=== PATIENT | female | born 1975 | race Caucasian/White ===

== ENCOUNTER 2020-02-01 18:25 | Emergency (ER) | payer OTHER, SELFPAY ==
[2020-02-01 18:51] VITALS: BP 141/92; PULSE 91; RESP 18; TEMP 37.3; O2SAT 98; BMI 41.4
[2020-02-01 19:11] LABS: Glucose Urine UA NEG (NEG); Leukocyte Esterase Urine NEG (NEG); Nitrite Urine NEG (NEG); Specific Gravity - Urine 1.015 (1.005-1.025); Urine Blood NEG (NEG); Urine Ketones NEG (NEG); Urine Protein NEG (NEG-TRACE)
[2020-02-01 19:12] LABS: Appearance Urine CLEAR; Color Urine YELLOW
[2020-02-01 20:17] VITALS: BP 143/95; PULSE 83; RESP 16; TEMP 37.1; O2SAT 97
--- NOTE | 2020-02-01 20:29 | CT_ITS ---
EXAMINATION: CT ABDOMEN AND PELVIS WITHOUT CONTRAST CLINICAL INFORMATION: 44-year-old female with left-sided flank pain. Rule out kidney stones. COMPARISON: CT abdomen pelvis 08/29/2019 TECHNIQUE: Multidetector volumetric imaging was performed from the superior aspect of the liver through the pubic symphysis. Sagittal and coronal reformatted images were obtained on the technologist's workstation. This CT examination was performed using dose optimization techniques as appropriate, variously including the following: *Automated exposure control *Adjustment of mA and/or kV according to patient size (this includes techniques or standardized protocols for targeted exams where dose is matched to indication/reason for exam; i.e. extremities or head) *Use of iterative reconstruction technique DLP: 1031 mGy-cm FINDINGS: Visualized lung bases are well aerated. The liver is normal in size but demonstrates diffusely decreased attenuation. The gallbladder is normal in appearance. The pancreas, spleen and adrenal glands are unremarkable. Symmetrically sized kidneys. No renal calculi or hydronephrosis of either kidney. Small cyst within the upper pole of the left kidney. Normal caliber loops of small and large bowel. Normal appendix. Similar tiny periumbilical fat-containing hernia. Nonaneurysmal abdominal aorta. No retroperitoneal lymphadenopathy. The bladder is decompressed and therefore not accurately evaluated. Unremarkable CT appearance of the uterus. 2 cm left adnexal cyst. No gross free pelvic fluid. No inguinal lymphadenopathy. Mild degenerative changes of the spine. CT/CT abdomen pelvis wo con IMPRESSION: -No renal calculi or hydronephrosis of either kidney. -Diffusely decreased liver attenuation suggesting hepatic steatosis. Correlation with liver enzymes recommended. -Small left adnexal cyst.
--- NOTE | 2020-02-01 20:35 | ED.FEMALEGU ---
HPI - Female Genitourinary General Chief complaint: Urogenital-Female Stated complaint: KIDNEY PAIN Time Seen by Provider: 02/01/20 20:23 History of Present Illness HPI Narrative: Patient complains of left flank pain similar to prior kidney stone and some burning with urination for the past 4 days, there is nausea but no vomiting, she is able to tolerate liquids and solids she has no diarrhea no fever no chills, no blood in the stool, no dizziness no weakness no cough Related Data Allergies Allergy/AdvReac Type Severity Reaction Status Date / Time diphenhydramine Allergy Unknown HIVES Verified 02/01/20 18:50 [From BENADRYL] meloxicam [MELOXICAM] Allergy Unknown RASH Verified 02/01/20 18:50 penicillin G Allergy Unknown Anaphylaxis Verified 02/01/20 18:50 Penicillins [PENICILLINS] Allergy Unknown ANAPHYLAXIS Verified 02/01/20 18:50 Sulfa (Sulfonamide Allergy Unknown HIVES Verified 02/01/20 18:50 Antibiotics) [SULFA (SULFONAMIDE ANTIBIOTICS)] sulfur Allergy Unknown Hives Verified 02/01/20 18:50 Benadryl Allergy Unknown Hives Uncoded 02/01/20 18:50 Review of Systems Review of Systems: Positive for left back and flank pain, as well as burning with urination There is no headache no fever no chills no weakness no anorexia no dizziness, no chest pain or shortness of breath no cough no sore throat no abdomen pain there is nausea but no vomiting or diarrhea, there is no skin rash there is no leg swelling there is no calf pain, there is no confusion or weakness [facility] LAT[facility] Past Medical History Attestation statement: The following information was validated with the patient. [facility], LAT[facility] Narrative: Medical history is positive for diabetes kidney stone back pain and hypertension No smoking or alcohol Medical History (Updated 02/01/20 @ 18:53 by Niya Jones) Diabetes Hiatal hernia Kidney stone Surgical History (Updated 02/01/20 @ 18:53 by Niya Jones) H/O Spinal surgery Social History Social History Smoking Status: Former smoker Substance Use Type: Marijuana Advance Directives: No Advance Directives Information Provided: Yes Physical Exam Vital Signs: Vital Signs: Last Vital Signs Temp 98.7 F 02/01/20 20:17 Pulse 83 02/01/20 20:17 Resp 16 11/17/20 20:17 BP 143/95 H 02/01/20 20:17 Pulse Ox 97 02/01/20 20:17 Body Mass Index 41.4 No acute distress, a and O x3, comfortable appearing The head is normocephalic atraumatic The pharynx is clear the mucous membranes are moist The chest is clear to auscultation bilaterally, no adventitious sounds no tenderness to the chest wall no respiratory distress The heart no murmur The abdomen is soft nontender no rebound no guarding The back exam there is left flank and left mid back tenderness as well as left CVA tenderness, there is no bony tenderness, pain is not reproduced with movement, skin is normal without rash, no redness or warmth Extremities is full range of motion x4 Neuro is no focal deficit, no motor sensory deficit Course Course Course Narrative: Patient with left flank pain and some burning on urination for 4 days was seen earlier today for this same complaint by her doctor who got an ultrasound which did not reveal any kidney stones or explanation for her pain, as well as urinalysis which was normal Plan is we will repeat the urinalysis she will go for a CT scan and will check labs as well as treat the nausea and the pain with Zofran and Toradol 21:00 the case is signed out to physician product safety technical assistant perez to follow labs, follow CT scan re-evaluated and dispo patient MDM - Female Genitourinary Lab Data Result diagrams: 02/01/20 20:46 02/01/20 20:46 Labs: Lab Results 02/01/20 02/01/20 02/01/20 Range/Units 19:03 20:46 20:46 WBC 14.6 H (4.8-10.8) X10*3/uL RBC 4.58 (4.20-5.50) X10*6/uL Hgb 13.8 (12.0-16.0) g/dl Hct 40.4 (37-47) % MCV 88.2 (80-98) fL MCH 30.1 (27.0-33.0) pg MCHC 34.2 (31.0-35.0) g/dl RDW 12.1 (11.0-16.0) % Plt Count 367 (160-400) X10*3/uL MPV 9.9 (9.4-12.3) fL Immature Gran % (Auto) 0.3 (0.0-0.4) % Neut % (Auto) 54.7 (45-73) % Lymph % (Auto) 34.3 (20-40) % [place] % (Auto) 4.9 (2-11) % Eos % (Auto) 5.4 H (0-4) % Baso % (Auto) 0.4 (0-2) % Lymph # (Auto) 5.0 H (1.2-4.9) X10*3/uL [place] # (Auto) 0.7 (0.1-1.2) X10*3/uL Eos # (Auto) 0.8 H (0.0-0.4) X10*3/uL Baso # (Auto) 0.1 (0.0-0.2) X10*3/uL Abs Immat Gran (auto) 0.05 H (0.00-0.03) X10*3/uL Absolute Neuts (auto) 8.0 (2.0-8.3) X10*3/uL Absolute Nucleated RBC 0.000 (0.0-0.012) X10*3/uL Nucleated RBC % (auto) 0.0 (0.0-0.2) /100WBC Smear Tech's Comments VERIFIED Sodium 140 (135-145) mmol/L Potassium 3.8 (3.3-5.1) mmol/l Chloride 103 (96-108) mmol/L Carbon Dioxide 27 (22-29) mmol/L Anion Gap 14 (12-20) BUN 12 (9-16) mg/dL Creatinine 0.94 (0.5-1.4) mg/dL Estim Creat Clear Calc 88.1 Estimated GFR > 60 Random Glucose 117 H (60-115) mg/dL Calcium 9.1 (8.4-10.2) mg/dL Total Bilirubin 0.6 (0.0-1.0) mg/dL Direct Bilirubin 0.2 (0.0-0.5) mg/dL AST 21 (5-31) U/L ALT 37 H (0-31) U/L Alkaline Phosphatase 84 (39-117) U/L Total Protein 6.9 (6.5-8.0) g/dL Albumin 4.1 (3.5-5.0) g/dL Lipase 23 (8-78) U/L Urine Color YELLOW Urine Appearance CLEAR Urine pH 6.0 (5.0-8.0) Ur Specific [place] 1.015 (1.005-1.025) Urine Protein NEG (NEG-TRACE) MG/DL Urine Glucose (UA) NEG (NEG) MG/DL Urine Ketones NEG (NEG) MG/DL Urine Blood NEG (NEG) Urine Nitrite NEG (NEG) Ur Leukocyte Esterase NEG (NEG)
[2020-02-01 20:52] LABS: Basophils Absolute Auto 0.1 X10*3/uL (0.0-0.2); Basophils Percent Auto 0.4 % (0-2); Eosinophils Absolute Auto 0.8 X10*3/uL (0.0-0.4); Eosinophils Percent Auto 5.4 % (0-4); Hematocrit 40.4 % (37-47); Hemoglobin 13.8 g/dl (12.0-16.0); Imm Gran Abs Auto 0.05 X10*3/uL (0.00-0.03); Imm Gran Pct Auto 0.3 % (0.0-0.4); Lymphocytes Percent Auto 34.3 % (20-40); MANUAL DIFF FLAG SCAN; Mean Corpuscular HGB Conc 34.2 g/dl (31.0-35.0); Mean Corpuscular Hemoglobin 30.1 pg (27.0-33.0); Mean Corpuscular Volume 88.2 fL (80-98); Mean Platelet Volume 9.9 fL (9.4-12.3); Monocytes Absolute Auto 0.7 X10*3/uL (0.1-1.2); Monocytes Percent Auto 4.9 % (2-11); Neutrophils Percent Auto 54.7 % (45-73); Platelet Count 367 X10*3/uL (160-400); Red Blood Count 4.58 X10*6/uL (4.20-5.50); Red Cell Distribution Width 12.1 % (11.0-16.0); SCAN SMEAR FLAG 1; White Blood Count 14.6 X10*3/uL (4.8-10.8)
[2020-02-01] MEDS: Ketorolac Tromethamine 30 MG/ML VIAL IVPUSH (20:58)
[2020-02-01 21:11] LABS: SLIDE REVIEW VERIFIED
[2020-02-01 21:16] LABS: Alanine Aminotransferase 37 U/L (0-31); Albumin Level 4.1 g/dL (3.5-5.0); Alkaline Phosphatase 84 U/L (39-117); Anion Gap 14 (12-20); Aspartate Amino Transferase 21 U/L (5-31); Bilirubin Direct 0.2 mg/dL (0.0-0.5); Bilirubin Total 0.6 mg/dL (0.0-1.0); Blood Urea Nitrogen 12 mg/dL (9-16); Calcium 9.1 mg/dL (8.4-10.2); Carbon Dioxide 27 mmol/L (22-29); Chloride 103 mmol/L (96-108); Creatinine Clr Calc Pharmacy 88.1; Estimated Glomerular Filt Rate > 60; Glucose Random 117 mg/dL (60-115); Lipase 23 U/L (8-78); Potassium 3.8 mmol/l (3.3-5.1); Sodium 140 mmol/L (135-145); Total Protein 6.9 g/dL (6.5-8.0)
[2020-02-01 21:22] LABS: Glucose Urine UA NEG (NEG); Leukocyte Esterase Urine NEG (NEG); Nitrite Urine NEG (NEG); Urine Blood NEG (NEG); Urine Ketones NEG (NEG); Urine Protein NEG (NEG-TRACE)
[2020-02-01 21:23] LABS: Appearance Urine CLEAR; Color Urine YELLOW
[2020-02-01 21:24] LABS: UPreg QC Valid YES; Urine Pregnancy NEGATIVE (NEGATIVE)
[2020-02-01] MEDS: Acetaminophen 325 MG TABLET 650 MG PO (22:54)
[2020-02-01] MEDS: Lidocaine 4 % Patch ADH..PATCH 1 PATCH TRANSDERMA (22:56)
--- NOTE | 2020-02-01 23:16 | PC.NURSE ---
PT REQUESTING MEDICATION FOR SLEEP AND NAKITA GUERRERO AWARE AND WILL NOT PRESCRIBE ANYTHING AT THIS TIME FOR SLEEP PT WILL NEED TO F/U WITH PCP FOR SLEEP MEDICATION.
== END 2020-02-01 23:16 | disposition home or self-care (01) ==
PROVIDERS: Physician Assistant Medical; Emergency Provider Emergency Medicine; PCP Family Medicine
DX: R10.9 Unspecified abdominal pain (principal); R30.0 Dysuria; F12.90 Cannabis use, unspecified, uncomplicated; Z87.891 Personal history of nicotine dependence
CPT/HCPCS: 36415; 74176; 80048; 80076; 81003; 81025; 83690; 85025; 96372; 96374; 99284; J1885

== ENCOUNTER 2020-02-03 15:32 | Outpatient (REF) | payer OTHER, SELFPAY ==
[2020-02-04 13:20] LABS: CT PCR NOT DETECTED (Not Detect.); NG PCR NOT DETECTED (Not Detect.)
[2020-02-09 15:57] LABS: HPV mRNA E6/E7 rflx Not Detected (Not Detected)
== END 2020-02-03 15:33 | disposition home or self-care (01) ==
LOC: HO.LAB 15:32
PROVIDERS: PCP Family Medicine; Referring Provider Family Medicine; Visit Provider Obstetrics & Gynecology
DX: N92.1 Excessive and frequent menstruation with irregular cycle (principal); L68.0 Hirsutism; Z12.31 Encounter for screening mammogram for malignant neoplasm of breast
CPT/HCPCS: 87491; 87591; 87624; 87625; 88142

== ENCOUNTER 2020-02-03 16:32 | Outpatient (REF) | payer OTHER, SELFPAY ==
[2020-02-03 17:28] LABS: Hemoglobin 13.8 g/dl (12.0-16.0); Mean Corpuscular HGB Conc 33.7 g/dl (31.0-35.0); Mean Corpuscular Volume 89.1 fL (80-98); Mean Platelet Volume 10.6 fL (9.4-12.3); Platelet Count 359 X10*3/uL (160-400); Red Cell Distribution Width 12.2 % (11.0-16.0); White Blood Count 13.5 X10*3/uL (4.8-10.8)
[2020-02-03 18:09] LABS: HCG Quantitative < 2 mIU/mL; Thyroid Stimulating Hormone 0.48 uIU/mL (0.32-4.0)
[2020-02-04 09:56] LABS: Follicle Stimulating Hormone 18.2 mIU/mL; Lutenizing Hormone 16.9 mIU/mL; Prolactin 6.4 ng/mL
[2020-02-05 03:47] LABS: DHEA Sulfate 130 mcg/dL (19-231)
[2020-02-07 21:23] LABS: Testosterone, Free 2.7 pg/mL (0.1-6.4); Testosterone, Total 24 ng/dL (2-45)
== END 2020-02-03 16:33 | disposition home or self-care (01) ==
LOC: HO.LAB 16:32
PROVIDERS: PCP Family Medicine; Visit Provider Obstetrics & Gynecology
DX: L68.0 Hirsutism (principal); N92.1 Excessive and frequent menstruation with irregular cycle
CPT/HCPCS: 36415; 82627; 83001; 83002; 83498; 84146; 84402; 84403; 84443; 84702; 85027

== ENCOUNTER 2020-02-22 15:30 | Outpatient (REF) | payer OTHER, SELFPAY ==
--- NOTE | 2020-02-22 15:34 | US_ITS ---
EXAMINATION: PELVIC ULTRASOUND CLINICAL INFORMATION: Hirsutism COMPARISON: None TECHNIQUE: Transabdominal and transvaginal pelvic ultrasound was performed. Transvaginal exam was performed for better visualization of the uterus and ovaries. FINDINGS: The uterus is anteverted and measures 9.6 x 3.1 x 5 cm in dimension. No focal uterine lesion is seen. Endometrial thickness is normal estimated at 0.4 cm. There are nabothian cysts in the cervix. The cervix is otherwise normal appearing. The ovaries are slightly small but otherwise normal. The right ovary measures 2.5 x 1.2 x 1.9 cm, volume 2.9 mL. The left ovary measures 2.7 x 1.7 x 1.5 cm, volume 3.5 mL. There is no fluid in the pelvis. US/US pelvic complete IMPRESSION: Unremarkable pelvic ultrasound. Ovaries are slightly small.
--- NOTE | 2020-02-22 15:34 | US_ITS ---
EXAMINATION: PELVIC ULTRASOUND CLINICAL INFORMATION: Hirsutism COMPARISON: None TECHNIQUE: Transabdominal and transvaginal pelvic ultrasound was performed. Transvaginal exam was performed for better visualization of the uterus and ovaries. FINDINGS: The uterus is anteverted and measures 9.6 x 3.1 x 5 cm in dimension. No focal uterine lesion is seen. Endometrial thickness is normal estimated at 0.4 cm. There are nabothian cysts in the cervix. The cervix is otherwise normal appearing. The ovaries are slightly small but otherwise normal. The right ovary measures 2.5 x 1.2 x 1.9 cm, volume 2.9 mL. The left ovary measures 2.7 x 1.7 x 1.5 cm, volume 3.5 mL. There is no fluid in the pelvis. US/US transvaginal IMPRESSION: Unremarkable pelvic ultrasound. Ovaries are slightly small.
== END 2020-02-22 15:31 | disposition home or self-care (01) ==
LOC: HO.US 15:30
PROVIDERS: Visit Provider Obstetrics & Gynecology
DX: L68.0 Hirsutism (principal); N92.1 Excessive and frequent menstruation with irregular cycle
CPT/HCPCS: 76830; 76856

== ENCOUNTER → 2020-02-28 15:08 | Outpatient (BNVA) | payer OTHER, SELFPAY | PROVIDERS: Visit Provider Obstetrics & Gynecology | DX: Z76.89 Persons encountering health services in other specified circumstances (principal) ==

== ENCOUNTER 2020-03-02 12:46 | Outpatient (REF) | payer OTHER, SELFPAY | END 2020-03-02 12:47 | disposition home or self-care (01) | LOC: HO.LAB 12:46 | PROVIDERS: Visit Provider Obstetrics & Gynecology | DX: N92.1 Excessive and frequent menstruation with irregular cycle (principal) | CPT/HCPCS: 58100; 88305 ==

== ENCOUNTER 2020-03-03 18:21 | Emergency (ER) | payer OTHER, SELFPAY ==
[2020-03-03 18:31] VITALS: BP 141/89; PULSE 79; RESP 16; TEMP 36.7; O2SAT 97; BMI 39.4
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
[2020-03-03] MEDS: Ibuprofen 800 MG TABLET PO (19:42)
[2020-03-03 19:49] LABS: Glucose, Whole Blood 115 mg/dL (60-115)
--- NOTE | 2020-03-03 19:51 | PC.NURSE ---
PT MEDICATED PER EMAR FOR PAIN AND NUMBNESS IN LEFT ARM . PT ALERT, AWAKE, RESPIRATIONS EASY, N/L. SKIN W/D. PT MOVED TO HALLWAY #22. PT WAS FEELING LIGHTHEADED AND IS REQUESTING BS. BS OBTAINED 116. PT EATING CRACKERS. AWAITING FURTHER ORDERS. WILL CONTINUE TO MONITOR PT.
== END 2020-03-03 20:37 | disposition home or self-care (01) ==
PROVIDERS: Emergency Provider Emergency Medicine
DX: S16.1XXA Strain of muscle, fascia and tendon at neck level, initial encounter (principal); S13.4XXA Sprain of ligaments of cervical spine, initial encounter; V43.52XA Car driver injured in collision with other type car in traffic accident, initial encounter; Y93.89 Activity, other specified; Y92.414 Local residential or business street as the place of occurrence of the external cause; Y99.9 Unspecified external cause status
CPT/HCPCS: 72040; 73030; 82947; 99283

== ENCOUNTER → 2020-03-20 14:43 | Outpatient (BNVA) | payer OTHER, SELFPAY | PROVIDERS: PCP Family Medicine; Visit Provider Obstetrics & Gynecology ==

== ENCOUNTER 2020-04-01 13:58 | Outpatient (REF) | payer OTHER, SELFPAY ==
--- NOTE | 2020-04-01 14:02 | MM_ITS ---
EXAMINATION: MM SCREENING DIGITAL BREAST TOMOSYNTHESIS, BILATERAL CLINICAL INFORMATION: Screening. Asymptomatic. No prior breast imaging. Age 44. Family history breast cancer cousin. The lifetime risk of breast cancer based on the Tyrer-Cuzick Model is 11%. COMPARISON: None (current study represents initial baseline exam). TECHNIQUE: Digital breast tomosynthesis is performed in both the craniocaudal and mediolateral oblique views along with computer-aided detection (CAD). Synthesized 2D images are generated from the tomosynthesis. Additional left CC and bilateral MLO views are provided. FINDINGS: There are scattered areas of fibroglandular density (ACR BI-RADS breast composition Category b). There are no significant masses, abnormal calcifications, or other abnormalities. The axilla and skin contours are unremarkable. MM/MM tomosynthesis screening BI IMPRESSION: No mammographic evidence of malignancy. ASSESSMENT: BI-RADS 1: Negative RECOMMENDATION: Routine annual mammography screening. This patient's information was entered into a reminder system with a target due date for their next mammogram.
== END 2020-04-01 13:59 | disposition home or self-care (01) ==
LOC: HO.MAMMO 13:58
PROVIDERS: Visit Provider Obstetrics & Gynecology
DX: Z12.31 Encounter for screening mammogram for malignant neoplasm of breast (principal)
CPT/HCPCS: 77063; 77067

== ENCOUNTER → 2020-06-26 12:48 | Outpatient (BNVA) | payer OTHER, SELFPAY | PROVIDERS: PCP Family Medicine; Visit Provider Obstetrics & Gynecology ==

== ENCOUNTER 2021-06-22 15:50 | Emergency (ER) | payer OTHER, SELFPAY ==
--- NOTE | ~2021-06-22 | CT_ITS ---
EXAMINATION: CT ABDOMEN AND PELVIS WITHOUT CONTRAST CLINICAL INFORMATION: Left-sided flank pain COMPARISON: CT abdomen pelvis 08/19/2019 TECHNIQUE: Multidetector volumetric imaging was performed from the superior aspect of the liver through the pubic symphysis. Sagittal and coronal reformatted images were obtained on the technologist's workstation. This CT examination was performed using dose optimization techniques as appropriate, variously including the following: *Automated exposure control *Adjustment of mA and/or kV according to patient size (this includes techniques or standardized protocols for targeted exams where dose is matched to indication/reason for exam; i.e. extremities or head) *Use of iterative reconstruction technique DLP: 874 mGy-cm FINDINGS: LUNG BASES: Unremarkable. ABDOMINAL AND PELVIC WALL: Small fat-containing periumbilical hernia. Similar appearance of periumbilical subcutaneous fat stranding and soft tissue unchanged from 2020. LIVER AND BILIARY TREE: Hypoattenuating hepatic parenchyma suggesting hepatic steatosis with focal fat along the gallbladder fossa. Liver is enlarged measuring 20.9 cm in span. GALLBLADDER: Unremarkable. PANCREAS: Unremarkable. SPLEEN: Unremarkable. ADRENAL GLANDS: Unremarkable. KIDNEYS AND URETERS: Bosniak 1 and Bosniak 2 left renal cysts, no imaging follow-up recommended. No hydronephrosis or nephrolithiasis. GASTROINTESTINAL TRACT: Large and small bowel are unremarkable. Normal appendix. VASCULAR: Unremarkable. LYMPH NODES/PERITONEUM: Prominent teagan hepatic nodes stable from 2019 which may be reactive in the setting of hepatic steatosis. FREE FLUID: None. BLADDER: Unremarkable. PELVIC VISCERA: Unremarkable. OSSEOUS STRUCTURES: Unremarkable. CT/CT abdomen pelvis wo con IMPRESSION: No hydronephrosis or nephrolithiasis. Hepatomegaly and hepatic steatosis. Prominent teagan hepatic nodes stable from 2020 which may be reactive in the setting of hepatic steatosis.
[2021-06-22 16:06] VITALS: BP 126/90; PULSE 85; RESP 19; TEMP 36.9; O2SAT 99; BMI 40.7
[2021-06-22 16:17] LABS: MANUAL DIFF FLAG NO
[2021-06-22 16:19] LABS: Basophils Absolute Auto 0.1 X10*3/uL (0.0-0.2); Basophils Percent Auto 0.6 % (0-2); Eosinophils Absolute Auto 0.5 X10*3/uL (0.0-0.4); Eosinophils Percent Auto 3.9 % (0-4); Hematocrit 41.2 % (37.0-47.0); Hemoglobin 13.9 g/dl (12.0-16.0); Imm Gran Abs Auto 0.04 X10*3/uL (0.00-0.03); Imm Gran Pct Auto 0.3 % (0.0-0.4); Lymphocytes Absolute Auto 3.9 X10*3/uL (1.2-4.9); Lymphocytes Percent Auto 33.8 % (20-40); Mean Corpuscular HGB Conc 33.7 g/dl (31.0-35.0); Mean Corpuscular Hemoglobin 29.8 pg (27.0-33.0); Mean Corpuscular Volume 88.2 fL (80.0-98.0); Mean Platelet Volume 10.3 fL (9.4-12.3); Monocytes Absolute Auto 0.6 X10*3/uL (0.1-1.2); Monocytes Percent Auto 4.9 % (2-11); Neutrophils Absolute Auto 6.6 x10*3/uL (2.0-8.3); Neutrophils Percent Auto 56.5 % (45-73); Platelet Count 315 X10*3/uL (160-400); Red Blood Count 4.67 X10*6/uL (4.20-5.50); Red Cell Distribution Width 12.8 % (11.0-16.0); White Blood Count 11.7 X10*3/uL (4.8-10.8)
[2021-06-22 16:34] LABS: Alanine Aminotransferase 39 U/L (0-31); Alkaline Phosphatase 85 U/L (39-117); Anion Gap 12 (12-20); Aspartate Amino Transferase 20 U/L (5-31); Bilirubin Direct 0.2 mg/dL (0.0-0.5); Bilirubin Total 0.5 mg/dL (0.0-1.0); Blood Urea Nitrogen 11 mg/dL (9-16); Calcium 9.2 mg/dL (8.4-10.2); Carbon Dioxide 29 mmol/L (22-29); Chloride 105 mmol/L (96-108); Creatinine Clr Calc Pharmacy 94.4; Estimated Glomerular Filt Rate > 60; Glucose Random 128 mg/dL (60-115); Lipase 42 U/L (8-78); Potassium 4.3 mmol/L (3.3-5.1); Sodium 142 mmol/L (135-145); Total Protein 6.8 g/dL (6.5-8.0)
[2021-06-22 21:07] VITALS: BP 132/95; PULSE 76; RESP 18; TEMP 36.9; O2SAT 95
--- NOTE | 2021-06-22 21:09 | ED.FEMALEGU ---
HPI - Female Genitourinary General Chief complaint: Urogenital-Female Stated complaint: left flank pain Time Seen by Provider: 06/22/21 21:02 Source: patient Mode of arrival: ambulatory Limitations: no limitations History of Present Illness HPI Narrative: This is a 45-year-old female past medical history of diabetes, kidney stones presenting to the emergency department complaints of left-sided flank pain and nausea x1 day. Patient tells me she was seen a by her doctor who told her she needed to come into the emergency department immediately to be evaluated as she had a positive urine culture at her doctor's office. Patient showed me her phone which shows results of a urine positive streptococcal urine infection. Patient denies urinary frequency, urgency, dysuria. Patient tells me she has a history of kidney stones and ?kidney infection?. She also reports fevers at home T-max 101.7 degrees F. she denies chest pain, shortness of breath, vomiting, abdominal pain, concerns for STD/STI MD elicited complaint: flank pain Pertinent past history: diabetes and other ( kidney infection ) Onset (ago): day(s) (1) Severity: severe Female Urogenital Radiation: L Flank Severity scale (1-10): >10 Quality of pain: sharp Consistency: constant Vaginal discharge: none Vaginal bleeding: none Urinary symptoms: Flank Pain Exacerbating factors: none Relieving factors: none Associated symptoms: denies other symptoms Treatment prior to arrival: none Sexual activity: No Patient : Yes Related Data Home Medications Medication Instructions Recorded Confirmed alcohol swabs pad TOPICAL BID 02/03/20 03/20/20 blood sugar diagnostic #10 ea 02/03/20 03/20/20 ciprofloxacin HCl 250 mg tablet 250 mg PO BID 02/03/20 03/20/20 escitalopram oxalate 10 mg tablet 10 mg PO DAILY 02/03/20 03/20/20 fluconazole 150 mg tablet 150 mg PO 02/03/20 03/20/20 glyburide 5 mg tablet 5 mg PO DAILY 02/03/20 03/20/20 ibuprofen 800 mg tablet 800 mg PO TID 02/03/20 03/20/20 insulin lispro 100 unit/mL unit SUBCUT 02/03/20 03/20/20 subcutaneous pen lancets 28 gauge #100 ea 02/03/20 03/20/20 lisinopril 5 mg tablet 5 mg PO DAILY 02/03/20 03/20/20 lorazepam 0.5 mg tablet 0.5 mg PO BEDTIME PRN 02/03/20 03/20/20 metformin 500 mg tablet,extended 1,000 mg PO BID 02/03/20 03/20/20 release 24 hr omeprazole 20 mg capsule,delayed 20 mg PO BID 02/03/20 03/20/20 release pen needle, diabetic 32 gauge x #50 ea 02/03/20 03/20/20 5/32 semaglutide mg SUBCUT 02/03/20 03/20/20 tamsulosin 0.4 mg capsule 0.4 mg PO DAILY 02/03/20 03/20/20 valacyclovir 1 gram tablet 1,000 mg PO TID 02/03/20 03/20/20 ketoconazole 2 % topical cream 1 appl TOPICAL DAILY 03/20/20 03/20/20 nystatin 100,000 unit/gram topical TOPICAL 03/20/20 03/20/20 powder Previous Rx's Medication Instructions Recorded cyclobenzaprine 10 mg tablet 10 mg PO TID PRN #14 tab 03/03/20 medroxyprogesterone 10 mg tablet 10 mg PO daily 10 Days #30 tab 03/20/20 (Provera) cyclobenzaprine 10 mg tablet 10 mg PO BEDTIME PRN #7 tab 06/23/21 lidocaine 5 % topical patch 1 patch TOPICAL DAILY PRN #15 ea 06/23/21 nitrofurantoin 100 mg PO BID 7 Days #14 cap 06/23/21 monohydrate/macrocrystals 100 mg capsule (Macrobid) Allergies Allergy/AdvReac Type Severity Reaction Status Date / Time diphenhydramine Allergy Unknown HIVES Verified 06/22/21 16:10 [From BENADRYL] meloxicam [MELOXICAM] Allergy Unknown RASH Verified 06/22/21 16:10 penicillin G Allergy Unknown Anaphylaxis Verified 06/22/21 16:10 Penicillins [PENICILLINS] Allergy Unknown ANAPHYLAXIS Verified 06/22/21 16:10 Sulfa (Sulfonamide Allergy Unknown HIVES Verified 06/22/21 16:10 Antibiotics) [SULFA (SULFONAMIDE ANTIBIOTICS)] sulfur Allergy Unknown Hives Verified 06/22/21 16:10 Benadryl Allergy Unknown Hives Uncoded 06/22/21 16:10 Review of Systems Review of Systems: Constitutional : No Weight loss, No Fever, No Chills, No Fatigue, No Malaise ENT/Mouth : No sore throat, No Rhinorrhea Eyes: No Eye Pain, No Swelling, No Redness Cardiovascular : No Chest Pain, No SOB, No Dyspnea on Exertion, No Orthopnea, No Edema, No Palpitations Respiratory : No Cough, No Sputum, No Wheezing Gastrointestinal : No Nausea, No Vomiting, No Diarrhea, No Constipation, No abdominal Pain, No Hematochezia, No Melena Genitourinary : No Dysuria, No Urinary Frequency, No Hematuria, Musculoskeletal : No joint pain, No Myalgias, No Joint Swelling, + flank pain Skin : No Skin Lesions, No rash Neuro : No Weakness, No Numbness, No Dizziness, No Headache Psych : No Anxiety/Panic, No Depression All other systems reviewed and are negative Yes all other systems are reviewed and are negative [facility] Past Medical History Attestation statement: The following information was validated with the patient. Source: old records reviewed and nursing notes reviewed Medical History Diabetes Hiatal hernia Kidney stone Surgical History H/O Spinal surgery Social History Social History Alcohol intake: never Substance Use Type: Marijuana Advance Directives: No Advance Directives Information Provided: No Patient : Yes Sexual orientation: Straight/Heterosexual Gender identity: Female Physical Exam Vital Signs: Vital Signs: Last Vital Signs Temp 97.8 F 06/23/21 01:59 Pulse 66 06/23/21 01:59 Resp 16 06/23/21 01:59 BP 148/87 H 06/23/21 01:59 Pulse Ox 95 06/23/21 01:59 BMI result Body Mass Index 40.7 Vital signs stable Appearance: Alert.? Oriented X3.? No acute distress.? Head: Normocephalic, atraumatic, no step-offs or deformities Eyes: Pupils equal, round and reactive to light.? ENT: Pharynx normal.? Neck: Normal inspection.? Neck supple.? CVS: Normal heart rate and rhythm.? Pulses normal.? Respiratory: No respiratory distress.? Breath sounds normal.? Abdomen: Soft and nontender.? Skin: Skin warm and dry.? Normal skin color.? Normal skin turgor.? Extremities: No lower extremity edema.? No calf ttp. 5/5 strength to bilateral upper and lower extremities Back: No midline tenderness, no C-spine tenderness, full range of motion, + CVA tenderness on the left Neuro: Oriented X 3.? No motor deficit.? No sensory deficit. CN 2-12 intact Course Reevaluation(s) Reevaluation #1: Patient noted to have a leukocytosis however this appears to be patient's baseline. No acute electrolyte abnormalities. Beta-hCG negative. Urine with no acute infection. COVID negative. CT of the abdomen and pelvis with no hydronephrosis or nephrolithiasis. Hepatosteatosis and hepatomegaly are noted. There are prominent teagan hepatic nodes stable from 2020. Patient reports that her left flank pain has improved after morphine. She still reports nausea. An additional dose of Zofran will be given. Patient will be discharged home with muscle relaxer, lidocaine patch and naproxen. Patient tells me that her urine culture at her doctor's office was positive and she would like treatment for UTI. I will prescribed to patient however she denied urinary symptoms to me. Time: 03:29 MDM - Female Genitourinary MDM Narrative Medical decision making narrative: 2[address] 45 yo female presents w/ concerns of UTI (told by her pcp) and severe left-sided flank pain and nausea. Physical examination significant for positive CVA tenderness on the left. History and physical concerning for pyelonephritis, UTI, nephro lithiasis Plan at this time lab tests, urine, CT of the abdomen pelvis without contrast to rule out kidney stones, pyelo. Medical Records Attestation: I reviewed the patient's medical records. Lab Data Attestation: I reviewed the patient's lab results. Result diagrams: 06/22/21 16:12 06/22/21 21:23 Labs: Lab Results 06/22/21 06/22/21 06/22/21 Range/Units 16:12 16:12 21:23 WBC 11.7 H (4.8-10.8) X10*3/uL RBC 4.67 (4.20-5.50) X10*6/uL Hgb 13.9 (12.0-16.0) g/dl Hct 41.2 (37.0-47.0) % MCV 88.2 (80.0-98.0) fL MCH 29.8 (27.0-33.0) pg MCHC 33.7 (31.0-35.0) g/dl RDW 12.8 (11.0-16.0) % Plt Count 315 (160-400) X10*3/uL MPV 10.3 (9.4-12.3) fL Immature Gran % (Auto) 0.3 (0.0-0.4) % Neut % (Auto) 56.5 (45-73) % Lymph % (Auto) 33.8 (20-40) % [place] % (Auto) 4.9 (2-11) % Eos % (Auto) 3.9 (0-4) % Baso % (Auto) 0.6 (0-2) % Lymph # (Auto) 3.9 (1.2-4.9) X10*3/uL [place] # (Auto) 0.6 (0.1-1.2) X10*3/uL Eos # (Auto) 0.5 H (0.0-0.4) X10*3/uL Baso # (Auto) 0.1 (0.0-0.2) X10*3/uL Abs Immat Gran (auto) 0.04 H (0.00-0.03) X10*3/uL Absolute Neuts (auto) 6.6 (2.0-8.3) x10*3/uL Absolute Nucleated RBC 0.000 (0.0-0.012) X10*3/uL Nucleated RBC % (auto) 0.0 (0.0-0.2) /100WBC Sodium 142 141 (135-145) mmol/L Potassium 4.3 4.3 (3.3-5.1) mmol/L Chloride 105 105 (96-108) mmol/L Carbon Dioxide 29 26 (22-29) mmol/L Anion Gap 12 14 (12-20) BUN 11 13 (9-16) mg/dL Creatinine 0.86 0.82 (0.5-1.4) mg/dL Estim Creat Clear Calc 94.4 98.9 Estimated GFR > 60 > 60 Random Glucose 128 H 101 (60-115) mg/dL Lactic Acid (0.5-2.0) mmol/L Calcium 9.2 9.4 (8.4-10.2) mg/dL Magnesium 2.0 (1.6-2.6) mg/dL Total Bilirubin 0.5 0.5 (0.0-1.0) mg/dL Direct Bilirubin 0.2 (0.0-0.5) mg/dL AST 20 25 (5-31) U/L ALT 39 H 39 H (0-31) U/L Alkaline Phosphatase 85 84 (39-117) U/L Total Protein 6.8 7.1 (6.5-8.0) g/dL Albumin 4.0 4.0 (3.5-5.0) g/dL Lipase 42 40 (8-78) U/L Beta HCG, Quant < 2 mIU/mL Urine Color Urine Appearance Urine pH (5.0-8.0) Ur Specific [place] (1.005-1.025) Urine Protein (NEG-TRACE) MG/DL Urine Glucose (UA) (NEG) MG/DL Urine Ketones (NEG) MG/DL Urine Blood (NEG) Urine Nitrite (NEG) Ur Leukocyte Esterase (NEG) COVID-19 (JONNATHAN) (Negative) COVID-19 Clin Com 06/22/21 06/22/21 06/22/21 Range/Units 21:23 21:24 23:11 WBC (4.8-10.8) X10*3/uL RBC (4.20-5.50) X10*6/uL Hgb (12.0-16.0) g/dl Hct (37.0-47.0) % MCV (80.0-98.0) fL MCH (27.0-33.0) pg MCHC (31.0-35.0) g/dl RDW (11.0-16.0) % Plt Count (160-400) X10*3/uL MPV (9.4-12.3) fL Immature Gran % (Auto) (0.0-0.4) % Neut % (Auto) (45-73) % Lymph % (Auto) (20-40) % [place] % (Auto) (2-11) % Eos % (Auto) (0-4) % Baso % (Auto) (0-2) % Lymph # (Auto) (1.2-4.9) X10*3/uL [place] # (Auto) (0.1-1.2) X10*3/uL Eos # (Auto) (0.0-0.4) X10*3/uL Baso # (Auto) (0.0-0.2) X10*3/uL Abs Immat Gran (auto) (0.00-0.03) X10*3/uL Absolute Neuts (auto) (2.0-8.3) x10*3/uL Absolute Nucleated RBC (0.0-0.012) X10*3/uL Nucleated RBC % (auto) (0.0-0.2) /100WBC Sodium (135-145) mmol/L Potassium (3.3-5.1) mmol/L Chloride (96-108) mmol/L Carbon Dioxide (22-29) mmol/L Anion Gap (12-20) BUN (9-16) mg/dL Creatinine (0.5-1.4) mg/dL Estim Creat Clear Calc Estimated GFR Random Glucose (60-115) mg/dL Lactic Acid 1.2 (0.5-2.0) mmol/L Calcium (8.4-10.2) mg/dL Magnesium (1.6-2.6) mg/dL Total Bilirubin (0.0-1.0) mg/dL Direct Bilirubin (0.0-0.5) mg/dL AST (5-31) U/L ALT (0-31) U/L Alkaline Phosphatase (39-117) U/L Total Protein (6.5-8.0) g/dL Albumin (3.5-5.0) g/dL Lipase (8-78) U/L Beta HCG, Quant mIU/mL Urine Color YELLOW Urine Appearance HAZY Urine pH 6.0 (5.0-8.0) Ur Specific [place] 1.025 (1.005-1.025) Urine Protein NEG (NEG-TRACE) MG/DL Urine Glucose (UA) NEG (NEG) MG/DL Urine Ketones NEG (NEG) MG/DL Urine Blood NEG (NEG) Urine Nitrite NEG (NEG) Ur Leukocyte Esterase NEG (NEG) COVID-19 (JONNATHAN) Negative (Negative) COVID-19 Clin Com See Note Critical Care Time Critical Care Time Critical Care Time: No Discharge Plan Discharge Clinical Impression: Flank pain, Nausea Patient Disposition: Home, Self-Care Instructions: Acute Nausea and Vomiting (ED), Flank Pain (ED) Additional Instructions: Take your medications as prescribed. If you were prescribed antibiotics today, it is important that you take your medication to their entirety, do not skip any doses, do not finish them early. Follow-up with your primary care provider this week. Return to the emergency department with new or worsening symptoms. Such as fevers, chills, chest pain, shortness of breath, nausea, vomiting, dizziness, headache, vision changes, lethargy, weakness, changes in urination or bowel habits In case of emergency call 911 You can alternate ibuprofen every 6 hours, Tylenol every 4 as needed for pain or discomfort. Cyclobenzaprine was sent to her pharmacy, this is a muscle relaxer. Please do not take this while driving or operating machinery. Prescriptions: New cyclobenzaprine 10 mg tablet 10 mg PO BEDTIME PRN (Reason: muscle spasm) Qty: 7 0RF lidocaine 5 % adhesive patch,medicated 1 patch topical DAILY PRN (Reason: pain) Qty: 15 0RF Rx Instructions: leave on most painful area for up to 12 hrs nitrofurantoin monohyd/m-cryst [Macrobid] 100 mg capsule 100 mg PO BID 7 Days Qty: 14 0RF Rx Instructions: must administer with a meal/food No Action cyclobenzaprine 10 mg tablet 10 mg PO TID PRN (Reason: muscle spasm) Qty: 14 0RF ciprofloxacin HCl 250 mg tablet 250 mg PO BID 0RF lisinopril 5 mg tablet 5 mg PO DAILY 0RF Ozempic 0.25 mg or 0.5 mg(2 mg/1.5 mL) pen injector subcut 0RF escitalopram oxalate 10 mg tablet 10 mg PO DAILY 0RF insulin lispro 100 unit/mL insulin pen subcut 0RF tamsulosin 0.4 mg capsule 0.4 mg PO DAILY 0RF ibuprofen 800 mg tablet 800 mg PO TID 0RF lorazepam 0.5 mg tablet 0.5 mg PO BEDTIME PRN (Reason: insomnia) 0RF valacyclovir 1 gram tablet 1,000 mg PO TID 0RF (DME) lancets 28 gauge misc See Rx Instructions gauge Not Applicable .MEDSUPPLY Qty: 100 0RF Rx Instructions: As directed (DME) FreeStyle Lite Strips Strip See Rx Instructions strip Not Applicable .MEDSUPPLY Qty: 10 0RF Rx Instructions: As directed (DME) pen needle, diabetic 32 gauge x 5/32 needle See Rx Instructions ea subcut .MEDSUPPLY Qty: 50 0RF Rx Instructions: As directed alcohol swabs Pads, Medicated topical BID 0RF metformin 500 mg tablet extended release 24 hr 1,000 mg PO BID 0RF fluconazole 150 mg tablet 150 mg PO 0RF glyburide 5 mg tablet 5 mg PO DAILY 0RF omeprazole 20 mg capsule,delayed release(DR/EC) 20 mg PO BID 0RF ketoconazole 2 % cream 1 appl topical DAILY 0RF nystatin 100,000 unit/gram powder topical 0RF medroxyprogesterone [Provera] 10 mg tablet 10 mg PO daily 10 Days Qty: 30 1RF Rx Instructions: Start on day 15 to day 24 of every cycle, day 1 being the 1st day of menses. Referrals: Physician,Unknown J [Primary Care Provider] - 2 days Stand Alone Forms: Work/School Release
[2021-06-22] MEDS: 0.9 % Sodium Chloride 1,000 ML 999 ML IV (21:31)
[2021-06-22 21:49] LABS: Lactic Acid 1.2 mmol/L (0.5-2.0)
[2021-06-22 21:52] LABS: COVID-19 Test Negative (Negative)
[2021-06-22 21:54] LABS: Alanine Aminotransferase 39 U/L (0-31); Alkaline Phosphatase 84 U/L (39-117); Anion Gap 14 (12-20); Aspartate Amino Transferase 25 U/L (5-31); Bilirubin Total 0.5 mg/dL (0.0-1.0); Blood Urea Nitrogen 13 mg/dL (9-16); Calcium 9.4 mg/dL (8.4-10.2); Carbon Dioxide 26 mmol/L (22-29); Chloride 105 mmol/L (96-108); Creatinine Clr Calc Pharmacy 98.9; Estimated Glomerular Filt Rate > 60; Glucose Random 101 mg/dL (60-115); Lipase 40 U/L (8-78); Potassium 4.3 mmol/L (3.3-5.1); Sodium 141 mmol/L (135-145); Total Protein 7.1 g/dL (6.5-8.0)
[2021-06-22] MEDS: Morphine Sulfate 4 MG/ML CARTRIDGE IVPUSH (21:56)
[2021-06-22 21:59] LABS: HCG Quantitative < 2 mIU/mL
[2021-06-22 23:19] LABS: Appearance Urine HAZY; Color Urine YELLOW; Glucose Urine UA NEG (NEG); Leukocyte Esterase Urine NEG (NEG); Nitrite Urine NEG (NEG); Specific Gravity - Urine 1.025 (1.005-1.025); Urine Blood NEG (NEG); Urine Ketones NEG (NEG); Urine Protein NEG (NEG-TRACE)
[2021-06-23] MEDS: Morphine Sulfate 4 MG/ML CARTRIDGE IVPUSH (00:03)
[2021-06-23] MEDS: 0.9 % Sodium Chloride 1,000 ML 999 ML IV (00:04)
[2021-06-23 00:15] VITALS: BP 113/78; PULSE 75; RESP 18; O2SAT 97
[2021-06-23 01:59] VITALS: BP 148/87; PULSE 66; RESP 16; TEMP 36.6; O2SAT 95
[2021-06-23] MEDS: ondansetron HCL 4 MG/2 ML VIAL IVPUSH (03:40)
== END 2021-06-23 03:58 | disposition home or self-care (01) ==
PROVIDERS: Physician Assistant; Emergency Provider Emergency Medicine
DX: R10.9 Unspecified abdominal pain (principal); R11.0 Nausea; Z79.899 Other long term (current) drug therapy; Z20.822 Contact with and (suspected) exposure to COVID-19
CPT/HCPCS: 36415; 74176; 80048; 80053; 80076; 81003; 83605; 83690; 83735; 84702; 85025; 87040; 87635; 96361; 96374; 96375; 96376; 99284; J2270; J2405

== ENCOUNTER 2021-07-19 14:05 | Outpatient (REF) | payer OTHER, SELFPAY ==
--- NOTE | ~2021-07-19 | MM_ITS ---
EXAMINATION: MM SCREENING DIGITAL BREAST TOMOSYNTHESIS, BILATERAL CLINICAL INFORMATION: Screening. Asymptomatic. The lifetime risk of breast cancer based on the Tyrer-Cuzick Model is 11.0%. COMPARISON: Mammography: April 01, 2020 TECHNIQUE: Digital breast tomosynthesis is performed in both the craniocaudal and mediolateral oblique views along with computer-aided detection (CAD). Synthesized 2D images are generated from the tomosynthesis. FINDINGS: The breasts are heterogeneously dense, which may obscure small masses (ACR BI-RADS breast composition Category c). There are no significant masses, abnormal calcifications, or other abnormalities. MM/MM tomosynthesis screening BI IMPRESSION: There are no significant changes from prior study. ASSESSMENT: BI-RADS 1: Negative RECOMMENDATION: Routine annual mammography screening. This patient's information was entered into a reminder system with a target due date for their next mammogram.
== END 2021-07-19 14:06 | disposition home or self-care (01) ==
LOC: HO.MAMMO 14:05
PROVIDERS: Visit Provider Physician Assistant
DX: Z12.31 Encounter for screening mammogram for malignant neoplasm of breast (principal)
CPT/HCPCS: 77063; 77067

== ENCOUNTER 2021-09-04 16:09 | Emergency (ER) | payer OTHER, SELFPAY ==
--- NOTE | ~2021-09-04 | CT_ITS ---
EXAMINATION: CT abdomen pelvis wo con CLINICAL INFORMATION: Reason for Exam flank pain/abdominal pain COMPARISON: Prior CT June 2021 TECHNIQUE: Multidetector volumetric imaging was performed from the superior aspect of the liver through the pubic symphysis . Study done without contrast. Sagittal and coronal reformatted images were obtained on the technologist's workstation. This CT examination was performed using dose optimization techniques as appropriate, variously including the following: *Automated exposure control *Adjustment of mA and/or kV according to patient size (this includes techniques or standardized protocols for targeted exams where dose is matched to indication/reason for exam; i.e. extremities or head) *Use of iterative reconstruction technique DLP: 973 mGy-cm FINDINGS: LOWER THORAX: Included lung bases are clear. HEPATOBILIARY: No focal hepatic lesions. No biliary ductal dilatation. GALLBLADDER: Gallbladder unremarkable. SPLEEN: Spleen is normal in size. PANCREAS: No focal mass or ductal dilatation. STOMACH AND GASTROINTESTINAL TRACT: Stomach is grossly unremarkable. There is no bowel distention or thickening. No CT evidence of appendicitis. ADRENALS: No adrenal nodules. KIDNEYS/URETERS: There is a complex cystic structure upper pole left kidney measures 2.2 x 2 cm containing fluid and hyperdense material could be calcification, this has not changed. No kidney stone or hydronephrosis. Perinephric fat are clear. URINARY BLADDER: Partially decompressed. PELVIC VISCERA: Unremarkable PERITONEUM: No free air or fluid. LYMPH NODES: No lymphadenopathy. VASCULAR:Abdominal aorta normal in size, no aneurysm found. BONES, ABDOMINAL WALL AND SOFT TISSUES: There is anterior abdominal wall periumbilical hernia measures 2.7 cm in diameter containing fat only. There is soft tissue/probably a scar at midline supraumbilical region. CT/CT abdomen pelvis wo con IMPRESSION: *There is 2.7 cm periumbilical hernia containing fat only *No CT evidence of appendicitis, no kidney stone or hydronephrosis. *Mildly complex cystic structure upper pole left kidney containing fluid and hyperdense portion could be calcifications 2.2 cm, unchanged from recent CT of June 2021. This was not visualized on prior ultrasound from 2019, May consider further characterization with follow-up renal ultrasound.
[2021-09-04 16:15] VITALS: BP 152/96; PULSE 92; RESP 20; TEMP 36.8; O2SAT 98; BMI 37.8
--- NOTE | 2021-09-04 17:19 | ED.FEMALEGU ---
HPI - Female Genitourinary General Chief complaint: Urogenital-Female <Caitlyn Marie NP - Last Filed: 09/04/21 18:37> Stated complaint: UTI <Caitlyn Marie NP - Last Filed: 09/04/21 18:37> Time Seen by Provider: 09/04/21 17:05 <Caitlyn Marie NP - Last Filed: 09/04/21 18:37> Source: patient <Caitlyn Marie NP - Last Filed: 09/04/21 18:37> Mode of arrival: ambulatory <Caitlyn Marie NP - Last Filed: 09/04/21 18:37> Limitations: no limitations <Caitlyn Marie NP - Last Filed: 09/04/21 18:37> History of Present Illness HPI Narrative: 45 yo female with a history of diabetes, hernia repair here with reports of lower pelvic pressure for the last 2 weeks. Patient tells me she was diagnosed with a UTI on August 22. She started cephalexin on August 27. She took it for 5 days then discontinued it due to side effects that she tells me are yeast infection, upset stomach. Patient reports continued or pelvic pressure with radiation into her bilateral flank and abdomen. She has had nausea and vomiting which is intermittent. Last evening she had a temperature of 100.5 degrees. No diarrhea or constipation. She has noticed that her previous umbilical hernia repair site seems to be bulging and wants this checked. She has not been sexually active for years is not concern for STD exposure. She has irregular menses <Caitlyn Marie NP - Last Filed: 09/04/21 18:37> Related Data Home medications: Home Medications Medication Instructions Recorded Confirmed alcohol swabs pad topical BID diabetes mellitus 02/03/20 03/20/20 blood sugar diagnostic #10 ea 02/03/20 03/20/20 ciprofloxacin HCl 250 mg tablet 250 mg PO BID 02/03/20 03/20/20 escitalopram oxalate 10 mg tablet 10 mg PO DAILY 02/03/20 03/20/20 fluconazole 150 mg tablet 150 mg PO 02/03/20 03/20/20 glyburide 5 mg tablet 5 mg PO DAILY 02/03/20 03/20/20 ibuprofen 800 mg tablet 800 mg PO TID 02/03/20 03/20/20 insulin lispro 100 unit/mL unit subcut 02/03/20 03/20/20 subcutaneous pen lancets 28 gauge #100 ea 02/03/20 03/20/20 lisinopril 5 mg tablet 5 mg PO DAILY 02/03/20 03/20/20 lorazepam 0.5 mg tablet 0.5 mg PO BEDTIME PRN insomnia 02/03/20 03/20/20 metformin 500 mg tablet,extended 1,000 mg PO BID 02/03/20 03/20/20 release 24 hr omeprazole 20 mg capsule,delayed 20 mg PO BID 02/03/20 03/20/20 release pen needle, diabetic 32 gauge x #50 ea 02/03/20 03/20/2032 semaglutide mg subcut 02/03/20 03/20/20 tamsulosin 0.4 mg capsule 0.4 mg PO DAILY 02/03/20 03/20/20 valacyclovir 1 gram tablet 1,000 mg PO TID 02/03/20 03/20/20 ketoconazole 2 % topical cream 1 appl topical DAILY 03/20/20 03/20/20 nystatin 100,000 unit/gram topical topical 03/20/20 03/20/20 powder Previous Rx's Medication Instructions Recorded cyclobenzaprine 10 mg tablet 10 mg PO TID PRN muscle spasm #14 03/03/20 tabs medroxyprogesterone 10 mg tablet 10 mg PO daily 10 days #30 tabs 03/20/20 (Provera) cyclobenzaprine 10 mg tablet 10 mg PO BEDTIME PRN muscle spasm 06/23/21 #7 tabs lidocaine 5 % topical patch 1 patch topical DAILY PRN pain #15 06/23/21 ea nitrofurantoin 100 mg PO BID 7 days #14 caps 06/23/21 monohydrate/macrocrystals 100 mg capsule (Macrobid) fluconazole 150 mg tablet 150 mg PO Q3D 2 doses #2 tabs 09/04/21 (Diflucan) <Caitlyn Marie NP - Last Filed: 09/04/21 18:37> Allergies/Adverse reactions: Allergies Allergy/AdvReac Type Severity Reaction Status Date / Time diphenhydramine Allergy Unknown HIVES Verified 06/22/21 16:10 [From BENADRYL] meloxicam [MELOXICAM] Allergy Unknown RASH Verified 06/22/21 16:10 penicillin G Allergy Unknown Anaphylaxis Verified 06/22/21 16:10 Penicillins [PENICILLINS] Allergy Unknown ANAPHYLAXIS Verified 06/22/21 16:10 Sulfa (Sulfonamide Allergy Unknown HIVES Verified 06/22/21 16:10 Antibiotics) [SULFA (SULFONAMIDE ANTIBIOTICS)] sulfur Allergy Unknown Hives Verified 06/22/21 16:10 Benadryl Allergy Unknown Hives Uncoded 06/22/21 16:10 <Caitlyn Marie NP - Last Filed: 09/04/21 18:37> Review of Systems Review of Systems: Yes all other systems are reviewed and are negative <Caitlyn Marie NP - Last Filed: 09/04/21 18:37> Constitutional: Constitutional: Reports no additional constitutional complaints, Denies body ache(s), Denies chills, Reports fever(s) (max temp 100.5), Denies headache(s) and Denies weakness <Caitlyn Marie NP - Last Filed: 09/04/21 18:37> Eyes: Eyes: Reports no additional eye complaints and Denies change in vision <Caitlyn Marie NP - Last Filed: 09/04/21 18:37> ENT: Reports system reviewed and no additional complaints, except as documented, Denies dizziness, Denies headache(s), Denies nasal congestion, Denies nasal discharge and Denies neck pain <Caitlyn Marie NP - Last Filed: 09/04/21 18:37> Cardiovascular: Cardiovascular: Reports no additional cardiovascular complaints, Denies chest pain, Denies leg edema and Denies dyspnea <Caitlyn Marie NP - Last Filed: 09/04/21 18:37> Respiratory: Respiratory: Reports no additional respiratory complaints, Denies cough and Denies dyspnea <Caitlyn Marie NP - Last Filed: 09/04/21 18:37> Gastrointestinal: Gastrointestinal: Reports no additional gastrointestinal complaints, Reports abdominal pain, Denies diarrhea, Reports nausea and Reports vomiting <Caitlyn Marie NP - Last Filed: 09/04/21 18:37> Genitourinary: Genitourinary: Reports no additional female genitourinary complaints and Denies urinary incontinence <Caitlyn Marie NP - Last Filed: 09/04/21 18:37> Musculoskeletal: Musculoskeletal: Reports no additional musculoskeletal complaints, Denies back pain, Denies arthralgias, Denies joint swelling, Denies neck pain, Denies numbness and Denies tingling <Caitlyn Marie NP - Last Filed: 09/04/21 18:37> Integumentary/Breasts: Skin/Breast: Reports system reviewed and no additional complaints, except as docu and Denies rash <Caitlyn Marie NP - Last Filed: 09/04/21 18:37> Neurologic: Reports system reviewed and no additional complaints, except as documented, Denies Abnormal speech present, Denies dizziness, Denies headache(s), Denies numbness, Denies tingling and Denies weakness <Caitlyn Marie NP - Last Filed: 09/04/21 18:37> PMFSH Past Medical History Attestation statement: The following information was validated with the patient. <Caitlyn Marie NP - Last Filed: 09/04/21 18:37> Source: old records reviewed and nursing notes reviewed <Caitlyn Marie NP - Last Filed: 09/04/21 18:37> Medical History: Medical History Diabetes Hiatal hernia Kidney stone <Caitlyn Marie NP - Last Filed: 09/04/21 18:37> Surgical History: Surgical History H/O Spinal surgery <Caitlyn Marie NP - Last Filed: 09/04/21 18:37> Social History Social History: Social History Alcohol intake: never Substance Use Type: Marijuana Advance Directives: No Advance Directives Information Provided: No Sexual orientation: Straight/Heterosexual Gender identity: Female <Caitlyn Marie NP - Last Filed: 09/04/21 18:37> Physical Exam Vital Signs: Vital Signs: Last Vital Signs Temp 98.3 F 09/04/21 16:15 Pulse 62 09/04/21 18:33 Resp 18 09/04/21 18:33 BP 116/79 09/04/21 18:33 Pulse Ox 99 09/04/21 18:33 O2 Del Method 09/04/21 18:33 BMI result Body Mass Index 37.8 <Caitlyn Marie NP - Last Filed: 09/04/21 18:37> Vital Signs: Last Vital Signs Temp 98.3 F 09/04/21 16:15 Pulse 62 09/04/21 18:33 Resp 18 09/04/21 18:33 BP 116/79 09/04/21 18:33 Pulse Ox 99 09/04/21 18:33 O2 Del Method 09/04/21 18:33 BMI result Body Mass Index 37.8 <NAKITA Barrera - Last Filed: 09/04/21 19:23> Const: General: cooperative, healthy appearing, comfortable and no acute distress <Caitlyn Marie NP - Last Filed: 09/04/21 18:37> Orientation/consciousness: patient oriented x3 <Caitlyn Marie NP - Last Filed: 09/04/21 18:37> Limitations: no limitations <Caitlyn Marie NP - Last Filed: 09/04/21 18:37> HEENT: Head: Yes normal to inspection <Caitlyn Marie NP - Last Filed: 09/04/21 18:37> Ears: hearing grossly normal bilaterally <Caitlyn Marie NP - Last Filed: 09/04/21 18:37> General nose exam: Normal external nose present <Caitlyn Marie NP - Last Filed: 09/04/21 18:37> Face and sinus: Yes normal facial exam <Caitlyn Marie NP - Last Filed: 09/04/21 18:37> Mouth: Normal oral and palatal mucosa present <Caitlyn Marie NP - Last Filed: 09/04/21 18:37> Throat: Yes posterior oropharynx normal <Caitlyn Marie NP - Last Filed: 09/04/21 18:37> Eyes: General: appearance normal, both eyes and all related structures <Caitlyn Marie PLEATING SUPERVISOR - Last Filed: 09/04/21 18:37> Pupils: Equal, round and reactive pupils present <Caitlyn Marie NP - Last Filed: 09/04/21 18:37> Neck: Neck: Yes normal visual inspection, Yes full ROM, Yes no lymphadenopathy and Yes no meningeal signs <Caitlyn Marie PLEATING SUPERVISOR - Last Filed: 09/04/21 18:37> Chest: Chest palpation & inspection: normal inspection of the chest <Caitlyn Marie PLEATING SUPERVISOR - Last Filed: 09/04/21 18:37> Resp: Effort & Inspection: normal respiratory effort <Caitlyn Marie NP - Last Filed: 09/04/21 18:37> Auscultation: clear to auscultation bilaterally <Caitlyn Marie PLEATING SUPERVISOR - Last Filed: 09/04/21 18:37> Cardio: Rate: regular rate <Caitlyn Marie PLEATING SUPERVISOR - Last Filed: 09/04/21 18:37> Rhythm: regular rhythm <Caitlyn Marie PLEATING SUPERVISOR - Last Filed: 09/04/21 18:37> Peripheral pulses: Peripheral pulses 2+ throughout <Caitlyn Marie PLEATING SUPERVISOR - Last Filed: 09/04/21 18:37> GI: Other: + umbilical hernia. No real tenderness <Caitlyn Marie PLEATING SUPERVISOR - Last Filed: 09/04/21 18:37> Inspection: Yes normal to inspection <Caitlyn Marie PLEATING SUPERVISOR - Last Filed: 09/04/21 18:37> Palpation (GI): Soft to palpation and Tenderness to palpation present (GI) suprapubicly <Caitlyn Marie PLEATING SUPERVISOR - Last Filed: 09/04/21 18:37> Auscultation: normal bowel sounds <Caitlyn Marie PLEATING SUPERVISOR - Last Filed: 09/04/21 18:37> : General: Yes CVA tenderness <Caitlyn Marie NP - Last Filed: 09/04/21 18:37> Back/Spine/Pelvis: Back: CVA tenderness <Caitlyn Marie NP - Last Filed: 09/04/21 18:37> Thoracic/Lumbar Spine: thoracic and lumbar spine normal to inspection <Caitlyn Marie NP - Last Filed: 09/04/21 18:37> Skin: General skin exam: no rashes or lesions noted <Caitlyn Marie PLEATING SUPERVISOR - Last Filed: 09/04/21 18:37> Neuro: General: patient oriented x3, no meningeal signs, no focal motor deficits and normal sensation to monofilament <Caitlyn Marie PLEATING SUPERVISOR - Last Filed: 09/04/21 18:37> Cranial nerves: Yes Equal, round and reactive pupils present <Caitlyn Marie NP - Last Filed: 09/04/21 18:37> Cognition (Neuro): normal cognition <Caitlyn Marie NP - Last Filed: 09/04/21 18:37> Speech: No Abnormal speech present <Caitlyn Marie NP - Last Filed: 09/04/21 18:37> Gait exam (Neuro): Normal gait present <Caitlyn Marie PLEATING SUPERVISOR - Last Filed: 09/04/21 18:37> Motor exam (neuro): 5/5 motor strength present throughout <Caitlyn Marie PLEATING SUPERVISOR - Last Filed: 09/04/21 18:37> Extrem: General: Yes normal to inspection, Yes no pedal edema and Yes no calf tenderness <Caitlyn Marie NP - Last Filed: 09/04/21 18:37> Course Reevaluation(s) Reevaluation #1: Sign out Mariza MACE pending CT results. <Caitlyn Marie PLEATING SUPERVISOR - Last Filed: 09/04/21 18:37> Time: 18:30 <Caitlyn Marie NP - Last Filed: 09/04/21 18:37> Reevaluation #2: CT abdomen pelvis wo con IMPRESSION: *There is 2.7 cm periumbilical hernia containing fat only ? *No CT evidence of appendicitis, no kidney stone or hydronephrosis. ? *Mildly complex cystic structure upper pole left kidney containing fluid and hyperdense portion could be calcifications 2.2 cm, unchanged from recent CT of June 2021. This was not visualized on prior ultrasound from 2019, May consider further characterization with follow-up renal ultrasound. >> results discussed with patient including worrisome signs and symptoms and strict return precautions and need close follow-up with PCP <NAKITA Barrera - Last Filed: 09/04/21 19:23> Time: 19: <NAKITA Barrera - Last Filed: 09/04/21 19:23> MDM - Female Genitourinary MDM Narrative Medical decision making narrative: 45-year-old female here with reports of suprapubic discomfort, flank pain, low-grade fevers, nausea and vomiting. Patient reports recent antibiotic and did not complete course of antibiotics secondary to having a yeast infection having an upset stomach from the medication. UA today shows no signs of infection. Will check labs, CT Patient is not concern for STD testing and does not want to be tested as she is not sexually active for more than 7 years -consider pyelo, renal colic, diverticulitis, UTI <Caitlyn Marie NP - Last Filed: 09/04/21 18:37> Medical Records Attestation: I reviewed the patient's medical records. <Caitlyn Marie NP - Last Filed: 09/04/21 18:37> Lab Data Attestation: I reviewed the patient's lab results. <Caitlyn Marie NP - Last Filed: 09/04/21 18:37> Result diagrams: : 09/04/21 17:41 09/04/21 17:41 <Caitlyn Marie NP - Last Filed: 09/04/21 18:37> Labs: Lab Results 09/04/21 09/04/21 09/04/21 Range/Units 17:15 17:15 17:41 WBC 12.6 H (4.8-10.8) X10*3/uL RBC 4.40 (4.20-5.50) X10*6/uL Hgb 13.0 (12.0-16.0) g/dl Hct 38.2 (37.0-47.0) % MCV 86.8 (80.0-98.0) fL MCH 29.5 (27.0-33.0) pg MCHC 34.0 (31.0-35.0) g/dl RDW 13.2 (11.0-16.0) % Plt Count 301 (160-400) X10*3/uL MPV 10.0 (9.4-12.3) fL Immature Gran % (Auto) 0.4 (0.0-0.4) % Neut % (Auto) 53.6 (45-73) % Lymph % (Auto) 34.7 (20-40) % [place] % (Auto) 6.4 (2-11) % Eos % (Auto) 4.3 H (0-4) % Baso % (Auto) 0.6 (0-2) % Lymph # (Auto) 4.4 (1.2-4.9) X10*3/uL [place] # (Auto) 0.8 (0.1-1.2) X10*3/uL Eos # (Auto) 0.5 H (0.0-0.4) X10*3/uL Baso # (Auto) 0.1 (0.0-0.2) X10*3/uL Abs Immat Gran (auto) 0.05 H (0.00-0.03) X10*3/uL Absolute Neuts (auto) 6.8 (2.0-8.3) x10*3/uL Absolute Nucleated RBC 0.000 (0.0-0.012) X10*3/uL Nucleated RBC % (auto) 0.0 (0.0-0.2) /100WBC Sodium (135-145) mmol/L Potassium (3.3-5.1) mmol/L Chloride (96-108) mmol/L Carbon Dioxide (22-29) mmol/L Anion Gap (12-20) BUN (9-16) mg/dL Creatinine (0.5-1.4) mg/dL Estim Creat Clear Calc Estimated GFR Random Glucose (60-115) mg/dL Calcium (8.4-10.2) mg/dL Total Bilirubin (0.0-1.0) mg/dL Direct Bilirubin (0.0-0.5) mg/dL AST (5-31) U/L ALT (0-31) U/L Alkaline Phosphatase (39-117) U/L Total Protein (6.5-8.0) g/dL Albumin (3.5-5.0) g/dL Lipase (8-78) U/L Urine Color YELLOW Urine Appearance CLEAR Urine pH 6.0 (5.0-8.0) Ur Specific [place] >= 1.030 H (1.005-1.025) Urine Protein NEG (NEG-TRACE) MG/DL Urine Glucose (UA) NEG (NEG) MG/DL Urine Ketones 5 (NEG) MG/DL Urine Blood NEG (NEG) Urine Nitrite NEG (NEG) Ur Leukocyte Esterase NEG (NEG) Urine Test NEGATIVE (NEGATIVE) 09/04/21 Range/Units 17:41 WBC (4.8-10.8) X10*3/uL RBC (4.20-5.50) X10*6/uL Hgb (12.0-16.0) g/dl Hct (37.0-47.0) % MCV (80.0-98.0) fL MCH (27.0-33.0) pg MCHC (31.0-35.0) g/dl RDW (11.0-16.0) % Plt Count (160-400) X10*3/uL MPV (9.4-12.3) fL Immature Gran % (Auto) (0.0-0.4) % Neut % (Auto) (45-73) % Lymph % (Auto) (20-40) % [place] % (Auto) (2-11) % Eos % (Auto) (0-4) % Baso % (Auto) (0-2) % Lymph # (Auto) (1.2-4.9) X10*3/uL [place] # (Auto) (0.1-1.2) X10*3/uL Eos # (Auto) (0.0-0.4) X10*3/uL Baso # (Auto) (0.0-0.2) X10*3/uL Abs Immat Gran (auto) (0.00-0.03) X10*3/uL Absolute Neuts (auto) (2.0-8.3) x10*3/uL Absolute Nucleated RBC (0.0-0.012) X10*3/uL Nucleated RBC % (auto) (0.0-0.2) /100WBC Sodium 140 (135-145) mmol/L Potassium 4.4 (3.3-5.1) mmol/L Chloride 106 (96-108) mmol/L Carbon Dioxide 27 (22-29) mmol/L Anion Gap 11 L (12-20) BUN 14 (9-16) mg/dL Creatinine 0.89 (0.5-1.4) mg/dL Estim Creat Clear Calc 90.6 Estimated GFR > 60 Random Glucose 117 H (60-115) mg/dL Calcium 8.8 D (8.4-10.2) mg/dL Total Bilirubin 0.4 (0.0-1.0) mg/dL Direct Bilirubin 0.2 (0.0-0.5) mg/dL AST 15 (5-31) U/L ALT 21 (0-31) U/L Alkaline Phosphatase 85 (39-117) U/L Total Protein 6.3 L (6.5-8.0) g/dL Albumin 3.7 (3.5-5.0) g/dL Lipase 24 (8-78) U/L Urine Color Urine Appearance Urine pH (5.0-8.0) Ur Specific [place] (1.005-1.025) Urine Protein (NEG-TRACE) MG/DL Urine Glucose (UA) (NEG) MG/DL Urine Ketones (NEG) MG/DL Urine Blood (NEG) Urine Nitrite (NEG) Ur Leukocyte Esterase (NEG) Urine Test (NEGATIVE) <Caitlyn Marie PLEATING SUPERVISOR - Last Filed: 09/04/21 18:37> Lab Results 09/04/21 09/04/21 09/04/21 Range/Units 17:15 17:15 17:41 WBC 12.6 H (4.8-10.8) X10*3/uL RBC 4.40 (4.20-5.50) X10*6/uL Hgb 13.0 (12.0-16.0) g/dl Hct 38.2 (37.0-47.0) % MCV 86.8 (80.0-98.0) fL MCH 29.5 (27.0-33.0) pg MCHC 34.0 (31.0-35.0) g/dl RDW 13.2 (11.0-16.0) % Plt Count 301 (160-400) X10*3/uL MPV 10.0 (9.4-12.3) fL Immature Gran % (Auto) 0.4 (0.0-0.4) % Neut % (Auto) 53.6 (45-73) % Lymph % (Auto) 34.7 (20-40) % [place] % (Auto) 6.4 (2-11) % Eos % (Auto) 4.3 H (0-4) % Baso % (Auto) 0.6 (0-2) % Lymph # (Auto) 4.4 (1.2-4.9) X10*3/uL [place] # (Auto) 0.8 (0.1-1.2) X10*3/uL Eos # (Auto) 0.5 H (0.0-0.4) X10*3/uL Baso # (Auto) 0.1 (0.0-0.2) X10*3/uL Abs Immat Gran (auto) 0.05 H (0.00-0.03) X10*3/uL Absolute Neuts (auto) 6.8 (2.0-8.3) x10*3/uL Absolute Nucleated RBC 0.000 (0.0-0.012) X10*3/uL Nucleated RBC % (auto) 0.0 (0.0-0.2) /100WBC Sodium (135-145) mmol/L Potassium (3.3-5.1) mmol/L Chloride (96-108) mmol/L Carbon Dioxide (22-29) mmol/L Anion Gap (12-20) BUN (9-16) mg/dL Creatinine (0.5-1.4) mg/dL Estim Creat Clear Calc Estimated GFR Random Glucose (60-115) mg/dL Calcium (8.4-10.2) mg/dL Total Bilirubin (0.0-1.0) mg/dL Direct Bilirubin (0.0-0.5) mg/dL AST (5-31) U/L ALT (0-31) U/L Alkaline Phosphatase (39-117) U/L Total Protein (6.5-8.0) g/dL Albumin (3.5-5.0) g/dL Lipase (8-78) U/L Urine Color YELLOW Urine Appearance CLEAR Urine pH 6.0 (5.0-8.0) Ur Specific [place] >= 1.030 H (1.005-1.025) Urine Protein NEG (NEG-TRACE) MG/DL Urine Glucose (UA) NEG (NEG) MG/DL Urine Ketones 5 (NEG) MG/DL Urine Blood NEG (NEG) Urine Nitrite NEG (NEG) Ur Leukocyte Esterase NEG (NEG) Urine Test NEGATIVE (NEGATIVE) 09/04/21 Range/Units 17:41 WBC (4.8-10.8) X10*3/uL RBC (4.20-5.50) X10*6/uL Hgb (12.0-16.0) g/dl Hct (37.0-47.0) % MCV (80.0-98.0) fL MCH (27.0-33.0) pg MCHC (31.0-35.0) g/dl RDW (11.0-16.0) % Plt Count (160-400) X10*3/uL MPV (9.4-12.3) fL Immature Gran % (Auto) (0.0-0.4) % Neut % (Auto) (45-73) % Lymph % (Auto) (20-40) % [place] % (Auto) (2-11) % Eos % (Auto) (0-4) % Baso % (Auto) (0-2) % Lymph # (Auto) (1.2-4.9) X10*3/uL [place] # (Auto) (0.1-1.2) X10*3/uL Eos # (Auto) (0.0-0.4) X10*3/uL Baso # (Auto) (0.0-0.2) X10*3/uL Abs Immat Gran (auto) (0.00-0.03) X10*3/uL Absolute Neuts (auto) (2.0-8.3) x10*3/uL Absolute Nucleated RBC (0.0-0.012) X10*3/uL Nucleated RBC % (auto) (0.0-0.2) /100WBC Sodium 140 (135-145) mmol/L Potassium 4.4 (3.3-5.1) mmol/L Chloride 106 (96-108) mmol/L Carbon Dioxide 27 (22-29) mmol/L Anion Gap 11 L (12-20) BUN 14 (9-16) mg/dL Creatinine 0.89 (0.5-1.4) mg/dL Estim Creat Clear Calc 90.6 Estimated GFR > 60 Random Glucose 117 H (60-115) mg/dL Calcium 8.8 D (8.4-10.2) mg/dL Total Bilirubin 0.4 (0.0-1.0) mg/dL Direct Bilirubin 0.2 (0.0-0.5) mg/dL AST 15 (5-31) U/L ALT 21 (0-31) U/L Alkaline Phosphatase 85 (39-117) U/L Total Protein 6.3 L (6.5-8.0) g/dL Albumin 3.7 (3.5-5.0) g/dL Lipase 24 (8-78) U/L Urine Color Urine Appearance Urine pH (5.0-8.0) Ur Specific [place] (1.005-1.025) Urine Protein (NEG-TRACE) MG/DL Urine Glucose (UA) (NEG) MG/DL Urine Ketones (NEG) MG/DL Urine Blood (NEG) Urine Nitrite (NEG) Ur Leukocyte Esterase (NEG) Urine Test (NEGATIVE) <NAKITA Barrera - Last Filed: 09/04/21 19:23> Discharge Plan Discharge Clinical Impression: Vaginitis <Caitlyn Marie NP - Last Filed: 09/04/21 18:37> Patient Disposition: Home, Self-Care <Caitlyn Marie NP - Last Filed: 09/04/21 18:37> Instructions: Yeast Infection (ED) <Caitlyn Marie NP - Last Filed: 09/04/21 18:37> Additional Instructions: Your CT scan shows a periumbilical hernia. No kidney stones. You also have a cystic structure on your left kidney, this should be re-evaluated outpatient with an ultrasound Your labs were reassuring. Your urine was negative take Diflucan as prescribed for vaginitis <Caitlyn Marie NP - Last Filed: 09/04/21 18:37> Prescriptions: New fluconazole [Diflucan] 150 mg tablet 150 mg PO Q3D Qty: 2 0RF Rx Instructions: may repeat second dose 72 hrs after first dose if symptoms persist No Action cyclobenzaprine 10 mg tablet 10 mg PO TID PRN (Reason: muscle spasm) Qty: 14 0RF cyclobenzaprine 10 mg tablet 10 mg PO BEDTIME PRN (Reason: muscle spasm) Qty: 7 0RF lidocaine 5 % adhesive patch,medicated 1 patch topical DAILY PRN (Reason: pain) Qty: 15 0RF Rx Instructions: leave on most painful area for up to 12 hrs nitrofurantoin monohyd/m-cryst [Macrobid] 100 mg capsule 100 mg PO BID 7 Days Qty: 14 0RF Rx Instructions: must administer with a meal/food ciprofloxacin HCl 250 mg tablet 250 mg PO BID lisinopril 5 mg tablet 5 mg PO DAILY Ozempic 0.25 mg or 0.5 mg(2 mg/1.5 mL) pen injector subcut escitalopram oxalate 10 mg tablet 10 mg PO DAILY insulin lispro 100 unit/mL insulin pen subcut tamsulosin 0.4 mg capsule 0.4 mg PO DAILY ibuprofen 800 mg tablet 800 mg PO TID lorazepam 0.5 mg tablet 0.5 mg PO BEDTIME PRN (Reason: insomnia) valacyclovir 1 gram tablet 1,000 mg PO TID (DME) lancets 28 gauge misc See Rx Instructions Not Applicable .MEDSUPPLY Qty: 100 Rx Instructions: As directed (DME) FreeStyle Lite Strips Strip See Rx Instructions Not Applicable .MEDSUPPLY Qty: 10 Rx Instructions: As directed (DME) pen needle, diabetic 32 gauge x 5/32 needle See Rx Instructions subcut .MEDSUPPLY Qty: 50 Rx Instructions: As directed alcohol swabs Pads, Medicated topical BID metformin 500 mg tablet extended release 24 hr 1,000 mg PO BID fluconazole 150 mg tablet 150 mg PO glyburide 5 mg tablet 5 mg PO DAILY omeprazole 20 mg capsule,delayed release(DR/EC) 20 mg PO BID ketoconazole 2 % cream 1 appl topical DAILY nystatin 100,000 unit/gram powder topical medroxyprogesterone [Provera] 10 mg tablet 10 mg PO daily 10 Days Qty: 30 1RF Rx Instructions: Start on day 15 to day 24 of every cycle, day 1 being the 1st day of menses. <Caitlyn Marie, PLEATING SUPERVISOR - Last Filed: 09/04/21 18:37> Referrals: Physician,Unknown J [Primary Care Provider] - 3 days <Caitlyn Marie PLEATING SUPERVISOR - Last Filed: 09/04/21 18:37>
[2021-09-04 17:23] LABS: Appearance Urine CLEAR; Color Urine YELLOW; Glucose Urine UA NEG (NEG); Leukocyte Esterase Urine NEG (NEG); Nitrite Urine NEG (NEG); Specific Gravity - Urine >= 1.030 (1.005-1.025); Urine Blood NEG (NEG); Urine Ketones 5 MG/DL (NEG); Urine Protein NEG (NEG-TRACE)
[2021-09-04 17:25] LABS: UPreg QC Valid YES; Urine Pregnancy NEGATIVE (NEGATIVE)
[2021-09-04 17:48] LABS: MANUAL DIFF FLAG NO
[2021-09-04 17:53] LABS: Basophils Absolute Auto 0.1 X10*3/uL (0.0-0.2); Basophils Percent Auto 0.6 % (0-2); Eosinophils Absolute Auto 0.5 X10*3/uL (0.0-0.4); Eosinophils Percent Auto 4.3 % (0-4); Hematocrit 38.2 % (37.0-47.0); Imm Gran Abs Auto 0.05 X10*3/uL (0.00-0.03); Imm Gran Pct Auto 0.4 % (0.0-0.4); Lymphocytes Absolute Auto 4.4 X10*3/uL (1.2-4.9); Lymphocytes Percent Auto 34.7 % (20-40); Mean Corpuscular Hemoglobin 29.5 pg (27.0-33.0); Mean Corpuscular Volume 86.8 fL (80.0-98.0); Monocytes Absolute Auto 0.8 X10*3/uL (0.1-1.2); Monocytes Percent Auto 6.4 % (2-11); Neutrophils Absolute Auto 6.8 x10*3/uL (2.0-8.3); Neutrophils Percent Auto 53.6 % (45-73); Platelet Count 301 X10*3/uL (160-400); Red Cell Distribution Width 13.2 % (11.0-16.0); White Blood Count 12.6 X10*3/uL (4.8-10.8)
[2021-09-04 18:10] LABS: Alanine Aminotransferase 21 U/L (0-31); Albumin Level 3.7 g/dL (3.5-5.0); Alkaline Phosphatase 85 U/L (39-117); Anion Gap 11 (12-20); Aspartate Amino Transferase 15 U/L (5-31); Bilirubin Direct 0.2 mg/dL (0.0-0.5); Bilirubin Total 0.4 mg/dL (0.0-1.0); Blood Urea Nitrogen 14 mg/dL (9-16); Calcium 8.8 mg/dL (8.4-10.2); Carbon Dioxide 27 mmol/L (22-29); Chloride 106 mmol/L (96-108); Creatinine Clr Calc Pharmacy 90.6; Estimated Glomerular Filt Rate > 60; Glucose Random 117 mg/dL (60-115); Lipase 24 U/L (8-78); Potassium 4.4 mmol/L (3.3-5.1); Sodium 140 mmol/L (135-145); Total Protein 6.3 g/dL (6.5-8.0)
[2021-09-04 18:33] VITALS: BP 116/79; PULSE 62; RESP 18; O2SAT 99
== END 2021-09-04 20:06 | disposition home or self-care (01) ==
PROVIDERS: Nurse Practitioner Family; Emergency Provider Student in an Organized Health Care Education/Training Program
DX: N39.0 Urinary tract infection, site not specified (principal); R10.2 Pelvic and perineal pain; Z79.899 Other long term (current) drug therapy
CPT/HCPCS: 36415; 74176; 80048; 80076; 81003; 81025; 83690; 85025; 99283; 99284

== ENCOUNTER 2021-10-25 07:38 | Emergency (ER) | payer OTHER, SELFPAY ==
--- NOTE | ~2021-10-25 | XR_ITS ---
EXAMINATION: XR HIP, RIGHT CLINICAL INFORMATION: Pain COMPARISON: None TECHNIQUE: Single view of the pelvis 2 views of the right hip FINDINGS: No acute visible fracture or dislocation. Mild enthesopathy along the right greater trochanter and bilateral iliac wings. Joint spaces and alignment are otherwise maintained. Pelvic phleboliths are noted. Soft tissues are unremarkable. XR/XR hip RT min 2V IMPRESSION: 1. No acute visible fracture or dislocation. 2. Mild enthesopathy along the right greater trochanter and bilateral iliac wings.
[2021-10-25 07:46] VITALS: BP 124/84; BP 125/82; PULSE 80; PULSE 84; RESP 18; TEMP 36.4; O2SAT 95; O2SAT 97; BMI 37.8
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
[2021-10-25] MEDS: Ibuprofen 800 MG TABLET PO (09:07)
[2021-10-25] MEDS: predniSONE 20 MG TABLET 60 MG PO (09:07)
[2021-10-25] MEDS: oxyCODONE HCl Immed Release 5 MG TABLET PO (10:04)
== END 2021-10-25 10:11 | disposition home or self-care (01) ==
PROVIDERS: Emergency Provider Emergency Medicine; PCP Physician Assistant
DX: S70.01XA Contusion of right hip, initial encounter (principal); W22.09XA Striking against other stationary object, initial encounter; Y93.89 Activity, other specified; Y92.89 Other specified places as the place of occurrence of the external cause; Y99.9 Unspecified external cause status
CPT/HCPCS: 73502; 99283

== ENCOUNTER 2022-03-27 10:28 | Outpatient (REF) | payer OTHER, SELFPAY ==
--- NOTE | ~2022-03-27 | US_ITS ---
EXAMINATION: US RETROPERITONEAL LIMITED (RENAL ONLY) CLINICAL INFORMATION: Renal cyst. COMPARISON: CT abdomen and pelvis 09/04/2021. Ultrasound renal 09/25/2018. TECHNIQUE: Real-time imaging of the kidneys. FINDINGS: RIGHT KIDNEY: 9.9 x 5.7 x 6.2 cm (SAG x AP x TRV). The kidney is normal in size, contour, and echogenicity. Renal cortical thickness is normal. No calculi or focal parenchymal lesions. No hydronephrosis. LEFT KIDNEY: 10.3 x 5.9 x 6.2 cm (SAG x AP x TRV). The kidney is normal in size, contour, and echogenicity. Renal cortical thickness is normal. No renal calculi or hydronephrosis. 2.3 cm left upper pole simple renal cyst. There is an additional small 8 mm left upper pole renal cyst as well. US/US renal BI IMPRESSION: Simple cysts in the upper pole of the left kidney.
== END 2022-03-27 10:29 | disposition home or self-care (01) ==
LOC: HO.HMGCX 10:28
PROVIDERS: PCP Physician Assistant
DX: N28.1 Cyst of kidney, acquired (principal)
CPT/HCPCS: 76775

== ENCOUNTER → 2022-04-09 10:25 | Outpatient (BNVA) | payer OTHER, SELFPAY | PROVIDERS: PCP Physician Assistant; Visit Provider Nurse Practitioner Family | DX: Z13.89 Encounter for screening for other disorder (principal) ==

== ENCOUNTER 2022-09-16 11:23 | Outpatient (REF) | payer OTHER, SELFPAY | END 2022-09-16 11:24 | disposition home or self-care (01) | LOC: HO.HMGCX 11:23 | PROVIDERS: PCP Physician Assistant; Visit Provider Nurse Practitioner Family | DX: N28.1 Cyst of kidney, acquired (principal) | CPT/HCPCS: 76775 ==

== ENCOUNTER 2023-05-19 17:13 | Emergency (ER) | payer MEDICAID, SELFPAY ==
--- NOTE | ~2023-05-19 | XR_ITS ---
EXAMINATION: XR CHEST CLINICAL INFORMATION: Chest pain COMPARISON: Chest radiograph from 11/04/2019 TECHNIQUE: 2 views of the chest were obtained. FINDINGS: Bilateral low lung volumes. Slight bibasilar atelectasis. No pneumothorax. Trachea is midline. Cardiac mediastinal silhouette is not enlarged. No large pleural effusion. Dextrocurvature of the thoracic spine. Suggestion of widening of the left acromioclavicular joint. Soft tissues are unremarkable. XR/XR chest 2V IMPRESSION: 1. Bilateral low lung volumes. 2. Slight bibasilar atelectasis. 3. Suggestion of widening of the left acromioclavicular joint.
--- NOTE | 2023-05-19 17:35 | ECG_ITS ---
Test Reason : CHEST PAIN Blood Pressure : / mmHG Vent. Rate : 081 BPM Atrial Rate : 081 BPM P-R Int : 164 ms QRS Dur : 082 ms QT Int : 392 ms P-R-T Axes : 036 021 036 degrees QTc Int : 455 ms Normal sinus rhythm Normal ECG When compared with ECG of 04-NOV-2019 19:26, No significant change was found Referred By: Shayna Cano Electronically Signed By:Catalino Radn
[2023-05-19 17:37] VITALS: BP 130/88; BP 140/90; PULSE 90; PULSE 96; RESP 18; O2SAT 96; O2SAT 98; BMI 38.3
--- NOTE | 2023-05-19 17:49 | ED.CHESTPAIN ---
HPI - Chest Pain General Chief Complaint: Chest Pain Stated Complaint: L sided chest pain Time Seen by Provider: 05/19/23 17:28 Source: patient Mode of arrival: EMS Limitations: no limitations History of Present Illness HPI narrative: Patient is a 47-year-old female who presents emergency department for evaluation of chest pain. She reports onset 3 days ago while at rest. Reports that it initially started in the left upper chest, has been constant over the past 3 days with varying intensity. Unable to identify exacerbating factors for the varying intensity. Since it has radiated at times to the left lateral neck, left arm and right upper chest. She has associated nausea and lightheadedness. Denies recent URI symptoms, cough, shortness of breath, vomiting, abdominal pain. 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 She reports a history of hypertension and diabetes. Of note she has not been on any medication management for her diabetes for the past 5 months stating that she has been unable to get Ozempic from the pharmacy and has been unable to get follow-up with her primary care doctor. Prior to taking the Ozempic she was on insulin including Lantus and Humalog. Related Data Home Medications Medication Instructions Recorded Confirmed alcohol swabs pad topical BID diabetes mellitus 02/03/20 03/20/20 blood sugar diagnostic #10 ea 02/03/20 03/20/20 escitalopram oxalate 10 mg tablet 10 mg PO DAILY 02/03/20 04/09/22 ibuprofen 800 mg tablet 800 mg PO TID 02/03/20 04/09/22 lancets 28 gauge #100 ea 02/03/20 04/09/22 lorazepam 0.5 mg tablet 0.5 mg PO BEDTIME PRN insomnia 02/03/20 04/09/22 omeprazole 20 mg capsule,delayed 20 mg PO BID 02/03/20 04/09/22 release pen needle, diabetic 32 gauge x #50 ea 02/03/20 03/20/20 semaglutide 0.25 mg or 0.5 mg (2 mg subcut 02/03/20 04/09/22 mg/1.5 mL) subcutaneous pen injector ketoconazole 2 % topical cream 1 appl topical DAILY 03/20/20 03/20/20 nystatin 100,000 unit/gram topical topical 03/20/20 04/09/22 powder lisinopril 5 mg tablet 10 mg PO DAILY 09/13/21 04/09/22 Previous Rx's Medication Instructions Recorded ibuprofen 400 mg tablet 400 mg PO Q6H PRN pain 7 days #28 10/25/21 tabs Allergies Allergy/AdvReac Type Severity Reaction Status Date / Time diphenhydramine Allergy Unknown HIVES Verified 04/09/22 19:25 [From BENADRYL] meloxicam [MELOXICAM] Allergy Unknown RASH Verified 04/09/22 19:25 penicillin G Allergy Unknown Anaphylaxis Verified 04/09/22 19:25 Penicillins [PENICILLINS] Allergy Unknown ANAPHYLAXIS Verified 04/09/22 19:25 Sulfa (Sulfonamide Allergy Unknown HIVES Verified 04/09/22 19:25 Antibiotics) [SULFA (SULFONAMIDE ANTIBIOTICS)] sulfur Allergy Unknown Hives Verified 04/09/22 19:25 Benadryl Allergy Unknown Hives Uncoded 04/09/22 19:25 Review of Systems Review of Systems: Yes all other systems are reviewed and are negative [facility] Past Medical History Attestation statement: The following information was validated with the patient. Source: old records reviewed Medical History Renal cyst Diabetes Hiatal hernia Kidney stone Surgical History H/O Spinal surgery Social History Social History Alcohol intake: former Smoked in Last 30 Days: No Use of substances other than those prescribed or required for medical reasons: Yes Substance Use Type: Marijuana Advance Directives: No Advance Directives Information Provided: No Sexual orientation: Straight/Heterosexual Gender identity: Female Physical Exam Vital Signs: Vital Signs: Last Vital Signs Pulse 74 05/19/23 20:01 Resp 16 05/19/23 20:01 BP 132/70 05/19/23 20:01 Pulse Ox 98 05/19/23 20:01 O2 Del Method Room Air 05/19/23 20:01 BMI result Body Mass Index 38.3 Appearance: Alert.?Oriented to person, place and time. No acute distress.?Normal affect. Eyes: Pupils equal, round and reactive to light.? ENT: Pharynx normal.?? Neck: Normal inspection.? Neck supple.?? CVS: Heart sounds normal. Normal heart rate and rhythm.? Pulses normal.?? Respiratory: No respiratory distress.? Lung sounds clear to auscultation bilaterally?? Abdomen: Soft and non-tender. Normoactive bowel sounds. No pulsatile mass.?? Skin: Skin warm and dry.? Normal skin color.? Normal skin turgor.?? Extremities: No lower extremity edema.? No calf ttp? Neuro: Moves all extremities spontaneously. Sensation intact bilaterally. CN II-XII intact. No focal neuro deficits. Ambulates with normal steady gait. Course Reevaluation(s) Reevaluation #1: CBC reveals mild leukocytosis of 12 without left shift. Hyperglycemic at 02:57 without evidence of DKA. No electrolyte derangement. No HUDSON. High sensitive troponin below detectable limits, EKG is without acute ischemic abnormalities, given duration of symptoms I have a lower suspicion for ACS at this time. Viral panel negative. CXR without evidence of pleural effusion, pneumonia. After receiving nitro pain was completely unchanged. At this time feel that she is stable for discharge and outpatient follow-up with her primary care provider. Time: 19:45 Medications Administered Discontinued Medications Generic Name Dose Route Start Last Admin Trade Name Freq PRN Reason Stop Dose Admin Aspirin 324 mg 05/19/23 17:54 05/19/23 18:05 Aspirin 81 Mg Tab.Chew PO 05/19/23 17:55 324 mg ONCE ONE Administration Nitroglycerin 0.5 inch 05/19/23 17:54 05/19/23 18:06 Nitroglycerin 2 % Oint 1 Gm Packet TRANSDERMA 05/19/23 17:55 0.5 inch ONCE ONE Administration Medical Decision Making Medical Decision Making [facility] Narrative: Patient is a 47-year-old female with past medical history of nephrolithiasis, renal cyst, hypertension, type 2 diabetes, hirsutism who presents emergency department for evaluation of chest pain as per HPI. At the time my examination she appears overall well, nontoxic, afebrile. Will obtain CBC to evaluate for leukocytosis/ anemia, CMP and lipase to evaluate for abnormal electrolytes /abnormal renal function/ abnormal hepatic/biliary function, EKG and troponin to evaluate for ischemia/ACS. Chest x-ray to evaluate for consolidation/ infiltrate/ mass/ pulmonary congestion and Urinalysis. Wells negative, unlikely PE Differential Diagnosis Differential Diagnoses: The differential diagnosis associated with the presentation includes (Anemia, HUDSON, hyperglycemia, DKA, ACS, viral syndrome, pulmonary congestion.) Admission/Observation Consideration of admission/observation: Escalation of care including admission/observation considered (See narrative above and course narrative for further detail) Lab Data MDM Lab Attestation statement: I reviewed the patient's lab results. (See course narrative for further detail) 05/19/23 18:02 05/19/23 18:02 Labs: Lab Results 05/19/23 05/19/23 05/19/23 Range/Units 18:02 18:03 18:05 WBC 12.0 H (4.8-10.8) X10*3/uL RBC 4.57 (4.20-5.50) X10*6/uL Hgb 14.0 (12.0-16.0) g/dl Hct 39.1 (37.0-47.0) % MCV 85.6 (80.0-98.0) fL MCH 30.6 (27.0-33.0) pg MCHC 35.8 H (31.0-35.0) g/dl RDW 11.9 (11.0-16.0) % Plt Count 313 (160-400) X10*3/uL MPV 10.1 (9.4-12.3) fL Immature Gran % (Auto) 0.3 (0.0-0.4) % Neut % (Auto) 58.4 (45-73) % Lymph % (Auto) 33.0 (20-40) % [place] % (Auto) 5.0 (2-11) % Eos % (Auto) 2.7 (0-4) % Baso % (Auto) 0.6 (0-2) % Lymph # (Auto) 4.0 (1.2-4.9) X10*3/uL [place] # (Auto) 0.6 (0.1-1.2) X10*3/uL Eos # (Auto) 0.3 (0.0-0.4) X10*3/uL Baso # (Auto) 0.1 (0.0-0.2) X10*3/uL Abs Immat Gran (auto) 0.03 (0.00-0.03) X10*3/uL Absolute Neuts (auto) 7.0 (2.0-8.3) x10*3/uL Absolute Nucleated RBC 0.000 (0.0-0.012) X10*3/uL Nucleated RBC % (auto) 0.0 (0.0-0.2) /100WBC PT 11.8 (11.1-13.3) SEC INR 1.0 (0.9-1.1) VBG pH 7.39 (7.32-7.43) VBG pCO2 55 mmHg VBG pO2 32 mmHg VBG HCO3 34 H (22-26) mmol/L VBG O2 Saturation 49.0 % VBG Base Excess 7.6 mmol/L Sodium 140 (135-145) mmol/L Potassium 3.8 (3.3-5.1) mmol/L Chloride 102 (96-108) mmol/L Carbon Dioxide 31 H (22-29) mmol/L Anion Gap 11 L (12-20) BUN 14 (9-16) mg/dL Creatinine 1.12 (0.5-1.4) mg/dL Estim Creat Clear Calc 78.8 Estimated GFR 52 Random Glucose 257 H (60-115) mg/dL Calcium 9.2 (8.4-10.2) mg/dL Total Bilirubin 0.4 (0.0-1.0) mg/dL AST 21 (5-31) U/L ALT 37 H (0-31) U/L Alkaline Phosphatase 130 H (39-117) U/L Troponin I High Sens < 2.7 (<3.5-17.0) ng/L Total Protein 6.9 (6.5-8.0) g/dL Albumin 3.8 (3.5-5.0) g/dL Lipase 38 (8-78) U/L Beta-Hydroxybutyrate 0.09 (0.02-0.27) mmol/L Influenza Type A (PCR) NEGATIVE (Negative) Influenza Type B (PCR) NEGATIVE (Negative) RSV RNA Qual (PCR) NEGATIVE (Negative) SARS-CoV-2 RNA (RT-PCR) NEGATIVE (Negative) Independent Interpretation I performed an independent interpretation of an: EKG and Plain X-Ray (No pneumonia or pleural effusion) Interpretation: Rate: 81 Rhythm:? Normal sinus rhythm [place]:? Normal Normal P waves.? Normal BENI.?? Normal QRS complex.?? ST T wave :??No ST elevation, no ST depression, no T-wave inversion qTC:455 prior studies:? October 2019 - no acute changes The study has been interpreted contemporaneously by me. Radiology Impression Discussion of test interpretation with radiology: I have reviewed the radiologist's reading. Radiologist Impression: XR/XR chest 2V IMPRESSION: 1. Bilateral low lung volumes. 2. Slight bibasilar atelectasis. 3. Suggestion of widening of the left acromioclavicular joint. Independent Historian Clinical information obtained from an independent historian. History obtained from or confirmed by: EMS External Record Review External record reviewed: Outpatient record Critical Care Time Critical Care Time Critical Care Time: Yes Total Critical Care Time: 45 Attestation: I personally attest to this critical care time spent taking care of the patient exclusive of all other billable procedures was approximately 45 minutes including initial evaluation of patient, ordering tests, x-ray interpretation, EKG interpretation, medical consultation, documentation, re-evaluation. Discharge Plan Discharge Clinical Impression: Chest pain Patient Disposition: Home, Self-Care Instructions: Chest Pain (ED) Additional Instructions: You can take ibuprofen 200 mg, 3 tablets (600mg) every 6-8 hours as needed for pain, in addition to Tylenol 500 mg, 2 tablets (1,000mg) every 4-6 hours as needed for pain, but not to exceed 3 doses daily (3,000mg).? As discussed, follow-up closely with your primary care provider within the next 3 days. Return back to emergency department with any new or worsening symptoms or concerns. Prescriptions: No Action ibuprofen 400 mg tablet 400 mg PO Q6H PRN (Reason: pain) 7 Days Qty: 28 0RF Ozempic 0.25 mg or 0.5 mg(2 mg/1.5 mL) pen injector subcut escitalopram oxalate 10 mg tablet 10 mg PO DAILY ibuprofen 800 mg tablet 800 mg PO TID lorazepam 0.5 mg tablet 0.5 mg PO BEDTIME PRN (Reason: insomnia) (DME) lancets 28 gauge misc See Rx Instructions Not Applicable .MEDSUPPLY Qty: 100 Rx Instructions: As directed (DME) Nicole Lite Strips Strip See Rx Instructions Not Applicable .MEDSUPPLY Qty: 10 Rx Instructions: As directed (DME) pen needle, diabetic 32 gauge x 5/32 needle See Rx Instructions subcut .MEDSUPPLY Qty: 50 Rx Instructions: As directed alcohol swabs Pads, Medicated topical BID omeprazole 20 mg capsule,delayed release(DR/EC) 20 mg PO BID lisinopril 5 mg tablet 10 mg PO DAILY ketoconazole 2 % cream 1 appl topical DAILY nystatin 100,000 unit/gram powder topical Referrals: Physician,Unknown J [Primary Care Provider] - Interventions: ED Discharge Assessment Last Done: 05/19/23 20:02 Discharge Date/Time: 05/19/23 20:08
[2023-05-19] MEDS: Aspirin 81 MG TAB.CHEW 324 MG PO (18:05)
[2023-05-19] MEDS: Nitroglycerin 2 % Oint 1 GM Packet 0.5 INCH TRANSDERMA (18:06)
[2023-05-19 18:09] LABS: MANUAL DIFF FLAG NO
[2023-05-19 18:12] LABS: Basophils Absolute Auto 0.1 X10*3/uL (0.0-0.2); Basophils Percent Auto 0.6 % (0-2); Eosinophils Absolute Auto 0.3 X10*3/uL (0.0-0.4); Eosinophils Percent Auto 2.7 % (0-4); Hematocrit 39.1 % (37.0-47.0); Imm Gran Abs Auto 0.03 X10*3/uL (0.00-0.03); Imm Gran Pct Auto 0.3 % (0.0-0.4); Mean Corpuscular HGB Conc 35.8 g/dl (31.0-35.0); Mean Corpuscular Hemoglobin 30.6 pg (27.0-33.0); Mean Corpuscular Volume 85.6 fL (80.0-98.0); Mean Platelet Volume 10.1 fL (9.4-12.3); Monocytes Absolute Auto 0.6 X10*3/uL (0.1-1.2); Neutrophils Percent Auto 58.4 % (45-73); Platelet Count 313 X10*3/uL (160-400); Red Blood Count 4.57 X10*6/uL (4.20-5.50); Red Cell Distribution Width 11.9 % (11.0-16.0)
[2023-05-19 18:21] LABS: Prothrombin Time 11.8 SEC (11.1-13.3)
[2023-05-19 18:23] LABS: VBG Base Excess 7.6 mmol/L; VBG HCO3 34 mmol/L (22-26); VBG pCO2 55 mmHg; VBG pH 7.39 (7.32-7.43); VBG pO2 32 mmHg
[2023-05-19 18:23] LABS: Venous Blood Gas Refer to POC result
[2023-05-19 18:24] LABS: Beta-Hydroxybutyrate 0.09 mmol/L (0.02-0.27)
[2023-05-19 18:26] LABS: Alanine Aminotransferase 37 U/L (0-31); Albumin Level 3.8 g/dL (3.5-5.0); Alkaline Phosphatase 130 U/L (39-117); Anion Gap 11 (12-20); Aspartate Amino Transferase 21 U/L (5-31); Bilirubin Total 0.4 mg/dL (0.0-1.0); Blood Urea Nitrogen 14 mg/dL (9-16); Calcium 9.2 mg/dL (8.4-10.2); Carbon Dioxide 31 mmol/L (22-29); Chloride 102 mmol/L (96-108); Creatinine Clr Calc Pharmacy 78.8; Estimated Glomerular Filt Rate 52; Glucose Random 257 mg/dL (60-115); Lipase 38 U/L (8-78); Potassium 3.8 mmol/L (3.3-5.1); Sodium 140 mmol/L (135-145); Total Protein 6.9 g/dL (6.5-8.0)
[2023-05-19 18:33] LABS: Troponin-I High Sensitivity < 2.7 ng/L (<3.5-17.0)
[2023-05-19 18:51] LABS: Influenza A PCR NEGATIVE (Negative); Influenza B PCR NEGATIVE (Negative); Resp Syncy Virus RNA Qual PCR NEGATIVE (Negative); SARS COV2 PCR INHOUSE NEGATIVE (Negative)
[2023-05-19 19:09] VITALS: PULSE 69; RESP 18; O2SAT 96
[2023-05-19 20:01] VITALS: BP 132/70; PULSE 74; RESP 16; O2SAT 98
== END 2023-05-19 20:08 | disposition home or self-care (01) ==
PROVIDERS: Nurse Practitioner Family; Emergency Provider Emergency Medicine
DX: R07.9 Chest pain, unspecified (principal); E11.9 Type 2 diabetes mellitus without complications; I10 Essential (primary) hypertension; Z11.52 Encounter for screening for COVID-19; Z20.828 Contact with and (suspected) exposure to other viral communicable diseases
CPT/HCPCS: 0241U; 36415; 71046; 80053; 82010; 82803; 83690; 84484; 85025; 85610; 93005; 99283; 99285

== ENCOUNTER → 2023-05-19 17:35 | Outpatient (BNV) | payer MEDICAID, SELFPAY | PROVIDERS: Emergency Provider Emergency Medicine; Visit Provider Internal Medicine Cardiovascular Disease | DX: R07.9 Chest pain, unspecified (principal) | CPT/HCPCS: 93010 ==

== ENCOUNTER 2023-06-16 23:38 | Emergency (ER) | payer MEDICAID, SELFPAY ==
[2023-06-17 00:35] VITALS: BP 130/87; PULSE 85; RESP 20; TEMP 36.8; O2SAT 96; BMI 37.8
[2023-06-17 00:46] LABS: Glucose, Whole Blood 464 mg/dL (60-115)
[2023-06-17 00:54] LABS: Basophils Absolute Auto 0.1 X10*3/uL (0.0-0.2); Basophils Percent Auto 0.6 % (0-2); Eosinophils Absolute Auto 0.3 X10*3/uL (0.0-0.4); Eosinophils Percent Auto 2.5 % (0-4); Hemoglobin 13.9 g/dl (12.0-16.0); Imm Gran Abs Auto 0.05 X10*3/uL (0.00-0.03); Imm Gran Pct Auto 0.4 % (0.0-0.4); Lymphocytes Absolute Auto 4.7 X10*3/uL (1.2-4.9); Lymphocytes Percent Auto 37.8 % (20-40); MANUAL DIFF FLAG NO; Mean Corpuscular HGB Conc 36.6 g/dl (31.0-35.0); Mean Corpuscular Hemoglobin 30.5 pg (27.0-33.0); Mean Corpuscular Volume 83.5 fL (80.0-98.0); Mean Platelet Volume 10.5 fL (9.4-12.3); Monocytes Absolute Auto 0.7 X10*3/uL (0.1-1.2); Monocytes Percent Auto 5.3 % (2-11); Neutrophils Absolute Auto 6.7 x10*3/uL (2.0-8.3); Neutrophils Percent Auto 53.4 % (45-73); Platelet Count 312 X10*3/uL (160-400); Red Blood Count 4.55 X10*6/uL (4.20-5.50); Red Cell Distribution Width 11.8 % (11.0-16.0); White Blood Count 12.5 X10*3/uL (4.8-10.8)
[2023-06-17 01:21] LABS: Alanine Aminotransferase 47 U/L (0-31); Albumin Level 3.9 g/dL (3.5-5.0); Alkaline Phosphatase 165 U/L (39-117); Anion Gap 14 (12-20); Aspartate Amino Transferase 28 U/L (5-31); Bilirubin Total 0.4 mg/dL (0.0-1.0); Blood Urea Nitrogen 13 mg/dL (9-16); Calcium 9.3 mg/dL (8.4-10.2); Carbon Dioxide 23 mmol/L (22-29); Chloride 101 mmol/L (96-108); Creatinine Clr Calc Pharmacy 68.7; Estimated Glomerular Filt Rate 50; Glucose Random 451 mg/dL (60-115); HCG Quantitative < 2 mIU/mL; Potassium 4.4 mmol/L (3.3-5.1); Sodium 134 mmol/L (135-145); Total Protein 7.1 g/dL (6.5-8.0)
[2023-06-17 02:04] VITALS: BP 113/63; PULSE 64; RESP 20; TEMP 36.3; O2SAT 95
[2023-06-17 02:06] LABS: Appearance Urine Clear; Color Urine Yellow; Glucose Urine UA >=1000 mg/dL (Negative); Leukocyte Esterase Urine Negative (Negative); Nitrite Urine Negative (Negative); PH 5.5 (5.0-9.0); Specific Gravity - Urine >= 1.030 (1.005-1.025); UMIC TRIGGER UACC YES; Urine Blood Negative (Negative); Urine Ketones Trace mg/dL (Negative); Urine Protein Negative (Neg-Trace)
[2023-06-17 02:15] LABS: Bacteria Urine None Seen (None Seen); Hyaline Casts Urine 0-2 /LPF (0-2); RBC Urine 0-2 /HPF (0-2); Squamous Epithelial Cell Urine 0-2 /HPF (0-2); WBC Urine 0-5 /HPF (0-5)
[2023-06-17 02:25] LABS: Glucose, Whole Blood 424 mg/dL (60-115)
--- NOTE | 2023-06-17 03:13 | PC.NURSE ---
POC [id number], notified Dr. Parsons. 20 G IV line placed into R AC.
--- NOTE | 2023-06-17 03:32 | ED.GENADULT ---
HPI - General Adult General Chief complaint: General Medical Stated complaint: Diabetic, high blood sugar, weakness Time Seen by Provider: 06/17/23 03:23 Source: patient Mode of arrival: ambulatory Limitations: no limitations History of Present Illness HPI narrative: Patient comes to the emergency room complaining of dry mouth, weakness, blood glucose of 549 at home. Patient states that late last year towards December, patient was doing very well taking Ozempic. Patient states that her hemoglobin was 6.4. Since her last dose of Ozempic, patient states that she has been trying to call her PCPs office, but for some reason her Ozempic has not been refilled. Patient states that she does not have any other medication for diabetes. Since then, her blood glucose has gradually been increasing. Related Data Home Medications Medication Instructions Recorded Confirmed alcohol swabs pad topical BID diabetes mellitus 02/03/20 03/20/20 blood sugar diagnostic #10 ea 02/03/20 03/20/20 escitalopram oxalate 10 mg tablet 10 mg PO DAILY 02/03/20 04/09/22 ibuprofen 800 mg tablet 800 mg PO TID 02/03/20 04/09/22 lancets 28 gauge #100 ea 02/03/20 04/09/22 lorazepam 0.5 mg tablet 0.5 mg PO BEDTIME PRN insomnia 02/03/20 04/09/22 omeprazole 20 mg capsule,delayed 20 mg PO BID 02/03/20 04/09/22 release pen needle, diabetic 32 gauge x #50 ea 02/03/20 03/20/20 semaglutide 0.25 mg or 0.5 mg (2 mg subcut 02/03/20 04/09/22 mg/1.5 mL) subcutaneous pen injector ketoconazole 2 % topical cream 1 appl topical DAILY 03/20/20 03/20/20 nystatin 100,000 unit/gram topical topical 03/20/20 04/09/22 powder lisinopril 5 mg tablet 10 mg PO DAILY 09/13/21 04/09/22 Previous Rx's Medication Instructions Recorded ibuprofen 400 mg tablet 400 mg PO Q6H PRN pain 7 days #28 10/25/21 tabs semaglutide 0.25 mg or 0.5 mg (2 0.25 mg (0.368 mL) subcut QWEEK #3 06/17/23 mg/3 mL) subcutaneous pen injector mL (Ozempic) Allergies Allergy/AdvReac Type Severity Reaction Status Date / Time diphenhydramine Allergy Unknown HIVES Verified 06/17/23 00:33 [From BENADRYL] meloxicam [MELOXICAM] Allergy Unknown RASH Verified 06/17/23 00:33 penicillin G Allergy Unknown Anaphylaxis Verified 06/17/23 00:33 Penicillins [PENICILLINS] Allergy Unknown ANAPHYLAXIS Verified 06/17/23 00:33 Sulfa (Sulfonamide Allergy Unknown HIVES Verified 06/17/23 00:33 Antibiotics) [SULFA (SULFONAMIDE ANTIBIOTICS)] sulfur Allergy Unknown Hives Verified 06/17/23 00:33 Benadryl Allergy Unknown Hives Uncoded 04/09/22 19:25 Review of Systems Review of Systems: Constitutional : No Weight loss, No Fever, No Chills, No Night Sweats, No Fatigue, No Malaise ENT/Mouth : No Hearing loss, No Ear Pain, No Nasal Congestion, No Sinus Pain, No Hoarseness, No sore throat, No Rhinorrhea, No Swallowing Difficulty Eyes: No Eye Pain, No Swelling, No Redness, No Foreign Body, No Discharge, No Vision Changes Cardiovascular : No Chest Pain, No SOB, No Dyspnea on Exertion, No Orthopnea, No Edema, No Palpitations Respiratory : No Cough, No Sputum, No Wheezing, No Smoke Exposure, No Dyspnea Gastrointestinal : No Nausea, No Vomiting, No Diarrhea, No Constipation, No abdominal Pain, No Hematochezia, No Melena Genitourinary : no irregular bleeding, No Dysuria, No Urinary Frequency, No Hematuria, No Urinary Incontinence, No Urgency, No Flank Pain, No Urinary Flow Changes, No Hesitancy Musculoskeletal : No joint pain, No Myalgias, No Joint Swelling Skin : No Skin Lesions, No rash Neuro : No Weakness, No Numbness, No Paresthesias, No Loss of Consciousness, No Dizziness, No Headache Psych : No Anxiety/Panic, No Depression, No SI/HI/AH/VH, No Social Issues, Heme/Lymph: No Bruising, No Bleeding,No Lymphadenopathy Endocrine : complaining of polyuria polydipsia, blood glucose of 500+ at [facility] Past Medical History Medical History Renal cyst Diabetes Hiatal hernia Kidney stone Surgical History H/O Spinal surgery Social History Social History Alcohol intake: former Substance Use Type: Marijuana Advance Directives: No Advance Directives Information Provided: Yes Patient : No Sexual orientation: Straight/Heterosexual Gender identity: Female Physical Exam ED Vital Signs: Vital Signs - 24 hr 06/17/23 00:35 06/17/23 02:04 Temperature 98.2 F 97.3 F Pulse Rate 85 64 Respiratory Rate 20 20 Blood Pressure 130/87 113/63 Pulse Oximetry 96 95 Oxygen Delivery Method Room Air Room Air BMI result Body Mass Index 37.8 Const Other: Appearance: Alert. Oriented X3. No acute distress. Eyes: Pupils equal, round and reactive to light. ENT: Pharynx normal. Neck: Normal inspection. Neck supple. No lymph nodes noted. No crepitus CVS: Normal heart rate and rhythm. Pulses normal. Normal S1 and S2 Respiratory: No respiratory distress. Breath sounds normal. No Wheezing. No rales Abdomen: Soft and nontender. No rigidity. No distention. Skin: Skin warm and dry. Normal skin color. Normal skin turgor. Extremities: No lower extremity edema. No Lacerations. No Rash Neuro: Oriented X 3. No motor deficit. No sensory deficit. Moving all extremities. No slurred speech. CN 2 through 12 grossly intact Psych: calm, cooperative, normal affect Medications Administered Generic Name Dose Route Start Last Admin Trade Name Freq PRN Reason Stop Dose Admin Sodium Chloride 2,000 mls @ 999 mls/hr 06/17/23 03:30 06/17/23 03:52 Ns IVCONT 06/17/23 05:30 999 mls/hr .Q2H1M ONE Administration Discontinued Medications Generic Name Dose Route Start Last Admin Trade Name Freq PRN Reason Stop Dose Admin Insulin Human Regular 10 unit 06/17/23 03:30 06/17/23 03:52 Insulin Regular, Human 100 Unit/Ml 3 Ml Vial IVPUSH 06/17/23 03:31 10 unit ONCE ONE Administration Medical Decision Making Medical Decision Making MDM Narrative: -my interpretation of labs: White blood cell count 12.4, likely reactive leukocytosis. Chemistry shows a glucose of 451. Anion gap is closed, LFTs slightly bumped chronically, hCG negative, urinalysis negative for UTI. -patient receiving IV fluids and insulin 10 units IV. -I reviewed patient's past medical records, patient did have a prescription previously for Ozempic. Patient states that her glucose was very well controlled with Ozempic. -patient's glucose improved to 138 Differential Diagnosis Differential Diagnoses: The differential diagnosis associated with the presentation includes (Medication noncompliance, type 2 diabetes, DKA) Admission/Observation Consideration of admission/observation: Escalation of care including admission/observation considered (Given patient's labs, admission considered) Lab Data MDM Lab Attestation statement: I reviewed the patient's lab results. 06/17/23 00:49 06/17/23 00:49 Labs: Lab Results 06/17/23 06/17/23 06/17/23 Range/Units 00:43 00:49 01:58 WBC 12.5 H (4.8-10.8) X10*3/uL RBC 4.55 (4.20-5.50) X10*6/uL Hgb 13.9 (12.0-16.0) g/dl Hct 38.0 (37.0-47.0) % MCV 83.5 (80.0-98.0) fL MCH 30.5 (27.0-33.0) pg MCHC 36.6 H (31.0-35.0) g/dl RDW 11.8 (11.0-16.0) % Plt Count 312 (160-400) X10*3/uL MPV 10.5 (9.4-12.3) fL Immature Gran % (Auto) 0.4 (0.0-0.4) % Neut % (Auto) 53.4 (45-73) % Lymph % (Auto) 37.8 (20-40) % [place] % (Auto) 5.3 (2-11) % Eos % (Auto) 2.5 (0-4) % Baso % (Auto) 0.6 (0-2) % Lymph # (Auto) 4.7 (1.2-4.9) X10*3/uL [place] # (Auto) 0.7 (0.1-1.2) X10*3/uL Eos # (Auto) 0.3 (0.0-0.4) X10*3/uL Baso # (Auto) 0.1 (0.0-0.2) X10*3/uL Abs Immat Gran (auto) 0.05 H (0.00-0.03) X10*3/uL Absolute Neuts (auto) 6.7 (2.0-8.3) x10*3/uL Absolute Nucleated RBC 0.000 (0.0-0.012) X10*3/uL Nucleated RBC % (auto) 0.0 (0.0-0.2) /100WBC Sodium 134 L (135-145) mmol/L Potassium 4.4 (3.3-5.1) mmol/L Chloride 101 (96-108) mmol/L Carbon Dioxide 23 (22-29) mmol/L Anion Gap 14 (12-20) BUN 13 (9-16) mg/dL Creatinine 1.15 (0.5-1.4) mg/dL Estim Creat Clear Calc 68.7 Estimated GFR 50 POC Glucose 464 H* (60-115) mg/dL Random Glucose 451 H* (60-115) mg/dL Calcium 9.3 (8.4-10.2) mg/dL Total Bilirubin 0.4 (0.0-1.0) mg/dL AST 28 (5-31) U/L ALT 47 H (0-31) U/L Alkaline Phosphatase 165 H (39-117) U/L Total Protein 7.1 (6.5-8.0) g/dL Albumin 3.9 (3.5-5.0) g/dL Beta HCG, Quant < 2 mIU/mL Urine Color Yellow Urine Appearance Clear Urine pH 5.5 (5.0-9.0) Ur Specific [place] >= 1.030 H (1.005-1.025) Urine Protein Negative (Neg-Trace) mg/dL Urine Glucose (UA) >=1000 H (Negative) mg/dL Urine Ketones Trace (Negative) mg/dL Urine Blood Negative (Negative) Urine Nitrite Negative (Negative) Ur Leukocyte Esterase Negative (Negative) Urine RBC 0-2 (0-2) /HPF Urine WBC 0-5 (0-5) /HPF Ur Squamous Epith Cells 0-2 (0-2) /HPF Urine Bacteria None Seen (None Seen) Hyaline Casts 0-2 (0-2) /LPF 04/02/24 04/02/24 Range/Units 02:22 04:44 WBC (4.8-10.8) X10*3/uL RBC (4.20-5.50) X10*6/uL Hgb (12.0-16.0) g/dl Hct (37.0-47.0) % MCV (80.0-98.0) fL MCH (27.0-33.0) pg MCHC (31.0-35.0) g/dl RDW (11.0-16.0) % Plt Count (160-400) X10*3/uL MPV (9.4-12.3) fL Immature Gran % (Auto) (0.0-0.4) % Neut % (Auto) (45-73) % Lymph % (Auto) (20-40) % [place] % (Auto) (2-11) % Eos % (Auto) (0-4) % Baso % (Auto) (0-2) % Lymph # (Auto) (1.2-4.9) X10*3/uL [place] # (Auto) (0.1-1.2) X10*3/uL Eos # (Auto) (0.0-0.4) X10*3/uL Baso # (Auto) (0.0-0.2) X10*3/uL Abs Immat Gran (auto) (0.00-0.03) X10*3/uL Absolute Neuts (auto) (2.0-8.3) x10*3/uL Absolute Nucleated RBC (0.0-0.012) X10*3/uL Nucleated RBC % (auto) (0.0-0.2) /100WBC Sodium (135-145) mmol/L Potassium (3.3-5.1) mmol/L Chloride (96-108) mmol/L Carbon Dioxide (22-29) mmol/L Anion Gap (12-20) BUN (9-16) mg/dL Creatinine (0.5-1.4) mg/dL Estim Creat Clear Calc Estimated GFR POC Glucose 424 H* 138 H (60-115) mg/dL Random Glucose (60-115) mg/dL Calcium (8.4-10.2) mg/dL Total Bilirubin (0.0-1.0) mg/dL AST (5-31) U/L ALT (0-31) U/L Alkaline Phosphatase (39-117) U/L Total Protein (6.5-8.0) g/dL Albumin (3.5-5.0) g/dL Beta HCG, Quant mIU/mL Urine Color Urine Appearance Urine pH (5.0-9.0) Ur Specific [place] (1.005-1.025) Urine Protein (Neg-Trace) mg/dL Urine Glucose (UA) (Negative) mg/dL Urine Ketones (Negative) mg/dL Urine Blood (Negative) Urine Nitrite (Negative) Ur Leukocyte Esterase (Negative) Urine RBC (0-2) /HPF Urine WBC (0-5) /HPF Ur Squamous Epith Cells (0-2) /HPF Urine Bacteria (None Seen) Hyaline Casts (0-2) /LPF Prescription Management I considered prescription management with: Other (Lantus and Humalog. However, seems that patient was doing well on Ozempic) Chronic Conditions Patient?s care impacted by: Diabetes Critical Care Time Critical Care Time Critical Care Time: Yes Total Critical Care Time: 60 Attestation: I have personally provided critical care time. Time includes review of lab data, radiology results, discussion with consultants, and monitoring for potential decompensation. Intervention performed as documented. Discharge Plan Discharge Clinical Impression: Uncontrolled diabetes mellitus with hyperglycemia Patient Disposition: Home, Self-Care Instructions: Diabetic Hyperglycemia (ED) Additional Instructions: Please follow-up with your primary care physician tomorrow. If you have any worsening or new symptoms, please return to the emergency room or call 911 Prescriptions: New Ozempic 0.25 mg or 0.5 mg (2 mg/3 mL) pen injector 0.25 mg subcut QWEEK Qty: 3 0RF Rx Instructions: for 4 weeks No Action ibuprofen 400 mg tablet 400 mg PO Q6H PRN (Reason: pain) 7 Days Qty: 28 0RF Ozempic 0.25 mg or 0.5 mg(2 mg/1.5 mL) pen injector subcut escitalopram oxalate 10 mg tablet 10 mg PO DAILY ibuprofen 800 mg tablet 800 mg PO TID lorazepam 0.5 mg tablet 0.5 mg PO BEDTIME PRN (Reason: insomnia) (DME) lancets 28 gauge misc See Rx Instructions Not Applicable .MEDSUPPLY Qty: 100 Rx Instructions: As directed (DME) FreeStyle Lite Strips Strip See Rx Instructions Not Applicable .MEDSUPPLY Qty: 10 Rx Instructions: As directed (DME) pen needle, diabetic 32 gauge x 5/32 needle See Rx Instructions subcut .MEDSUPPLY Qty: 50 Rx Instructions: As directed alcohol swabs Pads, Medicated topical BID omeprazole 20 mg capsule,delayed release(DR/EC) 20 mg PO BID lisinopril 5 mg tablet 10 mg PO DAILY ketoconazole 2 % cream 1 appl topical DAILY nystatin 100,000 unit/gram powder topical
[2023-06-17] MEDS: Insulin Regular, Human 100 UNIT/ML 3 ML VIAL 10 UNIT IVPUSH (03:52)
[2023-06-17] MEDS: 0.9 % Sodium Chloride 2,000 ML 999 ML IVCONT (03:52)
[2023-06-17 04:48] LABS: Glucose, Whole Blood 138 mg/dL (60-115)
[2023-06-17 05:26] VITALS: BP 113/65; PULSE 76; RESP 16; TEMP 36.2; O2SAT 97
[2023-06-17 05:58] VITALS: BP 139/86; PULSE 88; RESP 16; TEMP 36.7; O2SAT 99
== END 2023-06-17 06:00 | disposition home or self-care (01) ==
PROVIDERS: Emergency Provider Emergency Medicine
DX: E11.65 Type 2 diabetes mellitus with hyperglycemia (principal); Z79.85 Long-term (current) use of injectable non-insulin antidiabetic drugs; Z88.0 Allergy status to penicillin; Z88.2 Allergy status to sulfonamides; Z88.8 Allergy status to other drugs, medicaments and biological substances
CPT/HCPCS: 36415; 80053; 81001; 82947; 84702; 85025; 96361; 96374; 99284; 99285

== ENCOUNTER 2024-03-05 13:19 | Outpatient (REF) | payer MEDICAID, SELFPAY ==
--- OUTSIDE RECORDS SUMMARY | 2024-03-05 13:22 | XMS_ITS | Data Portability ---
Author Organization [facility]e [id number] Address [address] [place] [address] Assessment No assessment recorded. Plan of Treatment Reminders Order Date Submit Date Provider Last Modified By Organization Details Last Modified Time Details Appointments None record ed. Lab None record ed. Referral None record ed. Procedures None record ed. Surgeries None record ed. Imaging XR, foot, 3 or more view 023 09/14/19 23 [facility], [address] [place] [address], [place], [address], 3 19:56:56 Medication Orders None record ed. Patient TargetsNo targets recorded. Patient Instructions Encounter Date Encounter Id Patient Instructions Last Modified By Organization Details Last Modified Time 09/13/2022 [id number] Based on your presentation and exam, you are diagnosed with an foot sprain/contusion The x-ray did not show any acute fracture but we will send it to the radiologist to review. If they see something that I didn't identify, you will be contacted by our office. My suggestions for this condition include: 1. Ice 2. Elevate 3. Rest 4. Make sure you stretch your ankle/foot regularly for the next 1-2 weeks 5. Take Ibuprofen or Tylenol if you do not have any allergies to these medications. If you take a blood thinner you should not take NSAIDS like Ibuprofen. 6. After 3 days of icing - I would switch to heat - this will help reabsorb any bruising or swelling. If you are still having pain after 7-10 days, I would suggest that you follow up with our office again or schedule and appointment with an orthopedist. I would be seen more urgently if you develop any of the following symptoms. 1. Numbness 2. Cold Extremities 3. Worsening Pain 4. Skin Redness 5. Calf Swelling Thank you for using [facility], please contact our office if you have any questions or concerns. [email or web address] Not available 09/13/2022 18:18:38 Reason for Referral None Reported. Results Created Date Observation Date Name Description Value Unit Range Abnormal Flag Note LastModifiedBy Organization Detail LastModifiedTime 09/14/19 23 09/13/2022 XR, foot, 3 or more view No observ ation record ed. [email or web address] [facility] [address] [place], [address], 09/13/2022 20:03:32 Result Notes None recorded. Problems Name Problem SNOMED Code Status Onset Date Resolution Date Notes Provider Name and Address Organization Details Recorded Time Diabetes mellitus 49505800 Active 2022 THEODORE barrios, [place] - [facility] 3 17:09:32 Hypertensive disorder 09380855 Active 2022 THEODORE ADAMS null, PA - [facility] 3 17:09:41 Restless legs 72555858 Active 2022 THEODORE ADAMS null, PA - [facility] 3 17:09:48 Problem Notes None recorded. Procedures Surgical History Date Name Laterality Status Provider Name and Address Organization Details Recorded Time procedure on back completed THEODORE ADAMS PA - [facility] 09/13/2022 17:10:31 procedure on shoulder completed THEODORE ADAMS PA - [facility] 09/13/2022 17:10:37 hernia repair completed THEODORE ADAMS PA - [facility] 09/13/2022 17:10:42 Imaging Results Imaging Date Name Status LastModified by Organiz ation Details LastModified Time 09/13/2022 XR, foot, 3 or more view completed [email or web address] [facility] [address] [place], [address], 09/13/2022 20:03:32 Procedure Notes None recorded. Medical Equipment None Reported. Allergies Allergen ID Allergen Name Allergen Category Reaction Reaction Severity Criticality Documentation Date Start Date Code Code System Note Provider Name and Address Organization Details Recorded Time 653795 Medicinal product containin g penicilli n and acting as antibacte rial agent (product) medicatio n Not available Not available Not available 09/13/2022 65497 05 SNOMED THEODORE ADAMS sophie, PA - [facility] 3 17:08:04 390471 Substance with sulfonami de structure and antibacte rial mechanism of action (substanc e) medicatio n Not available Not available Not available 09/13/2022 10004 8003 SNOMED THEODORE GRANTULISES null, PA - [facility] 3 17:08:09 411186 meloxicam medicatio n Not available Not available Not available 09/13/2022 20138 RxNorm THEODORE GRANTULISES null, PA - [facility] 3 17:08:14 775222 Benadryl medicatio n Not available Not available Not available 09/13/2022 38283 7 RxNorm THEODORE GRANTULISES barrios, PA - [facility] 3 17:08:18 Medications Name Sig Start Date Stop Date Status Note LastModified by Organization Details LastModified Time gabapentin 600 mg tablet TAKE 2 TABLETS (1,200 MG TOTAL) BY MOUTH NIGHTLY AT BEDTIME. active Not Available Not Available No t Available doxycycline hyclate 100 mg capsule TAKE 1 CAPSULE TWICE A DAY BY ORAL ROUTE AFTER MEALS FOR 7 DAYS. 09/13 completed Not Available Not Available Not Available fluconazole 150 mg tablet TAKE 1 TABLET BY MOUTH TODAY THEN 1 TABLET A WEEK LATER 09/13 completed Not Available Not Available Not Available prednisone 20 mg tablet TAKE 2 TABLETS BY MOUTH DAILY FOR 5 DAYS 09/13 completed Not Available Not Available Not Available omeprazole 40 mg capsule,del ayed release TAKE 1 CAPSULE BY MOUTH EVERY DAY active Not Available Not Available No t Available lorazepam 0.5 mg tablet TAKE 1 TABLET BY MOUTH EACH NIGHT NEEDED FOR SLEEP active Not Available Not Available No t Available amitriptyli ne 10 mg tablet TAKE 1 TABLET BY MOUTH EVERYDAY AT BEDTIME active Not Available Not Available No t Available cephalexin 500 mg capsule TAKE 1 CAPSULE BY MOUTH THREE TIMES A DAY FOR 7 DAYS 09/13 completed Not Available Not Available Not Available ibuprofen 400 mg tablet TAKE 1 TABLET BY MOUTH EVERY 6 HOURS NEEDED FOR PAIN FOR 7 DAYS 09/13 completed Not Available Not Available Not Available lisinopril 5 mg tablet TAKE 1 TABLET BY MOUTH EVERY DAY active Not Available Not Available No t Available fluticasone propionate 50 mcg/actuati on nasal spray,suspe nsion SPRAY 1 SPRAY BY INTRANASA L ROUTE EVERY DAY FOR 30 DAYS 09/13 completed Not Available Not Available Not Available oxycodone 5 mg tablet TAKE 1-2 TABLETS (5-10 MG TOTAL) BY MOUTH EVERY 6 (SIX) HOURS NEEDED. PARTIAL FILL OK 09/13 completed Not Available Not Available Not Available escitalopra m 20 mg tablet TAKE 1 TABLET BY MOUTH EVERY DAY active Not Available Not Available No t Available Vitamin D3 25 mcg (1,000 unit) tablet TAKE 1 TABLET BY MOUTH EVERY DAY 09/13 completed Not Available Not Available Not Available Flovent HFA 110 mcg/actuati on aerosol inhaler INHALE 1 PUFF TWICE A DAY FOR 14 DAYS 09/13 completed Not Available Not Available Not Available Ozempic 0.25 mg or 0.5 mg (2 mg/1.5 mL) subcutaneou s pen injector INJECT 0.5 MG SUBCUTANE OUSLY ONCE A WEEK 90 DAYS active Not Available Not Available No t Available Paxlovid 300 mg (150 mg x 2)-100 mg tablets in a dose pack TAKE 3 TABLETS BY MOUTH TWICE A DAY FOR 5 DAYS 09/13 completed Not Available Not Available Not Available Vitals Date Recorded Body height Body mass index (BMI) Body weight Oxygen saturation Oxygen saturation in Arterial blood by Pulse oximetry Heart rate Respiratory rate Body temperature Systolic blood pressure Diastolic blood pressure Provider Name and Address Organization Details Last Updated DateTime 3 162.56 cm 35.2 kg/m2 49453.4 4 g 97 % 97 % 89 /min 18 /min 98.5 [degF] 111 mm[Hg] 73 mm[Hg] THEODORE Olivera [facility] 17:13:14 Social History Question Answer Notes LastModified by Organizat ion Details LastModified Time Tobacco Smoking Status Never Smoker NAKITA [facility] 09/13/2022 17:10:13 What Is Your Level Of Alcohol Consumption? None Information not available 09/13/2022 Which Illicit Or Recreational Drugs Have You Used? Marijuana Information not available 09/13/2022 Have You Had Direct Contact, Or Contact During Intimacy, With Monkeypox Rash, Scabs, Or Body Fluids From A Person With Monkeypox? No Information not available 09/13/2022 Do You Use Any Illicit Or Recreational Drugs? Yes Information not available 09/13/2022 Have You Recently Traveled Abroad? No Information not available 09/13/2022 Do You Or Have You Ever Used Any Other Forms Of Tobacco Or Nicotine? No Information not available 09/13/2022 Sex: Unknown Functional Status None recorded. Mental Status None recorded. Family History Relationship Description Onset Age of this Age Resolved Age Notes LastModified by Organization Details LastModified Time Father No current problems or disability Not available 08/17 17:09:55 Mother No current problems or disability Not available 08/17 17:09:55 Medical History No medical history recorded. Gynecological History Statement/Question Response Is there any chance of ? No Obstetrics History GPAL:G 0 P 0 0 0 0 Immunizations Vaccine Type Date Status Note Provider Nam e and Address Organization Details Recorded Time COVID-19, mRNA, LNP-S, PF, 100 mcg/0.5mL dose or 50 mcg/0.25mL dose 2 completed THEODORE barrios PA - [facility] 09/13/2022 17:07:55 COVID-19, mRNA, LNP-S, PF, 100 mcg/0.5mL dose or 50 mcg/0.25mL dose 1 completed THEODORE barrios PA - [facility] 09/13/2022 17:07:55 COVID-19, mRNA, LNP-S, PF, 100 mcg/0.5mL dose or 50 mcg/0.25mL dose 1 completed THEODORE barrios PA - [facility] 09/13/2022 17:07:55 pneumococcal polysaccharide PPV23 0 completed THEODORE ADAMS null, PA - [facility] 09/13/2022 17:07:55 influenza, unspecified formulation 2 completed THEODORE ADAMS null, PA - [facility] 09/13/2022 17:07:56 Tdap 0 completed THEODORE ADAMS null, PA - [facility] 09/13/2022 17:07:56 Influenza, split virus, trivalent, preservative 2 completed THEODORE ADAMS null, PA - [facility] 09/13/2022 17:07:56 Influenza, split virus, trivalent, preservative 1 completed THEODORE ADAMS null, PA - [facility] 09/13/2022 17:07:56 Influenza, split virus, trivalent, preservative 4 completed THEODORE ADAMS null, PA - [facility] 09/13/2022 17:07:56 Influenza, split virus, trivalent, preservative 0 completed THEODORE ADAMS null, PA - [facility] 09/13/2022 17:07:56 Novel [id number], nasal 9 completed THEODORE ADAMS null, PA - [facility] 09/13/2022 17:07:56 Td (adult), 2 Lf tetanus toxoid, preservative free, adsorbed 8 completed THEODORE ADAMS null, PA - [facility] 09/13/2022 17:07:56 influenza, seasonal, intradermal, preservative free 3 completed THEODORE ADAMS null, PA - [facility] 09/13/2022 17:07:56 Influenza, split virus, quadrivalent, PF 6 completed THEODORE ADAMS null, PA - [facility] 09/13/2022 17:07:56 Influenza, split virus, quadrivalent, PF 0 completed THEODORE ADAMS null, PA - [facility] 09/13/2022 17:07:56 Influenza, split virus, quadrivalent, PF 9 completed THEODORE barrios PA - [facility] 09/13/2022 17:07:56 Influenza, split virus, quadrivalent, PF 1 completed THEODORE barrios PA - [facility] 09/13/2022 17:07:56 Past Encounters Encounter ID Performer Location Encounter Start Date Encounter Closed Date Diagnosis/Indication Diagnosis SNOMED-CT Code Diagnosis ICD10 Code [id number] [address] [place] [address] 06/27/2016 16:33:56 06/27/2016 17:15:58 [id number] [place] [address] 09/26/2020 09:31:57 09/26/2020 10:18:46 [id number] [address] [place] [address] 03/22/2016 17:46:10 03/22/2016 19:34:01 [id number] [address] [place] [address] 12/24/2016 19:17:38 12/24/2016 19:57:58 [id number] [address] [place] [address] 09/22/2019 13:12:33 09/22/2019 14:50:48 [id number] [address] [place] [address] 04/29/2018 19:54:02 04/29/2018 20:23:00 [id number] [address] [place] [address] 10/22/2017 11:33:16 10/22/2017 12:50:10 [id number] [address] [place] [address] 02/21/2018 19:29:21 02/21/2018 19:57:06 [id number] [address] [place] [address] 05/14/2019 12:41:28 05/14/2019 13:23:22 [id number] [address] [place] [address] 05/01/2018 17:34:59 05/01/2018 18:25:40 [id number] [address] [facility] [place] [address] 08/23/2019 18:57:13 08/23/2019 19:29:12 [id number] [address] [place] [address] 12/24/2016 19:25:41 12/24/2016 19:33:55 [id number] [address] [facility] [place] [address] 12/26/2018 18:21:22 12/26/2018 18:45:03 [id number] [address] [facility] [place] [address] 10/07/2016 18:38:59 10/07/2016 19:09:45 [id number] [address] [facility] [place] [address] 11/03/2016 18:56:31 11/03/2016 19:45:28 [id number] [address] [place] [address] [place] [address] 07/08/2020 15:57:16 07/08/2020 16:55:25 [id number] NAKITA MARQUEZ [address] [facility] [place] [address] 09/13/2022 14:11:56 09/13/2022 18:20:38 Pain in right foot 7443961262 05170 M79.671 Contusion of right foot 7341891468 5122964 S90.31XA Health Concerns Section Related Observation LastModified by Organization Detai ls LastModified Time None Recorded Concern Status LastModified by Organization Details LastModified Time None Recorded Advance Directives Directive None Recorded Payers Encounter Date Sequence Insurance Name Policy Number Policy Topete Covered Member ID Topete Member ID Guarantor Name 08/23/2019 1 [facility] [id number] 1 Kelly White [id number] Kelly White 09/22/2019 1 [facility] [id number] Kelly White [id number] Kelly White 07/08/2020 1 [facility] [id number] Kelly White [id number] Kelly White 09/26/2020 1 [facility] [id number] Kelly White [id number] Kelly White 09/13/2022 1 [facility] [id number] Kelly White [id number] Kelly Cindy Notes Date Note Type Note Provider Name and Address Organization Details Recorded Time 3 text/html Foot/Ankle UCReported bypatient.source of patient informationInformation obtained from patient; Patient arrived at Urgent Care ambulatory Location:right Probleminjury Severity:moderate Duration:1 weeks Context:Dropped a cement block on the foot. Pain over the metatarsals and toes - 2nd toe to 5th. Associated Symptoms:no weakness; no swelling; no redness; no warmth; no ecchymosis;numbness;tinglin g; Chronic diabetic neuropathy. Always has those symptoms. Aggravating factors:walking Alleviating factors:elevation Previous InjuryPrior injury to right ankleNotes:History of ankle fracture. NAKITA MARQUEZ [address] [place], [address], [place] - [facility] 09/13/2022 18:20:09 OBGyn Episode No OBEpisode recorded.
== END 2024-03-05 13:20 | disposition home or self-care (01) ==
LOC: HO.MAMMO 13:19
PROVIDERS: PCP Family Medicine; Visit Provider Physician Assistant
DX: Z12.31 Encounter for screening mammogram for malignant neoplasm of breast (principal)
CPT/HCPCS: 77063; 77067

== ENCOUNTER → 2024-03-05 14:00 | Outpatient (BNV) | payer MEDICAID, SELFPAY | PROVIDERS: PCP Family Medicine; Visit Provider Internal Medicine | DX: Z12.31 Encounter for screening mammogram for malignant neoplasm of breast (principal) | CPT/HCPCS: 77063; 77067 ==

== ENCOUNTER 2024-12-31 18:16 | Emergency (ER) | payer MEDICAID, SELFPAY ==
--- NOTE | ~2024-12-31 | CT_ITS ---
CLINICAL HISTORY: TRAUMA CT cervical spine without contrast Comparison: None provided Findings: Vertebral alignment is within normal limits. No significant degenerative change. No acute fractures or dislocations. No acute findings on limited view of the intracranial contents. Soft tissues of the neck are normal. Lung apices are clear. IMPRESSION: No acute findings. This document has been electronically signed by: Pk Willson MD on 12/31/2024 21:47:20
--- NOTE | ~2024-12-31 | CT_ITS ---
CLINICAL HISTORY: TRAUMA CT head without contrast Comparison: None provided Findings: No intra-axial mass, midline shift, hydrocephalus, or acute hemorrhage. No significant atrophy-like change or white matter disease. There is no sinus or mastoid fluid. The orbits are within normal limits. There is no acute fracture. IMPRESSION: 1. No acute intracranial findings. This document has been electronically signed by: Pk Willson MD on 12/31/2024 21:44:57
--- OUTSIDE RECORDS SUMMARY | 2024-12-31 11:30 | XMS_ITS | Encounter Summary ---
Author Organization [facility] Address [address] [place] [address] [place] [address] Phone Care Team Providers Care Computer Video Game Designer Name Role Phone Lola Bermudez Primary Care Provider [phone] Nicole Ortiz RN Unavailable Gabo Bermudez MD Unavailable [phone] Reason for Referral * Consultation (Routine) - New Request Specialty Diagnoses / Procedures Referred By Екатерина knapp Referred To Contact Neurology Diagnoses Other fatigue Long COVID Memory changes Molly Sofia FNP [facility], [address] [place] [address] Phone: tel: fax: [email or web address] Referral ID Status Reason Start Date Expiration Date V isits Requested Visits Authorized [id number] New Request 12/31/2024 12/31/2025 1 1 Reason for Visit * Reason Comments Follow-up Long COVID Encounter Details Date Type Department Care Team (Late Contact Info) Description 12/31/2024 11:30 AM EDT Office Visit [facility] Infectious Diseases [address] [place] [address] Molly Sofia FNP 15 [facility], [address] [place] [phone] Other fatigue (Primary Dx); Long COVID; Memory changes; Anxiety and depression Social History Tobacco Use Types Packs/Day Years Used Date Smoking Tobacco: Former Cigarettes - 2020 Smokeless Tobacco: Never Comments:2-3 cigs a day at t hat time Alcohol Use Standard Drinks/Week Comments Never 0 (1 standard drink = 0.6 oz pur e alcohol) Education Answer Date Recorded Are you interested in more education? Not on kim e 07/12/2022 Are you concerned about learning? Not on file 07/12/2022 No 07/12/2022 No 07/12/2022 Digital Access Answer Date Recorded No 08/10/2022 No 08/10/2022 Reliable internet access at home? Not on file 08/10/2022 Device with a working camera? Not on file Intimate Partner Violence Answer Date R ecorded Are you denied basic needs s uch as food, clothing, or medical care? No 07/14/2024 In the past 12 months have y ou been in a relationship with a person who hurts, threatens, or tries to control you? No 07/14/2024 Are you denied basic needs s uch as food, clothing, or medical care? No 07/14/2024 In the past 12 months have y ou been in a relationship with a person who hurts, threatens, or tries to control you? No 07/14/2024 Comments No Sex and Gender Information Value Date Recorded Sex Assigned at Female 05/18/2019 3:24 PM EST Legal Sex Female 9:29 PM EDT Gender Identity Female 05/18/2019 3:24 PM EST Sexual Orientation Straight 05/18/2019 3: 24 PM EST Occupation Industry Job Start Date Job End Date disability Not on file Not on file Not on file documented as of this encounter Last Filed Vital Signs Vital Sign Reading Time Taken Comments Blood Pressure 100/60 12/31/2024 11:21 AM EDT Pulse 68 12/31/2024 11:21 AM EDT Temperature 36.4 C (97.6 F) 12/31/2024 11:21 AM EDT Respiratory Rate - - Oxygen Saturation - - Inhaled Oxygen Concentration - - Weight 64.7 kg (142 lb 9.6 oz) 12/31/2024 11:21 AM EDT Height - - Body Mass Index 26.08 11/22/2024 1:00 PM EDT documented in this encounter Progress Notes * Molly Sofia, MACK - 12/31/2024 11:30 AM EDT History of Present Illness: Kelly White is a 49 y.o. year-old presenting for follow-up of long COVID. To briefly recap, I met Kelly about 2 years ago for evaluation of long COVID symptoms. At that time, pt reported troublesome fatigue and brain fog. 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 Our September 2022 appointment, pt was still having brain fog along with headache. She had a MARIPOSA-7 score of 17, PHQ-9 score of 16, and MoCA of 16. Discussed her fatigue was likely multifactorial and encouraged her to continue work with pulmonology for sleep apnea(as she's unable to tolerate CPAP). She was referred to neurology. We discussed that long COVID does not have a known pathophysiology or known treatments. At our most recent appointment (03/19/2024), pt continued with fatigue and difficulty in word finding. We discussed that her fatigue was likely mul tifactorial. Pt has lost over 100lbs following her sleeve gastrectomy with Dr. Zuleta. She reports her sleep quality has improved greatly! Unfortunately, her brain fog persists. She feels like she cannot remember anything. She sites an example of promising to help neighbors walk their dogs, but forgetting about it. She forgets to pick her son up from school. She did neuropsychiatric testing that was relatively unremarkable when she first went out on disability. She reports this testing did not show any potential etiology for her forgetfulness and brain fog. She is receiving disability through [employer] [facility] [employer] [facility] [employer] [facility] [employer]. Having a really hard time financially. 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 Has case management through [facility]. She really isn't sure what their role is. She continues to have awful fatigue. She continue to only be able to clean a small portion of her house with a 2-3 day crash thereafter. She is able to run some errands including grocery shopping. Her mood is alright. She is in therapy. She has not tried low dose naltrexone. She has been trying to limit the number of medications she is taking following her sleeve gastrectomy. Review of Systems: Review of Systems - General ROS: more cold than usual due to recent weight loss Respiratory ROS: no cough or shortness of breath Cardiovascular ROS: no chest pain or palpitations Musculoskeletal ROS: rib pain from recent fall Neurologic ROS: frequent falls and memory trouble Medications: Current Outpatient Medications Ordered in [facility] Medication Sig COLLAGEN MISC by Miscellaneous route. Patches escitalopram oxalate (LEXAPRO) 20 MG tablet Take 20 mg by mouth daily. lidocaine (LIDODERM) 5 % Place 1 patch onto the skin daily. Remove & Discard patch within 12 hours or as directed by pxwaicyjkxyt-qrk-xzgq-FA-vit K 45 mg iron- 800 mcg-120 mcg Cap Take by mouth. PATCHES omeprazole (PRILOSEC) 40 MG capsule Take 1 capsule by mouth every morning. simethicone (MYLICON) 80 mg chewable tablet Take 1 tablet (80 mg total) by mouth every 6 (six) hours as needed (gas). traZODone (DESYREL) 100 MG tablet Take 100 mg by mouth nightly at bedtime as needed for sleep. Physical Examination: General: tearful, non-toxic, pleasant Labs: Lab Results Component Value Date WBC 15.32 (H) 07/15/2024 RBC 4.66 07/15/2024 HGB 14.1 07/15/2024 HCT 39.9 07/15/2024 PLT 301 07/15/2024 MCV 85.6 07/15/2024 MCH 30.3 07/15/2024 MCHC 35.3 07/15/2024 RDW 12.2 07/15/2024 MVP 10.3 07/15/2024 NRBCA 0.00 07/15/2024 Lab Results Component Value Date NA 137 07/15/2024 K 3.9 07/15/2024 CL 101 07/15/2024 CO2 24 07/15/2024 BUN 15 07/15/2024 CRE 0.60 07/15/2024 GLU 137 (H) 07/15/2024 ALB 4.1 07/12/2024 TP 7.6 11/27/2023 CA 9.6 07/15/2024 ALKP 103 11/27/2023 TBILI 0.6 11/27/2023 SGOT 27 11/27/2023 SGPT 32 11/27/2023 GLOB 3.3 11/27/2023 GFR 110 07/15/2024 ANION 16 07/15/2024 TSH Date Value Ref Range Status 11/27/2023 0.39 0.27 - 4.20 uIU/mL Final PROBLEM LIST Patient Active Problem List Diagnosis Other fatigue Recurrent fever Frequent headaches Cough Hot flashes Long COVID Cervical polyp Class 2 severe obesity due to excess calories with serious comorbidity and body mass index (BMI) of35.0 to 35.9 in adult Preoperative examination Recurrent umbilical hernia Primary hypertension Type 2 diabetes mellitus without complication, without long-term current use of insulin Obstructive sleep apnea syndrome Memory changes Anxiety and depression Trigger finger, left middle finger Class 1 obesity due to excess calories without serious comorbidity with body mass index (BMI) of 30.0 to 30.9 in adult S/P laparoscopic sleeve gastrectomy Overweight with body mass index (BMI) of 26 to 26.9 in adult Intestinal malabsorption following gastrectomy ASSESSMENT: Problem List Items Addressed This Visit Other fatigue Relevant Orders Ambulatory referral to [facility] - Employed Practices Long COVID Current Assessment & Plan Pt continues with fatigue and awful brain fog following a COVID19 infection in May 2020. She is on disability from her job and having a lot of financial stressors. I have recommended neuropsychiatric testing. I have also referred Kelly to [facility] Neurology as our Neurology Department here at [facility] does not treat memory concerns related to long COVID. Continue therapy. Continue being as active as she is able to tolerate. Follow-up with case management regarding any financial subsidies she may qualify for. We will have a follow-up in March as pt will likely need to have some paperwork filled out at that time. Relevant Orders Ambulatory referral to [facility] - Employed Practices Memory changes Relevant Orders Ambulatory referral to [facility] - Employed Practices Anxiety and depression I personally spent 40 minutes today preparing for the patient, caring for the patient obuh-wg-paya,caring for the patient after the visit, and documenting in the record. I have maintained a long-term, longitudinal relationship with this patient, overseeing care of chronic conditions, including long COVID. This care relationship has significantly influenced my decision making and treatment plans during today's encounter. documented in this encounter Miscellaneous Notes * Assessment & Plan Note - Molly Sofia FNP - 12/31/2024 1:28 PM EDT Associated Problem(s): Long COVID Pt continues with fatigue and awful brain fog following a COVID19 infection in May 2020. She is on disability from her job and having a lot of financial stressors. I have recommended neuropsychiatric testing. I have also referred Kelly to [facility] Neurology as our Neurology Department here at [facility] does not treat memory concerns related to long COVID. Continue therapy. Continue being as active as she is able to tolerate. Follow-up with case management regarding any financial subsidies she may qualify for. We will have a follow-up in March as pt will likely need to have some paperwork filled out at that time. documented in this encounter Plan of Treatment Upcoming Encounters Date Type Department Care Team (Late st Contact Info) Description 01/24/2025 1:00 PM EST Office Visit [facility] General Surgical Care [address] [place] [address] Isabell Valenzuela MD [address] [place] [address] 02/22/2025 1:00 PM EST Nutrition [facility] [address] [place] [address] Roxana Grey LDN [address] T[address]ar[address] [place] [address] 04/05/2025 11:30 AM EST Office Visit [facility] Infectious Diseases [address] [place] [address] Molly Sofia FNP [address] [address] [email or web address] Scheduled Referrals Name Type Priority Associated Diagnoses Order Schedule Ambulatory referral to [facility] - Employed Practices Outpatient Referral Routine Other fatigue Long COVID Memory changes Ordered: 12/31/2024 documented as of this encounter Visit Diagnoses Diagnosis Other fatigue- Primary Long COVID Memory changes Anxiety and depression documented in this encounter Additional Health Concerns Assessment Noted Time PHQ-9 Depression Total Score: 18 025 11:59 AM EST PHQ-2 Depression Total Score: 03/19/19 25 11:59 AM EST documented as of this encounter Care Teams Computer Video Game Designer Relationship Specialty Start Date End Date Lola Bermudez PA [address] [place] [address] PCP - General Physician Health Advisor 04/22/24 Nicole Ortiz RN [address] [place] [address] [email or web address] PHCM Maintenance Mechanic [employer] 04/22/24 Gabo Bermudez MD [address] [place] [address] [email or web address] Insurance Assigned Provider Family Medicine 08/16/24 documented as of this encounter Additional Source Comments The information contained in this document represents components of the legal health record. It is not the complete legal health record.[facility]
[2024-12-31 18:21] VITALS: BP 108/55; PULSE 64; RESP 18; TEMP 36.7; O2SAT 97; BMI 26.4
--- OUTSIDE RECORDS SUMMARY | 2024-12-31 19:02 | XMS_ITS | Encounter Summary ---
Author Organization [facility] Address [address] [place] [address] Phone Care Team Providers Care Home Care Aide Name Role Phone Lola Bermudez Primary Care Provider [phone] Gabo Bermudez MD Primary Care Provider [phone] Lola Bermudez Primary Care Provider [phone] Nicole Ortiz RN Unavailable Marta Wang Unavailable [email or web address] Gabo Bermudez MD Unavailable [phone] Reason for Referral * MRI/CAT Scan - Closed Specialty Diagnoses / Procedures Referred By Екатерина knapp Referred To Contact Radiology Diagnoses Abnormal LFTs PINEDA (nonalcoholic steatohepatitis) Procedures MRI Abdomen Kendy Esquivel PA [address] [place] [address] Phone: tel: fax: Referral ID Status Reason Start Date Expiration Date Visits Re quested Visits Authorized [id number] Closed 07/14/2023 07/13/2024 1 1 Encounter Details Date Type Department Care Team (Latest Contact Info) Description 07/14/2023 Transcribe Orders Virtual Department [address] [place] [address] Kendy Esquivel PA [address] [place] [address] Abnormal LFTs (Primary Dx); PINEDA (nonalcoholic steatohepatitis) Social History Tobacco Use Types Packs/Day Years Used Date Smoking Tobacco: Former Cigarettes 2020 Smokeless Tobacco: Never Comments:2-3 cigs a [...] with a working camera? Not on file Comments No Sex and Gender Information Value Date Recorded Sex Assigned at Female 05/18/2019 3:24 PM EST Legal Sex Female 9:29 PM EDT Gender Identity Female 05/18/2019 3:24 PM EST Sexual Orientation Straight 05/18/2019 3: 24 PM EST documented as of this encounter Plan of Treatment Upcoming Encounters Date Type Department Care Team (Late st Contact Info) Description 01/24/2025 1:00 PM EST Office Visit [facility] General Surgical Care [address] [place] [address] Isabell Valenzuela MD [address] [address] 02/22/2025 1:00 PM EST Nutrition [facility] General Surgical Care [address] [place] [address] Roxana Grey LDN [address] Lopez [address] [place] [address] 04/05/2025 11:30 AM EST Office Visit [facility] Infectious Diseases [address] [place] [address] Molly Sofia FNP [address] [place], [place] [address] [address] documented as of this encounter Results * MRI ABDOMEN (LIVER) WITH AND WITHOUT CONTRAST (08/08/2023 1:33 PM EDT) Anatomical Region Laterality Modality Abdomen Magnetic Resonan ce 08/08/2023 6:15 PM EDT Impressions 08/11/2023 5:10 AM EDT Marked hepatic steatosis. No bile duct dilation. Narrative 08/11/2023 5:10 AM EDT MRI ABDOMEN (LIVER) WITH AND WITHOUT CONTRAST Referring clinician's provided indication for this examination in Epic: Outside Radiology Order; abnormal lft's TECHNIQUE: Multiplanar MR imaging of the abdomen was performed using T1, T2, fat saturated, and diffusion weighted techniques. Dynamic multiphase imaging was also performed after administration of an intravenous gadolinium contrast agent. COMPARISON: CT ABDOMEN/PELVIS WITH CONTRAST FINDINGS: Lower Chest: Within normal limits. Liver: Marked heterogeneous steatosis. No suspicious focal lesion. Biliary: No duct dilation or filling defect. Noninflamed gallbladder. Spleen: No splenomegaly or suspicious focal lesion. Pancreas: No solid mass or main duct dilation. Adrenal Glands: No nodule. Kidneys/Ureters: No solid renal mass or hydronephrosis. Simple appearing bilateral renal cysts. Hemorrhagic/proteinaceous exophytic left upper pole renal cyst. Peritoneum/Retroperitoneum: No abdominal free fluid or mass. Lymph Nodes: Similar prominent nonspecific periportal and portacaval lymph nodes dating back to 2021 CT, likely reactive. Vessels: No abdominal aortic aneurysm. Bones/Soft Tissues: No suspicious osseous lesion. Degenerative changes. Changes of prior ventral hernia repair. Procedure Note Daniel Astudillo MD - 08/11/2023 MRI ABDOMEN (LIVER) WITH AND WITHOUT CONTRAST Referring clinician's provided indication for this examination in Epic:Outside Radiology Order; abnormal lft's TECHNIQUE: Multiplanar MR imaging of the abdomen was performed using T1,T2, fat saturated, and diffusion weighted techniques. Dynamic multiphaseimaging was also performed after administration of an intravenousgadolinium contrast agent. COMPARISON: CT ABDOMEN/PELVIS WITH CONTRAST FINDINGS: Lower Chest: Within normal limits. Liver: Marked heterogeneous steatosis. No suspicious focal lesion. Biliary: No duct dilation or filling defect. Noninflamed gallbladder. Spleen: No splenomegaly or suspicious focal lesion. Pancreas: No solid mass or main duct dilation. Adrenal Glands: No nodule. Kidneys/Ureters: No solid renal mass or hydronephrosis. Simple appearingbilateral renal cysts. Hemorrhagic/proteinaceous exophytic left upper polerenal cyst. Peritoneum/Retroperitoneum: No abdominal free fluid or mass. Lymph Nodes: Similar prominent nonspecific periportal and portacaval lymphnodes dating back to 2021 CT, likely reactive. Vessels: No abdominal aortic aneurysm. Bones/Soft Tissues: No suspicious osseous lesion. Degenerative changes.Changes of prior ventral hernia repair. IMPRESSION: Marked hepatic steatosis. No bile duct dilation. Kendy MACE IMG MR ABDOMEN Final Resul t documented in this encounter Visit Diagnoses Diagnosis Abnormal LFTs- Primary PINEDA (nonalcoholic steatohepatitis) Other chronic nonalcoholic liver disease Abnormal LFTs PINEDA (nonalcoholic steatohepatitis) Other chronic nonalcoholic liver disease documented in this encounter Additional Health Concerns Assessment Noted Time PHQ-9 Depression Total Score: 16 023 2:37 PM EDT PHQ-2 Depression Total Score: 2 09/19/19 23 2:37 PM EDT documented as of this encounter Care Teams Home Care Aide Relationship Specialty Start Date End Date Lola Bermudez PA [address] [place] [phone] PCP - General 03/20/17 07/23/23 Gabo Bermudez MD [address] [place] [address] PCP - General Family Medicine 07/24/23 04/21/24 Lola Bermudez PA [address] [place] [phone] PCP - General Physician Mixing House Operator 04/22/24 Nicole Ortiz RN [address] [place] [phone] [email or web address] PHCM Pouch Making Machine Operator 04/22/24 Marta Wang [address] [place] [phone] [email or web address] PHC Community Traffic Worker 05/07/24 05/07/24 Gabo Bermudez MD [address] [place] [address] [email or web address] Insurance Assigned Provider Family Medicine 08/16/24 documented as of this encounter Additional Source Comments The information contained in this document represents components of the legal health record. It is not the complete legal health record.[facility]
--- OUTSIDE RECORDS SUMMARY | 2024-12-31 19:02 | XMS_ITS | Encounter Summary ---
Author Organization [facility] Address [address] [place] [address] Phone Care Team Providers Care No Experience Name Role Phone Gabo Bermudez MD Primary Care Provider [phone] Lola Bermudez Primary Care Provider [phone] Nicole Ortiz RN Unavailable Marta Wang Unavailable [email or web address] Gabo Bermudez MD Unavailable [phone] Encounter Details Date Type Department Care Team (Late st Contact Info) Description 04/08/2024 Procedure Pass [address] [place] [address] Social History Tobacco Use Types Packs/Day Years [...] as food, clothing, or medical care? No 12/18/2023 In the past 12 months have y ou been in a relationship with a person who hurts, threatens, or tries to control you? No 12/18/2023 Are you denied basic needs s uch as food, clothing, or medical care? No 12/18/2023 In the past 12 months have y ou been in a relationship with a person who hurts, threatens, or tries to control you? No 12/18/2023 Comments No Sex and Gender Information Value Date Recorded Sex Assigned at Female 05/18/2019 3:24 PM EST Legal Sex Female 9:29 PM EDT Gender Identity Female 05/18/2019 3:24 PM EST Sexual Orientation Straight 05/18/2019 3: 24 PM EST Occupation Industry Job Start Date Job End Date disability Not on file Not on file Not on file documented as of this encounter Plan of Treatment Upcoming Encounters Date Type Department Care Team (Late st Contact Info) Description 01/24/2025 1:00 PM EST Office Visit [facility] General Surgical Care [address] [place] [address] Isabell Valenzuela MD [address] [address] 02/22/2025 1:00 PM EST Nutrition [facility] General Surgical Care [address] [place] [address] Roxana Grey LDN [address] Lopez [address] [place] [address] 04/05/2025 11:30 AM EST Office Visit [facility] Infectious Diseases [address] [place] [address] Molly Sofia FNP [address] [address] documented as of this encounter Visit Diagnoses Not on filedocumented in this encounter Additional Health Concerns Assessment Noted Time PHQ-9 Depression Total Score: 18 025 11:59 AM EST PHQ-2 Depression Total Score: 6 03/19/19 25 11:59 AM EST documented as of this encounter Care Teams No Experience Relationship Specialty Start Date End Date Gabo Bermudez MD [address] [place] [address] PCP - General Family Medicine 07/24/23 04/21/24 Lola Bermudez PA [address] [place] [phone] PCP - General Physician Dehydrogenation Converter Helper 04/22/24 Nicole Ortiz RN [address] [place] [address] PHCM Sliver Lap Tender 04/22/24 Marta Wang [address] [place] [phone] [email or web address] Community Mental Health Coordinator 05/07/24 05/07/24 Gabo Bermudez MD [address] [place] [phone] Insurance Assigned Provider Family Medicine 08/16/24 documented as of this encounter Additional Source Comments The information contained in this document represents components of the legal health record. It is not the complete legal health record.[facility]
--- OUTSIDE RECORDS SUMMARY | 2024-12-31 19:02 | XMS_ITS | Encounter Summary ---
Author Organization [facility] Address [address] [place] [address] Phone Care Team Providers Care Release Engineer Name Role Phone Lola Bermudez Primary Care Provider [phone] Gabo Bermudez MD Primary Care Provider [phone] Lola Bermudez Primary Care Provider [phone] Nicole Ortiz RN Unavailable Marta Wang Unavailable [email or web address] Gabo Bermudez MD Unavailable [phone] Encounter Details Date Type Department Care Team (Late st Contact Info) Description 08/27/2021 Procedure Pass [facility], Ct Scan - [address] [address] Social History Tobacco Use Types Packs/Day Years Used Date Smoking Tobacco: Former Smokeless Tobacco: Never Alcohol Use Standard Drinks/Week Comments Not Currently 0 (1 standard drink = 0.6 oz pur e alcohol) Comments Unknown Sex and Gender Information Value Date Recorded Sex Assigned at Female 05/18/2019 3:24 PM EST Legal Sex Female 9:29 PM EDT Gender Identity Female 05/18/2019 3:24 PM EST Sexual Orientation Straight 05/18/2019 3: 24 PM EST documented as of this encounter Functional Status * Calculated C-SSRS Risk Score (Lifetime/Recent) Answer Date of Assessment Author No Risk Indicated 08/27/2021 12:10 PM EDT Twin [place], VARUN * [place] Suicide Severity Rating Scale (Screener/Recent Self-Report) Question Answer Date of Assessment Author 1. Wish to be (Past 1 Month) No 08/27/2021 12:10 PM EDT Laly Monge RN 2. Non-Specific Active Suicidal Thoughts (Past 1 Month) No 08/27/2021 12:10 PM EDT Laly Monge RN 6. Suicidal Behavior (Lifetime) No 08/27/2021 12:10 PM EDT Laly Monge RN documented as of this encounter Plan of Treatment Upcoming Encounters Date Type Department Care Team (Late st Contact Info) Description 01/24/2025 1:00 PM EST Office Visit [facility] General Surgical Care [address] [place] [address] Isabell Valenzuela MD [address] [place] [phone] 02/22/2025 1:00 PM EST Nutrition [facility] General Surgical Care [address] [place] [address] [facility]N [facility] [address] [address] 04/05/2025 11:30 AM EST Office Visit [facility] Infectious Diseases [address] [place] [address] Molly Sofia FNP [address] [address] documented as of this encounter Visit Diagnoses Not on filedocumented in this encounter Care Teams Release Engineer Relationship Specialty Start Date End Date Lola Bermudez PA [address] [place] [phone] PCP - General 03/20/17 07/23/23 Gabo Bermudez MD [address] [place] [address] PCP - General Family Medicine 07/24/23 04/21/24 Lola Bermudez PA [address] [place] [phone] PCP - General Physician Lining Feller Blindstitch 04/22/24 Nicole Ortiz RN [address] [place] [address] PHCM Ointment Mill Tender 04/22/24 Marta Wang [address] [place] [phone] [email or web address] PHCM Community Kitchen Porter 05/07/24 05/07/24 Gabo Bermudez MD [address] [place] [address] Insurance Assigned Provider Family Medicine 08/16/24 documented as of this encounter Additional Source Comments The information contained in this document represents components of the legal health record. It is not the complete legal health record.[facility]
--- OUTSIDE RECORDS SUMMARY | 2024-12-31 19:02 | XMS_ITS | Encounter Summary ---
Author Organization [facility] Address [address] [place] [address] Phone Care Team Providers Care Cashier Courtesy Booth Name Role Phone Lola Bermudez Primary Care Provider [phone] Gabo Bermudez MD Primary Care Provider [phone] Lola Bermudez Primary Care Provider [phone] Nicole Ortiz RN Unavailable Marta Wang Unavailable [email or web address] Gabo Bermudez MD Unavailable [phone] Reason for Referral * Molecular Pathology - Closed Specialty Diagnoses / Procedures Referred By Екатерина knapp Referred To Contact Diagnoses Need for hepatitis C screening test Dysphagia, pharyngoesophageal phase Abnormal LFTs Nonalcoholic steatohepatitis Procedures Hemochromatosis Gene Analysis Kendy Esquivel PA [address] [place] [address] Phone: tel: fax: Referral ID Status Reason Start Date Expiration Date Visits Re quested Visits Authorized [id number] Closed 07/11/2023 07/10/2024 1 1 Encounter Details Date Type Department Care Team (Latest Contact Info) Description 07/11/2023 Transcribe Orders [facility] [address] [address] Kendy Esquivel PA [address] [place] [address] Need for hepatitis C screening test (Primary Dx); Dysphagia, pharyngoesophageal phase; Abnormal LFTs; Nonalcoholic steatohepatitis Social History Tobacco Use Types Packs/Day Years Used Date Smoking Tobacco: Former Cigarettes 2 - 2020 Smokeless Tobacco: Never Comments:2-3 cigs [...] Description 01/24/2025 1:00 PM EST Office Visit [facility] General Surgical Care [address] [place] [address] Isabell Valenzuela MD 15 [facility], 2nd [place] [address] 02/22/2025 1:00 PM EST Nutrition [facility] General Surgical Care [address] [place] [address] Roxana Grey LDN [address] Lopez [address] [place] [address] 04/05/2025 11:30 AM EST Office Visit [facility] Infectious Diseases [address] [place] [address] Kimberlyn Molly Mandujano, GARAGE HELPER 15 [facility], 2nd [place] [address] [email or web address] documented as of this encounter Results * PT-INR (07/11/2023 12:06 PM EDT) Pathologist [facility] PT 11.7 10.2 - 12.9 sec [facility] INR 1.0 0.9 - 1.1 [facility] Comment:Therapeutic range fo r oral Vitamin K antagonists: 2.0-3.5 Blood 07/11/2023 12:0 6 PM EDT 07/11/2023 12:15 PM EDT Kendy MACE LAB BLOOD ORDERABLES Final Result Performing Organization Address [facility]/ZIP Co de Phone Number [address] [address] * Ferritin (07/11/2023 12:06 PM EDT) [facility] FERRITIN 102 13 - 150 ug/L [facility] Blood 07/11/2023 12:0 6 PM EDT 07/11/2023 12:15 PM EDT Kendy MACE LAB BLOOD ORDERABLES Final Result Performing Organization Address City/[facility]/ZIP Co de Phone Number [address] [address] * Hemochromatosis Gene Analysis (07/11/2023 12:06 PM EDT) [facility] HFE Gene analysis SEE NOTE 05:10 PM [facility] DPT OF LAB MED AND PAT+ Comment: (NOTE) Test Result Flag Unit RefValue Hereditary Hemochromatosis HFE Test Result Summary COMPLEX (SEE RESULT AND INTERPRETATION) Result SEE NOTE C282Y: Not detected. H63D: One copy of the H63D variant was identified. Interpretation SEE NOTE This individual is heterozygous for H63D. This result is consistent with at minimum a carrier status for hereditary hemochromatosis (HH). The presence of a single H63D variant is unlikely to be of clinical significance in the absence of other disease-causing variants (1, 2). This assay does not rule out the presence of other disease-causing variants in the HFE gene or in other genes associated with hemochromatosis. Penetrance of the genotype may be affected by ethnic background and coexisting comorbid and environmental factors. These results should be interpreted in the context of clinical findings, family history, and other laboratory testing (e.g. serum transferrin-iron saturation and serum ferritin). Genetic testing and other laboratory testing of an affected family member can determine if this result is of predictive value for this individual. A genetic consultation may be of benefit. REFERENCES: 1. Loretta PA, Hank LW, Gerald DJ, Diego Resendiz D, Shyla E, Kristina BaezaK: A population-based study of the biochemical and clinical expression of the H63D hemochromatosis mutation. Gastroenterology. 2002 May;122(3):646-51. (PMID: 46077182) 2. Jeffery KV, Jered KE, Binta J, Lilian V: ACG Clinical Guideline: Hereditary Hemochromatosis. Am J Gastroenterol. 2019 Oct;114(8):5067-6922. (PMID: 10773863) ADDITIONAL INFORMATION An online research opportunity called [employer] ([employer]), a project of [employer], is available for the recipient of this genetic test. This patient registry collects de-identified genetic and health information to advance the knowledge of genetic variants. [facility] is a collaborator of [employer]. This may not be applicable for all tests. Test results should be interpreted in the context of clinical findings, family history, and other laboratory data. Misinterpretation of results may occur if the information provided is inaccurate or incomplete. Rare polymorphisms exist that could lead to false-negative or false-positive results. If results obtained do not match the clinical findings, additional testing should be considered. Bone Marrow transplants from allogenic donors will interfere with testing. Call [facility] for instructions for testing patients who have received a bone marrow transplant. One or more in silico tools were used to assist in the interpretation of these results. These tools are updated regularly and predictions for a given variant may change. Additionally, the predictability of these tools for the determination of pathogenicity is currently unvalidated. This test was developed and its performance characteristics determined by [facility] in a manner consistent with CLIA requirements. This test has not been cleared or approved by the U.S. Food and Drug Administration. Specimen WB Whole Blood Method SEE NOTE Droplet Digital Polymerase Chain Reaction (ddPCR) was used to test for the following three variants in the HFE gene; C282Y, H63D, and S65C. Because of the minimal effect on iron metabolism associated with the S65C variant, it is only reported when it is found with the C282Y variant (i.e. if the patient has the C282Y/S65C genotype). Released By Vicente Raymond M.D. Blood 07/11/2023 12:0 6 PM EDT 07/11/2023 12:52 PM EDT us Kendy MACE LAB BLOOD ORDERABLES Final Result [facility] DPT OF LAB MED AND PAT+ [address] [place] [address] * Hepatitis C antibody, qualitative (07/11/2023 12:06 PM EDT) HCV NON-REACTIV E NON-REACTI VE [facility] Blood 07/11/2023 12:0 6 PM EDT 07/11/2023 12:15 PM EDT Kendy MACE LAB BLOOD ORDERABLES Final Result [address] [address] * Hepatitis B surface antibody (07/11/2023 12:06 PM EDT) HBV SURFACE ANTIBODY Negative [facility] Comment: Unvaccinated: Negative Vaccinated: Positive Blood 07/11/2023 12:0 6 PM EDT 07/11/2023 12:15 PM EDT Kendy MACE LAB BLOOD ORDERABLES Final Result [address] [address] * Hepatitis B surface antigen (07/11/2023 12:06 PM EDT) HBV SURFACE ANTIGEN NON-REACTI VE NON-REACTI VE [facility] Blood 07/11/2023 12:0 6 PM EDT 07/11/2023 12:15 PM EDT Kendy MACE LAB BLOOD ORDERABLES Final Result Performing Organization Address City/[facility]/ZIP Co de Phone Number [address] [address] * Hepatitis B core antibody, IgM (07/11/2023 12:06 PM EDT) HEP B CORE IGM AB Negative Negative [facility] Comment:IgM anti-HBc not det ected. Does not exclude the possibility of exposure to or infection with HBV. Blood 07/11/2023 12:0 6 PM EDT 07/11/2023 12:52 PM EDT Kendy MACE LAB BLOOD ORDERABLES Final Result [address] [address] * Liver fibrosis test (07/11/2023 12:06 PM EDT) Fibrosis score 0.14 [facility] Interpretation (Fibrosis) SEE NOTE [facility]/ [facility] Comment: (NOTE) no fibrosis Fibro Test Score (f) Metavir Score f>=0 and f<=0.21 : F0 (no fibrosis) f>0.21 and f<=0.27 : F0-F1 (no fibrosis) f>0.27 and f<=0.31 : F1 (minimal fibrosis) f>0.31 and f<=0.48 : F1-F2 (minimal fibrosis) f>0.48 and f<=0.58 : F2 (moderate fibrosis) f>0.58 and f<=0.72 : F3 (advanced fibrosis) f>0.72 and f<=0.74 : F3-F4 (advanced fibrosis) f>0.74 and f<=1.00 : F4 (severe fibrosis) HCV Fibrosis Grade F0 Q [facility] NECROINFLAMM SCORE 0.11 Q [facility] NECROINFLAMM GRADE A0 Q [facility] NECROINFLAMM INTERP SEE NOTE [facility]/ [facility] Comment: (NOTE) no activity ActiTest Score (a) Metavir Score a>=0 and a<=0.17 : A0 (no activity) a>0.17 and a<=0.29 : A0-A1 (no activity) a>0.29 and a<=0.36 : A1 (minimal activity) a>0.36 and a<=0.52 : A1-A2 (minimal activity) a>0.52 and a<=0.60 : A2 (significant activity) a>0.60 and a<=0.62 : A2-A3 (significant activity) a>0.62 and a<=1.00 : A3 (severe activity) A2 Macroglobulin 135 106 - 279 mg/dL [facility]/ [facility] Haptoglobin 191 43 - 212 mg/dL [facility]/ [facility] Apolipoprotein A1 126 101 - 198 mg/dL [facility]/ [facility] TOTAL BILIRUBIN 0.9 0.2 - 1.2 mg/dL [facility]/ [facility] GGT 33 3 - 55 U/L [facility]/ [facility] ALT 29 6 - 29 U/L [facility]/ [facility] Specimen/Product ID [id number] [facility]/ [facility] Comments (Chemistry) SEE NOTE [facility]/ [facility] Comment: (NOTE) The reliability of results is dependent on compliance with the preanalytical and analytical conditions recommended by [employer]. The tests have to be deferred for: acute hemolysis, acute hepatitis, acute inflammation, extra hepatic cholestasis. The advice of a specialist should be sought for interpretation in chronic hemolysis and Gilbert's syndrome. The test interpretation is not validated in liver transplant patients. Isolated extreme values of one of the components should lead to caution in interpreting the results. In case of discordance between a biopsy result and a test, it is recommended to seek the advice of a specialist. The causes of these discordances could be due to a flaw of the test or to a flaw in the biopsy: i.e. a liver biopsy has a 33% variability rate for one fibrosis stage. FibroTest is interpretable for chronic hepatitis B and C, alcoholic and non alcoholic steatosis. ActiTest is interpretable for chronic hepatitis B and C. The performance characteristics have been determined by [facility]. It has not been cleared or approved by the U.S. Food and Drug Administration. Performance characteristics refer to the analytical performance of the test. [employer], [employer], the associated logo, [employer] and all associated [employer] corea are the registered trademarks of [employer]. All third green party corea - (R) and (TM) - are the property of their respective owners. (C) [id number] [employer]. All rights reserved. Blood 07/11/2023 12:0 6 PM EDT 07/11/2023 12:54 PM EDT us Kendy MACE LAB BLOOD ORDERABLES Final Result [facility] [address] [place] [address], [place] [phone] * (ABNORMAL) Comprehensive metabolic panel (07/11/2023 12:06 PM EDT) SODIUM 139 133 - 146 mmol/L [facility] POTASSIUM 3.9 3.3 - 5.1 mmol/L [facility] CHLORIDE 103 96 - 108 mmol/L [facility] CO2 23 21 - 35 mmol/L [facility] BUN 14 6 - 19 mg/dL [facility] CREATININE 0.70 0.5 - 1.5 mg/dL [facility] GLUCOSE 114(H) 70 - 99 mg/dL [facility] ALBUMIN 4.2 3.9 - 4.8 g/dL [facility] TOTAL PROTEIN 7.1 6.5 - 8.0 g/dL [facility] CALCIUM 9.7 8.4 - 10.3 mg/dL [facility] ALKALINE PHOSPHATASE 121(H) 39 - 117 U/L [facility] TOTAL BILIRUBIN 0.7 0.0 - 1.2 mg/dL [facility] AST 38(H) 0 - 37 U/L [facility] ALT 35 0 - 40 U/L [facility] GLOBULIN 2.9 1 - 4.8 g/dL [facility] EGFR 107 >59 mL/min/1.7 3m2 [facility] Comment:Estimated glomerular filtration rate calculated using the CKD-EPI refit equation. ANION GAP 17 10 - 20 mmol/L [facility] Blood 07/11/2023 12:0 6 PM EDT 07/11/2023 12:15 PM EDT us Kendy MACE LAB BLOOD ORDERABLES Final Result [facility] [address] [place], [place] [id number] * CBC (07/11/2023 12:06 PM EDT) WBC 9.82 4.00 - 11.00 K/uL [facility] RBC 4.55 3.72 - 5.30 M/uL [facility] HGB 13.6 10.6 - 15.5 g/dL [facility] HCT 40.7 32.0 - 45.0 % [facility] PLT 328 140 - 430 K/uL [facility] MCV 89.5 78.0 - 97.0 fL [facility] MCH 29.9 25.0 - 33.0 pg [facility] MCHC 33.4 32.0 - 36.0 g/dL [facility] RDW 12.6 11.0 - 16.0 % [facility] MPV 10.9 8.4 - 12.8 fl [facility] Blood 07/11/2023 12:0 6 PM EDT 07/11/2023 12:15 PM EDT us Kendy MACE LAB BLOOD ORDERABLES Final Result [address] [address] * Smooth Muscle Antibody (07/11/2023 12:06 PM EDT) SMOOTH MUSCLE AB NEGATIVE AT 1:20 [facility] Comment: Performing Physician, Sylvester Guevara M.D., [id number] Normal: Negative at 1:20 Blood 07/11/2023 12:0 6 PM EDT 07/11/2023 12:52 PM EDT us Kendy MACE LAB BLOOD ORDERABLES Final Result [address] [address] * Antinuclear antibody (MILAGROS) (07/11/2023 12:06 PM EDT) MILAGROS SCREEN ON HEP 2 Negative Negative [facility] Blood 07/11/2023 12:0 6 PM EDT 07/11/2023 12:15 PM EDT us Kendy MACE LAB BLOOD ORDERABLES Final Result [address] [address] * Anti-Mitochondrial Antibody (AMA) (07/11/2023 12:06 PM EDT) MITOCHONDRIAL AB NEGATIVE AT 1:20 [facility] Comment: Performing Physician, Sylvester Guevara M.D., [id number] Normal: Negative at 1:20 Blood 07/11/2023 12:0 6 PM EDT 07/11/2023 12:52 PM EDT Kendy MACE LAB BLOOD ORDERABLES Final Result Performing Organization Address City/[facility]/ZIP Co de Phone Number [facility] [address] [place] [address] * Nzzqw-1-nnopzvunxei phenotyping (07/11/2023 12:06 PM EDT) ALPHA 1 ANTITRYPSIN 146 100 - 190 mg/dL [facility] Comment: (NOTE) ADDITIONAL INFORMATION Method: Nephelometry A1A PHENOTYPE MODERATELY SUSCEPTIBLE bands [facility] Comment: (NOTE) Heterozygous for M and S isoforms. This phenotype is usually associated with normal cuyal-4-kcwfaienfym concentrations. ADDITIONAL INFORMATION Method: Isoelectric Focusing, This assay identifies the phenotype of the circulating dtned-4-zodzhsyxxnk (A1A) protein. If the patient is on replacement therapy or has been recently transfused, the phenotype will detect patient and replacement or transfused plasma A1A protein. This test also cannot detect a null allele which could be responsible for an A1A deficiency. Blood 07/11/2023 12:0 6 PM EDT 07/11/2023 12:52 PM EDT us Kendy MACE LAB BLOOD ORDERABLES Final Result [facility] [address] [place] [address] documented in this encounter Visit Diagnoses Diagnosis Need for hepatitis C screening test- Primary Special screening examination for other specified viral diseases Dysphagia, pharyngoesophageal phase Abnormal LFTs Nonalcoholic steatohepatitis Other chronic nonalcoholic liver disease documented in this encounter Additional Health Concerns Assessment Noted Time PHQ-9 Depression Total Score: 16 023 2:37 PM EDT PHQ-2 Depression Total Score: 2 09/19/19 23 2:37 PM EDT documented as of this encounter Care Teams Cashier Courtesy Booth Relationship Specialty Start Date End Date Lola Bermudez PA [address] [place] [phone] PCP - General 03/20/17 07/23/23 Gabo Bermudez MD [address] [place] [address] PCP - General Family Medicine 07/24/23 04/21/24 Lola Bermudez PA [address] [place] [phone] PCP - General Physician Turnaround Engineer 04/22/24 Nicole Ortiz, RN [address] [place] [phone] PHCM Moss Bleacher 04/22/24 Marta Wang [address] [place] [phone] [email or web address] PHCM Community Track Fitter 05/07/24 05/07/24 Gabo Bermudez MD [address] [place] [phone] Insurance Assigned Provider Family Medicine 08/16/24 documented as of this encounter Additional Source Comments The information contained in this document represents components of the legal health record. It is not the complete legal health record.[facility]
--- OUTSIDE RECORDS SUMMARY | 2024-12-31 19:02 | XMS_ITS | Encounter Summary ---
Author Organization [facility] Address [address] [place] [address] Phone Care Team Providers Care Managing Consultant Name Role Phone Lola Bermudez Primary Care Provider [phone] Gabo Bermudez MD Primary Care Provider [phone] Lola Bermudez Primary Care Provider [phone] Nicole Ortiz RN Unavailable Marta Wang Unavailable [email or web address] Gabo Bermudez MD Unavailable [phone] Encounter Details Date Type Department Care Team (Late st Contact Info) Description 10/25/2021 Procedure Pass [facility], Ct Scan - [address] [address] Social History Tobacco Use Types Packs/Day Years [...] Date of Assessment Author No Risk Indicated 10/25/2021 4:42 PM EDT Misael, S uzanne, RN * [place] Suicide Severity Rating Scale (Screener/Recent Self-Report) Question Answer Date of Assessment Author 1. Wish to be (Past 1 Month) No 022 4:42 PM EDT Maryann Douglas RN 2. Non-Specific Active Suici miracle Thoughts (Past 1 Month) No 10/25/2021 4:42 PM EDT Maryann Douglas RN 6. Suicidal Behavior (Lifetime) No 4:42 PM EDT Maryann Douglas RN documented as of this encounter Plan of Treatment Upcoming Encounters Date Type Department Care Team (Late st Contact Info) Description 01/24/2025 1:00 PM EST Office Visit [facility] General Surgical Care [address] [place] [address] Isabell Valenzuela MD [address] [address] 02/22/2025 1:00 PM EST Nutrition [facility] General Surgical Care [address] [place] [address] Roxana [facility] LDN [facility] [address] [address] 04/05/2025 11:30 AM EST Office Visit [facility] Infectious Diseases [address] [place] [address] Molly Sofia FNP [address] [address] documented as of this encounter Visit Diagnoses Not on filedocumented in this encounter Care Teams Managing Consultant Relationship Specialty Start Date End Date Lola Bermudez PA [address] [place] [address] PCP - General 03/20/17 07/23/23 Gabo Bermudez MD [address] [place] [phone] [email or web address] PCP - General Family Medicine 07/24/23 04/21/24 Lola Bermudez PA [address] [place] [phone] PCP - General Physician Big Data Developer 04/22/24 Nicole Ortiz, VARUN [address] [place] [phone] PHCM Welder Fitter Gas 04/22/24 Marta Wang [address] [place] [phone] [email or web address] PHCM Community Bank Guard 05/07/24 05/07/24 Gabo Bermudez MD [address] [place] [address] [email or web address] Insurance Assigned Provider Family Medicine 08/16/24 documented as of this encounter Additional Source Comments The information contained in this document represents components of the legal health record. It is not the complete legal health record.[facility]
--- OUTSIDE RECORDS SUMMARY | 2024-12-31 19:02 | XMS_ITS | Clinical Summary ---
Author Organization [facility] Address [address] [place] [address] Care Team Providers Care Recruitment Coordinator Name Role Phone Lola Bermudez Primary Care Provider Allergies Active Allergy Reactions Criticality Noted Date Comments Diphenhydramine 06/12/2021 Meloxicam 06/12/2021 Penicillins Anaphylaxis High 06/12/2021 Sulfa Antibiotics 06/12/2021 Medications Medication Sig Dispensed Refills Start Date End Date Status escitalopram (LEXAPRO) tablet 10 mg Take 10 mg by mouth. 0 Active lisinopril (PRINIVIL,ZESTRIL) tablet 10 mg Take 10 mg by mouth. 0 Active omeprazole (PriLOSEC OTC) 20 MG tablet Take 20 mg by mouth. 0 Active Social History Tobacco Use Types Packs/Day Years Used Date Smoking Tobacco: Smoker, Current Status Unknown Smokeless Tobacco: Former Alcohol Use Standard Drinks/Week Comments Never 0 (1 standard drink = 0.6 oz pur e alcohol) Sex and Gender Information Value Date Recorded Sex Assigned at Female 06/12/2021 2:00 AM EDT Gender Identity Female 06/12/2021 2:00 AM EDT Sexual Orientation Not on file Job Start Date Occupation Industry Not on file Not on file Not on file Last Filed Vital Signs Vital Sign Reading Time Taken Comments Blood Pressure 158/110 06/12/2021 2:05 AM EDT Pulse 82 06/12/2021 2:05 AM EDT Temperature 36.1 C (97 F) 06/12/2021 2:05 AM EDT Respiratory Rate 18 06/12/2021 2:05 AM EDT Oxygen Saturation 96% 06/12/2021 2:05 AM EDT Inhaled Oxygen Concentration - - Weight 104.3 kg (230 lb) 06/12/2021 2:05 AM EDT Height 162.6 cm (5' 4 ) 06/12/2021 2:05 AM EDT Body Mass Index 39.48 06/12/2021 2:05 AM EDT Plan of Treatment Health Maintenance Due Date Last Done Comments Hepatitis B Vaccines (1 of 3 - 3-dose series) 1974 Hepatitis C Screening 1974 COVID-19 Vaccine (#1) 04/12/1975 Pneumococcal Vaccine (1 of 2 - PCV) 1980 Depression Screening 1986 Preventative Health Evaluation 1992 DTap / Tdap / Td (1 - Tdap) 1993 Cervical Cancer Screening (P ap Smear) 10/11/1995 Colon Cancer Screening (Colonoscopy) 10/11/2019 Breast Cancer Screening (Mammogram) 2024 Shingrix-Zoster Vaccine (1 of 2) 2024 Influenza Vaccine (#1) 2024 RSV Ped < 20 months Aged Out No longe r eligible based on patient's age to complete this topic Care Teams Recruitment Coordinator Relationship Specialty Start Date End Date Lola Bermudez PA [address] [place] [address] PCP - General Medical Services 06/12/21
--- OUTSIDE RECORDS SUMMARY | 2024-12-31 19:04 | XMS_ITS | Encounter Summary ---
Author Organization [facility] Address [address] [place] [address] Phone Care Team Providers Care Avionics Engineer Name Role Phone Lola Bermudez Primary Care Provider [phone] Gabo Bermudez MD Primary Care Provider [phone] Lola Bermudez Primary Care Provider [phone] Nicole Ortiz RN Unavailable Marta Wang Unavailable [email or web address] Gabo Bermudez MD Unavailable [phone] Encounter Details Date Type Department Care Team (Late st Contact Info) Description 07/14/2023 Procedure Pass [facility], [address] [address] Social History Tobacco Use Types Packs/Day Years [...] Description 01/24/2025 1:00 PM EST Office Visit [facility] General Surgical Care [address] [place] [address] Isabell Valenzuela MD [address] [address] 02/22/2025 1:00 PM EST Nutrition [facility] General Surgical Care [address] [place] [address] Roxana Grey LDN [address] [place] [address] 04/05/2025 11:30 AM EST Office Visit [facility] Infectious Diseases [address] [place] [address] Molly Sofia FNP [address] [address] documented as of this encounter Visit Diagnoses Not on filedocumented in this encounter Additional Health Concerns Assessment Noted Time PHQ-9 Depression Total Score: 16 023 2:37 PM EDT PHQ-2 Depression Total Score: 2 09/19/19 23 2:37 PM EDT documented as of this encounter Care Teams Avionics Engineer Relationship Specialty Start Date End Date Lola Bermudez PA [address] [place] [address] PCP - General 03/20/17 07/23/23 Gabo Bermudez MD [address] [place] [address] [email or web address] PCP - General Family Medicine 07/24/23 04/21/24 Lola Bermudez PA [address] [place] [phone] PCP - General Physician Software Tools Engineer 04/22/24 Nicole Ortiz, VARUN [address] [place] [address] PHCM Poultry Processing Supervisor 04/22/24 Marta Wang [address] [place] [phone] [email or web address] PHCM Community Medical Information Specialist 05/07/24 05/07/24 Gabo Bermudez MD [address] [place] [address] [email or web address] Insurance Assigned Provider Family Medicine 08/16/24 documented as of this encounter Additional Source Comments The information contained in this document represents components of the legal health record. It is not the complete legal health record.[facility]
--- OUTSIDE RECORDS SUMMARY | 2024-12-31 19:04 | XMS_ITS | Encounter Summary ---
Author Organization [facility] Address [address] [place] [address] Phone Care Team Providers Care Echocardiographer Name Role Phone Lola Bermudez Primary Care Provider [phone] Gabo Bermudez MD Primary Care Provider [phone] Lola Bermudez Primary Care Provider [phone] Nicole Ortiz RN Unavailable Marta Wang Unavailable [email or web address] Gabo Bermudez MD Unavailable [phone] Reason for Referral * MRI/CAT Scan - Closed Specialty Diagnoses / Procedures Referred By Екатерина knapp Referred To Contact Radiology Diagnoses Nonintractable headache, unspecified chronicity pattern, unspecified headache type Paresthesia of arm Memory loss Procedures MRI Brain CHG MRI BRAIN COMBO Gomez Brooks MD Phone: tel: fax: [email or web address] Referral ID Status Reason Start Date Expiration Date Visits Re quested Visits Authorized [id number] Closed 04/18/2021 10/15/2021 1 1 Encounter Details Date Type Department Care Team (Latest Contact Info) Description 04/19/2021 Transcribe Orders [address] [address] Gomez Brooks MD [address] [place] [address], [address] [place] [address] [email or web address] Nonintractable headache, unspecified chronicity pattern, unspecified headache type (Primary Dx); Paresthesia of arm; Memory loss Social History Tobacco Use Types Packs/Day Years [...] Description 01/24/2025 1:00 PM EST Office Visit [facility] General Surgical Care [address] [place] [address] Isabell Valenzuela MD [address] [address] 02/22/2025 1:00 PM EST Nutrition [facility] General Surgical Care [address] [place] [address] Roxana Grey LDN [address] [place] [address] 04/05/2025 11:30 AM EST Office Visit [facility] Infectious Diseases [address] [place] [address] Molly Sofia FNP [address] [address] documented as of this encounter Results * MRI BRAIN WITH AND WITHOUT CONTRAST (05/01/2021 4:20 PM EST) Anatomical Region Laterality Modality Head Magnetic Resonan ce 05/01/2021 4:39 PM EST Impressions 05/01/2021 4:52 PM EST No acute infarct, mass lesion, hemorrhage or abnormal enhancement. Narrative 05/01/2021 4:52 PM EST MRI BRAIN WITH AND WITHOUT CONTRAST TECHNIQUE: Multi-sequence, multi-planar MRI of the brain was performed before and after intravenous contrast. COMPARISON: Head CT on March 21, 2020 FINDINGS: Motion degrades many sequences. Brain Parenchyma: No evidence of acute infarct, mass lesion, or hemorrhage. Ventricular System and Extra-Axial Spaces: There is no evidence of midline shift or hydrocephalus. Extracranial Structures: Arterial flow voids in the skull base are present. Mucus retention cysts in bilateral maxillary sinuses. Procedure Note Keith Roberto MD - 05/01/2021 MRI BRAIN WITH AND WITHOUT CONTRAST TECHNIQUE: Multi-sequence, multi-planar MRI of the brain was performed before andafter intravenous contrast. COMPARISON: Head CT on March 21, 2020 FINDINGS: Motion degrades many sequences. Brain Parenchyma: No evidence of acute infarct, mass lesion, orhemorrhage. Ventricular System and Extra-Axial Spaces: There is no evidence of midlineshift or hydrocephalus. Extracranial Structures: Arterial flow voids in the skull base arepresent. Mucus retention cysts in bilateral maxillary sinuses. IMPRESSION: No acute infarct, mass lesion, hemorrhage or abnormal enhancement. Gomez Brooks MD IMG MR HEAD/NECK Final Resul t documented in this encounter Visit Diagnoses Diagnosis Nonintractable headache, unspecified chronicity pattern, unspecified headache type- Primary Paresthesia of arm Memory loss Nonintractable headache, unspecified chronicity pattern, unspecified headache type Paresthesia of arm Memory loss documented in this encounter Care Teams Echocardiographer Relationship Specialty Start Date End Date Lola Bermudez PA [address] [place] [phone] PCP - General 03/20/17 07/23/23 Gabo Bermudez MD [address] [place] [address] [email or web address] PCP - General Family Medicine 07/24/23 04/21/24 Lola Bermudez PA [address] [place] [phone] PCP - General Physician Saw Operator 04/22/24 Nicole Ortiz RN [address] [place] [address] PHCM Agriculture Laborer 04/22/24 Marta Wang [address] [place] [address] [email or web address] PHCM Community Pool Hall Inspector 05/07/24 05/07/24 Gabo Bermudez MD [address] [place] [address] [email or web address] Insurance Assigned Provider Family Medicine 08/16/24 documented as of this encounter Additional Source Comments The information contained in this document represents components of the legal health record. It is not the complete legal health record.[facility]
--- OUTSIDE RECORDS SUMMARY | 2024-12-31 19:04 | XMS_ITS | Encounter Summary ---
Author Organization [facility] Address [address] [place] [address] Phone Care Team Providers Care Developmental Therapist Name Role Phone Lola Bermudez Primary Care Provider [phone] Gabo Bermudez MD Primary Care Provider [phone] Lola Bermudez Primary Care Provider [phone] Nicole Ortiz RN Unavailable Marta Wang Unavailable [email or web address] Gabo Bermudez MD Unavailable [phone] Encounter Details Date Type Department Care Team (Late st Contact Info) Description 05/15/2021 Procedure Pass [facility], [address] [address] Social History Tobacco Use Types Packs/Day Years [...] Description 01/24/2025 1:00 PM EST Office Visit [facility] General Surgical Care [address] [place] [address] Isabell Valenzuela MD 15 [facility], [address] [place] [address] 02/22/2025 1:00 PM EST Nutrition [facility] General Surgical Care [address] [place] [address] Roxana Grey LDN [address] [place] [address] 04/05/2025 11:30 AM EST Office Visit [facility] Infectious Diseases [address] [place] [address] Molly Sofia FNP 15 [facility], [address] [place] [address] [email or web address] documented as of this encounter Visit Diagnoses Not on filedocumented in this encounter Care Teams Developmental Therapist Relationship Specialty Start Date End Date Lola Bermudez PA [address] [place] [address] PCP - General 03/20/17 07/23/23 Gabo Bermudez MD [address] [place] [address] [email or web address] PCP - General Family Medicine 07/24/23 04/21/24 Lola Bermudez PA [address] [place] [address] PCP - General Physician Machine Pecan Picker 04/22/24 Nicole Ortiz RN [address] [place] [address] PHCM Document Preparer Microfilming 04/22/24 Marta Wang [address] [place] [address] [email or web address] PHCM Community Bladder Blower 05/07/24 05/07/24 Gabo Bermudez MD [address] [place] [address] [email or web address] Insurance Assigned Provider Family Medicine 08/16/24 documented as of this encounter Additional Source Comments The information contained in this document represents components of the legal health record. It is not the complete legal health record.[facility]
--- OUTSIDE RECORDS SUMMARY | 2024-12-31 19:04 | XMS_ITS | Data Portability ---
Author Organization NAKITA [facility]ara [facility] [address] Address [address] [place] [address] Assessment No assessment recorded. Plan of Treatment Reminders Order Date Submit Date Provider Last Modified By Organization Details Last Modified Time Details Appointments None record ed. Lab None record ed. Referral None record ed. Procedures None record ed. Surgeries None record ed. Imaging XR, foot, 3 or more view 023 09/14/19 23 [facility], [address] [place], [address], 3 19:56:56 Medication Orders None record ed. Patient TargetsNo targets recorded. Patient Instructions Encounter Date Encounter Id Patient Instructions Last Modified By Organization Details Last Modified Time 09/13/2022 [id number] Based on your presentation and exam, you [...] if you have any questions or concerns. [email or web address] Not available 09/13/2022 18:18:38 Reason for Referral None Reported. Results Created Date Observation Date Name Description Value Unit Range Abnormal Flag Note LastModifiedBy Organization Detail LastModifiedTime 09/14/19 23 09/13/2022 XR, foot, 3 or more view No observ ation record ed. [email or web address] [address] [place], [address], 09/13/2022 20:03:32 Result Notes None recorded. Problems Name Problem SNOMED Code Status Onset Date Resolution Date Notes Provider Name and Address Organization Details Recorded Time Diabetes mellitus 23277448 Active 2022 THEODORE barrios, PA - [facility] 3 17:09:32 Hypertensive disorder 21172460 Active 2022 THEODORE barrios, PA - [facility] 3 17:09:41 Restless legs syndrome 24506155 Active 2022 THEODORE [place] null, PA - [...] - [facility] 09/13/2022 17:10:42 Imaging Results None recorded. Procedure Notes None recorded. Medical Equipment None Reported. Allergies Allergen ID Allergen Name Allergen Category Reaction Reaction Severity Criticality Documentation Date Start Date Code Code System Note Provider Name and Address Organization Details Recorded Time 096940 Product containin g penicilli n (product) medicatio n Not available Not available Not available 09/13/2022 36317 8001 SNOMED THEODORE barrios, PA - [facility] 3 17:08:04 218892 Substance with sulfonami de structure and antibacte rial mechanism of action (substanc e) medicatio n Not available Not available Not available 09/13/2022 90414 8003 SNOMED THEODORE BRYAN barrios, PA - [facility] 3 17:08:09 763066 meloxicam medicatio n Not available Not available Not available 09/13/2022 81611 RxNorm THEODORE BRYAN barrios, PA - [facility] 3 17:08:14 573875 Benadryl medicatio n Not available Not available Not available 09/13/2022 24632 7 RxNorm THEODORE BRYAN barrios, PA - [facility] 3 17:08:18 [...] Heart rate Respiratory rate Body temperature Systolic And Diastolic Provider Name and Address Organization Details Last Updated DateTime 3 162.56 cm 35.2 kg/m2 78888.4 4 g 97 % 97 % 89 /min 18 /min 98.5 [degF] 111/73 mm[Hg] THEODORE MACE [facility] 3 17:13:14 Social History Question Answer Notes LastModified by Organizat ion Details LastModified Time Tobacco Smoking Status Never Smoker THEODORE barrios PA - [facility] 09/13/2022 17:10:13 Which Illicit Or Recreational Drugs Have You Used? Marijuana Information not available 09/13/2022 Have You Had Direct Contact, Or Contact During Intimacy, With Monkeypox Rash, Scabs, Or Body Fluids From A Person With Monkeypox? No Information not available 09/13/2022 Have You Recently Traveled Abroad? No Information not available 09/13/2022 Sex: Unknown Functional Status Question Answer Note LastModified by Organizat ion Details LastModified Time Do you use any illicit or recreational drugs? Yes Information not available 09/13/2022 Do you or have you ever used any other forms of tobacco or nicotine? No Information not available 09/13/2022 What is your level of alcohol consumption? None Information not available 09/13/2022 Mental Status None recorded. Family History Relationship [...] or 50 mcg/0.25mL dose 2 completed THEODORE barrios, PA - [facility] 09/13/2022 17:07:55 COVID-19, mRNA, LNP-S, PF, 100 mcg/0.5mL dose or 50 mcg/0.25mL dose 1 completed THEODORE [place]AMS null, PA - [facility] 09/13/2022 17:07:55 COVID-19, mRNA, LNP-S, PF, 100 mcg/0.5mL dose or 50 mcg/0.25mL dose 1 completed THEODORE ADAMS null, PA - [facility] 09/13/2022 17:07:55 pneumococcal polysaccharide PPV23 0 completed THEODORE barrios, PA - [facility] 09/13/2022 17:07:55 influenza, unspecified formulation 2 completed THEODORE barrios, PA - [facility] 09/13/2022 17:07:56 Tdap 0 completed THEODORE SIMONND null, PA - [facility] 09/13/2022 17:07:56 Influenza, split virus, trivalent, preservative 2 completed THEODORE GRANTHIND null, PA - [facility] 09/13/2022 17:07:56 Influenza, split virus, trivalent, preservative 1 completed THEODORE SIMONND null, PA - [facility] 09/13/2022 17:07:56 Influenza, split virus, trivalent, preservative 4 completed THEODORE GOODHIND null, PA - [facility] 09/13/2022 17:07:56 Influenza, split virus, trivalent, preservative 0 completed THEODORE SIMONND null, PA - [facility] 09/13/2022 17:07:56 Novel Zrcutjexj-Q2N5-40, nasal 9 completed THEODORE GRANTHIND null, PA - [facility] 09/13/2022 17:07:56 Td (adult), 2 Lf tetanus toxoid, preservative free, adsorbed 8 completed THEODORE GRANTHIND null, PA - [facility] 09/13/2022 17:07:56 influenza, seasonal, intradermal, preservative free 3 completed THEODORE GRANTHIND null, PA - [facility] 09/13/2022 17:07:56 Influenza, split virus, quadrivalent, PF 6 completed THEODORE GRANTHIND null, PA - [facility] 09/13/2022 17:07:56 Influenza, split virus, quadrivalent, PF 0 completed THEODORE GRANTHIND null, PA - [facility] 09/13/2022 17:07:56 Influenza, split virus, quadrivalent, PF 9 completed THEODORE GRANTHIND null, PA - [facility] 09/13/2022 17:07:56 Influenza, split virus, quadrivalent, PF 1 completed THEODORE SIMONND null, PA - [facility] 09/13/2022 17:07:56 Past Encounters Encounter ID Performer Location Encounter Start Date Encounter Closed Date Diagnosis/Indication Diagnosis SNOMED-CT Code Diagnosis ICD10 Code Diagnosis IMO Codes Diagnosis Note [id number] [address] [place] [address] 06/27/2016 16:33:56 06/27/2016 17:15:58 [id number] [address] [place] [address] 09/26/2020 09:31:57 09/26/2020 10:18:46 [id number] [address] [place] [address] 03/22/2016 17:46:10 03/22/2016 19:34:01 [id number] [address] [place] [address] 12/24/2016 19:17:38 12/24/2016 19:57:58 [id number] [address] [place] [address] 09/22/2019 13:12:33 09/22/2019 14:50:48 [id number] [address] [place] [address] 04/29/2018 19:54:02 04/29/2018 20:23:00 [id number] [address] [place] [address] 10/22/2017 11:33:16 10/22/2017 12:50:10 [id number] [address] [place] [address] 02/21/2018 19:29:21 02/21/2018 19:57:06 [id number] [address] [place] [address] 05/14/2019 12:41:28 05/14/2019 13:23:22 [id number] [address] [place] [address] 05/01/2018 17:34:59 05/01/2018 18:25:40 [id number] [address] [place] [address] 08/23/2019 18:57:13 08/23/2019 19:29:12 [id number] [address] [place] [address] 12/24/2016 19:25:41 12/24/2016 19:33:55 [id number] [address] [place] [address] 12/26/2018 18:21:22 12/26/2018 18:45:03 [id number] [address] [place] [address] 10/07/2016 18:38:59 10/07/2016 19:09:45 [id number] [address] [place] [address] 11/03/2016 18:56:31 11/03/2016 19:45:28 [id number] [address] [place] [address] 07/08/2020 15:57:16 07/08/2020 16:55:25 [id number] NAKITA MARQUEZ [address] [place] [address] 09/13/2022 14:11:56 09/13/2022 18:20:38 Pain in right foot [id number] 26103 M79.671 X-ray appears clear no evidence of fracture. + anterior and posterior heel spur. X-ray did not show any signs of fracture- I will send it to the radiologis t for confirmati on. If they see something that I missed I will call you with those results. I would plan visit with your director epidemiology Contusion of right foot [id number] S90.31XA Health Concerns Section Related Observation LastModified by Organization Detai ls LastModified Time None Recorded Concern Status LastModified by Organization Details LastModified Time None Recorded Advance Directives Directive None Recorded Payers Insurance Date Sequence Insurance Name Policy Number Policy Topete Covered Member ID Topete Member ID Guarantor Name 09/13/[address] [place] [address] [id number] Kelly White [id number] Kelly White Notes Date Note Type Note Provider Name and Address Organization Details Recorded Time 09/14/19 23 text/htm l Foot/Ankle UCReported by PatientHPIFor associated symptoms, patient reportsnumbnessandtinglingbut reportsno weakness,no swelling,no redness,no warmth, andno ecchymosis(chronic diabetic neuropathy. always has those symptoms.). For previous injury, patient reportsprior injury to right ankle. For source of patient information, patient reportsinformation obtained from patientandpatient arrived at urgent care ambulatory. For location, patient reportsright. For problem, patient reportsinjury. For severity, patient reportsmoderate. For duration, patient reports1 weeks. For aggravating factors, patient reportswalking. For alleviating factors, patient reportselevation. For context, (dropped a cement block on the foot. pain over the metatarsals and toes - 2nd toe to 5th.).History of ankle fracture. NAKITA MARQUEZ [address] [place], [address], [place] - [facility] 09/13/2022 18:20:09 OBGyn Episode No OBEpisode recorded.
--- OUTSIDE RECORDS SUMMARY | 2024-12-31 19:04 | XMS_ITS | Encounter Summary ---
Author Organization [facility] Address [address] [place] [address] Phone Care Team Providers Care Residential Electrician Name Role Phone Lola Bermudez Primary Care Provider [phone] Gabo Bermudez MD Primary Care Provider [phone] Lola Bermudez Primary Care Provider [phone] Nicole Ortiz RN Unavailable Marta Wang Unavailable [email or web address] Gabo Bermudez MD Unavailable [phone] Encounter Details Date Type Department Care Team (Late st Contact Info) Description 04/19/2021 Procedure Pass [address] [place] [address] Social History Tobacco Use Types Packs/Day Years [...] 01/24/2025 1:00 PM EST Office Visit [facility] General Surgical Care [address] [place] [address] Isabell Valenzuela MD 15 [facility], [address] [place] [address] 02/22/2025 1:00 PM EST Nutrition [facility] General Surgical Care [address] [place] [address] Roxana Grey LDN [address] [place] [address] 04/05/2025 11:30 AM EST Office Visit [facility] Infectious Diseases [address] [place] [address] Molly Sofia FNP 15 [facility], [address] [place] [address] [email or web address] documented as of this encounter Visit Diagnoses Not on filedocumented in this encounter Care Teams Residential Electrician Relationship Specialty Start Date End Date Lola Bermudez PA [address] [place] [address] PCP - General 03/20/17 07/23/23 Gabo Bermudez MD [address] [place] [address] [email or web address] PCP - General Family Medicine 07/24/23 04/21/24 Lola Bermudez PA [address] [place] [address] PCP - General Physician Mononitrotoluene Operator 04/22/24 Nicole Ortiz RN [address] [place] [address] PHCM Roller Coaster Designer 04/22/24 Marta Wang [address] [place] [address] [email or web address] PHCM Community Service Desk Agent 05/07/24 05/07/24 Gabo Bermudez MD [address] [place] [address] [email or web address] Insurance Assigned Provider Family Medicine 08/16/24 documented as of this encounter Additional Source Comments The information contained in this document represents components of the legal health record. It is not the complete legal health record.[facility]
--- OUTSIDE RECORDS SUMMARY | 2024-12-31 19:04 | XMS_ITS | Encounter Summary ---
Author Organization [facility] Address [address] [place] [address] Phone Care Team Providers Care Natural Resource Manager Name Role Phone Gabo Bermudez MD Primary Care Provider [phone] Lola Bermudez Primary Care Provider [phone] Nicole Ortiz RN Unavailable Marta Wang Unavailable [email or web address] Gabo Bermudez MD Unavailable [phone] Encounter Details Date Type Department Care Team (Latest Contact Info) Description 09/09/2023 Transcribe Orders Virtual Department [address] [place] [address] Kendy Esquivel PA [address] [place], [place] [id number] Dysphagia, unspecified type (Primary Dx); Bloating Social History Tobacco Use Types Packs/Day Years [...] Description 01/24/2025 1:00 PM EST Office Visit [facility] General Surgical Care [address] [place] [address] Isabell Valenzuela MD [address] [address] 02/22/2025 1:00 PM EST Nutrition [facility] General Surgical Care [address] [place] [address] Roxana Grey LDN [address] [place] [address] 04/05/2025 11:30 AM EST Office Visit [facility] Infectious Diseases [address] [place] [address] Molly Sofia FNP [address] [address] documented as of this encounter Results * FL (Speech) Video Swallow Study (10/30/2023 11:07 AM EDT) Anatomical Region Laterality Modality Radio Fluoroscop y 10/30/2023 11:5 5 AM EDT Impressions 10/30/2023 12:54 PM EDT No ti aspiration was observed during this examination. Mild to moderate esophageal dysmotility. Please refer to the clinical notes by the Speech Pathologist for detailed description of the Modified Swallow findings. FLUOROSCOPY TIME: 1 minute 53 seconds NUMBER OF IMAGES: [id number] ATTESTATION: Jun Rachel as teaching physician, have reviewed the images for this case and if necessary edited the report originally created by Stuart Lemons. Narrative 10/30/2023 12:54 PM EDT FL MODIFIED BARIUM SWALLOW HISTORY:Dysphagia. COMPARISON:CT abdomen 08/27/2021. OPERATORS: Stuart Lemons SUPERVISING PHYSICIAN: Jun Andre TECHNIQUE: Fluoroscopic assistance was provided for the speech pathologist during video swallow. The patient was observed in the lateral projection while being fed various consistencies of barium (thin liquids, applesauce, pudding and cracker). FINDINGS: The oral and pharyngeal stages of swallowing will be reported separately by the Department of Speech and Language Pathology. No ti aspiration or laryngeal penetration demonstrated during this examination. All trialed barium consistencies passed through the pharynx without difficulty. No significant pharyngeal residue. Limited assessment revealed mild to moderate distal esophageal dysmotility evidenced by reversed peristalsis. Procedure Note Jun Andre MD - 10/30/2023 FL MODIFIED BARIUM SWALLOW HISTORY:Dysphagia. COMPARISON:CT abdomen 08/27/2021. OPERATORS: Stuart Lemons SUPERVISING PHYSICIAN: Jun Andre TECHNIQUE: Fluoroscopic assistance was provided for the speech pathologist duringvideo swallow. The patient was observed in the lateral projection whilebeing fed various consistencies of barium (thin liquids, applesauce,pudding and cracker). FINDINGS: The oral and pharyngeal stages of swallowing will be reported separatelyby the Department of Speech and Language Pathology. No ti aspiration or laryngeal penetration demonstrated during thisexamination. All trialed barium consistencies passed through the pharynxwithout difficulty. No significant pharyngeal residue. Limited assessmentrevealed mild to moderate distal esophageal dysmotility evidenced byreversed peristalsis. IMPRESSION: No ti aspiration was observed during this examination. Mild to moderate esophageal dysmotility. Please refer to the clinical notes by the Speech Pathologist for detaileddescription of the Modified Swallow findings. FLUOROSCOPY TIME: 1 minute 53 seconds NUMBER OF IMAGES: [phone] ATTESTATION: Jun Rachel as teaching physician, have reviewed theimages for this case and if necessary edited the report originally createdby Stuart Lemons. us Kendy MACE IMG FL EXAMS Final Resul t documented in this encounter Visit Diagnoses Diagnosis Dysphagia, unspecified type- Primary Bloating Flatulence, eructation, and gas pain Dysphagia, unspecified type- Primary Bloating Flatulence, eructation, and gas pain documented in this encounter Additional Health Concerns Assessment Noted Time PHQ-9 Depression Total Score: 16 023 2:37 PM EDT PHQ-2 Depression Total Score: 2 09/19/19 23 2:37 PM EDT documented as of this encounter Care Teams Natural Resource Manager Relationship Specialty Start Date End Date Gabo Bermudez MD [address] [place] [address] PCP - General Family Medicine 07/24/23 04/21/24 Lola Bermudez PA [address] [place] [phone] PCP - General Physician Pre Sales Technical Engineer 04/22/24 Nicole Ortiz, VARUN [address] [place] [address] PHCM Scheduling Assistant 04/22/24 Marta Wang [address] [place] [address] [email or web address] PHC Community Employment Program Representative 05/07/24 05/07/24 Gabo Bermudez MD [address] [place] [address] Insurance Assigned Provider Family Medicine 08/16/24 documented as of this encounter Additional Source Comments The information contained in this document represents components of the legal health record. It is not the complete legal health record.[facility]
--- OUTSIDE RECORDS SUMMARY | 2024-12-31 19:04 | XMS_ITS | Clinical Summary ---
Author Organization [facility] Address [address] [place] [address] Care Team Providers Care Promotions Coordinator Name Role Phone Unavailable Primary Care Provider Unavailabl e Medical History Medical History Date Comments Hypertension DX:Hypertension Diabetes mellitus (CMS/HCC V24, CMS/HCC V28) DX:Diabetes mellitus (HCC) Migraines DX:Migraines Social History Tobacco Use Types Packs/Day Years Used Date Smoking Tobacco: Smoker, Current Status Unknown Smokeless Tobacco: Former Alcohol Use Standard Drinks/Week Comments Never 0 (1 standard drink = 0.6 oz pur e alcohol) Comments Unknown Sex and Gender Information Value Date Recorded Sex Assigned at Not on file Legal Sex Female 9:57 AM EST Gender Identity Not on file Sexual Orientation Not on file Obstetrics History Plan of Treatment Health Maintenance Due Date Last Done Comments Breast Cancer Screening 1974 DTaP,Tdap,and Td Vaccines (1 - Tdap) 1993 Hepatitis B Vaccines (1 of 3 - 19+ 3-dose series) 1993 Cervical Cancer Screening: P ap Smear 10/11/1995 Depression Screening 03/17/2024 Pneumococcal Vaccine: 50+ Ye ars (1 of 1 - PCV) 2024 Zoster Vaccines (1 of 2) 2024 COVID-19 Vaccine (1 - 2023-2 5 season) 2024 Influenza Vaccine (#1) 2024 RSV Immunization Adult Patie nts (1 - 1-dose 75+ series) 2049 HIB Vaccines Aged Out No longer eligi ble based on patient's age to complete this topic HPV Vaccines Aged Out No longer eligi ble based on patient's age to complete this topic Hepatitis A Vaccines Aged Out No long er eligible based on patient's age to complete this topic IPV Vaccines Aged Out No longer eligi ble based on patient's age to complete this topic MMR Vaccines Aged Out No longer eligi ble based on patient's age to complete this topic Meningococcal ACWY Vaccine Aged Out N o longer eligible based on patient's age to complete this topic Meningococcal B Vaccine Aged Out No l onger eligible based on patient's age to complete this topic RSV Immunization Patients Un jumana 20 months Aged Out No longer eligible b ased on patient's age to complete this topic Varicella Vaccines Aged Out No longer eligible based on patient's age to complete this topic
--- OUTSIDE RECORDS SUMMARY | 2024-12-31 19:04 | XMS_ITS | Encounter Summary ---
Author Organization [facility] Address [address] [place] [phone] Phone Care Team Providers Care Acds Block 1 Operator Name Role Phone Lola Bermudez Primary Care Provider [phone] Gabo Bermudez MD Primary Care Provider Lola Bermudez Primary Care Provider [phone]- [phone] Nicole Ortiz RN Unavailable Marta Wang Unavailable [email or web address] Gabo Bermudez MD Unavailable [phone] Reason for Referral * MRI/CAT Scan - Closed Specialty Diagnoses / Procedures Referred By Екатерина knapp Referred To Contact Radiology Diagnoses Numbness Multiple sclerosis Procedures MRI Thoracic Spine CHG MRI, DORSAL SPINE COMBO Gomez Brooks MD Phone: tel: fax: [email or web address] Referral ID Status Reason Start Date Expiration Date Visits Re quested Visits Authorized [id number] Closed 05/14/2021 11/10/2021 1 1 Encounter Details Date Type Department Care Team (Latest Contact Info) Description 05/15/2021 Transcribe Orders [facility] Department [address] [place] [id number] Gomez Brooks MD [address] [place] [address], [address] [place] [address] [email or web address] Numbness (Primary Dx); Multiple sclerosis Social History Tobacco Use Types Packs/Day Years [...] Description 01/24/2025 1:00 PM EST Office Visit [facility] [address] [place] [address] Isabell Valenzuela MD [address] [address] 02/22/2025 1:00 PM EST Nutrition [facility] [address] [place] [address] Roxana Grey LDN [address] [place] [address] 04/05/2025 11:30 AM EST Office Visit [facility] Infectious Diseases [address] [place] [address] Molly Sofia FNP [address] [id number] documented as of this encounter Results * MRI THORACIC SPINE (BONE) WITH AND WITHOUT CONTRAST (05/29/2021 2:53 PM EDT) Anatomical Region Laterality Modality T-spine Magnetic Resonan ce 05/29/2021 4:24 PM EDT Impressions 05/29/2021 4:31 PM EDT No abnormal spinal cord signal or enhancement. Narrative 05/29/2021 4:31 PM EDT MRI THORACIC SPINE (BONE) WITH AND WITHOUT CONTRAST TECHNIQUE: Multi-sequence, multi-planar MRI of the thoracic spine was performed with and without intravenous contrast. COMPARISON: None FINDINGS: THORACIC SPINE: Alignment and Vertebrae: Normal alignment. No compression fracture. Marrow: Small fat-containing lesion within T4 vertebral body likely represents a benign lipoma. Discs and Endplates: Normal intervertebral disc heights and signal. Spinal Cord: No spinal cord compression or signal abnormality. Contrast: No abnormal enhancement. Soft Tissue: Normal. No prevertebral edema. Other Findings: No neuroforaminal or spinal canal stenosis. Procedure Note Keith Roberto MD - 05/29/2021 MRI THORACIC SPINE (BONE) WITH AND WITHOUT CONTRAST TECHNIQUE: Multi-sequence, multi-planar MRI of the thoracic spine was performed withand without intravenous contrast. COMPARISON: None FINDINGS: THORACIC SPINE: Alignment and Vertebrae: Normal alignment. No compression fracture. Marrow: Small fat-containing lesion within T4 vertebral body likelyrepresents a benign lipoma. Discs and Endplates: Normal intervertebral disc heights and signal. Spinal Cord: No spinal cord compression or signal abnormality. Contrast: No abnormal enhancement. Soft Tissue: Normal. No prevertebral edema. Other Findings: No neuroforaminal or spinal canal stenosis. IMPRESSION: No abnormal spinal cord signal or enhancement. Gomez Brooks MD IMG MR XSPECIALTY Final Resu lt documented in this encounter Visit Diagnoses Diagnosis Numbness- Primary Disturbance of skin sensation Multiple sclerosis Numbness Disturbance of skin sensation Multiple sclerosis documented in this encounter Care Teams Acds Block 1 Operator Relationship Specialty Start Date End Date Lola Bermudez PA [address] [place] [phone] PCP - General 03/20/17 07/23/23 Gabo Bermudez MD [address] [place] [phone] PCP - General Family Medicine 07/24/23 04/21/24 Lola Bermudez PA [address] [place] [phone] PCP - General Physician Clinical Informatics Spec 04/22/24 Nicole Ortiz RN [address] [place] [phone] PHCM Constitutional Law Professor 04/22/24 Marta Wang [address] [place] [phone] [email or web address] PHCM Community [employer] Farmworker 05/07/24 05/07/24 Gabo Bermudez MD [address] [place] [phone] [email or web address] Insurance Assigned Provider Family Medicine 08/16/24 documented as of this encounter Additional Source Comments The information contained in this document represents components of the legal health record. It is not the complete legal health record.[facility]
--- OUTSIDE RECORDS SUMMARY | 2024-12-31 19:05 | XMS_ITS | Clinical Summary ---
Author Organization [facility] Address [address] [place] [id number] Phone Care Team Providers Care Post Acute Care Nurse Name Role Phone Marco Antonio Bermudez Primary Care Provider [phone] Nicole Ortiz RN Unavailable Gabo Bermudez MD Unavailable [phone] Allergies Active Allergy Reactions Criticality Noted Date Comments Adhesive Rash Low 12/11/2021 Diphenhydramine Hcl Unknown Low 01/27/2019 Latex Rash with Blisters High 06/02/2024 Meloxicam Rash with Blisters High 01/27/2019 Penicillins Anaphylaxis High 01/27/2019 Sulfa (Sulfonamide Antibiotics) Hives Medium 01/15 Sulfamethoxazole-Trimethoprim Unknown Low 2015 Medications escitalopram oxalate (LEXAPRO) 20 MG tablet Take 20 mg by mouth daily. Active omeprazole (PRILOSEC) 40 MG capsule Take 1 capsule by mouth every morning. 5 Active simethicone (MYLICON) 80 mg chewable tablet Take 1 tablet (80 mg total) by mouth every 6 (six) hours as needed (gas). 20 tablet 1 5 Active multivitamin-m gu-ipqv-OX-vit K 45 mg iron- 800 mcg-120 mcg Cap Take by mouth. PATCHES Active COLLAGEN MISC by Miscellaneous route. Patches Active lidocaine (LIDODERM) 5 %Indications:A chilles tendinitis of right lower extremity Place 1 patch onto the skin daily. Remove & Discard patch within 12 hours or as directed by MD Clemens patch 5 Active traZODone (DESYREL) 100 MG tablet Take 100 mg by mouth nightly at bedtime as needed for sleep. Active Active Problems Patient Care Coordination No te Formatting of this note migh t be different from the original. 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, hypertension, asthma, anxiety, sleep apnea, severe obesity, no income, limited resources Living Situation: lives in owned home with and teenaged son who has Autism Functional Status (ADL's/iADLs): independent with bathing and dressing; requires assistance if getting up from floor (service dogs are trained to help her with this); needs assistance with iADLs due to extreme fatigue quickly from long-COVID; also needs frequent reminders for all health/medical tasks and treatment plans, as pt has working memory and recall issues from TBI and long-COVID Family/Social Supports: is main support, helps with iADLs and frequent reminders; mother is supportive with reminders, and son is able to help around the house somewhat if instructed Goals of Care (HCP/[place]): pt has HCP but cannot find at home; she plans to find it or complete a new one, but says her Sherif is her proxy Community Supports (e.g. VNA, DME Vendors, Elder Services): pt has a CPAP machine but has not used in a while due to discomfort, cannot remember who services the machine; pt plans to start BH therapy in the near future with [facility]. Transportation: pt drives self Medication Management System/Specialized Pharmacy Needs: keeps meds in bottles, needs reminder for weekly ozempic; needs written instructions for any changes in medication regimen or pt states she will forget by the time she gets home from the provider. Financial Concerns: currently no employment income; receives SSI for son, receives [employer] as emergency assistance while pt waits for disability decision; receives SNAP Other Supports and Care Needs: pt has significant challenges with memory, needs reminders, written instructions/notes from providers and medical team Problem Noted Date Diagnosed Date Overweight with body mass in dex (BMI) of 26 to 26.9 in adult 11/22/2024 Assessment & Plan (11/22/2024 2:10 PM EDT): This is a 49-year-old woman who underwent a laparoscopic sleeve gastrectomy and intraoperative endoscopy June 2024. She is doing extremely well with weight loss. She should increase her water intake to at least 64 ounces of water on a daily basis. She will continue current medications as reviewed. She should add back formalized exercise now that she has healed from her fracture of her foot. She will follow- up with the dietitian as already scheduled for December and follow-up with me again in 2 months timeframe. I have ordered her blood work to be done in December. She is not stable is considered overweight. Intestinal malabsorption following gastrectomy 0 11/22/2024 S/P laparoscopic sleeve gastrectomy 07/14/2024 Class 1 obesity due to exces s calories without serious comorbidity with body mass index (BMI) of 30.0 to 30.9 in adult 06/15/2024 Assessment & Plan (09/21/2024 2:19 PM EDT): This is a 48-year-old woman who underwent a laparoscopic sleeve gastrectomy July 14, 2024. The patient reports feeling very well. She has some aversion to the protein shakes and was looking for other options for getting her protein in. I have recommended using Tanzanian yogurt or the Tanzanian yogurt smoothies or the cottage cheese and protein bars. Patient will continue current exercise plan. She will increase her water intake to at least 64 ounces of water on daily basis. She will continue current medications as reviewed. She will follow-up with the dietitian as already scheduled for October 18 and follow-up with me again in 8 weeks timeframe. She is not stable and is considered obese. Assessment & Plan (06/15/2024 9:44 AM EDT): This is a 48-year-old woman who is interested in a laparoscopic sleeve gastrectomy for weight loss. The patient has lost all the weight she needs to lose in the medical component of program. She has completed 5 out of 5 nutrition classes has completed follow-up with the dietitian, she has completed 2 out of 2 behavioral health assessments and has been cleared and all required testing has been done. The patient is exercising is following eating plan and is drinking enough water. She will continue current plan. We will submit her information to an insurance company for approval for laparoscopic sleeve gastrectomy with possible hiatal hernia repair and intraoperative endoscopy. Once we have approval from the insurance company will set the patient up with a preoperative class and then set schedule a surgical date for the above-noted procedure. She will continue current medications as reviewed. She is not stable and is considered obese. Trigger finger, left middle finger 06/09/2024 Memory changes 03/19/2024 Assessment & Plan (03/19/2024 3:56 PM EST): Discussed that MoCA is normal, but not a particularly useful tool in measuring cognitive changes in those under the age of 65. Pt does appear to have difficulty with word finding and concentration during our visit. She may benefit from neuropsychiatric testing. Anxiety and depression 03/19/2024 Assessment & Plan (03/19/2024 3:57 PM EST): MARIPOSA-7 and PHQ-9 both show suboptimally treated depression and anxiety, which can worsen her fatigue symptoms. Discussed that she may want to consider a different antidepressant or adding another medication to her current Lexapro, but that I defer this decision to her and her psychiatric medication prescriber. Discussed that cognitive behavioral therapy has been helpful in treating anxiety, depression, and long COVID and encouraged her to consider this. Class 2 severe obesity due t o excess calories with serious comorbidity and body mass index (BMI) of 35.0 to 35.9 in adult 11/11/2023 Assessment & Plan (04/06/2024 11:57 AM EST): This is a 48-year-old woman who is interested in a laparoscopic sleeve gastrectomy for weight loss. The patient is a little frustrated as she reports she cannot get the last 8 pounds off. She has a long COVID and has very difficult time exercising as she reports it causes significant fatigue and pain for 3 days after exercising. She is following the eating plan and water intake. I have asked her to try to add some strength training. I also have asked her to do 2 protein shakes a day for 2 of the meals and 2 meals of vegetables and protein and that should help to get the rest of the weight off. I will follow-up with her again in 4 weeks timeframe. She is not stable and is considered obese. She has completed 5 out of 5 nutrition classes, 2 out of 2 behavioral health assessments and all required testing. Assessment & Plan (03/02/2024 1:41 PM EST): This is a 48-year-old woman who is interested in a laparoscopic sleeve gastrectomy for weight loss. She has completed 0 out of 5 nutrition classes, 2 out of 2 behavioral health assessments, and all required testing. She now has 8 pounds to lose before being a surgical weight loss candidate. She we will continue current eating plan. She should add a serving of vegetables on the meals where she feels that she is very hungry. She will continue current eating plan. She will continue current water intake and all medications as reviewed. She will follow-up with me again in about 4 weeks timeframe and hopefully she will have completed all of her weight loss we will be able to be submitted to the insurance company for approval for weight loss surgery. She is not stable and is considered obese. Assessment & Plan (01/20/2024 1:35 PM EST): This is a 48-year-old woman who is interested in laparoscopic sleeve gastrectomy for weight loss. The patient has lost 8.2 pounds and now has 13.8 pounds to lose before being a surgical weight loss candidate. She is following the eating plan and is drinking plenty of water. I have asked her to add strength training 30 minutes 3 times a week to increase the intensity of her exercise. She has completed 0 out of 5 nutrition classes, 2 out of 2 behavioral health assessments and has been cleared and all required testing. The patient will follow-up with the dietitian as already scheduled for February 04 and follow-up with me again in 6 weeks timeframe. She is not stable and is considered obese. She will continue current medications as reviewed. Assessment & Plan (11/11/2023 12:05 PM EDT): This is a 48YO patient who is interested in weight loss surgery, specifically the laparoscopic sleeve gastrectomy for weight loss. We have discussed gastric bypass and sleeve gastrectomy surgery in detail including risks, benefits, and alternatives. We have also discussed requirements preop and post op. They understands that they are required to lose about 10 percent of their current weight which is 22 lbs. The goal weight at the time of submission to the insurance company will be 193.8 pounds. In an effort to help the patient to lose weight I have prescribed an eating plan which will consist of a protein shake or a protein bar or Tanzanian yogurt or cottage cheese to be consumed at 9 AM and 3 PM daily. The patient will consume 4 ounces of protein with 6 ounces of vegetable or small salad with a noncreamy salad dressing of not more than 2 tablespoons at 12 PM and 6 PM daily. At the 6 PM meal the patient may have 1/2 cup of carbohydrate. We have ordered required labs and testing. The patient will attend 5 nutrition classes, 2 appointments, and dietitian consultation. The patient will need to obtain a medical clearance letter from the primary care doctor prior to submission to the insurance company. The patient will see the dietitian in 2 and 4 weeks and I will follow up with them again in 6 weeks to ensure compliance with the meal plan. The patient will continue current medications as reviewed. They are not stable and are considered obese. I spent 62 minutes with this patient which also included documentation. Preoperative examination 11/11/2023 Recurrent umbilical hernia 11/11/2023 Primary hypertension 11/11/2023 Type 2 diabetes mellitus wit hout complication, without long-term current use of insulin 11/11/2023 Obstructive sleep apnea syndrome 11/11/2023 Cervical polyp 11/08/2022 Assessment & Plan (11/08/2022 2:28 PM EDT): Cervical polyp removed without issue Follow up based on pathology Hot flashes 01/01/2022 Assessment & Plan (01/01/2022 12:19 PM EDT): No fever of unknown origin per pt's fever diary although data is limited. Encouraged her to keep diary for a few weeks following her next surgery and follow-up with recurrent fevers. Likely hot flashes related to menopause/perimenopause based on age. Long COVID 01/01/2022 Assessment & Plan (12/31/2024 1:28 PM EDT): Pt continues with fatigue and awful brain fog following a COVID19 infection in May 2020. She is on disability from her job and having a lot of financial stressors. I have recommended neuropsychiatric testing. I have also referred Narendra to [facility] Neurology as our Neurology Department here at [facility] does not treat memory concerns related to long COVID. Continue therapy. Continue being as active as she is able to tolerate. Follow-up with case management regarding any financial subsidies she may qualify for. We will have a follow-up in March as pt will likely need to have some paperwork filled out at that time. Assessment & Plan (03/19/2024 3:58 PM EST): The history, physical, and duration of symptoms are consistent with long COVID. Discussed there are a few trials showing some improvement in fatigue symptoms with low-dose naltrexone, but that the data is not particularly robust. Pt is reluctant to start another medication due to restless leg syndrome. Discussed that long COVID is an evolving disease process and that we don't understand the underlying pathophysiology completely as of yet. This means that we are treating lasting symptoms and conditions which may be exacerbated by long-COVID. As more information becomes available, we will contact patients to return to ID clinic. Current recommendation is to follow-up with ID annually; sooner as needed. Assessment & Plan (09/18/2022 4:12 PM EDT): Discussed that long COVID is an evolving disease process and that we don't understand the underlying pathophysiology completely as of yet. This means that we are treating lasting symptoms and conditions which may be exacerbated by long-COVID. Reviewed that subsequent COVID infections may worsen long COVID symptoms. Encouraged pt to remain COVID cautious. As more information becomes available, we will contact patients to return to ID clinic. Current recommendation is to follow-up with ID as needed. Assessment & Plan (01/01/2022 12:22 PM EDT): Reviewed that long COVID is multifactorial. May consider enrolling in study through [facility] or [facility]. Encouraged pt to focus on optimizing sleep. Has largely been unable to tolerate CPAP mask. May consider jaw thrust device. Encouraged to discuss adding a low dose of amitriptyline for sleep with PCP. Pt states she is in the process of applying for disability and will likely be sending paperwork for this. Other fatigue 12/11/2021 Assessment & Plan (03/19/2024 3:58 PM EST): Fatigue likely remains multifactorial (untreated sleep apnea, long COVID, under treated anxiety/depression, etc). Congratulated on weight loss through bariatric program. Hopefully sleep apnea will improve with weight loss as she's unable to tolerate CPAP. Reviewed importance of planning, prioritizing, and pacing. Assessment & Plan (09/18/2022 4:11 PM EDT): Fatigue likely remains multifactorial. Encouraged to continue working with sport psychologist regarding her sleep apnea. Assessment & Plan (12/11/2021 5:10 PM EDT): Fatigue multifactorial. Very likely that long-COVID is playing role in symptoms and sleep apnea and TBI may be exacerbating this. Discussed known sleep apnea. Pt may benefit from trying different configuration for mask. She is already doing a wonderful job with her sleep hygiene and regular exercise. Reports diphenhydramine is stimulating. May benefit from low dose amitriptyline at bedtime, but will defer to PCP as to whether this is appropriate for pt. No orthostatic hypotension or tachycardia. But does endorse dizziness with slight increase in heart rate upon standing. Encouraged compression stockings and plenty of fluids. Recurrent fever 12/11/2021 Assessment & Plan (12/11/2021 5:11 PM EDT): Encouraged to keep daily fever diary and follow-up in 3-4 weeks with me. Frequent headaches 12/11/2021 Assessment & Plan (12/11/2021 5:11 PM EDT): Migraine hodan ivan. Cough 12/11/2021 Assessment & Plan (09/18/2022 4:10 PM EDT): Pt with continued cough. Encouraged to discuss lisinopril with PCP as this may be contributing factor. PFTs ordered. Referred to pulmonology as well. Assessment & Plan (12/11/2021 5:11 PM EDT): This may be due to long COVID. Could also be due to lisinopril. PCP may want to consider switching medication Resolved Problems Problem Noted Date Diagnosed Date Resolved Date Encounter for preoperative s creening laboratory testing for COVID-19 virus Encounters Date Type Department Care Team Description 12/31/2024 12:10 PM EDT Hospital Encounter [facility] [address] [place] [address] Isabell Valenzuela MD 12/31/2024 11:30 AM EDT Office Visit [facility] Infectious Diseases [address] [place] [address] Molly Sofia FNP Other fatigue (Primary Dx); Long COVID; Memory changes; Anxiety and depression 12/21/2024 11:00 AM EDT Nutrition [facility] General Surgical Care [address] [place] [address] Roxana Grey LDN Bariatric surgery status (Primary Dx); Overweight (BMI 25.0-29.9) 12/17/2024 Patient Outreach [facility] Primary Care [address] [place] [id number] [facility] Plan [facility] Care Update[facility] 12/13/2024 [facility] RISK SCORES SYSTEM GENERATED External System Generated Encounter [address] [place] [address] Unknown, Unknown, 12/13/2024 Enrollment [facility] [address] [place] [phone] 11/22/2024 1:30 PM EDT Office Visit [facility] Surgical Care [address] [place] [address] Isabell Valenzuela MD Overweight with body mass index (BMI) of 26 to 26.9 in adult (Primary Dx); Bariatric surgery status; S/P laparoscopic sleeve gastrectomy; Intestinal malabsorption following gastrectomy 11/17/2024 Patient Outreach [facility] [address] [place] [address] Nicole Ortiz, RN iCMP Care Plan Update ([facility] Plan of Care Update) 11/10/2024 Ancillary Orders [facility]Outside Imaging [address] [place] [address] Unknown, Unknown, 11/04/2024 Telephone [facility] Infectious Disease Virtual Department [address] [place] [phone] Molly Sofia FNP Brain Fog 11/03/2024 3:15 PM EDT Office Visit [facility] at [address] [phone] Cole Weldon PA-C Achilles tendinitis of right lower extremity (Primary Dx) 11/03/2024 - 11/03/2024 11:59 PM EDT Hospital Encounter [facility]Outside Imaging [address] [place] [address] Unknown, Unknown, Discharge Disposition: Home or Self Care 10/20/2024 Patient Outreach [facility] [address] [place] [phone] Nicole Ortiz RN iCMP Care Plan Update ([facility] Plan of Care Update) 10/18/2024 5:00 PM EDT Nutrition [facility] General Surgical Care [address] [place] [phone] Roxana Grey LDN Bariatric surgery status (Primary Dx); Overweight (BMI 25.0-29.9) 10/18/2024 4:00 PM EDT Nutrition [facility] [address] [place] [phone] Roxana Grey LDN Bariatric surgery status (Primary Dx); Overweight (BMI 25.0-29.9) 10/05/2024 Telephone [facility] Orthopedics & Sports Medicine [address] [place] [phone] Bee Gardner, VARUN PT referral from Last 3 Months Immunizations Immunization Administration Dates Next Due COVID-19 (Pre-01/06) Moderna Vaccine, mRNA, PF 07/07/2020,07/06/2020 [id number] 02/06/2009 INFLUENZA, SPLIT VIRUS, TRIV ALENT W/ PRESERVATIVE IM 12/16/2013,12/11/2011,12/14/2010,12/27 Influenza Quadrivalent Prese rvative Free IM 02/01/2021,01/13/2020,01/27/2019,01/08 Influenza trivalent preserva tive free intradermal 01/12/2013 Influenza, Unspecified Formulation 12/15/2021 Pneumococcal polysaccharide PPSV23 03/22/2019 Td (adult),2 Lf Tetanus Toxo id, PF, Adsorbed 08/21/2017 Tdap 12/27/2009 Family History Medical History Relation Comments Cirrhosis Father Heart attack Father Hypertension Father Hypertension Mother Relation Status Comments Brother Alive Father Mother Alive Social History Tobacco Use Types Packs/Day Years Used Date Smoking Tobacco: Former Cigarettes 2 - 2020 Smokeless Tobacco: Never Tobacco Cessation:Counseling Given: Not Answered Comments:2-3 cigs a day at that time Alcohol Use Standard Drinks/Week Comments Never [...] F) 12/31/2024 11:21 AM EDT Respiratory Rate 17 07/15/2024 7:11 AM EDT Oxygen Saturation 99% 11/22/2024 1:00 PM EDT Inhaled Oxygen Concentration 47.4% 01/11/2022 1 1:31 AM EDT Weight 64.7 kg (142 lb 9.6 oz) 12/31/2024 11:21 AM EDT Height 157.5 cm (5' 2.01 ) 11/22/2024 1:00 PM ED T Body Mass Index 26.08 11/22/2024 1:00 PM EDT Plan of Treatment Upcoming Encounters Date Type Department Care Team (Late st Contact Info) Description 01/24/2025 1:00 PM EST Office Visit [facility] General Surgical Care [address] [place] [address] Isabell Valenzuela MD [address] [address] 02/22/2025 1:00 PM EST Nutrition [facility] General Surgical Care [address] [place] [address] Roxana Grey LDN [address] [place] [phone] 04/05/2025 11:30 AM EST Office Visit [facility] Infectious Diseases [address] [place] [address] Molly Sofia FNP [address] [address] Health Maintenance Due Date Last Done Comments SMOKING Hx and SMOKELESS TOBACCO SCREENING 10/11/1987 COLOGUARD 10/11/2019 FIT TEST 10/11/2019 FOBT 10/11/2019 SIGMOIDOSCOPY 10/11/2019 VIRTUAL COLONOSCOPY 10/11/2019 PNEUMOCOCCAL VACCINES (50+ years) (2 of 2 - PCV) 03/22/2020 03/22/2019 REPEAT PHQ 04/19/2024 03/19/2024, 03/19/2024 URINE MICROALBUMIN/CREATININE RATIO 06/17/2024 06/18/2023 HEMOGLOBIN A1C 09/01/2024 03/03/2024, 11/15, 11/27/2023, Additional history exists ZOSTER VACCINES (1 of 2) 2024 INFLUENZA VACCINE (#1) 2024 , 02/01/2021, 01/13/2020, Additional history exists COVID-19 VACCINE ( season) 2024 03/25/2021, 08/04/2020, 07/07/2020, Additional history exists LIPID PANEL 03/03/2025 03/03/2024, 02/14, 11/27/2023, Additional history exists DEPRESSION SCREENING 03/19/2025 03/19/2024, 03/19/19 25 DIABETIC EYE EXAM 03/25/2025 03/25/2024 BLOOD PRESSURE 05/22/2025 12/31/2024 PAP SMEAR 10/31/2025 10/31/2022 MAMMOGRAM 03/05/2026 03/05/2024, 03/05/2024 COLONOSCOPY 02/01/2032 01/31/2022 COLORECTAL CANCER SCREENING 02/01/2032 Adult Td,Tdap Booster 08/29/2034 08/29/2024 , 08/21/2017, 12/27/2009 RSV VACCINE (1 - 1-dose 75+ series) 2049 HEPATITIS C SCREENING Completed 06/09/2024 , 07/11/2023, 07/11/2023 HIV ONE-TIME SCREENING (18-65 YEARS) Completed 06/09/2024 HEPATITIS A VACCINES Aged Out No long er eligible based on patient's age to complete this topic HIB VACCINES Aged Out No longer eligi ble based on patient's age to complete this topic MENINGOCOCCAL VACCINES (ACWY) Aged Out No longer eligible based on patient's age to complete this topic MENINGOCOCCAL VACCINES (B) Aged Out N o longer eligible based on patient's age to complete this topic Medical Devices Not on file Procedures Procedure Name Priority Date/Time Associated Diagnosis Comments CBC Routine 12/31/2024 12:49 PM EDT Intestinal malabsorption following gastrectomy PARATHYROID HORMONE (PTH) Routine 12/31/2024 12:49 PM EDT Intestinal malabsorption following gastrectomy XR LOWER EXTREMITY OUTSIDE (NO INTERPRETATION) Routine 11/03/2024 12:00 AM EDT HEPATITIS C VIRAL LOAD (PCR) STAT 06/09/2024 12:45 PM EDT HEMOGLOBIN A1C Routine 11/27/2023 10:32 AM EDT Class 2 severe obesity due to excess calories with serious comorbidity and body mass index (BMI) of 38.0 to 38.9 in adult LIPID PANEL Routine 11/27/2023 10:32 AM EDT Class 2 severe obesity due to excess calories with serious comorbidity and body mass index (BMI) of 38.0 to 38.9 in adult PAP TEST Routine 10/31/2022 12:00 AM EDT ENDOSCOPY, COLON 01/31/2022 11:1 8 AM EST from Last 3 Months or Most Recently Relevant to Health Maintenance Results * (ABNORMAL) CBC (12/31/2024 12:49 PM EDT) WBC 7.95 4.00 - 11.00 K/uL [facility] RBC 4.25 4.00 - 5.20 M/uL [facility] HGB 13.2 12.0 - 16.0 g/dL [facility] HCT 38.5 36.0 - 46.0 % [facility] PLT 241 150 - 450 K/uL [facility] MCV 90.6 80.0 - 100.0 fL [facility] MCH 31.1(H) 27.0 - 31.0 pg [facility] MCHC 34.3 32.0 - 36.0 g/dL [facility] RDW 12.1 11.5 - 14.5 % [facility] MPV 11.3 8.4 - 12.0 fL [facility] NRBC 0.00 0.00 /100 WBCs [facility] ABSOLUTE NRBC 0.00 0.00 K/uL [facility] Blood 12/31/2024 12:4 9 PM EDT 12/31/2024 6:35 PM EDT us Isabell Valenzuela MD LAB BLOOD ORDERABLES Final Result Performing Organization Address City/[facility]/ZIP Co de Phone Number [address] [address] * Parathyroid hormone (PTH) (12/31/2024 12:49 PM EDT) PARATHYROID HORMONE 31 15 - 65 pg/mL [facility] Blood 12/31/2024 12:4 9 PM EDT 12/31/2024 6:55 PM EDT us Isabell Valenzuela MD LAB BLOOD ORDERABLES Final Result Performing Organization Address City/[facility]/ZIP Co de Phone Number [address] [address] * XR Lower Extremity Outside (No Interpretation) (11/03/2024 12:00 AM EDT) Narrative SYSTEMGENERATED, DOCUMENTATION - 11/10/2024 8:32 AM EDT This study is for PACS storage only and not for interpretation. us Unknown Unknown MD [facility] OUTSIDE IMAGING W/OUT INT ERPRETATION Final Result * Hepatitis C viral load (PCR) (06/09/2024 12:45 PM EDT) HCV RNA DETECT/QNT Undetected Undetected IU/mL [facility] Comment: (NOTE) Result in log IU/mL is Undetected. ADDITIONAL INFORMATION The quantification range of this assay is 15 to 100,000,000 IU/mL (1.18 log to 8.00 log IU/mL). Testing was performed using the pia HCV test ([employer] Blood (Blood) 06/09/2024 12: 45 PM EDT 06/09/2024 12:47 PM EDT us Sherly Salmeron MD NON CULTURE MICROBIOLOGY Monica l Result Performing Organization Address City/[facility]/ZIP Co de Phone Number [facility] [place] [address] * (ABNORMAL) Hemoglobin A1c (11/27/2023 10:32 AM EDT) Pathologist [facility] HEMOGLOBIN A1C 6.0(H) 4.3 - 5.8 % [facility] Blood 11/27/2023 10:3 2 AM EDT 11/27/2023 10:47 AM EDT us Isabell Valenzuela MD LAB BLOOD ORDERABLES Final Result Performing Organization Address [facility]/ZIP Co de Phone Number [address] [address] * (ABNORMAL) Lipid panel (11/27/2023 10:32 AM EDT) Pathologist [facility] HDL 36 mg/dL [facility] Comment: Interpretation <40 mg/dL: Low HDL cholesterol (major risk factor for CHD) Greater than or equal to 60 mg/dL: High HDL cholesterol ( negative risk factor for CHD) HDL - cholesterol is affected by a number of factors, e.g. smoking, excerise, hormones, sex and age. CHOLESTEROL 176 0 - 240 mg/dL [facility] TRIGLYCERIDES 77 30 - 160 mg/dL [facility] LDL 125 50 - 129 mg/dL [facility] Comment: LDL levels in terms of risk for coronary heart disease: <100 mg/dL: Optimal 100-129 mg/dL: Near or above optimal 130-159 mg/dL: Borderline high 160-189 mg/dL: High >190 mg/dL: Very High CARDIAC RISK RATIO 4.9(H) 3.3 - 4.4 C [facility] Blood 11/27/2023 10:3 2 AM EDT 11/27/2023 10:47 AM EDT us Isabell Valenzuela MD LAB BLOOD ORDERABLES Final Result [address] [address] * Pap Test (10/31/2022 12:00 AM EDT) 10/31/2022 11/01/2022 8:4 8 AM EDT Narrative SEE NARRATIVE - 11/07/2022 9:13 AM EDT [address] [address] Last Sorter: Rosaura Sarkar MD ERP ENGINEER Cytology Report FINAL DIAGNOSIS A. PAP SMEAR (SUREPATH) CE: SPECIMEN ADEQUACY: Satisfactory for evaluation; transformation zone present. INTERPRETATION: NEGATIVE FOR INTRAEPITHELIAL LESION OR MALIGNANCY. Electronically Signed Out By: MD Nyasia Drumomnd CT(ASCP) CELENA George(ASCP) By his/her signature above, the pathologist listed as making the Final Diagnosis certifies that he/she has personally reviewed this case and confirmed or corrected the diagnosis. The Pap test is a screening test primarily for squamous cancers and precursors and has associated false-negative and false-positive results. New technologies such as liquid-based preparations may decrease but will not eliminate all false-negative results. Regular sampling and follow-up of unexplained clinical signs and symptoms are recommended to minimize false negative results. PROCEDURES/ADDENDA HPV Testing (Requested) Ordered Date: 11/01/2022 A. PAP SMEAR (SUREPATH) CE: Human Papilloma Virus Test NEGATIVE for high-risk Human Papilloma Virus types 16, 18, 45 and the Other high risk probe set (Includes 31, 33, 35, 39, 51, 52, 56, 58, 59, 66, 68) Note: Testing performed by [facility] HR-HPV analysis. Clinical correlation is advised. This HPV test was performed at [facility], [address] [place] [address]. This test has been FDA approved for [employer] cervical cytology specimens. The accuracy and precision of this test for all other specimen sources has been verified in the Cytopathology Laboratory of the [facility] and has not been cleared or approved by the U.S. Food and Drug Administration. Clinical correlation is advised. CLINICAL HISTORY Date of Last Menstrual Period: 07-15-2021 Menstrual History: Post Menopausal Bleeding, PM Other Clinical Conditions: Screening Pap SPECIMEN SOURCE A: PAP SMEAR (SUREPATH) CE Patient Name: DELL NARENDRA : 1975 (Age: 47) Sex: F Institution: [facility] Location: [facility] Date of Collection: 10/31/2022 Date of Reported: 11/07/2022 09:13 Results to: Dominga Sosa MD us Dominga Sosa MD CYTOLOGY ORDERABLES Final Res ult SEE NARRATIVE * ENDOSCOPY, COLON (01/31/2022 11:18 AM EST) Narrative Transcriptions Kj Courtney MD - 01/31/2022 11:18 AM EST Patient Name: Narendra White Attending MD:: KJ COURTNEY MD Procedure Date: 01/31/2022 11:18AM Date of : 1975 Age: 46 Admit Type: Outpatient Gender: Female Room: [place] [address] Referring MD: MARCO ANTONIO BERMUDEZ MD Exam Type: Colonoscopy Indications: Screening for colorectal malignant neoplasm, Thisis the patient's first colonoscopy Medications: Propofol per Anesthesia Procedure: Informed consent was obtained from the patientafter discussion of the indications, limitations, alternatives, benefits, and risks of the procedure. Risks specifically discussed include but are not limited to medication reactions, missed lesions, bleeding, perforation, or the need for emergent surgery. Throughout the procedure, the patient's blood pressure, pulse, end-tidal CO2, and oxygensaturations were monitored continuously. The Olympus adult variable colonoscope [id number] #6 was introduced through the anus and advanced to the cecum, identified by the ileocecal valve. The colonoscopy was somewhat difficult due to the patient's agitation. Successful completion of the procedure was aided by applying abdominal pressure. The patient tolerated the procedure fairly well. Complications: No immediate complications. Estimated blood loss:None. Findings: The perianal and digital rectal examinations were normal. Pertinent negatives include no palpablerectal lesions. Retroflexion in the right colon was performed. Non-bleeding internal hemorrhoids were found during retroflexion. The hemorrhoids were small. The exam was otherwise without abnormality ondirect and retroflexion views. Impression: - Non-bleeding internal hemorrhoids. - No specimens collected. Recommendation: - Repeat colonoscopy in 10 years for screening purposes. KJ COURTNEY MD 01/31/2022 11:48:10 AM This report has been signed electronically. Number of Addenda: 0 Note Initiated On: 01/31/2022 11:18 AM Procedure Code(s): --- Professional --- 70796, Colonoscopy, flexible; diagnostic, including collection of specimen(s) by brushing or washing, when performed (separateprocedure) --- Technical --- 64684, Colonoscopy, flexible; diagnostic, including collection of specimen(s) by brushing or washing, when performed (separateprocedure) Diagnosis Code(s): --- Professional --- Z12.11, Encounter for screening for malignantneoplasm of colon --- Technical --- Z12.11, Encounter for screening for malignantneoplasm of colon CPT copyright 2020 [employer]. All rights reserved. The codes documented in this report are preliminary and upon newspaper peddler reviewmay be revised to meet current compliance requirements. 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 Healthcare 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 07/14/2024 Sherif Gordon * Full Code (Latest Code Status on File) Date Activated Date Inactivated Comments 07/14/2024 8:04 PM Question Answer Comments Code Status Confirmed With: Patient * Full Code Date Activated Date Inactivated Comments 07/14/2024 11:10 AM 07/14/2024 8:04 PM Question Answer Comments Code Status Confirmed With: Patient Healthcare Agents on File Name Relationship Healthcare Agent Relationshi p Communication Sherif White Spouse .Primary Health Care Agent (Proxy form on file) Stella Gordon Alternate Health care Agent (Proxy form on file) Care Teams Post Acute Care Nurse Relationship Specialty Start Date End Date Marco Antonio Bermudez PA [address] [place] [phone] PCP - General Physician Floor Coverer Apprentice 2/6/25 Nicole Ortiz RN [address] [place] [address] [email or web address] PHC Content Development Manager 04/22/24 Gabo Bermudez MD [address] [place] [address] [email or web address] Insurance Assigned Provider Family Medicine 08/16/24 Additional Source Comments The information contained in this document represents components of the legal health record. It is not the complete legal health record.[facility]
--- OUTSIDE RECORDS SUMMARY | 2024-12-31 19:05 | XMS_ITS | Encounter Summary ---
Author Organization [facility] Address [address] [place] [address] Phone Care Team Providers Care Fish Net Stringer Name Role Phone Lola Bermudez Primary Care Provider [phone] Gabo Bermudez MD Primary Care Provider [phone] oLla Bermudez Primary Care Provider [phone] Nicole Ortiz RN Unavailable Marta Wang Unavailable sandra Gabo Bermudez MD Unavailable [phone] Encounter Details Date Type Department Care Team (Late st Contact Info) Description 12/28/2021 Prep for Surgery [facility] Orthopedics & Sports Medicine [address] [place] [address] [phone] Sherly Salmeron MD [address] [place] [address] [facility] [place] [address] [email or web address] Social History Tobacco Use Types Packs/Day Years Used Date Smoking Tobacco: Former Cigarettes Smokeless Tobacco: Never Comments:2-3 cigs a day at t hat time Alcohol Use Standard Drinks/Week Comments Never 0 (1 standard drink = 0.6 oz pur e alcohol) Comments No Sex and Gender Information Value [...] Description 01/24/2025 1:00 PM EST Office Visit [facility] General Surgical Care [address] [place] [address] Isabell Valenzuela MD [address] [address] 02/22/2025 1:00 PM EST Nutrition [facility] General Surgical Care [address] [place] [address] Roxana Grey LDN [address] [place] [address] 04/05/2025 11:30 AM EST Office Visit [facility] Infectious Diseases [address] [place] [address] Molly Sofia FNP [address] [address] documented as of this encounter Visit Diagnoses Not on filedocumented in this encounter Additional Health Concerns Assessment Noted Time PHQ-9 Depression Total Score: 17 022 11:17 AM EDT PHQ-2 Depression Total Score: 3 12/12/19 22 11:17 AM EDT documented as of this encounter Care Teams Fish Net Stringer Relationship Specialty Start Date End Date Lola Bermudez PA [address] [place] [address] PCP - General 03/20/17 07/23/23 Gabo Bermudez MD [address] [place] [address] PCP - General Family Medicine 07/24/23 04/21/24 Lola Bermudez PA [address] [place] [phone] PCP - General Physician Director Informatics 04/22/24 Nicole Ortiz RN [address] [place] [address] PHCM Screw Supervisor 04/22/24 Marta Wang [address] [place] [address] [email or web address] PHCM Community Senior Tax Accountant 05/07/24 05/07/24 Gabo Bermudez MD [address] [place] [phone] Insurance Assigned Provider Family Medicine 08/16/24 documented as of this encounter Additional Source Comments The information contained in this document represents components of the legal health record. It is not the complete legal health record.[facility]
--- OUTSIDE RECORDS SUMMARY | 2024-12-31 19:05 | XMS_ITS | Encounter Summary ---
Author Organization [facility] Address [address] [place] [address] Phone Care Team Providers Care Payroll Administrator Name Role Phone Lola Bermudez Primary Care Provider [phone] Gabo Bermudez MD Primary Care Provider [phone] Lola Bermudez Primary Care Provider [phone] Nicole Ortiz RN Unavailable Marta Wang Unavailable [email or web address] Gabo Bermudez MD Unavailable [phone] Reason for Referral * MRI/CAT Scan - Closed Specialty Diagnoses / Procedures Referred By Екатерина knapp Referred To Contact Radiology Diagnoses Neck pain Lhermitte-Conrado Disease Arm numbness Procedures MRI Cervical Spine CHG MRI, CERV SPINE COMBO Gomez Brooks MD Phone: tel: fax: [email or web address] Referral ID Status Reason Start Date Expiration Date Visits Re quested Visits Authorized [id number] Closed 04/04/2021 10/01/2021 1 1 Encounter Details Date Type Department Care Team (Latest Contact Info) Description 04/04/2021 Transcribe Orders [address] [address] Gomez Brooks MD [address] [place] [address], [address] [place] [address] [email or web address] Neck pain (Primary Dx); Lhermitte-Conrado Disease; Arm numbness Social History Tobacco Use Types Packs/Day Years [...] Description 01/24/2025 1:00 PM EST Office Visit [facility] General Surgical Care [address] [place] [address] Isabell Valenzuela MD [address] [address] 02/22/2025 1:00 PM EST Nutrition [facility] General Surgical Care [address] [place] [address] Roxana Grey LDN [address] [place] [address] 04/05/2025 11:30 AM EST Office Visit [facility] Infectious Diseases [address] [place] [address] Molly Sofia FNP [address] [address] [email or web address] documented as of this encounter Results * MRI CERVICAL SPINE (BONE) WITHOUT CONTRAST (04/15/2021 12:46 PM EST) Anatomical Region Laterality Modality C-spine Magnetic Resonan ce 04/15/2021 2:50 PM EST Impressions 04/15/2021 3:00 PM EST Unremarkable examination. No canal or foraminal stenosis. Narrative 04/15/2021 3:00 PM EST MRI CERVICAL SPINE (BONE) WITHOUT CONTRAST TECHNIQUE: Multi-sequence, multi-planar MRI of the cervical spine was performed without intravenous contrast. COMPARISON: None FINDINGS: CERVICAL SPINE: Alignment and Vertebrae: Normal alignment. No compression fracture. Marrow: No bone marrow replacing lesion. Discs and Endplates: Normal intervertebral disc heights and signal. Spinal Cord: No spinal cord compression or signal abnormality. Soft Tissue: Normal. No prevertebral edema. Findings by level: C2-C3: No spinal or foraminal stenosis. C3-C4: No spinal or foraminal stenosis. C4-C5: No spinal or foraminal stenosis. C5-C6: No spinal or foraminal stenosis. C6-C7: No spinal or foraminal stenosis. C7-T1: No spinal or foraminal stenosis. Procedure Note Keith Roberto MD - 04/15/2021 MRI CERVICAL SPINE (BONE) WITHOUT CONTRAST TECHNIQUE: Multi-sequence, multi-planar MRI of the cervical spine was performedwithout intravenous contrast. COMPARISON: None FINDINGS: CERVICAL SPINE: Alignment and Vertebrae: Normal alignment. No compression fracture. Marrow: No bone marrow replacing lesion. Discs and Endplates: Normal intervertebral disc heights and signal. Spinal Cord: No spinal cord compression or signal abnormality. Soft Tissue: Normal. No prevertebral edema. Findings by level: C2-C3: No spinal or foraminal stenosis. C3-C4: No spinal or foraminal stenosis. C4-C5: No spinal or foraminal stenosis. C5-C6: No spinal or foraminal stenosis. C6-C7: No spinal or foraminal stenosis. C7-T1: No spinal or foraminal stenosis. IMPRESSION: Unremarkable examination. No canal or foraminal stenosis. 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 Arm numbness Disturbance of skin sensation documented in this encounter Care Teams Payroll Administrator Relationship Specialty Start Date End Date Lola Bermudez PA [address] [place] [address] PCP - General 03/20/17 07/23/23 Gabo Bermudez MD [address] [place] [address] PCP - General Family Medicine 07/24/23 04/21/24 Lola Bermudez PA [address] [place] [address] PCP - General Physician Textile Engineer 04/22/24 Nicole Ortiz RN [address] [place] [address] PHCM Work Environment Safety Inspector 04/22/24 Marta Wang [address] [place] [phone] [email or web address] PHCM Community Wood Car Builder 05/07/24 05/07/24 Gabo Bermudez MD [address] [place] [address] Insurance Assigned Provider Family Medicine 08/16/24 documented as of this encounter Additional Source Comments The information contained in this document represents components of the legal health record. It is not the complete legal health record.[facility]
--- OUTSIDE RECORDS SUMMARY | 2024-12-31 19:05 | XMS_ITS ---
Author Organization [facility] Address [address] [place] [address] Phone Care Team Providers Care Manager Union Name Role Phone Lola Bermudez Primary Care Provider [phone] Nicole Ortiz RN Unavailable Gabo Bermudez MD Unavailable [phone] Population Health Care Management (PHCM) Status:Enrolled (Active) Start date:04/22/2024 Enrollment date:04/22/2024 Current support & services provided:[employer] Related social drivers of health:Housing Stability, Child or Family Care, Education, Food, Unemployment, Paying for Meds, Paying Utility Bills, Transportation, Digital Access, SNAP/WIC Case Team Name Relationship Phone Email Nicole Ortiz RN Registered Nurse(Responsible Staff) [phone] Candace Nava PHCM Binding Nicker [email or web address] Continued Care and Services Coordination
--- OUTSIDE RECORDS SUMMARY | 2024-12-31 19:05 | XMS_ITS | Encounter Summary ---
Author Organization [facility] Address [address] [place] [address] Phone Care Team Providers Care Spanish Tutor Name Role Phone Lola Bermudez Primary Care Provider [phone] Nicole Oritz RN Unavailable Gabo Bermudez MD Unavailable [phone] Encounter Details Date Type Department Care Team (Late st Contact Info) Description 07/14/2024 Procedure Pass OR Admitting Dept - Virtual Department [address] [place] [address] Social History Tobacco Use Types Packs/Day Years [...] on file documented as of this encounter Functional Status * Calculated C-SSRS Risk Score (Lifetime/Recent) Answer Date of Assessment Author No Risk Indicated 07/14/2024 8:00 PM EDT Nakia Huang RN * [place] Suicide Severity Rating Scale (Screener/Recent Self-Report) Question Answer Date of Assessment Author 1. Wish to be (Past 1 Month) No 025 8:00 PM EDT Nakia Huang RN 2. Non-Specific Active Suici miracle Thoughts (Past 1 Month) No 07/14/2024 8:00 PM EDT Nakia Huang RN 6. Suicidal Behavior (Lifetime) No 5 8:00 PM EDT Nakia Huang, RN documented as of this encounter Plan of Treatment Upcoming Encounters Date Type Department Care Team (Late st Contact Info) Description 01/24/2025 1:00 PM EST Office Visit [facility] General Surgical Care [address] [place] [address] [place] [address] Isabell Valenzuela MD 15 [facility], 2nd [place] [address] [email or web address] 02/22/2025 1:00 PM EST Nutrition [facility] General Surgical Care [address] [place] [address] Roxana Grey LDN [address] [place] [address] 04/05/2025 11:30 AM EST Office Visit [facility] Infectious Diseases [address] [place] [address] Molly Sofia, MACK 15 [facility], 2nd [place] [address] documented as of this encounter Visit Diagnoses Not on filedocumented in this encounter Additional Health Concerns Assessment Noted Time PHQ-9 Depression Total Score: 18 025 11:59 AM EST PHQ-2 Depression Total Score: 03/19/19 25 11:59 AM EST documented as of this encounter Care Teams Spanish Tutor Relationship Specialty Start Date End Date Lola Bermudez PA [address] [place] [phone] PCP - General Physician Elementary Education Teacher 04/22/24 Nicole Ortiz, VARUN [address] [place] [phone] PHCM Case Management Rn 04/22/24 Gabo Bermudez MD [address] [place] [address] Insurance Assigned Provider Family Medicine 08/16/24 documented as of this encounter Additional Source Comments The information contained in this document represents components of the legal health record. It is not the complete legal health record.[facility]
--- OUTSIDE RECORDS SUMMARY | 2024-12-31 19:05 | XMS_ITS | Encounter Summary ---
Author Organization Formerly [facility] Address [address] [place] [address] Phone Care Team Providers Care Audio Video Repairer Name Role Phone Lola Bermudez Unavailable [phone] Dominga Sosa MD Unavailable Destiney Slater MD Unavailable [phone] Jules Farr MD Unavailable [phone] Claude Roberson CNP Unavailable [phone] Alex Harris MD Unavailable [phone] Lola Bermudez Primary Care Provider Gabo Bermudez MD Primary Care Provider [phone] Lola Bermudez Primary Care Provider [phone] Nicole Ortiz RN Unavailable Marta Wang Unavailable sandra Gabo Bermudez MD Unavailable [phone] Reason for Referral * MRI/CAT Scan - Closed Specialty Diagnoses / Procedures Referred By Екатерина knapp Referred To Contact Radiology Diagnoses Concussion without loss of consciousness, initial encounter Procedures CT Head Ranjana Kenney MD Phone: tel: fax: mailto: Referral ID Status Reason Start Date Expiration Date Visits Re quested Visits Authorized [id number] Closed 03/14/2020 09/10/2020 1 1 Encounter Details Date Type Department Care Team (Late st Contact Info) Description 03/14/2020 Transcribe Orders Virtual Department [address] [place] [address] Ranjana Kenney MD [address] [place] [address] [email or web address] Concussion without loss of consciousness, initial encounter (Primary Dx) Social History Tobacco Use Types Packs/Day Years [...] Encounters Date Type Department Care Team (Late Contact Info) Description 01/24/2025 1:00 PM EST Office Visit [facility] General Surgical Care [address] [place] [address] Isabell Valenzuela MD [address] [address] 02/22/2025 1:00 PM EST Nutrition [facility] General Surgical Care [address] [place] [address] Roxana Grey LDN [address] [place] [address] 04/05/2025 11:30 AM EST Office Visit [facility] Infectious Diseases [address] [place] [address] Molly Sofia FNP [address] [place], [place] [address], [place] [address] [email or web address] documented as of this encounter Results * CT HEAD WITHOUT CONTRAST (03/21/2020 9:18 AM EST) Anatomical Region Laterality Modality Head Computed Tomogra phy 03/21/2020 9:29 AM EST Impressions 03/21/2020 9:32 AM EST Essentially stable appearance of the brain. No intra-cranial hemorrhage, mass, or infarction is seen. No fracture seen. Narrative 03/21/2020 9:32 AM EST HISTORY: Concussion. Closed head injury COMPARISON: January 14, 2014 TECHNIQUE: Unenhanced imaging obtained from skull base to vertex. Sagittal and coronal reformats generated. Manual dose reduction technique tailored for patient and site of imaging. FINDINGS: Mild asymmetry in the lateral ventricles is unchanged. No ozquv-oyval-xcnqp blood or fluid collection, mass, or mass effect is identified. Minor asymmetry and right- sided sulcation noted, present previously. No progressive volume loss overall. No yyran-ivhbm-fuzpt blood or fluid collection, mass, or mass effect is identified. No orbital lesion is seen. Pituitary is not enlarged. Cerebellar tonsils are slightly low-lying but not frankly ectopic, unchanged. Some calcification along the superior convexity on each side of the superior sagittal sinus is unchanged. 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 No fluid visualized in the visualized paranasal sinuses. Mastoids and middle ear spaces clear. No calvarial fracturing or bony destructive lesion. Procedure Note Joon Pak MD - 03/21/2020 HISTORY: Concussion. Closed head injury COMPARISON: January 14, 2014 TECHNIQUE: Unenhanced imaging obtained from skull base to vertex.Sagittal and coronal reformats generated. Manual dose reduction techniquetailored for patient and site of imaging. FINDINGS: Mild asymmetry in the lateral ventricles is unchanged. Afcfbio-wztzt-fyomn blood or fluid collection, mass, or mass effect isidentified. Minor asymmetry and right- sided sulcation noted, presentpreviously. No progressive volume loss overall. No aeprv-gxjgp-mxshd bloodor fluid collection, mass, or mass effect is identified. No orbital lesionis seen. Pituitary is not enlarged. Cerebellar tonsils are slightlylow-lying but not frankly ectopic, unchanged. Some calcification along thesuperior convexity on each side of the superior sagittal sinus isunchanged. Chronic polypoid lesion in the right maxillary sinus againnoted. No fluid visualized in the visualized paranasal sinuses. Mastoidsand middle ear spaces clear. No calvarial fracturing or bony destructivelesion. IMPRESSION: Essentially stable appearance of the brain. No intra-cranial hemorrhage,mass, or infarction is seen. No fracture seen. Ranjana Kenney MD IMG CT HEAD/NECK Final Res ult documented in this encounter Visit Diagnoses Diagnosis Concussion without loss of consciousness, initial encounter- Primary Concussion without loss of consciousness, initial encounter documented in this encounter Care Teams Audio Video Repairer Relationship Specialty Start Date End Date Lola Bermudez PA [address] [place] [address] PCP - General 03/20/17 07/23/23 Gabo Bermudez MD 70 [place] [address] [email or web address] PCP - General Family Medicine 07/24/23 04/21/24 Lola Bermudez PA [address] [place] [address] PCP - General Physician Machine Former 04/22/24 Lola Bermudez PA [address] [place] [address] Historical LMR Provider 12/31/16 2 Dominga Sosa MD [address] [place] [address], [address] [address] Historical LMR Provider 12/31/16 03/24/21 Destiney Slater MD [address] [place] [address] Historical LMR Provider 12/31/16 Jules Farr MD [address] [place] [address] Historical LMR Provider 12/31/16 03/24/21 Claude Roberson CNP [address] [place] [address] Historical LMR Provider 12/31/16 03/24/21 Alex Harris MD [address] [place] [address] Historical LMR Provider 12/31/16 2 Nicole Ortiz RN [address] [place] [address] PHCM Tap Dancer 04/22/24 Marta Wang [address] [place] [address] [email or web address] PHCM Community Greeting Card Writer 05/07/24 05/07/24 Gabo Bermudez MD [address] [place] [address] Insurance Assigned Provider Family Medicine 08/16/24 documented as of this encounter Additional Source Comments The information contained in this document represents components of the legal health record. It is not the complete legal health record.[facility]
--- OUTSIDE RECORDS SUMMARY | 2024-12-31 19:05 | XMS_ITS | Encounter Summary ---
Author Organization [facility] Address [address] [place] [address] Phone Care Team Providers Care Salvage Supervisor Name Role Phone Lola Bermudez Primary Care Provider [phone] Gabo Bermudez MD Primary Care Provider [phone] Lola Bermudez Primary Care Provider [phone] Nicole Ortiz RN Unavailable Marta Wang Unavailable [email or web address] Gabo Bermudez MD Unavailable [phone] Encounter Details Date Type Department Care Team (Late st Contact Info) Description 01/11/2022 Procedure Pass OR Admitting Dept - [facility] Department [address] [place] [address] Social History Tobacco Use Types Packs/Day Years [...] Description 01/24/2025 1:00 PM EST Office Visit [facility] General Surgical Care [address] [place] [address] Isabell Valenzuela MD 15 [facility], [address] [place] [address] 02/22/2025 1:00 PM EST Nutrition [facility] General Surgical Care [address] [place] [address] Roxana Grey LDN [address] [place] [address] 04/05/2025 11:30 AM EST Office Visit [facility] Infectious Diseases [address] [place] [address] Molly Sofia FNP 15 [facility], [address] [place] [address] documented as of this encounter Visit Diagnoses Not on filedocumented in this encounter Additional Health Concerns Assessment Noted Time PHQ-9 Depression Total Score: 17 022 11:17 AM EDT PHQ-2 Depression Total Score: 3 12/12/19 22 11:17 AM EDT documented as of this encounter Care Teams Salvage Supervisor Relationship Specialty Start Date End Date Lola Bermudez PA [address] [place] [address] PCP - General 03/20/17 07/23/23 Gabo Bermudez MD 70 [place] [address] PCP - General Family Medicine 07/24/23 04/21/24 Lola Bermudez PA [address] [place] [address] PCP - General Physician Concrete Puddler 04/22/24 Nicole Ortiz, RN [address] [place] [address] [email or web address] PHCM Ems Educator 04/22/24 Marta Wang [address] [place] [address] [email or web address] PHCM Community Trouble Dispatcher 05/07/24 05/07/24 Gabo Bermudez MD [address] [place] [address] [email or web address] Insurance Assigned Provider Family Medicine 08/16/24 documented as of this encounter Additional Source Comments The information contained in this document represents components of the legal health record. It is not the complete legal health record.[facility]
--- OUTSIDE RECORDS SUMMARY | 2024-12-31 19:05 | XMS_ITS | Encounter Summary ---
Author Organization [facility] Address [address] [place] [address] Phone Care Team Providers Care Senior Systems Programmer Name Role Phone Lola Bermudez Primary Care Provider [phone] Nicole Ortiz RN Unavailable Gabo Bermudez MD Unavailable [phone] Encounter Details Date Type Department Care Team (Late st Contact Info) Description 06/09/2024 Procedure Pass OR Admitting Dept - Virtual Department [address] [place] [address] Social History Tobacco Use Types Packs/Day Years [...] Date of Assessment Author No Risk Indicated 06/09/2024 10:00 AM EDT Leann Tavares nd, RN * [place] Suicide Severity Rating Scale (Screener/Recent Self-Report) Question Answer Date of Assessment Author 2. Non-Specific Active Suicidal Thoughts (Past 1 Month) No 06/09/2024 10:00 AM EDT Joseph Doan RN documented as of this encounter Plan of Treatment Upcoming Encounters Date Type Department Care Team (Late st Contact Info) Description 01/24/2025 1:00 PM EST Office Visit [facility] General Surgical Care [address] [place] [address] Isabell Valenzuela MD [address] [address] 02/22/2025 1:00 PM EST Nutrition [facility] General Surgical Care [address] [place] [address] Roxana Grey LDN [address] Lopez [address] [place] [address] 04/05/2025 11:30 AM EST Office Visit [facility] Infectious Diseases [address] [place] [address] Molly Sofia FNP [address] [place], [place] [address] [place] [address] documented as of this encounter Visit Diagnoses Not on filedocumented in this encounter Additional Health Concerns Assessment Noted Time PHQ-9 Depression Total Score: 18 025 11:59 AM EST PHQ-2 Depression Total Score: 03/19/19 25 11:59 AM EST documented as of this encounter Care Teams Senior Systems Programmer Relationship Specialty Start Date End Date Lola Bermudez PA [address] [place] [address] PCP - General Physician Trimmer Machine Operator 04/22/24 Nicole Ortiz RN [address] [place] [address] PHCM Salesperson Parts 04/22/24 Gabo Bermudez MD 70 [place] [address] Insurance Assigned Provider Family Medicine 08/16/24 documented as of this encounter Additional Source Comments The information contained in this document represents components of the legal health record. It is not the complete legal health record.[facility]
--- OUTSIDE RECORDS SUMMARY | 2024-12-31 19:05 | XMS_ITS | Encounter Summary ---
Author Organization [facility] Address [address] [place] [address] Phone Care Team Providers Care Manufacturing Technician Name Role Phone Lola Bermudez Primary Care Provider [phone] Gabo Bermudez MD Primary Care Provider [phone] Lola Bermudez Primary Care Provider [phone] Nicole Ortiz RN Unavailable Marta Wang Unavailable [email or web address] Gabo Bermudez MD Unavailable [phone] Encounter Details Date Type Department Care Team (Late st Contact Info) Description 04/04/2021 Procedure Pass [facility], [address] [address] Social History Tobacco Use Types Packs/Day Years [...] Description 01/24/2025 1:00 PM EST Office Visit [facility] General Surgical Care 15 [place] [address] Isabell Valenzuela MD 15 [facility], [address] [place] [address] 02/22/2025 1:00 PM EST Nutrition [facility] General Surgical Care [address] [place] [address] Roxana Grey LDN [address] [place] [address] 04/05/2025 11:30 AM EST Office Visit [facility] Infectious Diseases [address] [place] [address] Molly Sofia FNP 15 [facility], [address] [place] [address] [email or web address] documented as of this encounter Visit Diagnoses Not on filedocumented in this encounter Care Teams Manufacturing Technician Relationship Specialty Start Date End Date Lola Bermudez PA 70 [place] [address] PCP - General 03/20/17 07/23/23 Gabo Bermudez MD 70 [place] [address] [email or web address] PCP - General Family Medicine 07/24/23 04/21/24 Lola Bermudez PA [address] [place] [address] PCP - General Physician Setup Technician 04/22/24 Nicole Ortiz RN 10 [place] [address] PHCM Assembler Knife 04/22/24 Marta Wang [address] [place] [address] [email or web address] PHCM Community Sandwich Machine Operator 05/07/24 05/07/24 Gabo Bermudez MD 70 [place] [address] [email or web address] Insurance Assigned Provider Family Medicine 08/16/24 documented as of this encounter Additional Source Comments The information contained in this document represents components of the legal health record. It is not the complete legal health record.[facility]
--- OUTSIDE RECORDS SUMMARY | 2024-12-31 19:05 | XMS_ITS | Encounter Summary ---
Author Organization [facility] Address [address] [place] [address] Phone Care Team Providers Care Hospitality Job Titles Name Role Phone Lola Bermudez Unavailable [phone] Dominga Sosa MD Unavailable Destiney Slater MD Unavailable [phone] Jules Farr MD Unavailable [phone] Claude Roberson CNP Unavailable [phone] Alex Harris MD Unavailable [phone] Lola Bermudez Primary Care Provider Gabo Bermudez MD Primary Care Provider [phone] Lola Bermudez Primary Care Provider + [phone] Nicole Ortiz RN Unavailable Marta Wang Unavailable sandra Gabo Bermudez MD Unavailable [phone] Reason for Referral * Consultation (Elective) - Closed Specialty Diagnoses / Procedures Referred By Екатерина knapp Referred To Contact Diagnoses Sleep apnea, unspecified type Lola Bermudez PA Phone: tel: fax: [address] [address] Phone: tel: Referral ID Status Reason Start Date Expiration Date Visits Re quested Visits Authorized [id number] Closed 01/19/2021 01/19/2022 1 1 Encounter Details Date Type Department Care Team (Latest Contact Info) Description 01/19/2021 Transcribe Orders [facility] 22 [facility] 3rd Floor, [address] [place] [address] Boyd Lacey MD [address] [facility], [address] [place] [address] [email or web address] Sleep apnea, unspecified type (Primary Dx) Social History Tobacco Use Types [...] Description 01/24/2025 1:00 PM EST Office Visit [facility] General Surgical Care [address] [place] [address] Isabell Valenzuela MD [address] [facility], 2nd [place] [address] 02/22/2025 1:00 PM EST Nutrition [facility] General Surgical Care [address] [place] [address] Roxana Grey LDN [address] [place] [address] 04/05/2025 11:30 AM EST Office Visit [facility] Infectious Diseases [address] [place] [address] Daniel Molly Quinteroley, MACK [address] [facility], [address] [place] [address] [email or web address] Scheduled Referrals Name Type Priority Associated Diagnoses Orde r Schedule Ambulatory referral to [facility] Sleep Medicine Outpatient Referral Routine Sleep apnea, unspecified type Ordered: 01/19/2021 documented as of this encounter Visit Diagnoses Diagnosis Sleep apnea, unspecified type- Primary documented in this encounter Care Teams Hospitality Job Titles Relationship Specialty Start Date End Date Lola Bermudez PA [address] [place] [address] PCP - General 03/20/17 07/23/23 Gabo Bermudez MD 70 [place] [address] [email or web address] PCP - General Family Medicine 07/24/23 04/21/24 Lola Bermudez PA 70 [place] [address] PCP - General Physician Kiln Firer 04/22/24 Lola Bermudez PA [address] [place] [address] Historical LMR Provider 12/31/16 2 Dominga Sosa MD [address] [facility], [address] [place] [address] [email or web address] Historical LMR Provider 12/31/16 03/24/21 Destiney Slater MD [address] [facility], [address] [place] [address] Historical LMR Provider 12/31/16 Jules Farr MD [address] [facility], [address] [place] [address] Historical LMR Provider 12/31/16 03/24/21 Claude Roberson CNP [address] [facility], 2nd [place] [address] Historical LMR Provider 12/31/16 03/24/21 Alex Harris MD [address] [place] [address] Historical LMR Provider 12/31/16 2 Nicole Ortiz, VARUN [address] [place] [address] PHCM Crane Service Technician 04/22/24 Marta Wang [address] [place] [address] [email or web address] PHCM Community Electrician Sound 05/07/24 05/07/24 Gabo Bermudez MD [address] [place] [address] Insurance Assigned Provider Family Medicine 08/16/24 documented as of this encounter Additional Source Comments The information contained in this document represents components of the legal health record. It is not the complete legal health record.[facility]
--- OUTSIDE RECORDS SUMMARY | 2024-12-31 19:05 | XMS_ITS | Encounter Summary ---
Author Organization [facility] Address [address] [place] [address] Phone Care Team Providers Care Postie Name Role Phone Lola Bermudez Primary Care Provider [phone] Gabo Bermudez MD Primary Care Provider [phone] Lola Bermudez Primary Care Provider [phone] Nicole Ortiz RN Unavailable Marta Wang Unavailable [email or web address] Gabo Bermudez MD Unavailable [phone] Encounter Details Date Type Department Care Team (Late st Contact Info) Description 01/31/2022 Procedure Pass [facility] Admitting Dept Virtual Department [address] [place] [address] Social History Tobacco Use Types Packs/Day Years [...] Description 01/24/2025 1:00 PM EST Office Visit [facility] General Surgical Care [address] [place] [address] Isabell Valenzuela MD [address] [address] 02/22/2025 1:00 PM EST Nutrition [facility] General Surgical Care [address] [place] [address] Roxana Grey LDN [address] [place] [address] 04/05/2025 11:30 AM EST Office Visit [facility] Infectious Diseases [address] [place] [address] Molly Sofia FNP [address] [address] documented as of this encounter Visit Diagnoses Not on filedocumented in this encounter Additional Health Concerns Assessment Noted Time PHQ-9 Depression Total Score: 17 022 11:17 AM EDT PHQ-2 Depression Total Score: 3 12/12/19 22 11:17 AM EDT documented as of this encounter Care Teams Postie Relationship Specialty Start Date End Date Lola Bermudez PA [address] [place] [address] PCP - General 03/20/17 07/23/23 Gabo Bermudez MD 70 [place] [address] PCP - General Family Medicine 07/24/23 04/21/24 Lola Bermudez PA [address] [place] [address] PCP - General Physician Manager Clinical Applications 04/22/24 Nicole Ortiz, RN 10 [place] [address] PHCM Signal And Communications Maintainer 04/22/24 Marta Wang 10 [place] [address] [email or web address] PHCM Community Chute Tender 05/07/24 05/07/24 Gabo Bermudez MD [address] [place] [address] [email or web address] Insurance Assigned Provider Family Medicine 08/16/24 documented as of this encounter Additional Source Comments The information contained in this document represents components of the legal health record. It is not the complete legal health record.[facility]
--- OUTSIDE RECORDS SUMMARY | 2024-12-31 19:05 | XMS_ITS | Encounter Summary ---
Author Organization [facility] Address [address] [place] [address] Phone Care Team Providers Care Grid Inspector Name Role Phone Lola Bermudez Primary Care Provider [phone] Gabo Bermudez MD Primary Care Provider [phone] Lola Bermudez Primary Care Provider [phone] Nicole Ortiz RN Unavailable Marta Wang Unavailable [email or web address] Gabo Bermudez MD Unavailable [phone] Reason for Referral * Consultation (Elective) - Closed Specialty Diagnoses / Procedures Referred By Екатерина knapp Referred To Contact Diagnoses Malaise and fatigue Lola Bermudez PA [address] [place] [address] Phone: tel: fax: [facility] [address] [place] [address] Phone: tel: Referral ID Status Reason Start Date Expiration Date Visits Re quested Visits Authorized [id number] Closed 07/05/2022 07/06/2023 1 1 Encounter Details Date Type Department Care Team (Latest Contact Info) Description 07/05/2022 Transcribe Orders [facility] [address] [place] [address] 3rd Floor, [address] [place] [address] Lola Bermudez PA [address] [place] [address] Malaise and fatigue (Primary Dx) Social History Tobacco Use Types [...] Description 01/24/2025 1:00 PM EST Office Visit [facility] General Surgical Care [address] [place] [address] Isabell Valenzuela MD [address] [address] 02/22/2025 1:00 PM EST Nutrition [facility] General Surgical Care [address] [place] [address] Roxana Grey LDN [address] Lopez [address] [place] [address] 04/05/2025 11:30 AM EST Office Visit [facility] Infectious Diseases [address] [place] [address] Molly Sofia FNP [address] [address] Scheduled Referrals Name Type Priority Associated Diagnoses Order Schedule Ambulatory referral to [facility] Sleep Medicine Outpatient Referral Routine Malaise and fatigue Ordered: 07/05/2022 documented as of this encounter Visit Diagnoses Diagnosis Malaise and fatigue- Primary documented in this encounter Additional Health Concerns Assessment Noted Time PHQ-9 Depression Total Score: 17 022 11:17 AM EDT PHQ-2 Depression Total Score: 3 12/12/19 22 11:17 AM EDT documented as of this encounter Care Teams Grid Inspector Relationship Specialty Start Date End Date Lola Bermudez PA [address] [place] [address] PCP - General 03/20/17 07/23/23 Gabo Bermudez MD [address] [place] [address] PCP - General Family Medicine 07/24/23 04/21/24 Lola Bermudez PA [address] [place] [address] PCP - General Physician Human Resources Analyst 04/22/24 Nicole Ortiz, VARUN [address] [place] [address] PHCM Risk Control Product Liability Director 04/22/24 Marta Wang [address] [place] [address] [email or web address] PHCM Community Deployment Manager 05/07/24 05/07/24 Gabo Bermudez MD [address] [place] [phone] Insurance Assigned Provider Family Medicine 08/16/24 documented as of this encounter Additional Source Comments The information contained in this document represents components of the legal health record. It is not the complete legal health record.[facility]
--- OUTSIDE RECORDS SUMMARY | 2024-12-31 19:05 | XMS_ITS ---
Author Name [facility] Organization Unknown History of Medication Use Medication Directions Dispensed Refills Start Date End Date Stat us omeprazole 11/01/2024 active trazodone HCl 10/12/2024 active escitalopram oxalate 06/17/2024 active Allergies Allergen Reaction Severity Comment Documented Date Source Statu s BENADRYL UNKNOWN REACTION () [facility] IBUPROFEN UNKNOWN REACTION () [facility] PENICILLINS UNKNOWN REACTION () [facility] Encounters Encounter Type Encounter Reason Primary Diagnosis Location Date Ambulatory TBE Laceration witho ut foreign body of other part of head, initial encounter [facility]) 12/23/2024 Care Team Organization Name Specialty Phone Email Start Date End Da te [facility] 12/29/2024 [facility] 12/23/2024
--- OUTSIDE RECORDS SUMMARY | 2024-12-31 19:05 | XMS_ITS | Encounter Summary ---
Author Organization [facility] Address [address] [place] [address] Phone Care Team Providers Care Director Emergency Department Name Role Phone Lola Bermudez Unavailable Dominga Sosa MD Unavailable [phone] Destiney Slater MD Unavailable [phone] Jules Farr MD Unavailable Claude Roberson CNP Unavailable [phone] Alex Harris MD Unavailable [phone] Lola Bermudez Primary Care Provider Gabo Bermudez MD Primary Care Provider [phone] Lola Bermudez Primary Care Provider Nicole Ortiz RN Unavailable Marta Wang Unavailable sandra Gabo Bermudez MD Unavailable [phone] Encounter Details Date Type Department Care Team (Late st Contact Info) Description 03/14/2020 Procedure Pass [facility], Ct Scan - [address] [phone] Social History Tobacco Use Types Packs/Day Years [...] Description 01/24/2025 1:00 PM EST Office Visit [facility] General Surgical Care [address] [place] [address] Isabell Valenzuela MD [address] [address] 02/22/2025 1:00 PM EST Nutrition [facility] General Surgical Care [address] [place] [address] Roxana Grey LDN [address] Lopez [address] [place] [address] 04/05/2025 11:30 AM EST Office Visit [facility] Infectious Diseases [address] [place] [address] Molly Sofia FNP [address] [address] documented as of this encounter Visit Diagnoses Not on filedocumented in this encounter Care Teams Director Emergency Department Relationship Specialty Start Date End Date Lola Bermudez PA [address] [place] [address] PCP - General 03/20/17 07/23/23 Gabo Bermudez MD [address] [place] [address] PCP - General Family Medicine 07/24/23 04/21/24 Lola Bermudez PA [address] [place] [address] PCP - General Physician Pearl Digger 04/22/24 Lola Bermudez PA [address] [place] [address] Historical LMR Provider 12/31/16 2 Dominga Sosa MD [address] [place] [email or web address] Historical LMR Provider 12/31/16 03/24/21 Destiney Slater MD [address] [place] [address] Historical LMR Provider 12/31/16 Jules Farr MD [address] [place] [address] Historical LMR Provider 12/31/16 03/24/21 Claude Roberson CNP [address] [place] [address] Historical LMR Provider 12/31/16 03/24/21 Alex Harris MD [address] [place] [address] Historical LMR Provider 12/31/16 2 Nicole Ortiz RN [address] [place] [email or web address] PHCM Medication Aide 04/22/24 Marta Wang [address] [place] [address] [email or web address] PHCM Community Occupational Health Nurse Supervisor 05/07/24 05/07/24 Gabo Bermudez MD [address] [place] [address] [email or web address] Insurance Assigned Provider Family Medicine 08/16/24 documented as of this encounter Additional Source Comments The information contained in this document represents components of the legal health record. It is not the complete legal health record.[facility]
--- OUTSIDE RECORDS SUMMARY | 2024-12-31 19:05 | XMS_ITS | Encounter Summary ---
Author Organization [facility] Address [address] [place] [address] Phone Care Team Providers Care Voice Data Communications Engineer Name Role Phone Lola Bermudez Primary Care Provider [phone] Gabo Bermudez MD Primary Care Provider [phone] Lola Bermudez Primary Care Provider [phone] Nicole Ortiz RN Unavailable Marta Wang Unavailable [email or web address] Gabo Bermudez MD Unavailable [phone] Encounter Details Date Type Department Care Team (Late st Contact Info) Description 12/28/2021 Procedure Pass [place] Admitting Dept - [facility] Department [address] [place] [address] Social History Tobacco Use Types Packs/Day Years [...] 01/24/2025 1:00 PM EST Office Visit [facility] General Surgical Care [address] [place] [address] Isabell Valenzuela MD 15 [facility], [address] [place] [address] 02/22/2025 1:00 PM EST Nutrition [facility] General Surgical Care [address] [place] [address] Roxana Grey LDN [address] [place] [address] 04/05/2025 11:30 AM EST Office Visit [facility] Infectious Diseases [address] [place] [address] Molly Sofia FNP 15 [facility], [address] [place] [address] documented as of this encounter Visit Diagnoses Not on filedocumented in this encounter Additional Health Concerns Assessment Noted Time PHQ-9 Depression Total Score: 17 022 11:17 AM EDT PHQ-2 Depression Total Score: 3 12/12/19 22 11:17 AM EDT documented as of this encounter Care Teams Voice Data Communications Engineer Relationship Specialty Start Date End Date Lola Bermudez PA [address] [place] [address] PCP - General 03/20/17 07/23/23 Gabo Bermudez MD [address] [place] [address] PCP - General Family Medicine 07/24/23 04/21/24 Lola Bermudez PA [address] [place] [address] PCP - General Physician Assembly Line Supervisor 04/22/24 Nicole Ortiz, RN [address] [place] [address] [email or web address] PHCM Optical Fabricator 04/22/24 Marta Wang [address] [place] [address] [email or web address] PHCM Community Hay Rake Operator 05/07/24 05/07/24 Gabo Bermudez MD [address] [place] [address] [email or web address] Insurance Assigned Provider Family Medicine 08/16/24 documented as of this encounter Additional Source Comments The information contained in this document represents components of the legal health record. It is not the complete legal health record.[facility]
--- NOTE | 2024-12-31 19:59 | ED.FALL ---
HPI - Fall General Chief Complaint: Fall Stated Complaint: Fall - head strike Time Seen by Provider: 12/31/24 19:49 Mode of arrival: ambulatory Limitations: no limitations History of Present Illness HPI Narrative: THIS IS A 49 YEARS OLD FEMALE PATIENT PRESENTED TO THE EMERGENCY DEPARTMENT COMPLAINING OF HEADACHE AND DIZZINESS SHE STATES THAT SHE FELL ABOUT A WEEK AGO IN [place], AND SINCE THEN SHE HAS BEEN HAVING DIZZINESS THE HEADACHE. PATIENT HAS A HISTORY OF TBI IN 2020, SHE HAS A HISTORY OF GASTRECTOMY. MD complaint: fall Onset (ago): week(s) (1) Fall from: standing Fall witnessed: no Place fall occurred: other (STREET) Loss of consciousness: none Prolonged down time: no Symptoms prior to fall: none Context: tripped/slipped Location of injury: head Related Data Home Medications ?Medication ?Instructions ?Recorded ?Confirmed alcohol swabs pad topical BID diabetes mellitus 02/03/20 03/20/20 blood sugar diagnostic #10 ea 02/03/20 03/20/20 escitalopram oxalate 10 mg tablet 10 mg PO DAILY 02/03/20 04/09/22 ibuprofen 800 mg tablet 800 mg PO TID 02/03/20 04/09/22 lancets 28 gauge #100 ea 02/03/20 04/09/22 lorazepam 0.5 mg tablet 0.5 mg PO BEDTIME PRN insomnia 02/03/20 04/09/22 omeprazole 20 mg capsule,delayed 20 mg PO BID 02/03/20 04/09/22 release pen needle, diabetic 32 gauge x #50 ea 02/03/20 03/20/20 semaglutide 0.25 mg or 0.5 mg (2 mg subcut 02/03/20 04/09/22 mg/1.5 mL) subcutaneous pen injector ketoconazole 2 % topical cream 1 appl topical DAILY 03/20/20 03/20/20 nystatin 100,000 unit/gram topical topical 03/20/20 04/09/22 powder lisinopril 5 mg tablet 10 mg PO DAILY 09/13/21 04/09/22 Previous Rx's ?Medication ?Instructions ?Recorded ibuprofen 400 mg tablet 400 mg PO Q6H PRN pain 7 days #28 10/25/21 tabs semaglutide 0.25 mg or 0.5 mg (2 0.25 mg (0.368 mL) subcut QWEEK #3 06/17/23 mg/3 mL) subcutaneous pen injector mL (Ozempic) nsvsglqulx-zshinilvrvdtp-zcdfddqz 1 cap PO Q8H PRN anxiety #4 caps 12/31/24 50 mg-300 mg-40 mg capsule (Fioricet) Allergies Allergy/AdvReac Type Severity Reaction Status Date / Time diphenhydramine (From Allergy Unknown HIVES Verified 12/31/24 18:24 BENADRYL) meloxicam (MELOXICAM) Allergy Unknown RASH Verified 12/31/24 18:24 penicillin G Allergy Unknown Anaphylaxis Verified 12/31/24 18:24 Penicillins (PENICILLINS) Allergy Unknown ANAPHYLAXIS Verified 12/31/24 18:24 Sulfa (Sulfonamide Allergy Unknown HIVES Verified 12/31/24 18:24 Antibiotics) (SULFA (SULFONAMIDE ANTIBIOTICS)) sulfur Allergy Unknown Hives Verified 12/31/24 18:24 Benadryl Allergy Unknown Hives Uncoded 04/09/22 19:25 Review of Systems Review of Systems: Yes all other systems are reviewed and are negative ENT: Reports system reviewed and no additional complaints, except as documented Cardiovascular: Cardiovascular: Reports no additional cardiovascular complaints [facility] Past Medical History Attestation statement: The following information was validated with the patient. [facility] Narrative: PATIENT HAS A HISTORY OF TBI 04/2020, HISTORY OF GASTRECTOMY HISTORY OF DIABETES WITH DIABETIC NEUROPATHY Source: unable to obtain Medical History Renal cyst Diabetes Hiatal hernia Kidney stone Surgical History H/O Spinal surgery Social History Social History Alcohol intake: former Substance Use Type: Marijuana Sexual orientation: Straight/Heterosexual Gender identity: Female Physical Exam Vital Signs: Vital Signs: Last Vital Signs Temp 98.0 F 12/31/24 22:16 Pulse 44 L 12/31/24 22:16 Resp 16 12/31/24 22:16 BP 102/64 12/31/24 22:16 Pulse Ox 99 12/31/24 22:16 O2 Del Method Room Air 12/31/24 22:16 BMI result Body Mass Index 26.4 NO ACUTE DISTRESS Const: General: cooperative Nutritional Appearance: well nourished Orientation/consciousness: oriented to person and patient oriented x3 Limitations: no limitations HEENT: Head: Yes normal to inspection General nose exam: Normal external nose present Face and sinus: Yes normal facial exam Mouth: Normal oral and palatal mucosa present Neck: Neck: Yes normal visual inspection Chest: Chest palpation & inspection: normal inspection of the chest Resp: Effort & Inspection: normal respiratory effort Auscultation: clear to auscultation bilaterally Cardio: Jugular venous distension: no JVD Rate: regular rate Rhythm: regular rhythm GI: Inspection: Yes normal to inspection Palpation (GI): Soft to palpation Auscultation: normal bowel sounds Skin: General skin exam: no rashes or lesions noted and elasticity normal Rashes: no rashes Neuro: General: oriented to person and patient oriented x3 Cranial nerves: Yes CN's II-XII intact bilaterally Course Reevaluation(s) Reevaluation #1: Imaging negative anticipate discharge Medical Decision Making Medical Decision Making MDM Narrative: PATIENT IS HERE WITH A HEAD INJURY, WE WILL OBTAIN IMAGING Differential Diagnosis Differential Diagnoses: The differential diagnosis associated with the presentation includes Subdural hematoma/epidural hematoma/cervical spine fracture Admission/Observation Consideration of admission/observation: Escalation of care including admission/observation considered Independent Interpretation I performed an independent interpretation of an: CT Scan Radiology Impression Discussion of test interpretation with radiology: I have reviewed the radiologist's reading. Radiologist Impression: C cc: Giovani Amaro MD; Gabo Bermudez MD~ Report Number: [id number]: Total DLP = 0.00 mGy-cm Reason for Exam: TRAUMA CLINICAL HISTORY: TRAUMA CT head without contrast Comparison: None provided Findings: No intra-axial mass, midline shift, hydrocephalus, or acute hemorrhage. No significant atrophy-like change or white matter disease. There is no sinus or mastoid fluid. The orbits are within normal limits. There is no acute fracture. IMPRESSION: 1. No acute intracranial findings. This document has been electronically signed by: Pk Willson MD on 12/31/2024 21:44:57 Dictated By: Pk Willson MD Signed By: <Electronically signed by Pk Willson MD in OV> 12/31/24 [id number] Discharge Plan Discharge Clinical Impression: Head injury Patient Disposition: Home, Self-Care Instructions: Head Injury (DC) Prescriptions: New mmhlkbhjpt-bxhdkalteavlu-lkxa [Fioricet] 50-300-40 mg capsule 1 cap PO Q8H PRN (Reason: anxiety) Qty: 4 0RF No Action ibuprofen 400 mg tablet 400 mg PO Q6H PRN (Reason: pain) 7 Days Qty: 28 0RF Ozempic 0.25 mg or 0.5 mg (2 mg/3 mL) pen injector 0.25 mg subcut QWEEK Qty: 3 0RF Rx Instructions: for 4 weeks Ozempic 0.25 mg or 0.5 mg(2 mg/1.5 mL) pen injector subcut escitalopram oxalate 10 mg tablet 10 mg PO DAILY ibuprofen 800 mg tablet 800 mg PO TID lorazepam 0.5 mg tablet 0.5 mg PO BEDTIME PRN (Reason: insomnia) (DME) lancets 28 gauge misc See Rx Instructions Not Applicable .MEDSUPPLY Qty: 100 Rx Instructions: As directed (DME) FreeStyle Lite Strips Strip See Rx Instructions Not Applicable .MEDSUPPLY Qty: 10 Rx Instructions: As directed (DME) pen needle, diabetic 32 gauge x 5/32 needle See Rx Instructions subcut .MEDSUPPLY Qty: 50 Rx Instructions: As directed alcohol swabs Pads, Medicated topical BID omeprazole 20 mg capsule,delayed release(DR/EC) 20 mg PO BID lisinopril 5 mg tablet 10 mg PO DAILY ketoconazole 2 % cream 1 appl topical DAILY nystatin 100,000 unit/gram powder topical Referrals: Gabo Bermudez MD [Primary Care Provider, Family Practice] Interventions: ED Discharge Assessment Last Done: 12/31/24 22:16 Discharge Date/Time: 12/31/24 22:17 Print Language: Kazakh
[2024-12-31 21:28] VITALS: BP 102/64; PULSE 44; RESP 16; TEMP 36.7; O2SAT 99
[2024-12-31 22:16] VITALS: BP 102/64; PULSE 44; RESP 16; TEMP 36.7; O2SAT 99
== END 2024-12-31 22:17 | disposition home or self-care (01) ==
PROVIDERS: Emergency Provider Emergency Medicine; PCP Family Medicine
DX: R51.9 Headache, unspecified (principal); M54.2 Cervicalgia; Z79.899 Other long term (current) drug therapy
CPT/HCPCS: 70450; 72125; 99284

== ENCOUNTER → 2024-12-31 19:57 | Outpatient (BNV) | payer MEDICAID, SELFPAY | PROVIDERS: Emergency Provider Emergency Medicine; PCP Family Medicine; Visit Provider Radiology Diagnostic Radiology | DX: S19.9XXA Unspecified injury of neck, initial encounter (principal); S09.90XA Unspecified injury of head, initial encounter | CPT/HCPCS: 70450; 72125 ==

== ENCOUNTER 2025-03-07 13:26 | Outpatient (REF) | payer MEDICAID, SELFPAY ==
--- NOTE | ~2025-03-07 | MM_ITS ---
EXAMINATION: MM SCREENING DIGITAL BREAST TOMOSYNTHESIS, BILATERAL CLINICAL INFORMATION: Screening. Asymptomatic. COMPARISON: Mammography: Comparison is made with available priors TECHNIQUE: Digital breast mammography with tomosynthesis is performed in both the craniocaudal and mediolateral oblique views along with computer-aided detection (CAD). FINDINGS: The breasts are heterogeneously dense, which may obscure small masses. There are no significant masses, abnormal calcifications, or other abnormalities. MM/MM tomosynthesis screening BI IMPRESSION: No mammographic evidence of malignancy. ASSESSMENT: BI-RADS Category 1: Negative RECOMMENDATION: Routine annual mammography screening. 1 year F/U This examination should not preclude the clinical evaluation of a suspicious palpable abnormality. This patient's information was entered into a reminder system with a target due date for their next mammogram. Electronically signed by: Oneyda Conner DO 03/09/2025 04:50 PM [facility]
--- OUTSIDE RECORDS SUMMARY | 2025-03-07 16:51 | XMS_ITS | Encounter Summary ---
Author Organization [facility] Address [address] [place] [address] Phone Care Team Providers Care Store Stock Associate Name Role Phone Lola Bermudez Primary Care Provider [phone] Gabo Bermudez MD Primary Care Provider [phone] Lola Bermudez Primary Care Provider Nicole Ortiz RN Unavailable Marta Wang Unavailable sandra Gabo Bermudez MD Unavailable Austyn Ngo Unavailable [phone] Kar Reeder Unavailable Encounter Details Date Type Department Care Team (Late st Contact Info) Description 07/14/2023 Procedure Pass [facility] [address] [place] [address] Social History Tobacco Use Types Packs/Day Years [...] Care Team (Late st Contact Info) Description 03/16/2025 10:15 AM EST Office Visit [facility] [address] [place] [address] Jun Stinson, CONRAD [address] [place] [phone] Minerva Cade, PT 8 [place] [address] 03/21/2025 1:00 PM EST Office Visit [facility] General Surgery Clinic 15 [place] [address] Isabell Valenzuela MD 15 [facility], 2nd [place] [address] 03/23/2025 12:45 PM EST Office Visit [facility] [address] [place] [address] Jun Stinson, CONRAD [address] [place] [phone] Minerva Cade, PT [address] [place] [address] 03/28/2025 12:45 PM EST Office Visit [facility] [address] [place] [address] Jun Stinson, PYTHON DJANGO DEVELOPER [address] [place] [phone] Minerva Cade, PT [address] [place] [address] 04/01/2025 12:45 PM EST Office Visit [facility] [address] [place] [address] Jun Stinson, PYTHON DJANGO DEVELOPER [address] [place] [phone] Minerva Cade, PT [address] [place] [address] 04/04/2025 12:45 PM EST Office Visit [facility] [address] [place] [address] Jun Stinson, PYTHON DJANGO DEVELOPER [address] [place] [phone] Minerva Cade, PT 8 [place] [address] 04/05/2025 11:30 AM EST Office Visit [facility] Infectious Diseases Clinic [address] [place] [address] Molly Sofia, ACTUARY CLERK 15 [facility], 2nd [place] [address] 04/08/2025 12:45 PM EST Office Visit [facility] [address] [place] [address] Jun Stinson, PYTHON DJANGO DEVELOPER [address] [place] [phone] Minerva Cade, PT [address] [place] [address] 04/11/2025 12:45 PM EST Office Visit [facility] 8 [place] [address] Jun Stinson, CONRAD [address] [place] [address] Minerva Cade, PT 8 [place] [address] 04/15/2025 12:45 PM EST Office Visit [facility] [address] [address] Jun Stinson, CONRAD [address] [place] [address] Minerva Cade, PT [address] [place] [address] 08/17/2025 10:00 AM EDT Office Visit [facility] 55 [facility], 8th Floor, [address] [place] [address] Molly Sofia FNP 15 [facility], 2nd [place] [address] documented as of this encounter Visit Diagnoses Not on filedocumented in this encounter Additional Health Concerns Assessment Noted Time PHQ-9 Depression Total Score: 16 023 2:37 PM EDT PHQ-2 Depression Total Score: 2 09/19/19 23 2:37 PM EDT documented as of this encounter Care Teams Store Stock Associate Relationship Specialty Start Date End Date Lola Bermudez PA [address] [place] [phone] PCP - General 03/20/17 07/23/23 Gabo Bermudez MD [address] [place] [address] PCP - General Family Medicine 07/24/23 04/21/24 Lola Bermudez PA [address] [place] [phone] PCP - General Physician Esthetician/Spa Coordinator 04/22/24 Nicole Ortiz RN [address] [place] [address] PHCM Search Marketing Coordinator 04/22/24 Marta Wang [address] [place] [phone] [email or web address] PHC Community Geological Technician 05/07/24 05/07/24 Gabo Bermudez MD [address] [place] [address] Insurance Assigned Provider 01/29/25 Austyn Ngo LICSW [address] [place] [phone] PHCM Business Applications Developer 01/18/25 Kar Reeder [address] [place] [address] Business Applications Developer 01/19/25 01/19/25 documented as of this encounter Additional Source Comments The information contained in this document represents components of the legal health record. It is not the complete legal health record.[facility]
--- OUTSIDE RECORDS SUMMARY | 2025-03-07 16:51 | XMS_ITS | Encounter Summary ---
Author Organization [facility] Address [address] [place] [address] Phone Care Team Providers Care Systems Software Manager Name Role Phone Lola Bermudez Primary Care Provider [phone] Gabo Bermudez MD Primary Care Provider [phone] Lola Bermudez Primary Care Provider Nicole Ortiz RN Unavailable Marta Wang Unavailable sandra Gabo Bermudez MD Unavailable Austyn Ngo Unavailable [phone] Kar Reeder Unavailable Encounter Details Date Type Department Care Team (Late st Contact Info) Description 05/15/2021 Procedure Pass [facility], [address] [address] Social History Tobacco Use Types Packs/Day Years [...] 03/16/2025 10:15 AM EST Office Visit [facility] [address] [place] [address] Jun Stinson, WIRE STRIPPING MACHINE OPERATOR [address] [place] [address] Minerva Cade, PT 8 [place] [address] 03/21/2025 1:00 PM EST Office Visit [facility] [address] [place] [address] Isabell Valenzuela MD 15 [facility], 2nd [place] [address] 03/23/2025 12:45 PM EST Office Visit [facility] [address] [place] [address] Jun Stinson, WIRE STRIPPING MACHINE OPERATOR [address] [place] [address] Minerva Cade, PT 8 [place] [address] 03/28/2025 12:45 PM EST Office Visit [facility] [address] [place] [address] Jun Stinson, CONRAD [address] [place] [address] Minerva Cade, PT 8 [place] [address] 04/01/2025 12:45 PM EST Office Visit [facility] [address] [place] [address] Jun Stinson, WIRE STRIPPING MACHINE OPERATOR [address] [place] [phone] Minerva Cade, PT 8 [place] [address] 04/04/2025 12:45 PM EST Office Visit [facility] [address] [place] [address] Jun Stinson, WIRE STRIPPING MACHINE OPERATOR [address] [place] [address] Minerva Cade, PT 8 [place] [address] 04/05/2025 11:30 AM EST Office Visit [facility] Diseases [facility] 22 [place] [address] Molly Sofia, SUGAR CANE PLANTING EQUIPMENT OPERATOR 15 [facility], 2nd [place] [address] 04/08/2025 12:45 PM EST Office Visit [facility] [address] [place] [address] Jun Stinson, CONRAD [address] [place] [address] Minerva Cade, PT 8 [place] [address] 04/11/2025 12:45 PM EST Office Visit [facility] [address] [place] [address] Jun Stinson, WIRE STRIPPING MACHINE OPERATOR [address] [place] [address] Minerva Cade, PT 8 [place] [address] 04/15/2025 12:45 PM EST Office [facility] 8 [place] [address] Jun Stinson, WIRE STRIPPING MACHINE OPERATOR [address] [place] [address] Minerva Cade, PT 8 [place] [address] 08/17/2025 10:00 AM EDT Office Visit [facility] [address] [place] [address], 8th Floor, [address] [place] [address] Molly Sofia, MACK 15 [facility], 2nd [place] [address] documented as of this encounter Visit Diagnoses Not on filedocumented in this encounter Care Teams Systems Software Manager Relationship Specialty Start Date End Date Lola Bermudez PA 70 [place] [phone] PCP - General 03/20/17 07/23/23 Gabo Bermudez MD 70 [place] [address] PCP - General Family Medicine 07/24/23 04/21/24 Lola Bermudez PA [address] [place] [address] PCP - General Physician Seafood Packer 04/22/24 Nicole Ortiz, VARUN [address] [place] [address] PHCM Nut Cracker 04/22/24 Marta Wang [address] [place] [address] [email or web address] PHC Community Umbrella Frame Maker 05/07/24 05/07/24 Gabo Bermudez MD [address] [place] [address] Insurance Assigned Provider 01/29/25 Austyn Ngo LICSW [address] [place] [address] PHC Crusher Operator 01/18/25 Kar Reeder [address] [place] [address] Crusher Operator 01/19/25 01/19/25 documented as of this encounter Additional Source Comments The information contained in this document represents components of the legal health record. It is not the complete legal health record.[facility]
--- OUTSIDE RECORDS SUMMARY | 2025-03-07 16:51 | XMS_ITS | Encounter Summary ---
Author Organization [facility] Address [address] [place] [address] Phone Care Team Providers Care Physical Therapy Attendant Name Role Phone Lola Bermudez Primary Care Provider [phone] Gabo Bermudez MD Primary Care Provider Lola Bermudez Primary Care Provider Nicole Ortiz RN Unavailable Marta Wang Unavailable sandra Gabo Bermudez MD Unavailable Austyn Ngo Unavailable [phone] Kar Reeder Unavailable Encounter Details Date Type Department Care Team (Late st Contact Info) Description 10/25/2021 Procedure Pass [facility], Ct Scan - [address] [address] Social History Tobacco Use Types Packs/Day Years [...] Description 03/16/2025 10:15 AM EST Office Visit [facility] [address] [place] [address] Jun Stinson, DATA LEAD [address] [place] [address] Minerva Cade, PT 8 [place] [address] 03/21/2025 1:00 PM EST Office Visit [facility] 15 [place] [address] Isabell Valenzuela MD 15 [facility], 2nd [place] [address] 03/23/2025 12:45 PM EST Office Visit [facility] [address] [place] [address] Jun Stinson, DATA LEAD [address] [place] [phone] Minerva Cade, PT 8 [place] [address] 03/28/2025 12:45 PM EST Office Visit [facility] [address] [place] [address] Jun Stinson, CONRAD [address] [place] [phone] Minerva Cade, PT 8 [place] [address] 04/01/2025 12:45 PM EST Office Visit [facility] [address] [place] [address] Jun Stinson, DATA LEAD [address] [place] [address] Minerva Cade, PT 8 [place] [address] 04/04/2025 12:45 PM EST Office Visit [facility] [address] [place] [address] Jun Stinson, DATA LEAD [address] [place] [address] Minerva Cade, PT 8 [place] [address] 04/05/2025 11:30 AM EST Office Visit [facility] [address] [place] [address] Molly Sofia, BANDAGE MAKER 15 [facility], 2nd [place] [address] 04/08/2025 12:45 PM EST Office Visit [facility] [address] [place] [address] Jun Stinson, DATA LEAD [address] [place] [phone] Minerva Cade, PT 8 [place] [address] 04/11/2025 12:45 PM EST Office Visit [facility] [address] [place] [address] Jun Stinson, CONRAD [address] [place] [address] Minerva Cade, PT 8 [place] [address] 04/15/2025 12:45 PM EST Office [facility] 8 [place] [address] Jun Stinson, DATA LEAD [address] [place] [address] Minerva Cade, PT 8 [place] [address] 08/17/2025 10:00 AM EDT Office Visit [facility] [address] [place] [address], 8th Floor, [address] [place] [address] Molly Sofia, MACK 15 [facility], 2nd [place] [address] documented as of this encounter Visit Diagnoses Not on filedocumented in this encounter Care Teams Physical Therapy Attendant Relationship Specialty Start Date End Date Lola Bermudez PA 70 [place] [address] PCP - General 03/20/17 07/23/23 Gabo Bermudez MD 70 [place] [address] PCP - General Family Medicine 07/24/23 04/21/24 Lola Bermudez PA [address] [place] [address] PCP - General Physician Hunting And Fishing Guide 04/22/24 Nicole Ortiz, VARUN [address] [place] [address] PHCM Sensory Scientist 04/22/24 Marta Wang [address] [place] [address] [email or web address] PHC Community Welfare Investigator 05/07/24 05/07/24 Gabo Bermudez MD [address] [place] [address] Insurance Assigned Provider 01/29/25 Austyn Ngo LICSW [address] [place] [address] PHC Agricultural Appraiser 01/18/25 Kar Reeder [address] [place] [address] Agricultural Appraiser 01/19/25 01/19/25 documented as of this encounter Additional Source Comments The information contained in this document represents components of the legal health record. It is not the complete legal health record.[facility]
--- OUTSIDE RECORDS SUMMARY | 2025-03-07 16:51 | XMS_ITS | Clinical Summary ---
Author Organization [facility] Prior to 08/14/[address] [place] [address] Care Team Providers Care Technical Architect Name Role Phone Lola Bermudez Primary Care Provider [phone] Allergies Active Allergy Reactions Criticality Noted Date [...] age to complete this topic Care Teams Technical Architect Relationship Specialty Start Date End Date Lola Bermudez PA [address] [place] [address] PCP - General Medical Services 06/12/21
--- OUTSIDE RECORDS SUMMARY | 2025-03-07 16:51 | XMS_ITS | Encounter Summary ---
Author Organization [facility] Address [address] [place] [address] Phone Care Team Providers Care Oral Surgeon Name Role Phone Gabo Bermudez MD Primary Care Provider [phone] Lola Bermudez Primary Care Provider [phone] Nicole Ortiz RN Unavailable Marta Wang Unavailable sandra Gabo Bermudez MD Unavailable Austyn Ngo Unavailable [phone] Kar Reeder Unavailable Encounter Details Date Type Department Care Team (Late st Contact Info) Description 04/08/2024 Procedure Pass [address] [place] [address] Social History Tobacco Use Types Packs/Day Years [...] Description 03/16/2025 10:15 AM EST Office [facility] [address] [place] [address] Jun Stinson, PHOTO OPTICS TECHNICIAN [address] [place] [address] Minerva Cade, PT 8 [place] [address] 03/21/2025 1:00 PM EST Office Visit [facility] Surgery [facility] [address] [place] [address] Isabell Valenzuela MD 15 [facility], 2nd [place] [address] 03/23/2025 12:45 PM EST Office Visit [facility] [address] [place] [address] Jun Stinson, PHOTO OPTICS TECHNICIAN [address] [place] [address] Minerva Cade, PT 8 [place] [address] 03/28/2025 12:45 PM EST Office Visit [facility] [address] [place] [address] Jun Stinson, PHOTO OPTICS TECHNICIAN [address] [place] [phone] Minerva Cade, PT 8 [place] [address] 04/01/2025 12:45 PM EST Office Visit [facility] [address] [place] [address] Jun Stinson, PHOTO OPTICS TECHNICIAN [address] [place] [address] Minerva Cade, PT 8 [place] [address] 04/04/2025 12:45 PM EST Office Visit [facility] [address] [place] [address] Jun Stinson, PHOTO OPTICS TECHNICIAN [address] [place] [address] Minerva Cade, PT 8 [place] [address] 04/05/2025 11:30 AM EST Office Visit [facility] Diseases Clinic [address] [place] [address] Molly Sofia FNP 15 [facility], [address] [place] [address] 04/08/2025 12:45 PM EST Office Visit [facility] 8 [place] [address] Jun Stinson, CONRAD [address] [place] [address] Minerva Cade, PT 8 [place] [address] 04/11/2025 12:45 PM EST Office Visit [facility] [address] [place] [address] Jun Stinson, CONRAD [address] [place] [address] Minerva Cade, PT 8 [place] [address] 04/15/2025 12:45 PM EST Office Visit [facility] 8 [place] [address] Jun Stinson, CONRAD [address] [place] [address] Minerva Cade, PT 8 [place] [address] 08/17/2025 10:00 AM EDT Office Visit [facility] [address] [place] [address], 8th Floor, [address] [place] [address] Molly Sofia FNP 15 [facility], [address] [place] [address] documented as of this encounter Visit Diagnoses Not on filedocumented in this encounter Additional Health Concerns Assessment Noted Time PHQ-9 Depression Total Score: 18 025 11:59 AM EST PHQ-2 Depression Total Score: 6 03/19/19 25 11:59 AM EST documented as of this encounter Care Teams Oral Surgeon Relationship Specialty Start Date End Date Gabo Bermudez MD [address] [place] [address] PCP - General Family Medicine 07/24/23 04/21/24 Lola Bermudez PA [address] [place] [address] PCP - General Physician Archivist Political History 04/22/24 Nicole Ortiz, VARUN [address] [place] [address] PHCM Postdoctoral Scientist 04/22/24 Marta Wang [address] [place] [address] [email or web address] PHC Community Superintendent Mechanical 05/07/24 05/07/24 Gabo Bermudez MD [address] [place] [address] Insurance Assigned Provider 01/29/25 Austyn Ngo LICSW [address] [place] [address] PHCM Air Chipper 01/18/25 Kar Reeder [address] [place] [address] Air Chipper 01/19/25 01/19/25 documented as of this encounter Additional Source Comments The information contained in this document represents components of the legal health record. It is not the complete legal health record.[facility]
--- OUTSIDE RECORDS SUMMARY | 2025-03-07 16:51 | XMS_ITS | Encounter Summary ---
Author Organization [facility] Address [address] [place] [address] Phone Care Team Providers Care General Manager [employer] Name Role Phone Lola Bermudez Primary Care Provider [phone] Gabo Bermudez MD Primary Care Provider [phone] Lola Bermudez Primary Care Provider Nicole Ortiz RN Unavailable Marta Wang Unavailable snadra Gabo Bermudez MD Unavailable [phone] Austyn Ngo Unavailable [phone] Kar Reeder Unavailable Encounter Details Date Type Department Care Team (Late st Contact Info) Description 04/19/2021 Procedure Pass [address] [place] [address] Social History Tobacco Use Types Packs/Day Years [...] 03/16/2025 10:15 AM EST Office Visit [facility] [address] [place] [address] Jun Stinson, DESIGN CHIEF [address] [place] [address] Minerva Cade, PT 8 [place] [address] 03/21/2025 1:00 PM EST Office Visit [facility] General Surgery [facility] [address] [place] [address] Isabell Valenzuela MD 15 [facility], 2nd [place] [address] 03/23/2025 12:45 PM EST Office Visit [facility] [address] [place] [address] Jun Stinson, DESIGN CHIEF [address] [place] [address] Minerva Cade, PT 8 [place] [address] 03/28/2025 12:45 PM EST Office Visit [facility] [address] [place] [address] Jun Stinson, CONRAD [address] [place] [address] Minerva Cade, PT 8 [place] [address] 04/01/2025 12:45 PM EST Office Visit [facility] [address] [place] [address] Jun Stinson, DESIGN CHIEF [address] [place] [address] Minerva Cade, PT 8 [place] [address] 04/04/2025 12:45 PM EST Office Visit [facility] [address] [place] [address] Jun Stinson, DESIGN CHIEF [address] [place] [address] Minerva Cade, PT 8 [place] [address] 04/05/2025 11:30 AM EST Office Visit [facility] Infectious Diseases Clinic 22 [place] [address] Molly Sofia, MEDICAL CLERICAL ASSISTANT 15 [facility], 2nd [place] [address] 04/08/2025 12:45 PM EST Office Visit [facility] [address] [place] [address] Jun Stinson, DESIGN CHIEF [address] [place] [address] Minerva Cade, PT 8 [place] [address] 04/11/2025 12:45 PM EST Office Visit [facility] [address] [place] [address] Jun Stinson, DESIGN CHIEF [address] [place] [address] Minerva Cade, PT 8 [place] [address] 04/15/2025 12:45 PM EST Office [facility] 8 [place] [address] Jun Stinson, DESIGN CHIEF [address] [place] [address] Minerva Cade, PT 8 [place] [address] 08/17/2025 10:00 AM EDT Office Visit [facility] [address] [place] [address], 8th Floor, [address] [place] [address] Molly Sofia, MACK 15 [facility], 2nd [place] [address] documented as of this encounter Visit Diagnoses Not on filedocumented in this encounter Care Teams General Manager [employer] Data Cloud Relationship Specialty Start Date End Date Lola Bermudez PA 70 [place] [address] PCP - General 03/20/17 07/23/23 Gabo Bermudez MD 70 [place] [address] PCP - General Family Medicine 07/24/23 04/21/24 Lola Bermudez PA [address] [place] [address] PCP - General Physician Small Kick Press Operator 04/22/24 Nicole Ortiz, VARUN [address] [place] [address] PHCM Biochemistry Professor 04/22/24 Marta Wang [address] [place] [address] [email or web address] PHC Community Tower Air Traffic Control Specialist 05/07/24 05/07/24 Gabo Bermudez MD [address] [place] [address] Insurance Assigned Provider 01/29/25 Austyn Ngo LICSW [address] [place] [address] PHC Petroleum Engineer 01/18/25 Kar Reeder [address] [place] [address] Petroleum Engineer 01/19/25 01/19/25 documented as of this encounter Additional Source Comments The information contained in this document represents components of the legal health record. It is not the complete legal health record.[facility]
--- OUTSIDE RECORDS SUMMARY | 2025-03-07 16:51 | XMS_ITS | Encounter Summary ---
Author Organization [facility] Address [address] [place] [address] Phone Care Team Providers Care Load Test Mechanic Name Role Phone Lola Bermudez Primary Care Provider [phone] Gabo Bermudez MD Primary Care Provider Lola Bermudez Primary Care Provider Nicole Ortiz RN Unavailable Marta Wang Unavailable [email or web address] Gabo Bermudez MD Unavailable Austyn Ngo Unavailable [phone] Kar Reeder Unavailable Reason for Referral * MRI/CAT Scan - Closed Specialty Diagnoses / Procedures Referred By Екатерина knapp Referred To Contact Radiology Diagnoses Abnormal LFTs PINEDA (nonalcoholic steatohepatitis) Procedures MRI Abdomen Kendy Esquivel PA [address] [place] [address] Phone: tel: fax: Referral ID Status Reason Start Date Expiration Date Visits Re quested Visits Authorized [id number] Closed 07/14/2023 07/13/2024 1 1 Encounter Details Date Type Department Care Team (Latest Contact Info) Description 07/14/2023 Transcribe Orders Virtual Department [address] [place] [address] Kendy Esquivel PA [address] [place] [address] Abnormal LFTs (Primary Dx); PINEDA (nonalcoholic steatohepatitis) [...] Visit [facility] [address] [place] [address] Jun Stinson, COLORING MACHINE OPERATOR [address] [place] [address] Minerva Cade, PT 8 [place] [address] 03/21/2025 1:00 PM EST Office Visit [facility] Surgery [facility] [address] [place] [address] Isabell Valenzuela MD 15 [facility], 2nd [place] [address] 03/23/2025 12:45 PM EST Office Visit [facility] Therapy Clinic [address] [place] [address] Jun Stinson, COLORING MACHINE OPERATOR [address] [place] [address] Minerva Cade, PT 8 [place] [address] 03/28/2025 12:45 PM EST Office Visit [facility] [address] [place] [address] Jun Stinson, COLORING MACHINE OPERATOR [address] [place] [address] Minerva Cdae, PT 8 [place] [address] 04/01/2025 12:45 PM EST Office Visit [facility] Physical Therapy [address] [address] Jun Stnison, COLORING MACHINE OPERATOR [address] [place] [address] Minerva Cade, PT 8 [place] [address] 04/04/2025 12:45 PM EST Office Visit [facility] [address] [place] [address] Jun Stinson, COLORING MACHINE OPERATOR [address] [place] [phone] Minerva Cade, PT 8 [place] [address] 04/05/2025 11:30 AM EST Office Visit [facility] Diseases [facility] [address] [place] [address] Patricia Sofiah Nazia, TELECOMMUNICATOR SUPERVISOR 15 [facility], 2nd [place] [address] 04/08/2025 12:45 PM EST Office Visit [facility] [address] [place] [address] Jun Stinson, COLORING MACHINE OPERATOR [address] [place] [phone] Minerva Cade, PT 8 [place] [address] 04/11/2025 12:45 PM EST Office Visit [facility] [address] [place] [address] Jun Stinson, COLORING MACHINE OPERATOR [address] [place] [phone] Minerva Cade, PT 8 [place] [address] 04/15/2025 12:45 PM EST Office Visit [facility] [address] [place] [address] Jun Stinson, COLORING MACHINE OPERATOR [address] [place] [phone] Minerva Cade, PT 8 [place] [address] 08/17/2025 10:00 AM EDT Office Visit [facility] 55 [facility], 8th Floor, [address] [place] [address] Molly Sofia FNP 15 [facility], 2nd [place] [address] documented as of this encounter Results * [...] clinician's provided indication for this examination in [facility]:Outside Radiology Order; abnormal lft's TECHNIQUE: Multiplanar MR [...] Marked hepatic steatosis. No bile duct dilation. us Kendy MACE IMG MR ABDOMEN Final Resul t documented in this encounter Visit Diagnoses Diagnosis Abnormal LFTs- Primary PINEDA (nonalcoholic steatohepatitis) Other chronic nonalcoholic liver disease Abnormal LFTs PIENDA (nonalcoholic steatohepatitis) Other chronic nonalcoholic liver disease documented in this encounter Additional Health Concerns Assessment Noted Time PHQ-9 Depression Total Score: 16 023 2:37 PM EDT PHQ-2 Depression Total Score: 2 09/19/19 23 2:37 PM EDT documented as of this encounter Care Teams Load Test Mechanic Relationship Specialty Start Date End Date Lola Bermudez PA [address] [place] [phone] PCP - General 03/20/17 07/23/23 Gabo Bermudez MD [address] [place] [address] PCP - General Family Medicine 07/24/23 04/21/24 Lola Bermudez PA 70 [place] [address] PCP - General Physician Psychologist Engineering 04/22/24 Nicole Ortiz, VARUN [address] [place] [address] PHCM Peoplesoft Consultant 04/22/24 Marta Wang [address] [place] [address] [email or web address] PHC Community Costume Mistress 05/07/24 05/07/24 Gabo Bermudez MD [address] [place] [address] Insurance Assigned Provider 01/29/25 Austyn Ngo LICSW [address] [place] [address] PHCM Metrologist 01/18/25 Kar Reeder [address] [place] [address] Metrologist 01/19/25 01/19/25 documented as of this encounter Additional Source Comments The information contained in this document represents components of the legal health record. It is not the complete legal health record.[facility]
--- OUTSIDE RECORDS SUMMARY | 2025-03-07 16:51 | XMS_ITS | Encounter Summary ---
Author Organization [facility] Address [address] [place] [address] Phone Care Team Providers Care General Maintenance Helper Name Role Phone Lola Bermudez Primary Care Provider [phone]- [phone] Gabo Bermudez MD Primary Care Provider [phone] Lola Bermudez Primary Care Provider + [phone] Nicole Ortiz RN Unavailable Marta Wang Unavailable [email or web address] Gabo Bermudez MD Unavailable [phone] Austyn Ngo Unavailable [phone] Kar Reeder Unavailable Reason for Referral * MRI/CAT Scan - Closed Specialty Diagnoses / Procedures Referred By Екатреина knapp Referred To Contact Radiology Diagnoses Nonintractable headache, unspecified chronicity pattern, unspecified headache type Paresthesia of arm Memory loss Procedures MRI Brain CHG MRI BRAIN COMBO Gomez Brooks MD Phone: tel: fax: [email or web address] Referral ID Status Reason Start Date Expiration Date Visits Re quested Visits Authorized [id number] Closed 04/18/2021 10/15/2021 1 1 Encounter Details Date Type Department Care Team (Latest Contact Info) Description 04/19/2021 Transcribe Orders Virtual Department [address] [place] [address] Gomez Brooks MD [address] [facility], [address] [place] [address] [email or web address] Nonintractable headache, unspecified chronicity pattern, [...] Visit [facility] [address] [place] [address] Jun Stinson, FIELD SUPERINTENDENT [address] [place] [address] Minerva Cade, PT [address] [place] [address] 03/21/2025 1:00 PM EST Office Visit [facility] General Surgery Clinic [address] [place] [address] Isabell Valenzuela MD [address] [facility], 2nd [place] [address] 03/23/2025 12:45 PM EST Office Visit [facility] [address] [place] [address] Jun Stinson, FIELD SUPERINTENDENT [address] [place] [address] Minerva Cade, PT [address] [place] [address] 03/28/2025 12:45 PM EST Office Visit [facility] [address] [place] [address] Jun Stinson, FIELD SUPERINTENDENT [address] [place] [phone] Minerva Cade, PT 8 [place] [address] 04/01/2025 12:45 PM EST Office Visit [facility] [address] [place] [address] Jun Stinson, FIELD SUPERINTENDENT [address] [place] [phone] Minerva Cade, PT 8 [place] [address] 04/04/2025 12:45 PM EST Office Visit [facility] [address] [place] [address] Jun Stinson, FIELD SUPERINTENDENT [address] [place] [address] Minerva Cade, PT 8 [place] [address] 04/05/2025 11:30 AM EST Office Visit [facility] Infectious Diseases Clinic [address] [place] [address] Molly Sofia FNP [address] [facility], [address] [place] [address] 04/08/2025 12:45 PM EST Office Visit [facility] [address] [place] [address] Jun Stinson, CONRAD [address] [place] [address] Minerva Cade, PT [address] [place] [address] 04/11/2025 12:45 PM EST Office Visit [facility] [address] [place] [address] Jun Stinson, CONRAD [address] [place] [address] Minerva Cade, PT [address] [place] [address] 04/15/2025 12:45 PM EST Office Visit [facility] [address] [place] [address] Jun Stinson, CONRAD [address] [place] [address] Minerva Cade, PT 8 [place] [address] 08/17/2025 10:00 AM EDT Office Visit [facility] [address] [facility], 8th Floor, [address] [place] [address] Molly Sofia FNP [address] [facility], [address] [place] [phone] [email or web address] documented as of this encounter Results * [...] loss documented in this encounter Care Teams General Maintenance Helper Relationship Specialty Start Date End Date Lola Bermudez PA [address] [place] [address] PCP - General 03/20/17 07/23/23 Gabo Bermudez MD [address] [place] [address] PCP - General Family Medicine 07/24/23 04/21/24 Lola Bermudez PA [address] [place] [address] PCP - General Physician Human Resources Team Member 04/22/24 Nicole Ortiz RN [address] [place] [phone] PHCM Lather Apprentice 04/22/24 Marta Wang [address] [place] [phone] [email or web address] PHC Community Procurement Accountant 05/07/24 05/07/24 Gabo Bermudez MD [address] [place] [address] Insurance Assigned Provider 01/29/25 Austyn Ngo LICSW [address] [place] [phone] PHCM Origination Specialist 01/18/25 Kar Reeder [address] [place] [phone] Origination Specialist 01/19/25 01/19/25 documented as of this encounter Additional Source Comments The information contained in this document represents components of the legal health record. It is not the complete legal health record.[facility]
--- OUTSIDE RECORDS SUMMARY | 2025-03-07 16:51 | XMS_ITS | Encounter Summary ---
Author Organization [facility] Address [address] [place] [address] Phone Care Team Providers Care Stem Cleaning Machine Feeder Name Role Phone Lola Bermudez Primary Care Provider [phone] Gabo Bermudez MD Primary Care Provider Lola Bermudez Primary Care Provider Nicole Ortiz RN Unavailable Marta Wang Unavailable sandra Gabo Bermudez MD Unavailable Austyn Ngo Unavailable [phone] Kar Reeder Unavailable Encounter Details Date Type Department Care Team (Late st Contact Info) Description 08/27/2021 Procedure Pass [facility], Ct Scan - [address] [address] Social History Tobacco Use Types Packs/Day Years [...] Description 03/16/2025 10:15 AM EST Office Visit [facility] [address] [place] [address] Jun Stinson, PLANT GENERAL MANAGER [address] [place] [address] Minerva Cade, PT 8 [place] [address] 03/21/2025 1:00 PM EST Office Visit [facility] General Surgery Clinic 15 [place] [address] Isabell Valenzuela MD [address] [facility], 2nd [place] [address] 03/23/2025 12:45 PM EST Office Visit [facility] [address] [place] [address] Jun Stinson, PLANT GENERAL MANAGER [address] [place] [phone] Minerva Cade, PT 8 [place] [address] 03/28/2025 12:45 PM EST Office Visit [facility] [address] [place] [address] Jun Stinson, CONRAD [address] [place] [phone] Minerva Cade, PT 8 [place] [address] 04/01/2025 12:45 PM EST Office Visit [facility] [address] [place] [address] Jun Stinson, PLANT GENERAL MANAGER [address] [place] [phone] Minerva Cade, PT 8 [place] [address] 04/04/2025 12:45 PM EST Office Visit [facility] [address] [place] [address] Jun Stinson, PLANT GENERAL MANAGER [address] [place] [phone] Minerva Cade, PT 8 [place] [address] 04/05/2025 11:30 AM EST Office Visit [facility] Infectious Diseases Clinic [address] [place] [address] Molly Sofia, CONVICT GUARD [address] [facility], 2nd [place] [address] 04/08/2025 12:45 PM EST Office Visit [facility] [address] [place] [address] Jun Stinson, PLANT GENERAL MANAGER [address] [place] [phone] Minerva Cade, PT 8 [place] [address] 04/11/2025 12:45 PM EST Office Visit [facility] [address] [place] [address] Jun Stinson, CONRAD [address] [place] [address] Minerva Cade, PT [address] [place] [address] 04/15/2025 12:45 PM EST Office Visit [facility] 8 [place] [address] Jun Stinson, PLANT GENERAL MANAGER [address] [place] [address] Minerva Cade, PT 8 [place] [address] 08/17/2025 10:00 AM EDT Office Visit [facility] [address] [place] [address], 8th Floor, [address] [place] [address] Molly Sofia, MACK [address] [facility], 2nd [place] [address] documented as of this encounter Visit Diagnoses Not on filedocumented in this encounter Care Teams Stem Cleaning Machine Feeder Relationship Specialty Start Date End Date Lola Bermudez PA [address] [place] [address] PCP - General 03/20/17 07/23/23 Gabo Bermudez MD [address] [place] [address] PCP - General Family Medicine 07/24/23 04/21/24 Lola Bermudez PA [address] [place] [address] PCP - General Physician Cloth Printing Inspector 04/22/24 Nicole Ortiz, VARUN [address] [place] [address] PHCM Sr. Director 04/22/24 Marta Wang [address] [place] [address] [email or web address] PHC Community Polymer Tester 05/07/24 05/07/24 Gabo Bermudez MD [address] [place] [address] Insurance Assigned Provider 01/29/25 Austyn Ngo LICSW [address] [place] [id number] PHC Mechanical Shop Laborer 01/18/25 Kar Reeder [address] [place] [id number] Mechanical Shop Laborer 01/19/25 01/19/25 documented as of this encounter Additional Source Comments The information contained in this document represents components of the legal health record. It is not the complete legal health record.[facility]
--- OUTSIDE RECORDS SUMMARY | 2025-03-07 16:51 | XMS_ITS | Encounter Summary ---
Author Organization [facility] Address [address] [place] [address] Phone Care Team Providers Care Tree Cutter Name Role Phone Lola Bermudez Primary Care Provider [phone] Gabo Bermudez MD Primary Care Provider Lola Bermudez Primary Care Provider Nicole Ortiz RN Unavailable Marta Wang Unavailable [email or web address] Gabo Bermudez MD Unavailable Austyn Ngo Unavailable [phone] Kra Reeder Unavailable Reason for Referral * Molecular Pathology - Closed Specialty Diagnoses / Procedures Referred By Екатерина t Referred To Contact Diagnoses Need for hepatitis C screening test Dysphagia, pharyngoesophageal phase Abnormal LFTs Nonalcoholic steatohepatitis Procedures Hemochromatosis Gene Analysis Kendy Esquivel PA 10 [place] [address] Phone: tel: fax: Referral ID Status Reason Start Date Expiration Date Visits Re quested Visits Authorized [id number] Closed 07/11/2023 07/10/2024 1 1 Encounter Details Date Type Department Care Team (Latest Contact Info) Description 07/11/2023 Transcribe Orders [facility] [place] 10 [facility] 2nd [place] [address] Kendy Esquivel PA 10 [place] [address] Need for hepatitis C screening test (Primary [...] Description 03/16/2025 10:15 AM EST Office Visit [facility] 8 [place] [address] Jun Stinson, PATIENT NAVIGATOR [address] [place] [phone] Minerva Cade, PT 8 [place] [address] 03/21/2025 1:00 PM EST Office Visit [facility] 15 [place] [address] Isabell Valenzuela MD 15 [facility], 2nd [place] [address] 03/23/2025 12:45 PM EST Office Visit [facility] [address] [place] [address] Jun Stinson, PATIENT NAVIGATOR [address] [place] [address] Minerva Cade, PT 8 [place] [address] 03/28/2025 12:45 PM EST Office Visit [facility] 8 [place] [address] Jun Stinson, PATIENT NAVIGATOR [address] [place] [address] Minerva Cade, PT 8 [place] [address] 04/01/2025 12:45 PM EST Office Visit [facility] [address] [place] [address] Jun Stinson, CONRAD [address] [place] [address] Minerva Cade, PT 8 [place] [address] 04/04/2025 12:45 PM EST Office Visit [facility] [address] [place] [address] Jun Stinson, CONRAD [address] [place] [address] Minerva Cade, PT 8 [place] [address] 04/05/2025 11:30 AM EST Office Visit [facility] Infectious Diseases Clinic 22 [place] [address] Molly Sofia, CHIEF RESOURCE OFFICER 15 [facility], 2nd [place] [address] 04/08/2025 12:45 PM EST Office Visit [facility] 8 [place] [address] Jun Stinson, PATIENT NAVIGATOR [address] [place] [phone] Minerva Cade, PT 8 [place] [address] 04/11/2025 12:45 PM EST Office Visit [facility] 8 [place] [address] Jun Stinson, PATIENT NAVIGATOR [address] [place] [phone] Minerva Cade, PT 8 [place] [address] 04/15/2025 12:45 PM EST Office Visit [facility] [address] [place] [address] Jun Stinson, PATIENT NAVIGATOR [address] [place] [address] Minerva Cade, PT 8 [place] [address] 08/17/2025 10:00 AM EDT Office Visit [facility] 55 [facility], 8th Floor, [address] [place] [address] Molly Sofia, CHIEF RESOURCE OFFICER 15 [facility], 2nd [place] [address] documented as of this encounter Results * PT-INR (07/11/2023 12:06 PM EDT) Pathologist [facility] PT 11.7 10.2 - 12.9 sec [facility] INR 1.0 0.9 - 1.1 [facility] Comment:Therapeutic range fo r oral Vitamin K antagonists: 2.0-3.5 Blood 07/11/2023 12:0 6 PM EDT 07/11/2023 12:15 PM EDT us Kendy MACE LAB BLOOD BKR ORDERABLES Fi nal Result [address] [address] * Ferritin (07/11/2023 12:06 PM EDT) Pathologist [facility] FERRITIN 102 13 - 150 ug/L [facility] Blood 07/11/2023 12:0 6 PM EDT 07/11/2023 12:15 PM EDT Kendy MACE LAB BLOOD BKR ORDERABLES Fi nal Result Performing Organization Address City/[facility]/ZIP Co de Phone Number [address] [address] * Hemochromatosis Gene Analysis (07/11/2023 12:06 PM EDT) [facility] HFE Gene analysis SEE NOTE 05:10 PM [facility] DPT OF LAB MED AND PAT+ [...] may be of benefit. REFERENCES: 1. Loretta MACE, Hank LW, Gerald DJ, Diego Resendiz D, Shyla E, Kristina BaezaK: A population-based study of the biochemical and clinical expression of the H63D hemochromatosis mutation. Gastroenterology. 2002 May;122(3):646-51. (PMID: 05979078) 2. Jeffery KV, Jered KE, Binta J, Lilian V: ACG Clinical Guideline: Hereditary Hemochromatosis. Am J Gastroenterol. 2019 Oct;114(8):8613-7231. (PMID: [id number]) ADDITIONAL INFORMATION An online research opportunity called [employer] ([employer]), a project of [employer], is available for the recipient of this genetic test. This patient registry collects de-identified genetic and health information to advance the knowledge of genetic variants. [facility] is a collaborator of [employer]. This may not be applicable for all [...] allogenic donors will interfere with testing. Call [facility] for instructions for testing patients who [...] developed and its performance characteristics determined by [facility] in a manner consistent with CLIA requirements. [...] PM EDT us Kendy MACE LAB BLOOD BKR ORDERABLES Fi nal Result [facility] DPT OF LAB MED AND PAT+ [address] [place] [address] * Hepatitis C antibody, qualitative (07/11/2023 12:06 PM EDT) HCV NON-REACTIV E NON-REACTI VE [facility] Blood 07/11/2023 12:0 6 PM EDT 07/11/2023 12:15 PM EDT us Kendy MACE LAB BLOOD BKR ORDERABLES Fi nal Result Performing Organization Address [facility]/ZIP Co de Phone Number [address] [address] * Hepatitis B surface antibody (07/11/2023 12:06 PM EDT) HBV SURFACE ANTIBODY Negative [facility] Comment: Unvaccinated: Negative Vaccinated: Positive Blood 07/11/2023 12:0 6 PM EDT 07/11/2023 12:15 PM EDT Kendy MACE LAB BLOOD BKR ORDERABLES Fi nal Result Performing Organization Address [facility] Co de Phone Number [address] [address] * Hepatitis B surface antigen (07/11/2023 12:06 PM EDT) HBV SURFACE ANTIGEN NON-REACTI VE NON-REACTI VE [facility] Blood 07/11/2023 12:0 6 PM EDT 07/11/2023 12:15 PM EDT Kendy MACE LAB BLOOD BKR ORDERABLES Fi nal Result Performing Organization Address [facility] Co de Phone Number [address] [address] * Hepatitis B core antibody, IgM (07/11/2023 12:06 PM EDT) HEP B CORE IGM AB Negative Negative [facility] Comment:IgM anti-HBc not det ected. Does not exclude the possibility of exposure to or infection with HBV. Blood 07/11/2023 12:0 6 PM EDT 07/11/2023 12:52 PM EDT us Kendy MACE LAB BLOOD BKR ORDERABLES Fi nal Result [facility] [address] [facility] [address] [place] [address] * Liver fibrosis test (07/11/2023 12:06 PM EDT) Fibrosis score 0.14 [facility] Interpretation (Fibrosis) SEE NOTE [facility] Comment: (NOTE) no fibrosis Fibro [...] HCV Fibrosis Grade F0 Q [facility] NECROINFLAMM SCORE 0.11 Q [facility] NECROINFLAMM GRADE A0 Q [facility] NECROINFLAMM INTERP SEE NOTE [facility] Comment: (NOTE) no activity ActiTest [...] A2 Macroglobulin 135 106 - 279 mg/dL [facility] Haptoglobin 191 43 - 212 mg/dL [facility] Apolipoprotein A1 126 101 - 198 mg/dL [facility] TOTAL BILIRUBIN 0.9 0.2 - 1.2 mg/dL [facility] GGT 33 3 - 55 U/L [facility] ALT 29 6 - 29 U/L [facility] Specimen/Product ID [id number] [facility] Comments (Chemistry) SEE NOTE [facility] Comment: (NOTE) The reliability of results is dependent on compliance with the preanalytical and analytical conditions recommended by [employer]. The tests have to be deferred for: [...] The performance characteristics have been determined by [facility]. It has not been cleared or approved by the U.S. Food and Drug Administration. Performance characteristics refer to the analytical performance of the test. [employer], the associated logo, [employer] and all associated [employer] corea are the registered trademarks of [employer]. All third democrat corea - (R) and (TM) - are the property of their respective owners. (C) [id number] [employer] Incorporated. All rights reserved. Blood 07/11/2023 12:0 6 PM EDT 07/11/2023 12:54 PM EDT us Kendy MACE LAB BLOOD BKR ORDERABLES Fi nal Result [facility] [facility] [address] [place] [address], [facility] [phone] * (ABNORMAL) Comprehensive metabolic panel (07/11/2023 12:06 PM EDT) Pathologist [facility] SODIUM 139 133 - 146 mmol/L [facility] POTASSIUM 3.9 3.3 - 5.1 mmol/L [facility] CHLORIDE 103 96 - 108 mmol/L [facility] CO2 23 21 - 35 mmol/L [facility] BUN 14 6 - 19 mg/dL [facility] CREATININE 0.70 0.5 - 1.5 mg/dL [facility] GLUCOSE 114(H) 70 - 99 mg/dL [facility] ALBUMIN 4.2 3.9 - 4.8 g/dL [facility] TOTAL PROTEIN 7.1 6.5 - 8.0 g/dL [facility] CALCIUM 9.7 8.4 - 10.3 mg/dL [facility] ALKALINE PHOSPHATASE 121(H) 39 - 117 U/L [facility] TOTAL BILIRUBIN 0.7 0.0 - 1.2 mg/dL [facility] AST 38(H) 0 - 37 U/L [facility] ALT 35 0 - 40 U/L [facility] GLOBULIN 2.9 1 - 4.8 g/dL [facility] EGFR 107 >59 mL/min/1.7 3m2 [facility] Comment:Estimated glomerular filtration rate calculated using the CKD-EPI refit equation. ANION GAP 17 10 - 20 mmol/L [facility] Blood 07/11/2023 12:0 6 PM EDT 07/11/2023 12:15 PM EDT us Kendy MACE LAB BLOOD BKR ORDERABLES Fi nal Result [facility] [address] [place] [address] * CBC (07/11/2023 12:06 PM EDT) WBC 9.82 4.00 - 11.00 K/uL [facility] RBC 4.55 3.72 - 5.30 M/uL [facility] HGB 13.6 10.6 - 15.5 g/dL [facility] HCT 40.7 32.0 - 45.0 % [facility] PLT 328 140 - 430 K/uL [facility] MCV 89.5 78.0 - 97.0 fL [facility] MCH 29.9 25.0 - 33.0 pg [facility] MCHC 33.4 32.0 - 36.0 g/dL [facility] RDW 12.6 11.0 - 16.0 % [facility] MPV 10.9 8.4 - 12.8 fl [facility] Blood 07/11/2023 12:0 6 PM EDT 07/11/2023 12:15 PM EDT Kendy MACE LAB BLOOD BKR ORDERABLES Fi nal Result Performing Organization Address [facility] Co de Phone Number [facility] [address] [place] [address] * Smooth Muscle Antibody (07/11/2023 12:06 PM EDT) SMOOTH MUSCLE AB NEGATIVE AT 1:20 [facility] Comment: Performing Physician, Sylvester Guevara M.D., [id number] Normal: Negative at 1:20 Blood 07/11/2023 12:0 6 PM EDT 07/11/2023 12:52 PM EDT Kendy MACE LAB BLOOD ORDERABLES Final Result Performing Organization Address City/[facility]/ZIP Co de Phone Number [address] [address] * Antinuclear antibody (MILAGROS) (07/11/2023 12:06 PM EDT) MILAGROS SCREEN ON HEP 2 Negative Negative [facility] Blood 07/11/2023 12:0 6 PM EDT 07/11/2023 12:15 PM EDT Kendy MACE LAB BLOOD BKR ORDERABLES Fi nal Result [facility] [address] [place] [address] * Anti-Mitochondrial Antibody (AMA) (07/11/2023 12:06 PM EDT) MITOCHONDRIAL AB NEGATIVE AT 1:20 [facility] Comment: Performing Physician, Sylvester Guevara M.D., [id number] Normal: Negative at 1:20 Blood 07/11/2023 12:0 6 PM EDT 07/11/2023 12:52 PM EDT us Kendy MACE LAB BLOOD ORDERABLES Final Result Performing Organization Address City/[facility] Co de Phone Number [address] [address] * Qzpod-1-rlawnkuuhpb phenotyping (07/11/2023 12:06 PM EDT) ALPHA 1 ANTITRYPSIN 146 100 - 190 mg/dL [facility] Comment: (NOTE) ADDITIONAL INFORMATION Method: Nephelometry A1A PHENOTYPE MODERATELY SUSCEPTIBLE bands [facility] Comment: (NOTE) Heterozygous for M and S isoforms. This phenotype is usually associated with normal qgryy-0-metcspajswa concentrations. ADDITIONAL INFORMATION Method: Isoelectric Focusing, This assay identifies the phenotype of the circulating uqxpf-5-guaykycjhfz (A1A) protein. If the patient is on replacement therapy or has been recently transfused, the phenotype will detect patient and replacement or transfused plasma A1A protein. This test also cannot detect a null allele which could be responsible for an A1A deficiency. Blood 07/11/2023 12:0 6 PM EDT 07/11/2023 12:52 PM EDT us Kendy MACE LAB BLOOD ORDERABLES Final Result [facility] [address] [place] [address] documented in this encounter Visit Diagnoses Diagnosis [...] documented as of this encounter Care Teams Tree Cutter Relationship Specialty Start Date End Date Lola Bermudez PA [address] [place] [phone] PCP - General 03/20/17 07/23/23 Gabo Bermudez MD [address] [place] [address] PCP - General Family Medicine 07/24/23 04/21/24 Lola Bermudez PA [address] [place] [phone] PCP - General Physician Airline Security Representative 04/22/24 Nicole Ortiz, VARUN [address] [place] [address] PHCM Loom Operator 04/22/24 Marta Wang [address] [place] [address] [email or web address] PHCM Community Negotiator 05/07/24 05/07/24 Gabo Bermudez MD [address] [place] [address] Insurance Assigned Provider 01/29/25 Austyn Ngo, QUALITY CONTROL AUDITOR [address] [place] [address] [facility] Bleaching Machine Operator 01/18/25 Kar Reeder [address] [place] [phone] [email or web address] Bleaching Machine Operator 01/19/25 01/19/25 documented as of this encounter Additional Source Comments The information contained in this document represents components of the legal health record. It is not the complete legal health record.[facility]
--- OUTSIDE RECORDS SUMMARY | 2025-03-07 16:51 | XMS_ITS | Encounter Summary ---
Author Organization [facility] Address [address] [place] [address] Phone Care Team Providers Care Engine Lathe Set Up Operator Name Role Phone Lola Bermudez Primary Care Provider [phone] Gabo Bermudez MD Primary Care Provider [phone] Lola Bermudez Primary Care Provider + [phone] Nicole Ortiz RN Unavailable Marta Wang Unavailable [email or web address] Gabo Bermudez MD Unavailable [phone] Austyn Ngo Unavailable [phone] Kar Reeder Unavailable Reason for Referral * MRI/CAT Scan - Closed Specialty Diagnoses / Procedures Referred By Екатерина knapp Referred To Contact Radiology Diagnoses Numbness Multiple sclerosis Procedures MRI Thoracic Spine CHG MRI, DORSAL SPINE COMBO Gomez Brooks MD Phone: tel: fax: [email or web address] Referral ID Status Reason Start Date Expiration Date Visits Re quested Visits Authorized [id number] Closed 05/14/2021 11/10/2021 1 1 Encounter Details Date Type Department Care Team (Latest Contact Info) Description 05/15/2021 Transcribe Orders Virtual Department 30 [place] [address] Gomez Brooks MD 69 [facility], [address] [place] [address] [email or web address] Numbness (Primary Dx); Multiple sclerosis Social [...] Upcoming Encounters Date Type Department Care Team ([facility] Contact Info) Description 03/16/2025 10:15 AM EST Office Visit [facility] Physical Therapy Clinic [address] [place] [address] Jun Stinson, CONRAD [address] [place] [address] Minerva Cade, PT 8 [place] [address] 03/21/2025 1:00 PM EST Office Visit [facility] General Surgery Clinic [address] [place] [address] Isabell Valenzuela MD 15 [facility], 2nd [place] [address] 03/23/2025 12:45 PM EST Office Visit [facility] Physical Therapy Clinic [address] [place] [address] Jun Stinson, CONRAD [address] [place] [address] Minerva Cade, PT 8 [place] [address] 03/28/2025 12:45 PM EST Office Visit [facility] 8 [place] [address] Jun Stinson, COMMERCIAL LITIGATION [place]GAL [address] [place] [address] Minerva Cade, PT 8 [place] [address] 04/01/2025 12:45 PM EST Office Visit [facility] [address] [place] [address] Jun Stinson, CONRAD [address] [place] [address] Minerva Cade, PT 8 [place] [address] 04/04/2025 12:45 PM EST Office Visit [facility] [address] [place] [address] Jun Stinson, CONRAD [address] [place] [address] Minerva Cade, PT 8 [place] [address] 04/05/2025 11:30 AM EST Office Visit [facility] Infectious Diseases Clinic [address] [place] [address] Molly Sofia, CANE FLUME WATCHER [address] [facility], 2nd [place] [address] 04/08/2025 12:45 PM EST Office Visit [facility] [address] [place] [address] Jun Stinson, COMMERCIAL LITIGATION [place]GAL [address] [place] [address] Minerva Cade, PT 8 [place] [address] 04/11/2025 12:45 PM EST Office Visit [facility] [address] [place] [address] Jun Stinson, CONRAD [address] [place] [phone] Minerva Cade, PT 8 [place] [address] 04/15/2025 12:45 PM EST Office Visit [facility] 8 [place] [address] Jun Stinson, CONRAD [address] [place] [address] Minerva Cade, PT 8 [place] [address] 08/17/2025 10:00 AM EDT Office Visit [facility] [address] [facility], 8th Floor, [address] [place] [address] Molly Sofia, CANE FLUME WATCHER 15 [facility], 2nd [place] [address] documented as of this encounter Results * [...] sclerosis documented in this encounter Care Teams Engine Lathe Set Up Operator Relationship Specialty Start Date End Date Lola Bermudez PA [address] [place] [phone] PCP - General 03/20/17 07/23/23 Gabo Bermudez MD [address] [place] [address] PCP - General Family Medicine 07/24/23 04/21/24 Lola Bermudez PA [address] [place] [phone] PCP - General Physician Sailor 04/22/24 Nicole Ortiz RN [address] [place] [address] PHCM Bareback Rider 04/22/24 Marta Wang [address] [place] [phone] [email or web address] PHC Community Spring Clipper 05/07/24 05/07/24 Gabo Bermudez MD [address] [place] [address] Insurance Assigned Provider 01/29/25 Austyn Ngo LICSW [address] [place] [address] PHCM Payable Processor 01/18/25 Kar Reeder [address] [place] [phone] Payable Processor 01/19/25 01/19/25 documented as of this encounter Additional Source Comments The information contained in this document represents components of the legal health record. It is not the complete legal health record.[facility]
--- OUTSIDE RECORDS SUMMARY | 2025-03-07 16:51 | XMS_ITS | Clinical Summary ---
Author Organization [facility] it Address [address] [place] [address] Care Team Providers Care Waxer Tender Name Role Phone Unavailable Primary Care Provider [...] on file Sexual Orientation Not on file Plan of Treatment Health Maintenance Due Date Last Done Comments Breast Cancer Screening 1974 DTaP,Tdap,and Td Vaccines (1 - Tdap) 1993 Hepatitis B Vaccines (1 of 3 - 19+ 3-dose series) 1993 Cervical Cancer Screening: P ap Smear 10/11/1995 Depression Screening 03/17/2024 Pneumococcal Vaccine: 50+ Ye ars (1 of 1 - PCV) 2024 Zoster Vaccines (1 of 2) 2024 COVID-19 Vaccine (1 - 2024-2 6 season) 2024 Influenza Vaccine (#1) 2024 RSV [...]
--- OUTSIDE RECORDS SUMMARY | 2025-03-07 16:51 | XMS_ITS | Encounter Summary ---
Author Organization [facility] Address [address] [place] [address] Phone Care Team Providers Care Child Protective Services Specialist Name Role Phone Gabo Bermudez MD Primary Care Provider [phone] Lola Bermudez Primary Care Provider [phone] Nicole Ortiz RN Unavailable Marta Wang Unavailable [email or web address] Gabo Bermudez MD Unavailable [phone] Austyn Ngo Unavailable [phone] Kar Reeder Unavailable Encounter Details Date Type Department Care Team (Latest Contact Info) Description 09/09/2023 Transcribe Orders Virtual Department 30 [place] [address] Kendy Esquivel PA [address] [place] [address] [phone] Dysphagia, unspecified type (Primary Dx); Bloating Social [...] 03/16/2025 10:15 AM EST Office Visit [facility] 8 [place] [address] Jun Stinson, FUR BLOWING MACHINE OPERATOR 70 [place] [address] Minerva Cade, PT 8 [place] [address] 03/21/2025 1:00 PM EST Office Visit [facility] 15 [place] [address] Isabell Valenzuela MD 15 [facility], 2nd [place] [address] 03/23/2025 12:45 PM EST Office Visit [facility] [address] [place] [address] Jun Stinson, CONRAD 70 [place] [address] Minerva Cade, PT 8 [place] [address] 03/28/2025 12:45 PM EST Office Visit [facility] [address] [place] [address] Jun Stinson, FUR BLOWING MACHINE OPERATOR [address] [place] [address] Minerva Cade, PT 8 [place] [address] 04/01/2025 12:45 PM EST Office Visit [facility] [address] [place] [address] Jun Stinson, FUR BLOWING MACHINE OPERATOR [address] [place] [address] Minerva Cade, PT 8 [place] [address] 04/04/2025 12:45 PM EST Office Visit [facility] [address] [place] [address] Jun Stinson, FUR BLOWING MACHINE OPERATOR [address] [place] [address] Minerva Cade, PT 8 [place] [address] 04/05/2025 11:30 AM EST Office Visit [facility] 22 [place] [address] Molly Sofia, MACK 15 [facility], 2nd [place] [address] 04/08/2025 12:45 PM EST Office Visit [facility] [address] [place] [address] Jun Stinson, CONRAD [address] [place] [address] Minerva Cade, PT 8 [place] [address] 04/11/2025 12:45 PM EST Office Visit [facility] 8 [place] [address] Jun Stinson, CONRAD [address] [place] [address] Minerva Cade, PT 8 [place] [address] 04/15/2025 12:45 PM EST Office Visit [facility] [address] [address] Jun Stinson, CONRAD 70 [place] [address] Minerva Cdae, PT 8 [place] [address] 08/17/2025 10:00 AM EDT Office Visit [facility] [address] [place] [address], 8th Floor, [address] [place] [address] Molly Sofia, MACK 15 [facility], 2nd [place] [address] documented as of this encounter Results * [...] 53 seconds NUMBER OF IMAGES: 882 ATTESTATION: I, Jun Andre as teaching physician, have reviewed the images [...] 53 seconds NUMBER OF IMAGES: 882 ATTESTATION: I, Jun Andre as teaching physician, have reviewed theimages for [...] documented as of this encounter Care Teams Child Protective Services Specialist Relationship Specialty Start Date End Date Gabo Bermudez MD [address] [place] [address] PCP - General Family Medicine 07/24/23 04/21/24 Lola Bermudez PA [address] [place] [phone] PCP - General Physician Muffler Tender 04/22/24 Nicole Ortiz, VARUN [address] [place] [address] PHCM Product Line Manager 04/22/24 Marta Wang [address] [place] [address] [email or web address] PHCM Community Celluloid Trimmer 05/07/24 05/07/24 Gabo Bermudez MD [address] [place] [address] Insurance Assigned Provider 01/29/25 Austyn Ngo, CHAIR INSTALLER 10 [place] [address] [email or web address] [facility] Public Employment Mediator 01/18/25 Kar Reeder [address] [place] [address] [email or web address] Public Employment Mediator 01/19/25 01/19/25 documented as of this encounter Additional Source Comments The information contained in this document represents components of the legal health record. It is not the complete legal health record.[facility]
--- OUTSIDE RECORDS SUMMARY | 2025-03-07 16:52 | XMS_ITS | Encounter Summary ---
Author Organization [facility] Address [address] [place] [address] Phone Care Team Providers Care Staff Training And Development Manager Name Role Phone Lola Bermudez Primary Care Provider [phone] Gabo Bermudez MD Primary Care Provider Lola Bermudez Primary Care Provider Nicole Ortiz RN Unavailable Marta Wang Unavailable sandra Gabo Bermudez MD Unavailable Austyn Ngo Unavailable [phone] Kar Reeder Unavailable Encounter Details Date Type Department Care Team (Late st Contact Info) Description 04/04/2021 Procedure Pass [facility], [address] [address] Social History Tobacco Use Types Packs/Day Years [...] 03/16/2025 10:15 AM EST Office Visit [facility] [address] [place] [address] Jun Stinson, PLASTIC SURGERY MANAGER 70 [place] [address] Minerva Cade, PT 8 [place] [address] 03/21/2025 1:00 PM EST Office Visit [facility] [address] [place] [address] Isabell Valenzuela MD 15 [facility], 2nd [place] [address] 03/23/2025 12:45 PM EST Office Visit [facility] [address] [place] [address] Jun Stinson, PLASTIC SURGERY MANAGER 70 [place] [address] Minerva Cade, PT 8 [place] [address] 03/28/2025 12:45 PM EST Office Visit [facility] [address] [place] [address] Jun Stinson, CONRAD 70 [place] [address] Minerva Cade, PT 8 [place] [address] 04/01/2025 12:45 PM EST Office Visit [facility] [address] [place] [address] Jun Stinson, PLASTIC SURGERY MANAGER 70 [place] [address] Minerva Cade, PT 8 [place] [address] 04/04/2025 12:45 PM EST Office Visit [facility] [address] [place] [address] Jun Stinson, PLASTIC SURGERY MANAGER 70 [place] [address] Minerva Cade, PT 8 [place] [address] 04/05/2025 11:30 AM EST Office Visit [facility] Diseases [facility] 22 [place] [address] Molly Sofia, DUE DILIGENCE COORDINATOR 15 [facility], 2nd [place] [address] 04/08/2025 12:45 PM EST Office Visit [facility] [address] [place] [address] Jun Stinson, CONRAD 70 [place] [address] Minerva Cade, PT 8 [place] [address] 04/11/2025 12:45 PM EST Office Visit [facility] [address] [place] [address] Jun Stinson, PLASTIC SURGERY MANAGER 70 [place] [address] Minerva Cade, PT 8 [place] [address] 04/15/2025 12:45 PM EST Office Visit [facility] 8 [place] [address] Jun Stinson, PLASTIC SURGERY MANAGER 70 [place] [address] Minerva Cade, PT 8 [place] [address] 08/17/2025 10:00 AM EDT Office Visit [facility] [address] [place] [address], 8th Floor, [address] [place] [address] Molly Sofia, MACK 15 [facility], 2nd [place] [address] documented as of this encounter Visit Diagnoses Not on filedocumented in this encounter Care Teams Staff Training And Development Manager Relationship Specialty Start Date End Date Lola Bermudez PA 70 [place] [phone] PCP - General 03/20/17 07/23/23 Gabo Bermudez MD 70 [place] [address] PCP - General Family Medicine 07/24/23 04/21/24 Lola Bermudez PA 70 [place] [phone] PCP - General Physician Burrer Marker Axle 04/22/24 Nicole Ortiz, VARUN [address] [place] [address] PHCM Cinder Crew Worker 04/22/24 Marta Wang [address] [place] [address] [email or web address] PHC Community Regional Truck Driver 05/07/24 05/07/24 Gabo Bermudez MD [address] [place] [address] Insurance Assigned Provider 01/29/25 Austyn Ngo LICSW [address] [place] [address] PHC Team Physician 01/18/25 Kar Reeder [address] [place] [address] Team Physician 01/19/25 01/19/25 documented as of this encounter Additional Source Comments The information contained in this document represents components of the legal health record. It is not the complete legal health record.[facility]
--- OUTSIDE RECORDS SUMMARY | 2025-03-07 16:52 | XMS_ITS | Encounter Summary ---
Author Organization [facility] Address [address] [place] [address] Phone Care Team Providers Care Winding Department Supervisor Name Role Phone Lola Bermudez Primary Care Provider [phone] Gabo Bermudez MD Primary Care Provider [phone] Lola Bermudez Primary Care Provider + [phone] Nicole Ortiz RN Unavailable Marta Wang Unavailable [email or web address] Gabo Bermudez MD Unavailable [phone] Austyn Ngo Unavailable [phone] Kar Reeder Unavailable Reason for Referral * MRI/CAT Scan - Closed Specialty Diagnoses / Procedures Referred By Екатерина knapp Referred To Contact Radiology Diagnoses Neck pain Lhermitte-Conrado Disease Arm numbness Procedures MRI Cervical Spine CHG MRI, CERV SPINE COMBO Gomez Brooks MD Phone: tel: fax: [email or web address] Referral ID Status Reason Start Date Expiration Date Visits Re quested Visits Authorized [id number] Closed 04/04/2021 10/01/2021 1 1 Encounter Details Date Type Department Care Team (Latest Contact Info) Description 04/04/2021 Transcribe Orders Virtual Department 30 [place] [address] Gomez Brooks MD 69 [facility], [address] [place] [address] [email or web address] Neck pain (Primary Dx); Lhermitte-Conrado Disease; [...] 03/16/2025 10:15 AM EST Office Visit [facility] 8 [place] [address] Jun Stinson, ELECTRIFICATION ADVISER 70 [place] [address] Minerva Cade, PT 8 [place] [address] 03/21/2025 1:00 PM EST Office Visit [facility] 15 [place] [address] Isabell Valenzuela MD 15 [facility], 2nd [place] [address] 03/23/2025 12:45 PM EST Office Visit [facility] 8 [place] [address] Jun Stinson, ELECTRIFICATION ADVISER 70 [place] [address] Minerva Cade, PT 8 [place] [address] 03/28/2025 12:45 PM EST Office Visit [facility] 8 [place] [address] Jun Stinson, ELECTRIFICATION ADVISER 70 [place] [address] Minerva Cade, PT 8 [place] [address] 04/01/2025 12:45 PM EST Office Visit [facility] [address] [place] [address] Jun Stinson, ELECTRIFICATION ADVISER [address] [place] [address] Minerva Cade, PT 8 [place] [address] 04/04/2025 12:45 PM EST Office Visit [facility] 8 [place] [address] Jun Stinson, ELECTRIFICATION ADVISER 70 [place] [address] Minerva Cade, PT 8 [place] [address] 04/05/2025 11:30 AM EST Office Visit [facility] [address] [place] [address] Molly Sofia, SENIOR EXECUTIVE COMPENSATION ANALYST [address] [address] 04/08/2025 12:45 PM EST Office Visit [facility] [address] [place] [address] Jun Stinson, ELECTRIFICATION ADVISER [address] [place] [address] Minerva Cade, PT 8 [place] [address] 04/11/2025 12:45 PM EST Office Visit [facility] [address] [place] [address] Jun Stinson, ELECTRIFICATION ADVISER 70 [place] [address] Minerva Cade, PT 8 [place] [address] 04/15/2025 12:45 PM EST Office Visit [facility] [address] [place] [address] Jun Stinson, ELECTRIFICATION ADVISER 70 [place] [address] Minerva Cade, PT 8 [place] [address] 08/17/2025 10:00 AM EDT Office Visit [facility] 55 [facility], 8th Floor, [address] [place] [address] Molly Sofia FNP 15 [facility], [address] [place] [address] [email or web address] documented as of this encounter Results * [...] sensation documented in this encounter Care Teams Winding Department Supervisor Relationship Specialty Start Date End Date Lola Bermudez PA [address] [place] [phone] PCP - General 03/20/17 07/23/23 Gabo Bermudez MD [address] [place] [address] PCP - General Family Medicine 07/24/23 04/21/24 Lola Bermudez PA [address] [place] [phone] PCP - General Physician Motor Scooter Repairer 04/22/24 Nicole Ortiz RN [address] [place] [address] PHCM Herbarium Worker 04/22/24 Marta Wang [address] [place] [address] [email or web address] PHCM Community Trimmer And Borer Machine Operator 05/07/24 05/07/24 Gabo Bermudez MD [address] [place] [address] Insurance Assigned Provider 01/29/25 Austyn Ngo LICSW [address] [place] [address] [facility] Barrel Finisher 01/18/25 Kar Reeder [address] [place] [address] Barrel Finisher 01/19/25 01/19/25 documented as of this encounter Additional Source Comments The information contained in this document represents components of the legal health record. It is not the complete legal health record.[facility]
--- OUTSIDE RECORDS SUMMARY | 2025-03-07 16:52 | XMS_ITS | Encounter Summary ---
Author Organization [facility] Address [address] [place] [address] Phone Care Team Providers Care Hide Shaker Name Role Phone Lola Bermudez Primary Care Provider [phone] Gabo Bermudez MD Primary Care Provider [phone] Lola Bermudez Primary Care Provider + [phone] Nicole Ortiz RN Unavailable Marta Wang Unavailable [email or web address] Gabo Bermudez MD Unavailable [phone] Austyn Ngo Unavailable [phone] Kar Reeder Unavailable Reason for Referral * Consultation (Elective) - Closed Specialty Diagnoses / Procedures Referred By Екатерина knapp Referred To Contact Diagnoses Malaise and fatigue Lola Bermudez PA [address] [place] [phone] Phone: tel: fax: [address] [address] Phone: tel: Referral ID Status Reason Start Date Expiration Date Visits Re quested Visits Authorized [id number] Closed 07/05/2022 07/06/2023 1 1 Encounter Details Date Type Department Care Team (Latest Contact Info) Description 07/05/2022 Transcribe Orders [facility] 22 [facility] 3rd Floor, [address] [place] [address] Lola Bermudez PA 70 [place] [address] Malaise and fatigue (Primary Dx) Social History Tobacco Use Types Packs/Day Years Used Date Smoking Tobacco: Former Cigarettes 2 2020 Smokeless Tobacco: Never Comments:2-3 cigs a [...] Visit [facility] [address] [place] [address] Jun Stinson, TELEPHONE OPERATOR 70 [place] [address] Minerva Cade, PT 8 [place] [address] 03/21/2025 1:00 PM EST Office Visit [facility] [address] [place] [address] Isabell Valenzuela MD 15 [facility], 2nd [place] [address] 03/23/2025 12:45 PM EST Office Visit [facility] [address] [place] [address] Jun Stinson, TELEPHONE OPERATOR 70 [place] [address] Minerva Cade, PT 8 [place] [address] 03/28/2025 12:45 PM EST Office Visit [facility] [address] [place] [address] Jun Stinson, TELEPHONE OPERATOR 70 [place] [address] Minerva Cade, PT 8 [place] [address] 04/01/2025 12:45 PM EST Office Visit [facility] [address] [place] [address] Jun Stinson, TELEPHONE OPERATOR 70 [place] [address] Minerva Cade, PT 8 [place] [address] 04/04/2025 12:45 PM EST Office Visit [facility] [address] [place] [address] Jun Stinson, TELEPHONE OPERATOR 70 [place] [address] Minerva Cade, PT 8 [place] [address] 04/05/2025 11:30 AM EST Office Visit [facility] [address] [place] [place] [address] Molly Sofia FNP 15 [facility], [address] [place] [address] 04/08/2025 12:45 PM EST Office Visit [facility] 8 [place] [address] Jun Stinson, CONRAD 70 [place] [address] Minerva Cade, PT 8 [place] [address] 04/11/2025 12:45 PM EST Office Visit [facility] [address] [place] [address] Jun Stinson, CONRAD 70 [place] [address] Minerva Cade, PT 8 [place] [address] 04/15/2025 12:45 PM EST Office Visit [facility] 8 [place] [address] Jun Stinson, CONRAD 70 [place] [address] Minerva Cade, PT 8 [place] [address] 08/17/2025 10:00 AM EDT Office Visit [facility] 55 [facility], 8th Floor, [address] [place] [address] Molly Sofia FNP 15 [facility], [address] [place] [address] Scheduled Referrals Name Type Priority Associated Diagnoses Order Schedule Ambulatory referral to [facility] Sleep Medicine Outpatient Referral Routine Malaise and fatigue Ordered: 07/05/2022 documented as of this encounter Visit Diagnoses Diagnosis Malaise and fatigue- Primary documented in this encounter Additional Health Concerns Assessment Noted Time PHQ-9 Depression Total Score: 17 022 11:17 AM EDT PHQ-2 Depression Total Score: 3 12/12/19 22 11:17 AM EDT documented as of this encounter Care Teams Hide Shaker Relationship Specialty Start Date End Date Lola Bermudez PA [address] [place] [phone] PCP - General 03/20/17 07/23/23 Gabo Bermudez MD [address] [place] [address] PCP - General Family Medicine 07/24/23 04/21/24 Lola Bermudez PA [address] [place] [phone] PCP - General Physician Implementation Technician 04/22/24 Nicole Ortiz RN [address] [place] [address] PHCM Plant Physiology Teacher 04/22/24 Marta Wang [address] [place] [address] [email or web address] PHCM Community Rat Breeder 05/07/24 05/07/24 Gabo Bermudez MD [address] [place] [address] Insurance Assigned Provider 01/29/25 Austyn Ngo LICSW [address] [place] [address] [facility] Production Gear Cutter 01/18/25 Kar Reeder [address] [place] [address] [email or web address] Production Gear Cutter 01/19/25 01/19/25 documented as of this encounter Additional Source Comments The information contained in this document represents components of the legal health record. It is not the complete legal health record.[facility]
--- OUTSIDE RECORDS SUMMARY | 2025-03-07 16:52 | XMS_ITS | Data Portability ---
Author Organization NAKITA Kamara s [address] Address [address] [place] [address] Assessment No assessment recorded. Plan of Treatment Reminders Order Date Submit Date Provider Last Modified By Organization Details Last Modified Time Details Appointments None record ed. Lab None record ed. Referral None record ed. Procedures None record ed. Surgeries None record ed. Imaging XR, foot, 3 or more view 023 09/14/19 23 [facility], [address] [place], [address], 3 19:56:56 Medication Orders None record ed. Patient TargetsNo targets recorded. Patient Instructions Encounter Date Encounter Id Patient Instructions Last Modified By Organization Details Last Modified Time 09/13/2022 [id number] Based on your presentation and exam, you [...] if you have any questions or concerns. [email or web address] Not available 09/13/2022 18:18:38 Reason for Referral None Reported. Results Created Date Observation Date Name Description Value Unit Range Abnormal Flag Note LastModifiedBy Organization Detail LastModifiedTime 09/14/19 23 09/13/2022 XR, foot, 3 or more view No observ ation record ed. [email or web address] [facility] [address] [place], [address], 09/13/2022 20:03:32 Result Notes None recorded. Problems Name Problem SNOMED Code Status Onset Date Resolution Date Notes Provider Name and Address Organization Details Recorded Time Diabetes mellitus 31717625 Active 2022 THEODORE barrios, [place] - [facility] 3 17:09:32 Hypertensive disorder 73636160 Active 2022 THEODORE barrios, [place] - [facility] 3 17:09:41 Restless legs syndrome 07874893 Active 2022 THEODORE ADAMS null, PA - [...] Name and Address Organization Details Recorded Time 576138 Product containin g penicilli n (product) medicatio n Not available Not available Not available 09/13/2022 85532 8001 SNOMED THEODORE barrios, [place] - [facility] 3 17:08:04 812968 Substance with sulfonami de structure and antibacte rial mechanism of action (substanc e) medicatio n Not available Not available Not available 09/13/2022 00396 8003 SNOMED THEODORE BRYAN barrios, PA - [facility] 3 17:08:09 365434 meloxicam medicatio n Not available Not available Not available 09/13/2022 41016 RxNorm THEODORE BRYAN barrios, [place] - [facility] 3 17:08:14 314321 Benadryl medicatio n Not available Not available Not available 09/13/2022 26691 7 RxNorm THEODORE BRYAN barrios, PA - [...] mass index (BMI) Body weight Oxygen saturation Heart rate Respiratory rate Body temperature Systolic And Diastolic Provider Name and Address Organization Details Last Updated DateTime 3 162.56 cm 35.2 kg/m2 96605.4 4 g 97 % 89 /min 18 /min 98.5 [degF] 111/73 mm[Hg] THEODORE Sarmiento [facility] 3 17:13:14 Social History Question Answer Notes LastModified by Organizat ion Details LastModified Time Tobacco Smoking Status Never Smoker NAKITA Eastman [facility] 09/13/2022 17:10:13 Which Illicit Or Recreational [...] or 50 mcg/0.25mL dose 2 completed THEODORE ADAMS null, PA - [...] [facility] 09/13/2022 17:07:56 Tdap 0 completed THE[facility] GOODHIND null, [facility] - [facility] [...] PA - [facility] 09/13/2022 17:07:56 Novel [id number], nasal 9 completed THEODORE ADAMS null, PA [...] split virus, quadrivalent, PF 9 completed THEODORE ADAMS null, PA - [facility] 09/13/2022 17:07:56 Influenza, split virus, quadrivalent, PF 1 completed THEODORE ADAMS null, PA - [facility] 09/13/2022 17:07:56 Past Encounters Encounter ID Performer Location Encounter Start Date Encounter Closed Date Diagnosis/Indication Diagnosis SNOMED-CT Code Diagnosis ICD10 Code Diagnosis IMO Codes Diagnosis Note [id number] [address] [place] [address] 06/27/2016 16:33:56 06/27/2016 17:15:58 [id number] [address] [place] [address] 09/26/2020 09:31:57 09/26/2020 10:18:46 [id number] [address] [place] [address] 03/22/2016 17:46:10 03/22/2016 19:34:01 [id number] [address] [place] [address] 12/24/2016 19:17:38 12/24/2016 19:57:58 [id number] [address] [place] [address] 09/22/2019 13:12:33 09/22/2019 14:50:48 [id number] [address] [place] [address] 04/29/2018 19:54:02 04/29/2018 20:23:00 [id number] [address] [place] [address] 10/22/2017 11:33:16 10/22/2017 12:50:10 [id number] [address] [place] [address] 02/21/2018 19:29:21 02/21/2018 19:57:06 [id number] [address] [place] [address] 05/14/2019 12:41:28 05/14/2019 13:23:22 [id number] [address] [place] [address] 05/01/2018 17:34:59 05/01/2018 18:25:40 [id number] [address] [place] [address] 08/23/2019 18:57:13 08/23/2019 19:29:12 [id number] [address] [place] [address] 12/24/2016 19:25:41 12/24/2016 19:33:55 [id number] [address] [place] [address] 12/26/2018 18:21:22 12/26/2018 18:45:03 [id number] [address] [place] [address] 10/07/2016 18:38:59 10/07/2016 19:09:45 [id number] [address] [place] [address] 11/03/2016 18:56:31 11/03/2016 19:45:28 [id number] [address] [place] [address] 07/08/2020 15:57:16 07/08/2020 16:55:25 [id number] NAKITA MARQUEZ [address] [place] [address] 09/13/2022 14:11:56 09/13/2022 18:20:38 Pain in right foot 1022325694 35941 M79.671 X-ray appears clear no evidence of fracture. + anterior and posterior heel spur. X-ray did not show any signs of fracture- I will send it to the radiologis t for confirmati on. If they see something that I missed I will call you with those results. I would plan visit with your nipple threader Contusion of right foot [id number] S90.31XA Health Concerns Section Related Observation LastModified by Organization Detai ls LastModified Time None Recorded Concern Status LastModified by Organization Details LastModified Time None Recorded Advance Directives Directive None Recorded Payers Insurance Date Sequence Insurance Name Policy Number Policy Topete Covered Member ID Topete Member ID Guarantor Name 09/13/2022 1 [facility] [id number] 1 Kelly White [id number] Kelly Cindy Notes Date Note Type Note [...] 5th.).History of ankle fracture. NAKITA MARQUEZ [address] [place], [address], [place] - [facility] 09/13/2022 18:20:09 OBGyn Episode No OBEpisode recorded.
--- OUTSIDE RECORDS SUMMARY | 2025-03-07 16:52 | XMS_ITS | Clinical Summary ---
Author Organization [facility] Address [address] [place] [address] Phone Care Team Providers Care Strategic Sourcing Specialist Name Role Phone Marco Antonio Bermudez Primary Care Provider [phone] Nicole Ortiz RN Unavailable Gabo Bermudez MD Unavailable Austyn Ngo CARAMEL COLORING OPERATOR Unavailable [phone] Allergies Active Allergy Reactions Criticality Noted Date [...] (gas). 20 tablet 1 5 Active multivitamin-m [id number]-[id number]-vit K 45 mg iron- 800 mcg-120 mcg Cap Take by mouth. PATCHES Active COLLAGEN MISC by Miscellaneous route. Patches Active lidocaine (LIDODERM) 5 %Indications:A chilles tendinitis of right lower extremity Place 1 patch onto the skin daily. Remove & Discard patch within 12 hours or as directed by 30 patch 5 Active traZODone (DESYREL) 100 MG [...] employment income; receives SSI for son, receives TAFDC as emergency assistance while pt waits for disability decision; receives SNAP Other Supports and Care Needs: pt has significant challenges with memory, needs reminders, written instructions/notes from providers and medical team Enrolled in [employer] (initially under name Integrated Care Management Program) since 05/07/2024; [facility] ID [id number] for transportation and other service needs Problem Noted Date Diagnosed Date Body mass index (BMI) of 25.0 to 25.9 in adult 0 11/22/2024 Assessment & Plan (01/24/2025 2:00 PM EST): This is a 49-year-old woman who underwent a laparoscopic sleeve gastrectomy with hiatal hernia repair in June. The patient has not been getting enough protein and only reports getting about 30 g of protein daily. There are some proteins that she cannot tolerate so she has been drinking a lot of soups that do not have enough protein in them. We went over better options for protein sources such as Stateless yogurt cottage cheese and she can tolerate chicken and fish. She will increase those and start some kind of strength training program. She will follow-up with the dietitian in 1 month follow-up with me again in 2 months timeframe. She we will continue current medications as reviewed. Assessment & Plan (11/22/2024 2:10 PM EDT): [...] overweight. Intestinal malabsorption following gastrectomy 0 11/22/2024 Bariatric surgery status 07/14/2024 Class 1 obesity due to exces [...] her protein in. I have recommended using Stateless yogurt or the Stateless yogurt smoothies or the cottage cheese and [...] protein shake or a protein bar or Stateless yogurt or cottage cheese to be consumed [...] testing. I have also referred Narendra to [facility] Neurology as our Neurology Department here at [facility] does not treat memory concerns related [...] we will contact patients to return to [facility] clinic. Current recommendation is to follow-up with [...] multifactorial. May consider enrolling in study through [facility] or [facility]. Encouraged pt to focus on optimizing sleep. [...] remains multifactorial. 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 Assessment & Plan [...] Encounters Date Type Department Care Team Description 03/07/2025 Patient Outreach [facility] Primary Care [address] [place] [phone] Austyn Ngo CARAMEL COLORING OPERATOR [facility] Care Plan Update ([employer] Care Plan Update attempt) 02/21/2025 Patient Outreach [facility] Primary Care [address] [place] [address] Nicole Ortiz, VARUN iCMP Care Plan Update ([employer] Plan of Care Update) 02/18/2025 Patient Outreach [facility] Primary Care [address] [place] [address] Austyn [facility]go [facility] Care Plan Update attempt) 02/14/2025 [facility] RISK SCORES SYSTEM GENERATED External System Generated Encounter [address] [place] [address] Unknown, Unknown, 02/03/2025 Patient Outreach [facility] Primary Care [address] [place] [address] Austyn Ngo LICSW iCMP Care Plan Update ([employer] Care Plan Update) 01/26/2025 Patient Outreach [facility] Primary Care [address] [place] [phone] Austyn Ngo CARAMEL COLORING OPERATOR iCMP Care Plan Update ([employer] Care Plan Update) 01/25/2025 Patient Outreach [facility] Primary Care [address] [place] [phone] Nicole Ortiz RN iCMP Care Plan Update ([employer] Plan of Care Update) 01/24/2025 1:00 PM EST Office Visit [facility] [address] [place] [address] Isabell Valenzuela MD Body mass index (BMI) of 25.0 to 25.9 in adult (Primary Dx); Bariatric surgery status; S/P laparoscopic sleeve gastrectomy 01/19/2025 Transcribe Orders [facility] [address] [place] [address] Kj Stinson, CONRAD Encounter for rehabilitation (Primary Dx) 01/18/2025 Patient Outreach [facility] Care [address] [place] [phone] Nicole Ortiz RN iCMP Care Plan Update ([employer] Plan of Care Update) 01/17/2025 MGP RISK SCORES SYSTEM GENERATED External System Generated Encounter [address] [place] [address] Unknown, Unknown, 01/12/2025 Patient Outreach [facility] Primary Care [address] [place] [phone] Nicole Ortiz RN iCMP Care Plan Update ([employer] Plan of Care Update) 01/12/2025 Telephone [facility]ious Disease Virtual Department [address] [place] [address] Molly Sofia FNP Referral for OT 01/06/2025 Telephone [facility] Infectious Disease Virtual Department [address] [place] [address] Molly Sofia FNP Referral Update 01/04/2025 Patient Outreach [facility] Primary Care [address] [place] [address] Nicole Ortiz, RN [facility] ([facility] Plan of Care Update) 12/31/2024 12:10 PM EDT - 12/31/2024 11:59 PM EDT Hospital Encounter [facility] [address] [place] [address] Isabell Valenzuela MD Discharge Disposition: Home or Self Care 12/31/2024 11:30 AM EDT Office Visit [facility] [address] [place] [address] Molly Sofia FNP Other fatigue (Primary Dx); Long COVID; Memory changes; Anxiety and depression 12/31/2024 [facility] RISK SCORES SYSTEM GENERATED External System Generated Encounter [address] [place] [address] Unknown, Unknown, 12/21/2024 11:00 AM EDT Nutrition [facility] [address] [place] [address] Roxana Grey LDN Bariatric surgery status (Primary Dx); Overweight (BMI 25.0-29.9) 12/17/2024 Patient Outreach [facility] Primary Care [address] [place] [phone] Nicole Ortiz, VARUN [facility] ([facility] Plan of Care Update) 12/13/2024 [facility] RISK SCORES SYSTEM GENERATED External System Generated Encounter [address] [place] [address] Unknown, UnknownMD 12/13/2024 Enrollment [facility] Care [address] [place] [address] from Last 3 Months Immunizations Immunization Administration Dates Next Due COVID-19 (Pre-01/06) Moderna Vaccine, mRNA, PF 07/07/2020,07/06/2020 [id number] 02/06/2009 INFLUENZA, SPLIT VIRUS, TRIV ALENT W/ [...] Sign Reading Time Taken Comments Blood Pressure 110/70 01/24/2025 12:00 PM EST Pulse 53 01/24/2025 12:00 PM EST Temperature 36.6 C (97.8 F) 01/24/2025 12:00 PM EST Respiratory Rate 17 07/15/2024 7:11 AM EDT Oxygen Saturation 99% 01/24/2025 12:00 PM EST Inhaled Oxygen Concentration 47.4% 01/11/2022 1 1:31 AM EDT Weight 60.1 kg (132 lb 9.6 oz) 01/24/2025 12:00 PM EST Height 154.9 cm (5' 1 ) 01/24/2025 12:00 PM EST Body Mass Index 25.05 01/24/2025 12:00 PM EST Plan of Treatment Upcoming Encounters Date Type Department Care Team (Late st Contact Info) Description 03/16/2025 10:15 AM EST [facility] [address] [place] [address] Kj Stinson, DEVIL TENDER [address] [place] [address] Minerva Cade, PT [address] [place] [address] 03/21/2025 1:00 PM EST Office Visit [facility] [address] [place] [address] Isabell Valenzuela MD [address] [facility], 2nd [place] [address] 03/23/2025 12:45 PM EST Office Visit [facility] [address] [place] [address] Kj Stinson, DEVIL TENDER [address] [place] [address] Minerva Cade, PT [address] [place] [address] 03/28/2025 12:45 PM EST Office Visit [facility] [address] [place] [address] Kj Stinson, DEVIL TENDER [address] [place] [address] Minerva Cade, PT [address] [place] [address] 04/01/2025 12:45 PM EST Office Visit [facility] [address] [place] [address] Kj Stinson, DEVIL TENDER [address] [place] [phone] Minerva Cade, PT [address] [place] [address] 04/04/2025 12:45 PM EST Office Visit [facility] [address] [place] [address] Kj Stinson, CONRAD [address] [place] [address] Minerva Cade, PT [address] [place] [address] 04/05/2025 11:30 AM EST Office Visit [facility] [address] [place] [address] Molly Sofia FNP [address] [address] 04/08/2025 12:45 PM EST Office Visit [facility] [address] [place] [address] Kj Stinson, CONRAD [address] [place] [address] Minerva Cade, PT [address] [place] [address] 04/11/2025 12:45 PM EST Office Visit [facility] [address] [place] [address] Kj Stinson, CONRAD [address] [place] [address] Minerva Cade, PT [address] [place] [address] 04/15/2025 12:45 PM EST Office Visit [facility] [address] [place] [address] Kj Stinson, CONRAD [address] [place] [address] Minerva Cade, PT [address] [place] [address] 08/17/2025 10:00 AM EDT Office Visit [facility] [address] [facility], 8th Floor, [address] [place] [address] Molly Sofia FNP [address] [place] [address] Health Maintenance Due Date Last Done Comments SMOKING Hx and SMOKELESS TOBACCO SCREENING 10/11/1987 COLOGUARD 10/11/2019 FIT TEST 10/11/2019 FOBT 10/11/2019 SIGMOIDOSCOPY 10/11/2019 VIRTUAL COLONOSCOPY 10/11/2019 PNEUMOCOCCAL VACCINES (50+ years) (2 of 2 - PCV) 03/22/2020 03/22/2019 REPEAT PHQ 04/19/2024 03/19/2024, 03/19/2024 URINE MICROALBUMIN/CREATININE RATIO 06/17/2024 06/18/2023 ZOSTER VACCINES (1 of 2) 2024 INFLUENZA VACCINE (#1) 2024 , 02/01/2021, 01/13/2020, Additional history exists COVID-19 VACCINE ( season) 2024 03/25/2021, 08/04/2020, 07/07/2020, Additional history exists DEPRESSION SCREENING 03/19/2025 03/19/2024, 03/19/19 25 DIABETIC EYE EXAM 03/25/2025 03/25/2024 HEMOGLOBIN A1C 07/01/2025 12/31/2024, 12/15, 03/03/2024, Additional history exists BLOOD PRESSURE 07/24/2025 01/24/2025 PAP SMEAR 10/31/2025 10/31/2022 LIPID PANEL 12/31/2025 12/31/2024, 02/14, 03/03/2024, Additional history exists MAMMOGRAM 03/05/2026 03/05/2024, 03/05/2024 COLONOSCOPY 02/01/2032 01/31/2022 COLORECTAL CANCER SCREENING 02/01/2032 Adult Td,Tdap Booster 08/29/2034 08/29/2024 , 08/21/2017, 12/27/2009 RSV VACCINE (1 - 1-dose 75+ series) 2049 HEPATITIS C SCREENING Completed 06/09/2024 , 06/09/2024, 07/11/2023, Additional history exists HIV ONE-TIME SCREENING (18-65 YEARS) Completed 06/09/2024 [...] Procedure Name Priority Date/Time Associated Diagnosis Comments 25-OH VITAMIN D Routine 12/31/2024 12:49 PM EDT Intestinal malabsorption following gastrectomy CBC Routine 12/31/2024 12:49 PM EDT Intestinal malabsorption following gastrectomy COMPREHENSIVE METABOLIC PANEL (CMP) Routine 12/31/2024 12:49 PM EDT Intestinal malabsorption following gastrectomy C-REACTIVE PROTEIN (CRP) Routine 12/31/2024 12:49 PM EDT Intestinal malabsorption following gastrectomy HEMOGLOBIN A1C Routine 12/31/2024 12:49 PM EDT Intestinal malabsorption following gastrectomy INSULIN LEVEL Routine 12/31/2024 12:49 PM EDT Intestinal malabsorption following gastrectomy IRON AND IRON BINDING CAPACITY Routine 12/31/2024 12:49 PM EDT Intestinal malabsorption following gastrectomy LIPID PANEL Routine 12/31/2024 12:49 PM EDT Intestinal malabsorption following gastrectomy PARATHYROID HORMONE (PTH) Routine 12/31/2024 12:49 PM EDT Intestinal malabsorption following gastrectomy THYROID STIMULATING HORMONE (TSH) Routine 12/31/2024 12:49 PM EDT Intestinal malabsorption following gastrectomy VITAMIN A Routine 12/31/2024 12:49 PM EDT Intestinal malabsorption following gastrectomy VITAMIN B1 (THIAMINE) Routine 12/31/2024 12:49 PM EDT Intestinal malabsorption following gastrectomy VITAMIN B12 Routine 12/31/2024 12:49 PM EDT Intestinal malabsorption following gastrectomy ZINC Routine 12/31/2024 12:49 PM EDT Intestinal malabsorption following gastrectomy HEPATITIS C VIRAL LOAD, PCR STAT 06/09/2024 12:45 PM EDT PAP TEST Routine 10/31/2022 12:00 AM EDT ENDOSCOPY, COLON 01/31/2022 11:1 8 AM EST from Last 3 Months or Most Recently Relevant to Health Maintenance Results * Zinc (12/31/2024 12:49 PM EDT) Zinc, S 70 60 - 106 mcg/dL [facility] Comment: (NOTE) ADDITIONAL INFORMATION This test was developed and its performance characteristics determined by [facility] in a manner consistent with CLIA requirements. This test has not been cleared or approved by the U.S. Food and Drug Administration. Blood 12/31/2024 12:4 9 PM EDT 12/31/2024 10:32 PM EDT us Isabell Valenzuela MD LAB BLOOD ORDERABLES Final Result [facility] [address] [place] [address] * (ABNORMAL) Comprehensive metabolic panel (12/31/2024 12:49 PM EDT) SODIUM 142 133 - 146 mmol/L [facility] POTASSIUM 4.3 3.3 - 5.1 mmol/L [facility] CHLORIDE 105 96 - 108 mmol/L [facility] CO2 28 21 - 35 mmol/L [facility] BUN 13 6 - 19 mg/dL [facility] CREATININE 0.90 0.5 - 1.5 mg/dL [facility] GLUCOSE 103(H) 70 - 99 mg/dL [facility] ALBUMIN 4.0 3.9 - 4.8 g/dL [facility] TOTAL PROTEIN 6.5 6.5 - 8.0 g/dL [facility] CALCIUM 9.6 8.4 - 10.3 mg/dL [facility] ALKALINE PHOSPHATASE 70 39 - 117 U/L [facility] TOTAL BILIRUBIN 0.8 0.0 - 1.2 mg/dL [facility] AST 20 0 - 37 U/L [facility] ALT 10 0 - 40 U/L [facility] GLOBULIN 2.5 1 - 4.8 g/dL [facility] EGFR 78 >59 mL/min/1.7 3m2 [facility] Comment:Estimated glomerular filtration rate calculated using the CKD-EPI refit equation. ANION GAP 13 10 - 20 mmol/L [facility] Blood 12/31/2024 12:4 9 PM EDT 12/31/2024 6:35 PM EDT us Isabell Valenzuela MD LAB BLOOD BKR ORDERABLES F inal Result Performing Organization Address City/[facility]/ZIP Co de Phone Number [address] [address] * Iron and iron binding capacity (12/31/2024 12:49 PM EDT) IRON 98 30 - 160 ug/dL [facility] IRON BINDING CAPACITY 267 228 - 428 ug/dL [facility] TRANSFERRIN SATURAT. 37 15 - 50 % [facility] Blood 12/31/2024 12:4 9 PM EDT 12/31/2024 6:35 PM EDT us Isabell Valenzuela MD LAB BLOOD BKR ORDERABLES F inal Result [address] [address] * Vitamin A (12/31/2024 12:49 PM EDT) VITAMIN A 35.7 32.5 - 78.0 mcg/dL [facility] Comment: (NOTE) ADDITIONAL INFORMATION This test was developed and its performance characteristics determined by [facility] in a manner consistent with CLIA requirements. This test has not been cleared or approved by the U.S. Food and Drug Administration. Blood 12/31/2024 12:4 9 PM EDT 12/31/2024 10:32 PM EDT us Isabell Valenzuela MD LAB BLOOD ORDERABLES Final Result Performing Organization Address City/[facility] Co de Phone Number [facility] [address] [place] [address] * 25-OH vitamin D (12/31/2024 12:49 PM EDT) Pathologist [facility] 25 [place] VIT D (TOTAL) 35 30 - 60 ng/mL [facility] Blood 12/31/2024 12:4 9 PM EDT 12/31/2024 6:35 PM EDT us Isabell Valenzuela MD LAB BLOOD BKR ORDERABLES F inal Result Performing Organization Address [facility] Co de Phone Number [address] [address] * Insulin Level (12/31/2024 12:49 PM EDT) INSULIN 20.4 2.6 - 25.0 uIU/mL [facility] Blood 12/31/2024 12:4 9 PM EDT 01/01/2025 11:33 AM EDT us Isabell Valenzuela MD LAB BLOOD BKR ORDERABLES F inal Result Performing Organization Address City/[facility]/ZIP Co de Phone Number [facility] [address] [place] [address] * (ABNORMAL) CBC (12/31/2024 12:49 PM EDT) WBC 7.95 4.00 - 11.00 K/uL [facility] RBC 4.25 4.00 - 5.20 M/uL [facility] HGB 13.2 12.0 - 16.0 g/dL [facility] HCT 38.5 36.0 - 46.0 % [facility] PLT 241 150 - 450 K/uL [facility] MCV 90.6 80.0 - 100.0 fL [facility] MCH 31.1(H) 27.0 - 31.0 pg [facility] MCHC 34.3 32.0 - 36.0 g/dL [facility] RDW 12.1 11.5 - 14.5 % [facility] MPV 11.3 8.4 - 12.0 fL [facility] NRBC 0.00 0.00 /100 WBCs [facility] ABSOLUTE NRBC 0.00 0.00 K/uL [facility] Blood 12/31/2024 12:4 9 PM EDT 12/31/2024 6:35 PM EDT Isabell Valenzuela MD LAB BLOOD BKR ORDERABLES F inal Result Performing Organization Address [facility] Co de Phone Number [address] [address] * C-Reactive Protein (12/31/2024 12:49 PM EDT) C REACTIVE PROTEIN 3.7 0.0 - 4.0 mg/L [facility] Blood 12/31/2024 12:4 9 PM EDT 12/31/2024 6:35 PM EDT us Isabell Valenzuela MD LAB BLOOD BKR ORDERABLES F inal Result Performing Organization Address City/[facility]/ZIP Co de Phone Number [address] [address] * TSH (12/31/2024 12:49 PM EDT) TSH 0.40 0.27 - 4.20 uIU/mL [facility] Blood 12/31/2024 12:4 9 PM EDT 12/31/2024 6:35 PM EDT Isabell Valenzuela MD LAB BLOOD BKR ORDERABLES F inal Result Performing Organization Address [facility] Co de Phone Number [facility] [address] [place] [address] * Vitamin B1 (thiamine) (12/31/2024 12:49 PM EDT) VITAMIN B1 84 70 - 180 nmol/L [facility] Comment: (NOTE) ADDITIONAL INFORMATION This test was developed and its performance characteristics determined by [facility] in a manner consistent with CLIA requirements. This test has not been cleared or approved by the U.S. Food and Drug Administration. Blood 12/31/2024 12:4 9 PM EDT 12/31/2024 10:32 PM EDT us Isabell Valenzuela MD LAB BLOOD ORDERABLES Final Result Performing Organization Address [facility] Co de Phone Number [facility] [address] [place] [address] * Parathyroid hormone (PTH) (12/31/2024 12:49 PM EDT) PARATHYROID HORMONE 31 15 - 65 pg/mL [facility] Blood 12/31/2024 12:4 9 PM EDT 12/31/2024 6:55 PM EDT Isabell Valenzuela MD LAB BLOOD BKR ORDERABLES F inal Result [address] [address] * Hemoglobin A1c (12/31/2024 12:49 PM EDT) Pathologist [facility] HEMOGLOBIN A1C 4.9 4.3 - 5.8 % [facility] Blood 12/31/2024 12:4 9 PM EDT 12/31/2024 7:26 PM EDT Isabell Valenzuela MD LAB BLOOD BKR ORDERABLES F inal Result Performing Organization Address [facility]/ZIP Co de Phone Number [address] [address] * Vitamin B12 (12/31/2024 12:49 PM EDT) Pathologist [facility] VITAMIN B12 503 232 - 1,245 pg/mL [facility] Blood 12/31/2024 12:4 9 PM EDT 12/31/2024 6:35 PM EDT us Isabell Valenzuela MD LAB BLOOD BKR ORDERABLES F inal Result Performing Organization Address [facility] Co de Phone Number [address] [address] * Lipid panel (12/31/2024 12:49 PM EDT) Pathologist [facility] HDL 39 mg/dL [facility] Comment: Interpretation <40 mg/dL: Low HDL cholesterol (major risk factor for CHD) Greater than or equal to 60 mg/dL: High HDL cholesterol ( negative risk factor for CHD) HDL - cholesterol is affected by a number of factors, e.g. smoking, excerise, hormones, sex and age. CHOLESTEROL 171 0 - 240 mg/dL [facility] TRIGLYCERIDES 80 30 - 160 mg/dL [facility] LDL 116 50 - 129 mg/dL [facility] Comment: LDL levels in terms of risk for coronary heart disease: <100 mg/dL: Optimal 100-129 mg/dL: Near or above optimal 130-159 mg/dL: Borderline high 160-189 mg/dL: High >190 mg/dL: Very High CARDIAC RISK RATIO 4.4 3.3 - 4.4 [facility] Blood 12/31/2024 12:4 9 PM EDT 12/31/2024 7:10 PM EDT us Isabell Valenzuela MD LAB BLOOD BKR ORDERABLES F inal Result Performing Organization Address [facility] Co de Phone Number [address] [address] * Hepatitis C viral load (PCR) (06/09/2024 12:45 PM EDT) [facility] HCV RNA DETECT/QNT Undetected Undetected IU/mL [facility] Comment: (NOTE) Result in log IU/mL is Undetected. ADDITIONAL INFORMATION The quantification range of this assay is 15 to 100,000,000 IU/mL (1.18 log to 8.00 log IU/mL). Testing was performed using the pia HCV test ([employer] Blood (Blood) 06/09/2024 12: 45 PM EDT 06/09/2024 12:47 PM EDT us hSerly Salmeron MD LAB BLOOD BKR ORDERABLES Monica l Result Performing Organization Address [facility] Co de Phone Number [facility] [address] [place] [address] * Pap Test (10/31/2022 12:00 AM EDT) 10/31/2022 11/01/2022 8:4 8 AM EDT Narrative SEE NARRATIVE - 11/07/2022 9:13 AM EDT [address] [address] Research Chemical Engineer: Rosaura Sarkar MD [employer] Cytology Report FINAL DIAGNOSIS A. PAP SMEAR ([facility]) CE: SPECIMEN ADEQUACY: Satisfactory for evaluation; transformation zone present. INTERPRETATION: NEGATIVE FOR INTRAEPITHELIAL LESION OR MALIGNANCY. Electronically Signed Out By: MD Nyasia Drummond CT(ASCP) CELENA George(ASCP) By his/her signature above, [...] 59, 66, 68) Note: Testing performed by [employer] HR-HPV analysis. Clinical correlation is advised. This HPV test was performed at [facility], [address] [place] [address]. This test has been FDA approved for [facility] cervical cytology specimens. The accuracy and precision of this test for all other specimen sources has been verified in the Cytopathology Laboratory of the [facility] and has not been cleared or approved by the U.S. Food and Drug Administration. Clinical correlation is advised. CLINICAL HISTORY Date of Last Menstrual Period: 07-15-2021 Menstrual History: Post Menopausal Bleeding, PM Other Clinical Conditions: Screening Pap SPECIMEN SOURCE A: PAP SMEAR ([facility]PATH) CE Patient Name: NARENDRA WHITE : 1975 (Age: 47) Sex: F Institution: [facility] Location: [facility] Date of Collection: 10/31/2022 Date of Reported: [...] 47 Admit Type: Outpatient Gender: Female Room: [place] [id number] Referring MD: MARCO ANTONIO BERMUDEZ MD Exam [...] monitored continuously. The Olympus adult variable colonoscope [id number] #[id number] was introduced through the anus and [...] 11:18 AM Procedure Code(s): --- Professional --- 38576, Colonoscopy, flexible; diagnostic, including collection of specimen(s) by brushing or washing, when performed (separateprocedure) --- Technical --- 51214, Colonoscopy, flexible; diagnostic, including collection of specimen(s) by brushing or washing, when performed (separateprocedure) Diagnosis Code(s): --- Professional --- Z12.11, Encounter for screening for malignantneoplasm of colon --- Technical --- Z12.11, Encounter for screening for malignantneoplasm of colon CPT copyright 2020 [employer]. All rights reserved. The codes documented in this report are preliminary and upon assembler deck and hull reviewmay be revised to meet current compliance requirements. Procedure Date: 01/31/2022 11:18:[address] [place] [address] Marco Antonio MACE GI PROCEDURE ORDERABLES Fi nal Result from Last 3 Months or Most Recently Relevant to Health Maintenance Insurance [facility] ACO [facility]CO [facility] A[facility] ACO Advance Directives For more information, please contact: [phone] (9AM - 5PM [facility], Friday-Friday) Documents on File Type Date Recorded Patient Reception Manager Expl anation Healthcare Proxy 07/14/2024 Sherif Maurice Evan * Full Code (Latest Code Status on [...] Care Agent (Proxy form on file) Stella Medill Alternate Health care Agent (Proxy form on file) Care Teams Strategic Sourcing Specialist Relationship Specialty Start Date End Date Marco Antonio Bermudez PA [address] [place] [phone] PCP - General Physician Clay Miner 04/22/24 Nicole Ortiz, VARUN [address] [place] [address] PHCM Production Line Assembler 04/22/24 Gabo Bermudez MD [address] [place] [address] Insurance Assigned Provider 01/29/25 Austyn Ngo LICSW [address] [place] [address] PHCM Cardboard Inserter 01/18/25 Additional Source Comments The information contained in this document represents components of the legal health record. It is not the complete legal health record.[facility]
--- OUTSIDE RECORDS SUMMARY | 2025-03-07 16:52 | XMS_ITS | Encounter Summary ---
Author Organization [facility] Address [address] [place] [address] Phone Care Team Providers Care Curer Acid Drum Name Role Phone Lola Bermudez Primary Care Provider [phone] Nicole Ortiz RN Unavailable Gabo Bermudez MD Unavailable Austyn NgoSW Unavailable [phone] Kar Reeder Unavailable Encounter Details Date Type Department Care Team (Late st Contact Info) Description 07/14/2024 Procedure Pass OR Admitting Dept - Virtual Department [address] [place] [address] Social History Tobacco Use Types Packs/Day Years [...] Description 03/16/2025 10:15 AM EST Office Visit [facility] Physical Therapy Clinic 8 [place] [address] Jun Stinson, CONRAD 70 [place] [address] Minerva Cade, PT 8 [place] [address] 03/21/2025 1:00 PM EST Office Visit [facility] General Surgery Clinic 15 [place] [address] Isabell Valenzuela MD 15 [facility], 2nd [place] [address] 03/23/2025 12:45 PM EST Office Visit [facility] Physical Therapy Clinic [address] [place] [address] Jun Stinson, CONRAD 70 [place] [address] Minerva Cade, PT 8 [place] [address] 03/28/2025 12:45 PM EST Office Visit [facility] 8 [place] [address] Jun Stinson, CONRAD 70 [place] [address] Minerva Cade, PT 8 [place] [address] 04/01/2025 12:45 PM EST Office Visit [facility] [address] [place] [address] Jun Stinson, CONRAD 70 [place] [address] Minerva Cade, PT 8 [place] [address] 04/04/2025 12:45 PM EST Office Visit [facility] 8 [place] [address] Jun Stinson, CONRAD 70 [place] [address] Minerva Cade, PT 8 [place] [address] 04/05/2025 11:30 AM EST Office Visit [facility] Infectious Diseases Clinic [address] [place] [address] Molly Sofia, PROPOSAL EDITOR 15 [facility], 2nd [place] [address] 04/08/2025 12:45 PM EST Office Visit [facility] [address] [place] [address] Jun Stinson, CONRAD 70 [place] [address] Minerva Cade, PT 8 [place] [address] 04/11/2025 12:45 PM EST Office Visit [facility] [address] [place] [address] Jun Stinson, CONRAD 70 [place] [address] Minerva Cade, PT 8 [place] [address] 04/15/2025 12:45 PM EST Office Visit [facility] 8 [place] [address] Jun Stinson, CONRAD 70 [place] [address] Minerva Cade, PT 8 [place] [address] 08/17/2025 10:00 AM EDT Office Visit [facility]rology [facility] 55 [facility], 8th Floor, [address] [place] [address] Molly Sofia, PROPOSAL EDITOR 15 [facility], 2nd [place] [address] documented as of this encounter Visit Diagnoses Not on filedocumented in this encounter Additional Health Concerns Assessment Noted Time PHQ-9 Depression Total Score: 18 025 11:59 AM EST PHQ-2 Depression Total Score: 6 03/19/19 25 11:59 AM EST documented as of this encounter Care Teams Curer Acid Drum Relationship Specialty Start Date End Date Lola Bermudez PA 70 [place] [address] PCP - General Physician Convention Worker 04/22/24 Nicole Ortiz, VARUN 10 [place] [address] PHCM Asphalt Paving Superintendent 04/22/24 Gabo Bermudez MD 70 [place] [address] Insurance Assigned Provider 01/29/25 Austyn Ngo LICSW 10 [place] [address] PHC Lead Informatica Developer 01/18/25 Kar Reeder [address] [place] [address] Lead Informatica Developer 01/19/25 01/19/25 documented as of this encounter Additional Source Comments The information contained in this document represents components of the legal health record. It is not the complete legal health record.[facility]
--- OUTSIDE RECORDS SUMMARY | 2025-03-07 16:52 | XMS_ITS | Encounter Summary ---
Author Organization [facility] Address [address] [place] [address] Phone Care Team Providers Care Tombstone Setter Name Role Phone Lola Bermudez Unavailable [phone] Dominga Sosa MD Unavailable [phone] Destiney Slater MD Unavailable [phone] Jules Farr MD Unavailable [phone] Claude Roberson CNP Unavailable +[phone] Alex Harris MD Unavailable [phone] Lola Bermudez Primary Care Provider [phone] Gabo Bermudez MD Primary Care Provider [phone] Lola Bermudez Primary Care Provider [phone] Nicole Ortiz RN Unavailable Marta Wang Unavailable sandra Gabo Bermudez MD Unavailable +[phone] Austyn Ngo Unavailable [phone] Kar Reeder Unavailable Reason for Referral * MRI/CAT Scan - Closed Specialty Diagnoses / Procedures Referred By Contac t Referred To Contact Radiology Diagnoses Concussion without loss of consciousness, initial encounter Procedures CT Head Ranjana Kenney MD Phone: tel: fax: [email or web address] Referral ID Status Reason Start Date Expiration Date Visits Re quested Visits Authorized [id number] Closed 03/14/2020 09/10/2020 1 1 Encounter Details Date Type Department Care Team (Late Contact Info) Description 03/14/2020 Transcribe Orders Virtual Department 30 [place] [address] Ranjana Kenney MD 70 [place] [address] [email or web address] Concussion without loss of consciousness, initial encounter [...] Department Care Team (Late Contact Info) Description 03/16/2025 10:15 AM EST Office Visit [facility] [address] [place] [address] Jun Stinson, CONRAD 70 [place] [address] Minerva Cade, PT 8 [place] [address] 03/21/2025 1:00 PM EST Office Visit [facility] Surgery [facility] [address] [place] [address] Isabell Valenzuela MD 15 [facility], 2nd [place] [address] 03/23/2025 12:45 PM EST Office Visit [facility] Physical Therapy Clinic [address] [place] [address] Jun Stinson, BANQUET LINE COOK 70 [place] [address] Minerva Cade, PT 8 [place] [address] 03/28/2025 12:45 PM EST Office Visit [facility] Physical Therapy Clinic [address] [place] [address] Jun Stinson, BANQUET LINE COOK 70 [place] [address] Minerva Cade, PT 8 [place] [address] 04/01/2025 12:45 PM EST Office Visit [facility] Physical Therapy [address] [address] Jun Stinson, BANQUET LINE COOK 70 [place] [address] Minerva Cade, PT 8 [place] [address] 04/04/2025 12:45 PM EST Office Visit [facility] Physical Therapy Clinic [address] [place] [address] Jun Stinson, BANQUET LINE COOK [address] [place] [phone] Minerva Cade, PT 8 [place] [address] 04/05/2025 11:30 AM EST Office Visit [facility] Diseases [facility] [address] [place] [address] Patricia Sofiah Nazia, TOOL SALVAGE WORKER 15 [facility], 2nd [place] [address] 04/08/2025 12:45 PM EST Office Visit [facility] 8 [place] [address] Jun Stinson, BANQUET LINE COOK [address] [place] [phone] Minerva Cade, PT 8 [place] [address] 04/11/2025 12:45 PM EST Office Visit [facility] [address] [place] [address] Jun Stinson, BANQUET LINE COOK [address] [place] [phone] Minerva Cade, PT 8 [place] [address] 04/15/2025 12:45 PM EST Office Visit [facility] [address] [place] [address] Jun Stinson, BANQUET LINE COOK [address] [place] [phone] Minerva Cade, PT 8 [place] [address] 08/17/2025 10:00 AM EDT Office Visit [facility] Neurology and Integrated [facility] Medicine Clinic 55 [facility], 8th Floor, [address] [place] [address] Molly Sofia FNP 15 [facility], 2nd [place] [address] documented as of this encounter Results * [...] in the lateral ventricles is unchanged. No jvhcq-ifalv-usqba blood or fluid collection, mass, or mass effect is identified. Minor asymmetry and right- sided sulcation noted, present previously. No progressive volume loss overall. No twzvh-zbomg-jkfna blood or fluid collection, mass, or mass [...] asymmetry in the lateral ventricles is unchanged. Bgkguxh-footr-qorgc blood or fluid collection, mass, or mass effect isidentified. Minor asymmetry and right- sided sulcation noted, presentpreviously. No progressive volume loss overall. No ytdwp-ggmgr-ejjsi bloodor fluid collection, mass, or mass effect [...] encounter documented in this encounter Care Teams Tombstone Setter Relationship Specialty Start Date End Date Lola Bermudez PA 70 [place] [address] PCP - General 03/20/17 07/23/23 Gabo Bermudez MD 70 [place] [address] [email or web address] PCP - General Family Medicine 07/24/23 04/21/24 Lola Bermudez PA 70 [place] [address] PCP - General Physician World Travel Counselor 04/22/24 Lola Bermudez PA 70 [place] [address] Historical LMR Provider 12/31/16 2 Dominga Sosa MD [address] [place] [address] Historical LMR Provider 12/31/16 03/24/21 Destiney Slater MD [address] [place] [address] Historical LMR Provider 12/31/16 Jules Farr MD [address] [place] [address] Historical LMR Provider 12/31/16 03/24/21 Claude Roberson, RETAIL MERCHANDISING COORDINATOR [address] [place] [address] Historical LMR Provider 12/31/16 03/24/21 Alex Harris MD [address] [place] [address] Historical LMR Provider 12/31/16 2 Nicole Ortiz, VARUN [address] [place] [address] PHCM Care Tech 04/22/24 Marta Wang [address] [place] [address] [email or web address] PHCM Community Chemical Process Engineer 05/07/24 05/07/24 Gabo Bermudez MD 70 [place] [address] [email or web address] Insurance Assigned Provider 01/29/25 Austyn Ngo LICSW 10 [place] [address] [facility] Retail Advertising Executive 01/18/25 Kar Reeder [address] [place] [address] [email or web address] Retail Advertising Executive 01/19/25 01/19/25 documented as of this encounter Additional Source Comments The information contained in this document represents components of the legal health record. It is not the complete legal health record.[facility]
--- OUTSIDE RECORDS SUMMARY | 2025-03-07 16:52 | XMS_ITS | Encounter Summary ---
Author Organization [facility] Address [address] [place] [address] Phone Care Team Providers Care Inspector Elevators Name Role Phone Lola Bermudez Primary Care Provider [phone] Gabo Bermudez MD Primary Care Provider [phone] Lola Bermudez Primary Care Provider Nicole Ortiz RN Unavailable Marta Wang Unavailable sandra Gabo Bermudez MD Unavailable [phone] Austyn Ngo Unavailable [phone] Kar Reeder Unavailable Encounter Details Date Type Department Care Team (Late st Contact Info) Description 01/11/2022 Procedure Pass OR Admitting Dept - Virtual Department [address] [place] [address] Social History Tobacco Use Types Packs/Day Years [...] Description 03/16/2025 10:15 AM EST Office Visit [facility] Physical Therapy Clinic [address] [place] [address] Jun Stinson, STORE RECEIVER 70 [place] [address] Minerva Cade, PT 8 [place] [address] 03/21/2025 1:00 PM EST Office Visit [facility] Surgery Clinic 15 [place] [address] Isabell Valenzuela MD 15 [facility], 2nd [place] [address] 03/23/2025 12:45 PM EST Office Visit [facility] Therapy [facility] [address] [place] [address] Jun Stinson, CONRAD 70 [place] [address] Minerva Cade, PT 8 [place] [address] 03/28/2025 12:45 PM EST Office Visit [facility] Therapy [facility] [address] [place] [address] Jun Stinson, CONRAD 70 [place] [address] Minerva Cade, PT 8 [place] [address] 04/01/2025 12:45 PM EST Office Visit [facility] Therapy [facility] [address] [place] [address] Jun Stinson, STORE RECEIVER 70 [place] [address] Minerva Cade, PT 8 [place] [address] 04/04/2025 12:45 PM EST Office Visit [facility] Therapy [facility] [address] [place] [address] Jun Stinson, STORE RECEIVER 70 [place] [address] Minerva Cade, PT 8 [place] [address] 04/05/2025 11:30 AM EST Office Visit [facility] Infectious Diseases Clinic 22 [place] [address] Molly Sofia, ORE GRADER 15 [facility], 2nd [place] [address] 04/08/2025 12:45 PM EST Office Visit [facility] Therapy [facility] [address] [place] [address] Jun Stinson, STORE RECEIVER 70 [place] [address] Minerva Cade, PT 8 [place] [address] 04/11/2025 12:45 PM EST Office Visit [facility] Therapy [facility] [address] [place] [address] Jun Stinson, STORE RECEIVER 70 [place] [address] Minerva Cade, PT 8 [place] [address] 04/15/2025 12:45 PM EST Office Visit [facility] 8 [place] [address] Jun Stinson, STORE RECEIVER 70 [place] [address] Minerva Cade, PT 8 [place] [address] 08/17/2025 10:00 AM EDT Office Visit [facility]al Neurology [facility] Clinic [address] [place] [address], 8th Floor, [address] [place] [address] Molly Sofia, ORE GRADER 15 [facility], 2nd [place] [address] documented as of this encounter Visit Diagnoses Not on filedocumented in this encounter Additional Health Concerns Assessment Noted Time PHQ-9 Depression Total Score: 17 022 11:17 AM EDT PHQ-2 Depression Total Score: 3 12/12/19 22 11:17 AM EDT documented as of this encounter Care Teams Inspector Elevators Relationship Specialty Start Date End Date Lola Bermudez PA 70 [place] [address] PCP - General 03/20/17 07/23/23 Gabo Bermudez MD 70 [place] [address] PCP - General Family Medicine 07/24/23 04/21/24 Lola Bermudez PA 70 [place] [address] PCP - General Physician Construction Secretary 04/22/24 Nicole Ortiz, VARUN [address] [place] [address] PHCM Wallpaper Remover Steam 04/22/24 Marta Wang [address] [place] [address] [email or web address] PHCM Community Insurance Agency Manager 05/07/24 05/07/24 Gabo Bermudez MD [address] [place] [address] Insurance Assigned Provider 01/29/25 Austyn Ngo LICSW [address] [place] [address] PHCM Real Estate Utilization Officer 01/18/25 Kar Reeder [address] [place] [address] Real Estate Utilization Officer 01/19/25 01/19/25 documented as of this encounter Additional Source Comments The information contained in this document represents components of the legal health record. It is not the complete legal health record.[facility]
--- OUTSIDE RECORDS SUMMARY | 2025-03-07 16:52 | XMS_ITS ---
Author Organization [facility] Address [address] [facility] [address] [place] [address] Phone Care Team Providers Care Scrap Collector Name Role Phone Lola Bermudez Primary Care Provider + [phone] Nicole Ortiz RN Unavailable Gabo Bermudez MD Unavailable [phone] Austyn Ngo BEVEL MILL OPERATOR Unavailable [phone] Population Health Care Management (PHCM) Status:Enrolled (Active) Start date:04/22/2024 Enrollment date:04/22/2024 Current support & services provided:[facility]ARE [facility] Related social drivers of health:Housing Stability, Child or Family Care, Education, Food, Unemployment, Paying for Meds, Paying Utility Bills, Transportation, Digital Access, SNAP/WIC Case Team Name Relationship Phone Email Nicole Ortiz RN(Responsible Staff) Registered Nurse [phone] Austyn Ngo BEVEL MILL OPERATOR PHCM Air Conditioner Installer Helper [phone] baylee Candace Nava PHCM Milk Tester [email or web address] Continued Care and Services Coordination
--- OUTSIDE RECORDS SUMMARY | 2025-03-07 16:52 | XMS_ITS | Encounter Summary ---
Author Organization [facility] Address [address] [place] [address] Phone Care Team Providers Care Granite Polisher Name Role Phone Lola Bermudez Unavailable [phone] Dominga Sosa MD Unavailable [phone] Destiney Slater MD Unavailable [phone] Jules Farr MD Unavailable [phone] Claude Roberson CNP Unavailable [phone] Alex Harris MD Unavailable [phone] Lola Bermudez Primary Care Provider [phone] Gabo Bermudez MD Primary Care Provider [phone] Lola Bermudez Primary Care Provider [phone] Nicole Ortiz RN Unavailable Marta Wang Unavailable sandra Gabo Bermudez MD Unavailable +[phone] Austyn Ngo Unavailable [phone] Kar Reeder Unavailable Encounter Details Date Type Department Care Team (Late st Contact Info) Description 03/14/2020 Procedure Pass [facility], Ct Scan - [address] [address] Social History Tobacco Use Types Packs/Day Years [...] Description 03/16/2025 10:15 AM EST Office Visit [facility] Physical Therapy Clinic [address] [place] [address] Jun Stinson, AUTOMATIC TOE LASTER 70 [place] [address] Minerva Cade, PT 8 [place] [address] 03/21/2025 1:00 PM EST Office Visit [facility] General Surgery Clinic 15 [place] [address] Isabell Valenzuela MD 15 [facility], 2nd [place] [address] 03/23/2025 12:45 PM EST Office Visit [facility] Physical Therapy Clinic [address] [place] [address] Jun Stinson, CONRAD 70 [place] [address] Minerva Cade, PT 8 [place] [address] 03/28/2025 12:45 PM EST Office Visit [facility] Physical Therapy Clinic [address] [place] [address] Jun Stinson, CONRAD 70 [place] [phone] Minerva Cade, PT 8 [place] [address] 04/01/2025 12:45 PM EST Office Visit [facility] Physical Therapy Clinic [address] [place] [address] uJn Stinson, AUTOMATIC TOE LASTER 70 [place] [address] Minerva Cade, PT 8 [place] [address] 04/04/2025 12:45 PM EST Office Visit [facility] Physical Therapy Clinic [address] [place] [address] Jun Stinson, CONRAD 70 [place] [address] Minerva Cade, PT 8 [place] [address] 04/05/2025 11:30 AM EST Office Visit [facility] Infectious Diseases Clinic [address] [place] [address] Molly Sofia, POCKET CUTTER 15 [facility], 2nd [place] [address] 04/08/2025 12:45 PM EST Office Visit [facility] Physical Therapy Clinic [address] [place] [address] Jun Stinson, AUTOMATIC TOE LASTER 70 [place] [address] Minerva Cade, PT 8 [place] [address] 04/11/2025 12:45 PM EST Office Visit [facility] 8 [place] [address] Jun Stinson, CONRAD 70 [place] [address] Minerva Cade, PT 8 [place] [address] 04/15/2025 12:45 PM EST Office Visit [facility] [address] [address] Jun Stinson, CONRAD 70 [place] [phone] Minerva Cade, PT 8 [place] [address] 08/17/2025 10:00 AM EDT Office Visit [facility] 55 [facility], 8th Floor, [address] [place] [address] Molly Sofia, MACK 15 [facility], 2nd [place] [address] documented as of this encounter Visit Diagnoses Not on filedocumented in this encounter Care Teams Granite Polisher Relationship Specialty Start Date End Date Lola Bermudez PA 70 [place] [phone] PCP - General 03/20/17 07/23/23 Gabo Bermudez MD 70 [place] [address] PCP - General Family Medicine 07/24/23 04/21/24 Lola Bermudez PA 70 [place] [address] PCP - General Physician Cma 04/22/24 Lola Bermudez PA 70 [place] [address] Historical LMR Provider 12/31/16 2 Dominga Sosa MD [address] [place] [address] Historical LMR Provider 12/31/16 03/24/21 Destiney Slater MD [address] [place] [address] Historical LMR Provider 12/31/16 Jules Farr MD [address] [place] [address] Historical LMR Provider 12/31/16 03/24/21 Claude Roberson, CLAIM REP [address] [place] [address] Historical LMR Provider 12/31/16 03/24/21 Alex Harris MD [address] [place] [address] Historical LMR Provider 12/31/16 2 Nicole Ortiz RN [address] [place] [address] PHCM [address] Roller Operator 04/22/24 Marta Wang [address] [place] [address] [email or web address] PHC Community Coke Inspector 05/07/24 05/07/24 Gabo Bermudez MD [address] [place] [address] Insurance Assigned Provider 01/29/25 Austyn Ngo LICSW 10 [place] [address] PHC Pupil Personnel Services Director 01/18/25 Kar Reeder [address] [place] [address] Pupil Personnel Services Director 01/19/25 01/19/25 documented as of this encounter Additional Source Comments The information contained in this document represents components of the legal health record. It is not the complete legal health record.[facility]
--- OUTSIDE RECORDS SUMMARY | 2025-03-07 16:52 | XMS_ITS | Encounter Summary ---
Author Organization [facility] Address [address] [place] [address] Phone Care Team Providers Care Litharge Mill Operator Name Role Phone Lola Bermudez Primary Care Provider [phone] Gabo Bermudez MD Primary Care Provider [phone] Lola Bermudez Primary Care Provider Nicole Ortiz RN Unavailable Marta Wang Unavailable sandra Gabo Bermudez MD Unavailable Austyn Ngo Unavailable [phone] Kar Reeder Unavailable Encounter Details Date Type Department Care Team (Late st Contact Info) Description 01/31/2022 Procedure Pass [facility] Endoscopy Admitting Dept Virtual Department [address] [place] [address] Social History Tobacco Use Types Packs/Day Years [...] Description 03/16/2025 10:15 AM EST Office Visit [facility] Physical Therapy Clinic [address] [place] [address] Jun Stinson, HOTEL VALET ATTENDANT [address] [place] [address] Minerva Cade, PT 8 [place] [address] 03/21/2025 1:00 PM EST Office Visit [facility] 15 [place] [address] Isabell Valenzuela MD 15 [facility], 2nd [place] [address] 03/23/2025 12:45 PM EST Office Visit [facility] Physical Therapy Clinic [address] [place] [address] Jun Stinson, HOTEL VALET ATTENDANT [address] [place] [address] Minerva Cade, PT 8 [place] [address] 03/28/2025 12:45 PM EST Office Visit [facility] Physical Therapy Clinic [address] [address] Jun Stinson, CONRAD [address] [place] [address] Minerva Cade, PT 8 [place] [address] 04/01/2025 12:45 PM EST Office Visit [facility] Physical Therapy Clinic [address] [address] uJn Stinson, HOTEL VALET ATTENDANT [address] [place] [address] Minerva Cade, PT 8 [place] [address] 04/04/2025 12:45 PM EST Office Visit [facility] Physical Therapy Clinic [address] [address] Jun Stinson, HOTEL VALET ATTENDANT [address] [place] [address] Minerva Cade, PT 8 [place] [address] 04/05/2025 11:30 AM EST Office Visit [facility] Infectious Diseases Clinic 22 [place] [address] Molly Sofia, INTERNAL CONTROL ANALYST 15 [facility], 2nd [place] [address] 04/08/2025 12:45 PM EST Office Visit [facility] Physical Therapy Clinic [address] [place] [address] Jun Stinson, HOTEL VALET ATTENDANT [address] [place] [address] Minerva Cade, PT 8 [place] [address] 04/11/2025 12:45 PM EST Office Visit [facility] Physical Therapy Clinic [address] [address] Jun Stinson, CONRAD [address] [place] [address] Minerva Cade, PT 8 [place] [address] 04/15/2025 12:45 PM EST Office Visit [facility] 8 [place] [address] Jun Stinson, CONRAD [address] [place] [address] Minerva Cade, PT 8 [place] [address] 08/17/2025 10:00 AM EDT Office Visit [facility] Behavioral Neurology [facility] Medicine Clinic 55 [facility], 8th Floor, [address] [place] [address] Molly Sofia, INTERNAL CONTROL ANALYST 15 [facility], 2nd [place] [address] documented as of this encounter Visit Diagnoses Not on filedocumented in this encounter Additional Health Concerns Assessment Noted Time PHQ-9 Depression Total Score: 17 022 11:17 AM EDT PHQ-2 Depression Total Score: 3 12/12/19 22 11:17 AM EDT documented as of this encounter Care Teams Litharge Mill Operator Relationship Specialty Start Date End Date Lola Bermudez PA 70 [place] [phone] PCP - General 03/20/17 07/23/23 Gabo Bermudez MD 70 [place] [address] PCP - General Family Medicine 07/24/23 04/21/24 Lloa Bermudez PA 70 [place] [address] PCP - General Physician Mattress And Boxsprings Supervisor 04/22/24 Nicole Ortiz, RN [address] [place] [address] PHCM Experimental Display Builder 04/22/24 Marta Wang [address] [place] [phone] [email or web address] PHCM Community Derrick Worker Well Service 05/07/24 05/07/24 Gabo Bermudez MD 70 [place] [address] Insurance Assigned Provider 01/29/25 Austyn Ngo LICSW [address] [place] [address] PHCM Furniture Sander 01/18/25 Kar Reeder [address] [place] [address] Furniture Sander 01/19/25 01/19/25 documented as of this encounter Additional Source Comments The information contained in this document represents components of the legal health record. It is not the complete legal health record.[facility]
--- OUTSIDE RECORDS SUMMARY | 2025-03-07 16:52 | XMS_ITS | Encounter Summary ---
Author Organization [facility] Address [address] [place] [address] Phone Care Team Providers Care Parquetry Layer Name Role Phone Lola Bermudez Primary Care Provider [phone] Gabo Bermudez MD Primary Care Provider [phone] Lola Bermudez Primary Care Provider Nicole Ortiz RN Unavailable Marta Wang Unavailable sandra Gabo Bermudez MD Unavailable Austyn Ngo Unavailable [phone] Kar Reeder Unavailable Encounter Details Date Type Department Care Team (Late st Contact Info) Description 12/28/2021 Procedure Pass [place] Admitting Dept - Virtual Department [address] [place] [address] Social History Tobacco Use Types Packs/Day Years [...] Description 03/16/2025 10:15 AM EST Office Visit [facility] Physical Therapy Clinic [address] [place] [address] Jun Stinson, PAINT PROCESS ENGINEER 70 [place] [address] Minerva Cade, PT 8 [place] [address] 03/21/2025 1:00 PM EST Office Visit [facility] 15 [place] [address] Isabell Valenzuela MD 15 [facility], 2nd [place] [address] 03/23/2025 12:45 PM EST Office Visit [facility] Physical Therapy Clinic [address] [place] [address] Jun Stinson, CONRAD 70 [place] [address] Minerva Cade, PT 8 [place] [address] 03/28/2025 12:45 PM EST Office Visit [facility] Physical Therapy Clinic [address] [place] [address] Jun Stinson, CONRAD 70 [place] [address] Minerva Cade, PT 8 [place] [address] 04/01/2025 12:45 PM EST Office Visit [facility] Physical Therapy Clinic [address] [place] [address] Jun Stinson, PAINT PROCESS ENGINEER 70 [place] [address] Minerva Cade, PT 8 [place] [address] 04/04/2025 12:45 PM EST Office Visit [facility] Physical Therapy Clinic [address] [place] [address] Jun Stinson, PAINT PROCESS ENGINEER 70 [place] [address] Minerva Cade, PT 8 [place] [address] 04/05/2025 11:30 AM EST Office Visit [facility] Infectious Diseases Clinic 22 [place] [address] Molly Sofia, OUTDOOR ADVENTURE LEADER 15 [facility], 2nd [place] [address] 04/08/2025 12:45 PM EST Office Visit [facility] Physical Therapy Clinic [address] [place] [address] Jun Stinson, PAINT PROCESS ENGINEER 70 [place] [address] Minerva Cade, PT 8 [place] [address] 04/11/2025 12:45 PM EST Office Visit [facility] Physical Therapy Clinic [address] [place] [address] Jun Stinson, PAINT PROCESS ENGINEER 70 [place] [address] Minerva Cade, PT 8 [place] [address] 04/15/2025 12:45 PM EST Office Visit [facility] 8 [place] [address] Jun Stinson, PAINT PROCESS ENGINEER 70 [place] [address] Minerva Cade, PT 8 [place] [address] 08/17/2025 10:00 AM EDT Office Visit [facility] [address] [place] [address], 8th Floor, [address] [place] [address] Molly Sofia, OUTDOOR ADVENTURE LEADER 15 [facility], 2nd [place] [address] documented as of this encounter Visit Diagnoses Not on filedocumented in this encounter Additional Health Concerns Assessment Noted Time PHQ-9 Depression Total Score: 17 022 11:17 AM EDT PHQ-2 Depression Total Score: 3 12/12/19 22 11:17 AM EDT documented as of this encounter Care Teams Parquetry Layer Relationship Specialty Start Date End Date Lola Bermudez PA 70 [place] [address] PCP - General 03/20/17 07/23/23 Gabo Bermudez MD 70 [place] [address] PCP - General Family Medicine 07/24/23 04/21/24 Lola Bermudez PA 70 [place] [address] PCP - General Physician Men'S And Boys' Clothing Salesperson 04/22/24 Nicole Ortiz, VARUN [address] [place] [address] PHCM Pig Caster 04/22/24 Marta Wang [address] [place] [address] [email or web address] PHCM Community Manuscripts Curator 05/07/24 05/07/24 Gabo Bermudez MD [address] [place] [address] Insurance Assigned Provider 01/29/25 Austyn Ngo LICSW [address] [place] [address] PHCM Latin Dance Instructor 01/18/25 Kar Reeder [address] [place] [address] Latin Dance Instructor 01/19/25 01/19/25 documented as of this encounter Additional Source Comments The information contained in this document represents components of the legal health record. It is not the complete legal health record.[facility]
--- OUTSIDE RECORDS SUMMARY | 2025-03-07 16:52 | XMS_ITS | Encounter Summary ---
Author Organization [facility] Address [address] [place] [address] Phone Care Team Providers Care Ice Scraper Name Role Phone Lola Bermudez Primary Care Provider Gabo Bermudez MD Primary Care Provider [phone] Lola Bermudez Primary Care Provider Nicole Ortiz RN Unavailable Marta Wang Unavailable [email or web address] Gabo Bermudez MD Unavailable [phone] Austyn Ngo Unavailable [phone] Kar Reeder Unavailable Encounter Details Date Type Department Care Team (Late st Contact Info) Description 12/28/2021 Prep for Surgery [facility] Orthopedics and Sports Medicine Clinic [address] [place] [address] Sherly Salmeron MD [address] [place] [address] Orthopedics & Sports Medicine, [facility] [place] [address] [email or web address] Social History Tobacco Use [...] Description 03/16/2025 10:15 AM EST Office Visit [facility] Physical Therapy Clinic [address] [place] [address] Jun Stinson, CONRAD 70 [place] [address] Minerva Cade, PT 8 [place] [address] 03/21/2025 1:00 PM EST Office Visit [facility] Surgery Clinic 15 [place] [address] Isabell Valenzuela MD 15 [facility], 2nd [place] [address] 03/23/2025 12:45 PM EST Office Visit [facility] Physical Therapy Clinic [address] [place] [address] Jun Stinson, CONRAD [address] [place] [address] Minerva Cade, PT 8 [place] [address] 03/28/2025 12:45 PM EST Office Visit [facility] Physical Therapy Clinic [address] [place] [address] Jun Stinson, CONRAD [address] [place] [address] Minerva Cade, PT 8 [place] [address] 04/01/2025 12:45 PM EST Office Visit [facility] Physical Therapy Clinic [address] [place] [address] Jun Stinson, PARACHUTIST/COMBATANT DIVER QUALIFIED 70 [place] [address] Minerva Cade, PT 8 [place] [address] 04/04/2025 12:45 PM EST Office Visit [facility] Physical Therapy Clinic [address] [place] [address] Jun Stinson, PARACHUTIST/COMBATANT DIVER QUALIFIED 70 [place] [address] Minerva Cade, PT 8 [place] [address] 04/05/2025 11:30 AM EST Office Visit [facility] Infectious Diseases Clinic 22 [place] [address] Molly Sofia, HOSPITAL TRAY SERVICE WORKER 15 [facility], 2nd [place] [address] 04/08/2025 12:45 PM EST Office Visit [facility] Physical Therapy Clinic [address] [place] [address] Jun Stinson, PARACHUTIST/COMBATANT DIVER QUALIFIED 70 [place] [address] Minerva Cade, PT 8 [place] [address] 04/11/2025 12:45 PM EST Office Visit [facility] [address] [place] [address] Jun Stinson, CONRAD [address] [place] [address] Minerva Cade, PT 8 [place] [address] 04/15/2025 12:45 PM EST Office Visit [facility] [address] [place] [address] Jun Stinson, CONRAD 70 [place] [address] Minerva Cade, PT 8 [place] [address] 08/17/2025 10:00 AM EDT Office Visit [facility] Behavioral Neurology and Integrated Brain Medicine Clinic 55 [facility], 8th Floor, [address] [place] [address] Molly Sofia, HOSPITAL TRAY SERVICE WORKER 15 [facility], 2nd [place] [address] documented as of this encounter Visit Diagnoses Not on filedocumented in this encounter Additional Health Concerns Assessment Noted Time PHQ-9 Depression Total Score: 17 022 11:17 AM EDT PHQ-2 Depression Total Score: 3 12/12/19 22 11:17 AM EDT documented as of this encounter Care Teams Ice Scraper Relationship Specialty Start Date End Date Lola Bermudez PA [address] [place] [phone] PCP - General 03/20/17 07/23/23 Gabo Bermudez MD [address] [place] [address] PCP - General Family Medicine 07/24/23 04/21/24 Lola Bermudez PA [address] [place] [phone] PCP - General Physician Gem Expert 04/22/24 Nicole Ortiz, VARUN [address] [place] [address] PHCM Mill Set Up 04/22/24 Marta Wang [address] [place] [address] [email or web address] PHC Community Conduit Worker 05/07/24 05/07/24 Gabo Bermudez MD [address] [place] [address] Insurance Assigned Provider 01/29/25 Austyn Ngo LICSW [address] [place] [address] PHCM Fagot Heater 01/18/25 Kar Reeder [address] [place] [address] Fagot Heater 01/19/25 01/19/25 documented as of this encounter Additional Source Comments The information contained in this document represents components of the legal health record. It is not the complete legal health record.[facility]
--- OUTSIDE RECORDS SUMMARY | 2025-03-07 16:52 | XMS_ITS | Encounter Summary ---
Author Organization [facility] Address [address] [place] [address] Phone Care Team Providers Care Felt Strip Finisher Name Role Phone Lola Bermudez Primary Care Provider [phone] Nicole Ortiz RN Unavailable aGbo Bermudez MD Unavailable Austyn Ngo Unavailable [phone] Kar Reeder Unavailable Encounter Details Date Type Department Care Team (Late st Contact Info) Description 06/09/2024 Procedure Pass OR Admitting Dept - Virtual Department 30 [place] [address] Social History Tobacco Use Types Packs/Day Years [...] Description 03/16/2025 10:15 AM EST Office Visit [facility] Physical Therapy Clinic 8 [place] [address] Jun Stinson, CONRAD 70 [place] [address] Minerva Cade, PT 8 [place] [address] 03/21/2025 1:00 PM EST Office Visit [facility] General Surgery Clinic 15 [place] [address] Isabell Valenzuela MD 15 [facility], 2nd [place] [address] 03/23/2025 12:45 PM EST Office Visit [facility] Physical Therapy Clinic [address] [place] [address] Jun Stinson, CONRAD 70 [place] [address] Minerva Cade, PT 8 [place] [address] 03/28/2025 12:45 PM EST Office Visit [facility] 8 [place] [address] Jun Stinson, CONRAD 70 [place] [address] Minerva Cade, PT 8 [place] [address] 04/01/2025 12:45 PM EST Office Visit [facility] [address] [place] [address] Jun Stinson, CONRAD 70 [place] [address] Minerva Cade, PT 8 [place] [address] 04/04/2025 12:45 PM EST Office Visit [facility] 8 [place] [address] Jun Stinson, CONRAD 70 [place] [address] Minerva Cade, PT 8 [place] [address] 04/05/2025 11:30 AM EST Office Visit [facility] Infectious Diseases Clinic [address] [place] [address] Molly Sofia, MEASUREMENT PSYCHOLOGIST 15 [facility], 2nd [place] [address] 04/08/2025 12:45 PM EST Office Visit [facility] [address] [place] [address] Jun Stinson, CONRAD 70 [place] [address] Minerva Cade, PT 8 [place] [address] 04/11/2025 12:45 PM EST Office Visit [facility] [address] [place] [address] Jun Stinson, CONRAD 70 [place] [address] Minerva Cade, PT 8 [place] [address] 04/15/2025 12:45 PM EST Office Visit [facility] 8 [place] [address] Jun Stinson, CONRAD 70 [place] [address] Minerva Cade, PT 8 [place] [address] 08/17/2025 10:00 AM EDT Office Visit [facility] Behavioral Neurology and Integrated Brain Medicine Clinic 55 [facility], 8th Floor, [address] [place] [address] Molly Sofia, MEASUREMENT PSYCHOLOGIST 15 [facility], 2nd [place] [address] documented as of this encounter Visit Diagnoses Not on filedocumented in this encounter Additional Health Concerns Assessment Noted Time PHQ-9 Depression Total Score: 18 025 11:59 AM EST PHQ-2 Depression Total Score: 6 03/19/19 25 11:59 AM EST documented as of this encounter Care Teams Felt Strip Finisher Relationship Specialty Start Date End Date Lola Bermudez PA 70 [place] [address] PCP - General Physician Reservations Clerk 04/22/24 Nicole Ortiz, VARUN 10 [place] [address] PHCM Brush Operator 04/22/24 Gbao Bermudez MD 70 [place] [address] Insurance Assigned Provider 01/29/25 Austyn Ngo LICSW 10 [place] [address] PHC Airplane Electrical Repairer 01/18/25 Kar Reeder [address] [place] [address] Airplane Electrical Repairer 01/19/25 01/19/25 documented as of this encounter Additional Source Comments The information contained in this document represents components of the legal health record. It is not the complete legal health record.[facility]
--- OUTSIDE RECORDS SUMMARY | 2025-03-07 16:52 | XMS_ITS | Encounter Summary ---
Author Organization [facility] Address [address] [place] [address] Phone Care Team Providers Care Safety Instructor Name Role Phone Lola Bermudez Primary Care Provider [phone] Nicole Ortiz RN Unavailable Gabo Bermudez MD Unavailable [phone] Austyn Ngo PERIANESTHESIA MANAGER Unavailable [phone] Reason for Visit * Reason Onset Date Comments iCMP Care Plan Update 03/07/2025 CARE Kalyan ss Care Plan Update attempt Encounter Details Date Type Department Care Team (Late st Contact Info) Description 03/07/2025 Patient Outreach [facility] Physicians Primary Care [address] [place] [address] Austyn Ngo LICSW [address] [place] [address] [email or web address] iCM Care Plan Update (CARE Compass Care Plan Update attempt) Social History Tobacco Use Types Packs/Day Years [...] on file documented as of this encounter Miscellaneous Notes * Plan of Care - Austyn Ngo LICSW - 03/07/2025 3:50 PM EST SONDRA Compass Social Work Progress Note Note Subject: [facility] Progress Note 03/07/2025 PLAN/INTERVENTIONS: SW hasn't heard back from last attempt to reach patient. SW called but was unable to reach patient and left voicemail. FOLLOW-UP OUTREACH: SW will try calling patient again in 4 weeks if no response by then. Contact method: Phone outreach SHREYA Ribeiro CARE Compass, Social Work, Front Sight Attacher documented in this encounter Plan of Treatment Upcoming Encounters Date Type Department Care Team (Late st Contact Info) Description 03/16/2025 10:15 AM EST Office Visit [facility] [address] [place] [address] Jun Stinson, CONRAD 70 [place] [address] Minerva Cade, PT 8 [place] [address] 03/21/2025 1:00 PM EST Office Visit [facility] Surgery Clinic 15 [place] [address] Isabell Valenzuela MD 15 [facility], 2nd [place] [address] 03/23/2025 12:45 PM EST Office Visit [facility] 8 [place] [address] Jun Stinson, EBD TEACHER 70 [place] [phone] Minerva Cade, PT 8 [place] [address] 03/28/2025 12:45 PM EST Office Visit [facility] [address] [place] [address] Jun Stinson, EBD TEACHER 70 [place] [address] Minerva Cade, PT 8 [place] [address] 04/01/2025 12:45 PM EST Office Visit [facility] [address] [place] [address] Jun Stinson, EBD TEACHER 70 [place] [address] Minerva Cade, PT 8 [place] [address] 04/04/2025 12:45 PM EST Office Visit [facility] Physical Therapy Clinic [address] [place] [address] Jun Stinson, EBD TEACHER 70 [place] [address] Minerva Cade, PT 8 [place] [address] 04/05/2025 11:30 AM EST Office Visit [facility] Infectious Diseases Clinic [address] [place] [address] Molly Sofia, UNIVERSITY RELATIONS VICE PRESIDENT 15 [facility], 2nd [place] [address] 04/08/2025 12:45 PM EST Office Visit [facility] Physical Therapy Clinic [address] [place] [address] Jun Stinson, EBD TEACHER 70 [place] [address] Minerva Cade, PT 8 [place] [address] 04/11/2025 12:45 PM EST Office Visit [facility] Physical Therapy Clinic [address] [place] [address] Jun Stinson, EBD TEACHER 70 [place] [address] Minerva Cade, PT 8 [place] [address] 04/15/2025 12:45 PM EST Office Visit [facility] Physical Therapy Clinic 8 [place] [address] Jun Stinson, CONRAD 70 [place] [address] Minerva Cade, PT 8 [place] [address] 08/17/2025 10:00 AM EDT Office Visit [facility] Neurology and Integrated Brain Medicine Clinic 55 [facility], 8th Floor, [address] [place] [address] Molly Sofia FNP 15 [facility], 2nd [place] [address] documented as of this encounter Visit Diagnoses Not on filedocumented in this encounter Additional Health Concerns Assessment Noted Time PHQ-9 Depression Total Score: 18 025 11:59 AM EST PHQ-2 Depression Total Score: 6 03/19/19 25 11:59 AM EST documented as of this encounter Care Teams Safety Instructor Relationship Specialty Start Date End Date Lola Bermudez PA [address] [place] [phone] PCP - General Physician Supervisor Publications Production 04/22/24 Nicole Ortiz, VARUN [address] [place] [address] PHCM Front Sight Attacher 04/22/24 Gabo Bermudez MD [address] [place] [address] Insurance Assigned Provider 01/29/25 Austyn Ngo LICSW 10 [place] [address] PHCM Cup Machine Operator 01/18/25 documented as of this encounter Additional Source Comments The information contained in this document represents components of the legal health record. It is not the complete legal health record.[facility]
--- OUTSIDE RECORDS SUMMARY | 2025-03-07 16:52 | XMS_ITS | Encounter Summary ---
Author Organization [facility] Address [address] [place] [address] Phone Care Team Providers Care Train Planner Name Role Phone Lola Bermudez Unavailable [phone] Dominga Sosa MD Unavailable [phone] Destiney Slater MD Unavailable [phone] Jules Farr MD Unavailable [phone] Claude Roberson CNP Unavailable [phone] Alex Harris MD Unavailable [phone] Lola Bermudez Primary Care Provider [phone] Gabo Bermudez MD Primary Care Provider [phone] Lola Bermudez Primary Care Provider [phone] Nicole Ortiz RN Unavailable Marta Wang Unavailable sandra Gabo Bermudez MD Unavailable [phone] Austyn Ngo Unavailable [phone] Kar Reeder Unavailable Reason for Referral * Consultation (Elective) - Closed Specialty Diagnoses / Procedures Referred By Contac t Referred To Contact Diagnoses Sleep apnea, unspecified type Lola Bermudez PA Phone: tel: fax: [facility] [address] [place] [address] Phone: tel: Referral ID Status Reason Start Date Expiration Date Visits Re quested Visits Authorized [id number] Closed 01/19/2021 01/19/2022 1 1 Encounter Details Date Type Department Care Team (Latest Contact Info) Description 01/19/2021 Transcribe Orders [facility] [address] [facility] 3rd Floor, [address] [place] [address] Boyd Lacey MD 22 [facility], [address] [address] [email or web address] Sleep apnea, unspecified type (Primary [...] Description 03/16/2025 10:15 AM EST Office Visit [facility] [address] [place] [address] Jun Stinson, COUNSELING SERVICES DIRECTOR [address] [place] [address] Minerva Cade, PT [address] [place] [address] 03/21/2025 1:00 PM EST Office Visit [facility] [address] [place] [address] Isabell Valenzuela MD 15 [facility], 2nd [place] [address] 03/23/2025 12:45 PM EST Office Visit [facility] [address] [place] [address] Jun Stinson, CONRAD [address] [place] [address] Minerva Cade, PT [address] [place] [address] 03/28/2025 12:45 PM EST Office Visit [facility] [address] [place] [address] Jun Stinson, COUNSELING SERVICES DIRECTOR [address] [place] [address] Minerva Cade, PT [address] [place] [address] 04/01/2025 12:45 PM EST Office Visit [facility] [address] [place] [address] Jun Stinson, CONRAD [address] [place] [address] Minerva Cade, PT [address] [place] [address] 04/04/2025 12:45 PM EST Office Visit [facility] [address] [place] [address] Jun Stinson, CONRAD [address] [place] [address] Minerva Cade, PT [address] [place] [address] 04/05/2025 11:30 AM EST Office Visit [facility] [address] [place] [address] Molly Sofia, VACUUM FORMING MACHINE OPERATOR 15 [facility], 2nd [place] [address] 04/08/2025 12:45 PM EST Office Visit [facility] [address] [place] [address] Jun Stinson, COUNSELING SERVICES DIRECTOR [address] [place] [phone] Minerva Cade, PT [address] [place] [address] 04/11/2025 12:45 PM EST Office Visit [facility] [address] [place] [address] Jun Stinson, COUNSELING SERVICES DIRECTOR [address] [place] [phone] Minerva Cade, PT [address] [place] [address] 04/15/2025 12:45 PM EST Office Visit [facility] [address] [place] [address] Jun Stinson, COUNSELING SERVICES DIRECTOR [address] [place] [phone] Minerva Cade, PT [address] [place] [address] 08/17/2025 10:00 AM EDT Office Visit [facility] [address] [facility], 8th Floor, [address] [place] [address] Molly Sofia, VACUUM FORMING MACHINE OPERATOR 15 [facility], 2nd [place] [address] Scheduled Referrals Name Type Priority Associated Diagnoses Orde r Schedule Ambulatory referral to [facility] Sleep Medicine Outpatient Referral Routine Sleep apnea, unspecified type Ordered: 01/19/2021 documented as of this encounter Visit Diagnoses Diagnosis Sleep apnea, unspecified type- Primary documented in this encounter Care Teams Train Planner Relationship Specialty Start Date End Date Lola Bermudez PA [address] [place] [address] PCP - General 03/20/17 07/23/23 Gabo Bermudez MD [address] [place] [address] PCP - General Family Medicine 07/24/23 04/21/24 Lola Bermudez PA [address] [place] [phone] PCP - General Physician Lead Quality Technician 04/22/24 Lola Bermudez PA [address] [place] [address] Historical LMR Provider 12/31/16 2 Dominga Sosa MD 22 [facility], [address] [place] [address] [email or web address] Historical LMR Provider 12/31/16 03/24/21 Destiney Slater MD [address] [place] [address] Historical LMR Provider 12/31/16 Jules Farr MD [address] [place] [address], [address] [place] [address] Historical LMR Provider 12/31/16 03/24/21 Claude Roberson CNP [address] [place] [address] Historical LMR Provider 12/31/16 03/24/21 Alex Harris MD [address] [place] [address] Historical LMR Provider 12/31/16 Nicole Diez RN [address] [place] [address] [employer] Computing Tutor 04/22/24 Marta Wang [address] [place] [address] [email or web address] PHCM Community Exchange Mechanic 05/07/24 05/07/24 Gabo Bermudez MD [address] [place] [address] Insurance Assigned Provider 01/29/25 Austyn Ngo LICSW [address] [place] [address] PHCM Care Transitions Manager 01/18/25 Kar Reeder [address] [place] [address] [email or web address] Care Transitions Manager 01/19/25 01/19/25 documented as of this encounter Additional Source Comments The information contained in this document represents components of the legal health record. It is not the complete legal health record.[facility]
== END 2025-03-07 13:27 | disposition home or self-care (01) ==
LOC: HO.MAMMO 13:26
PROVIDERS: PCP Family Medicine; Visit Provider Family Medicine
DX: Z12.31 Encounter for screening mammogram for malignant neoplasm of breast (principal)
CPT/HCPCS: 77063; 77067

== ENCOUNTER → 2025-03-07 13:30 | Outpatient (BNV) | payer MEDICAID, SELFPAY | PROVIDERS: PCP Family Medicine; Visit Provider Internal Medicine | DX: Z12.31 Encounter for screening mammogram for malignant neoplasm of breast (principal) | CPT/HCPCS: 77063; 77067 ==